=== PATIENT | male | born 1945 | race Caucasian/White ===

== ENCOUNTER 2018-11-14 11:52 | Emergency (ER) | payer MEDICARE ==
--- OUTSIDE RECORDS SUMMARY | 2018-11-14 12:02 | XMS REPORT | Continuity of Care Document ---
:1945 External Reference #:[id number] Author Name Arlette Vargas N.P. Address [address] [place] [id number] Care Team Providers Name Role Phone Arlette Vargas N.P. Care Team Information [employer] Unavailable Payers Date Identification Numbers Payment Provider Subscriber Policy Number: [id number] [facility] Medicare [employer] Number: [id number] [address] [address] PayID: [id number] [facility] [address] Expires: 2008 Policy Number: [id number] [facility] [address] [employer] Group Number: [id number] [address] [address] PayID: [id number] [place] [address] Problems Active Problems Provider Date Benign essential hypertension Onset: 09/30/2009 Pure hypercholesterolemia Onset: 09/30/2009 Chronic obstructive lung disease Arlette Vargas N.Eric Onset: 02/01/2015 Family History Date Family Member(s) Observation Comments Father due to Old Age () Mother due to Cancer, Skin () First Brother due to Diabetes () Second Brother Good Health Social History Type Date Description Comments Sex Unknown Marital Status Lives With Spouse Occupation [employer] Tobacco Use Start: Unknown Current Cigarette Smoker 1 1/2 Packs Daily ETOH Use Consumes 2 six packs of beer per day Tobacco Use Start: Unknown Patient is a current smoker, smokes every day Smoking Status Reviewed: 07/19/18 Patient is a current smoker, smokes every day Allergies, Adverse Reactions, Alerts Description No Known Drug Allergies Medications Active Medications SIG Qnty Indications Ordering Provider Date Aspirin 1 po qd Arlette Vargas, 04/19/[address] N.PMerle Losartan Take One Tablet 90tabs Arlette Vargas, 01/18/2018 Potassium/Hydrochloro By Mouth Every N.P. thiazide Day 100-12.5mg Tablets Meloxicam Take One Tablet 90tabs Sam [facility], 10/19/2017 15mg Tablets By Mouth Every N.P. Day Spiriva Respimat inhale two puffs 12gm [facility], 04/20/2017 by mouth every N.P. 2.5mcg/Act Aerosol day Simvastatin Take One Tablet 90tabs Sam, [facility], 04/30/2014 20mg By Mouth Every N.P. Tablets Day History Medications Valsartan-Hydrochlorothiazide Take One Tablet 90tabs Sam, 04/20/2017 - 160-12.5mg Tablets By Mouth Every [facility], 01/18/2018 Day N.P. Valsartan/Hydrochlorothiazide take one tablet 90tabs Sam, 01/18/2017 - 160-12.5 Tablets by mouth every [facility], 04/20/2017 day N.P. Tramadol HCL 1 by mouth 30tabs [facility], 01/30/2016 - 50mg Tablets every 8h as [facility], 05/04/2016 needed pain N.P. Spiriva Handihaler inhale the 30caps [facility], 02/01/2015 - 18mcg Capsules contents of one [facility]04/20/2017 capsule via N.P. handihaler by mouth every day Diovan HCT take one tablet 90bs Sam, 05/18/2014 - 160-12.5mg Tablets by mouth every [facility], 01/18/2017 day N.P. Losartan 1 by mouth 90bs [facility], 04/30/2014 - Potassium/Hydrochlorothiazide every day [facility], 05/18/2014 50-12.5mg Tablets N.P. Losartan Potassium 1 by mouth 90tabs [facility], 11/01/2013 - 50mg Tablets every day [facility], 04/30/2014 N.P. Fluocinonide apply sparingly 60gm Sam, 04/27/2013 - 0.05% Cream to itchy rash [facility], 11/01/2014 three times a N.P. day Medrol Dosepak as directed 1PK [facility], 04/27/2013 - 4mg Tablets [facility], 07/31/2013 N.P. Zostavax 0.65ml sq .65ml [facility], 03/01/2013 - [id number]/0.65ML Solution Rec [facility], 04/27/2013 N.P. Crestor 10mg 1 by mouth 90tabs Sam, 10/14/2009 - Tablets every day [facility], 04/30/2014 N.P. Benicar 40mg 1 po qd 90tabs [facility], 10/14/2009 - Tablets [facility], 11/01/2013 N.P. Spiriva Handihaler 1 inhale qd 90caps [facility], 09/30/2009 - 18mcg Capsules [facility], 11/01/2014 N.P. Micardis 80mg 1 po qd 30tabs [facility], 11/08/2008 - Tablets [facility], 10/14/2009 N.P. Heather 5-40mg 1 po qd 30tabs [facility], 11/01/2007 - Tablets [facility], 10/14/2009 N.P. Zestoretic 1 PO qd 30tabs [facility], 10/03/2007 - 20-12.5 Tablets [facility], 10/03/2007 N.P. Zestril 40mg 1 po qd 30tabs [facility], 10/03/2007 - Tablets [facility], 11/01/2007 N.P. Zestoretic 1 po qd 30tabs [facility], 09/02/2007 - 20-12.5 Tablets [facility], 10/03/2007 N.P. Zestoretic 1 po qd 30tabs [facility], 08/19/2007 - 20-12.5 Tablets [facility], 09/02/2007 N.P. Immunizations CPT Code Status Date Vaccine Lot # [id number] Given 04/19/2018 Influenza Vac, Quadrivalent, Split, 0.5mL Dosage, [id number] Im Use 25567 Given 04/20/2017 Influenza Vac, Quadrivalent, Split, 0.5mL Dosage, [id number] Im Use 99196 Given 07/21/2016 Prevnar 13 Pneumococal Conjugate Vaccine [id number] 06003 Given 04/13/2016 Influenza Vaccine,Quadrivalent,SplitVirus,Pres Free, Intradermal 53324 Given 04/08/2015 Influenza Vac, Quadrivalent, Split, 0.5mL Dosage, [id number] Im Use 97059 Given 05/12/2013 Tdap (Boostrix)tetanus, diptheria toxoid & [id number] acellular pertussis 29927 Given 04/27/2013 Pneumococcal 23 Immunization Adult Or [id number] Immunosuppressed Patient Q2038 Given 03/01/2013 Fluzone Trivalent Immunization Q2038 Given 03/01/2013 Fluzone Trivalent Immunization [id number] 49842 Given 03/01/2013 Zoster (Zostavax) Q2038 Given 04/27/2011 Fluzone Trivalent Immunization [id number] 36558 Given 03/11/2010 Afluria Or Fluvirin Flu Vac Intramuscular [id number] 07092 Given 12/03/1999 Immunization Td 7 Yrs Or Older 31433 Refused 03/27/2018 Influenza Vac, Quadrivalent, Split, 0.5mL Dosage, Im Use Vital Signs Date Vital Result Comment 10/17/2018 8:58am Body Temperature 98.6 F Weight 167.38 lb Heart Rate 69 /min BP Systolic 142 mmHg BP Diastolic 80 mmHg Height 69 inches 5'9" O2 % BldC Oximetry 95 % BMI (Body Mass Index) 24.7 kg/m2 07/19/2018 9:04am Body Temperature 98.4 F Weight 169.00 lb Heart Rate 70 /min BP Systolic 160 mmHg Manual BP Diastolic 88 mmHg Manual Height 70 inches 5'10" BMI (Body Mass Index) 24.2 kg/m2 04/19/2018 8:58am Body Temperature 97.5 F Weight 165.00 lb Heart Rate 66 /min BP Systolic 138 mmHg BP Diastolic 76 mmHg O2 % BldC Oximetry 94 % 01/18/2018 8:51am Body Temperature 98.1 F Weight 163.00 lb Heart Rate 70 /min BP Systolic 140 mmHg BP Diastolic 80 mmHg O2 % BldC Oximetry 97 % 10/19/2017 8:54am Body Temperature 98.1 F Weight 165.00 lb Heart Rate 61 /min BP Systolic 139 mmHg BP Diastolic 82 mmHg O2 % BldC Oximetry 96 % 07/20/2017 8:25am Body Temperature 98.6 F Weight 166.00 lb Heart Rate 70 /min BP Systolic 136 mmHg BP Diastolic 70 mmHg Height 70 inches 5'10" O2 % BldC Oximetry 97 % BMI (Body Mass Index) 23.8 kg/m2 04/20/2017 8:12am Body Temperature 98.2 F Weight 170.25 lb Heart Rate 67 /min BP Systolic 132 mmHg BP Diastolic 82 mmHg O2 % BldC Oximetry 93 % 01/18/2017 8:03am Body Temperature 98.1 F Weight 164.38 lb Heart Rate 70 /min BP Systolic 153 mmHg BP Diastolic 81 mmHg O2 % BldC Oximetry 96 % 10/15/2016 8:00am Body Temperature 98.2 F Weight 177.12 lb Heart Rate 73 /min BP Systolic 174 mmHg BP Diastolic 93 mmHg O2 % BldC Oximetry 94 % 07/21/2016 8:07am Body Temperature 98.4 F Weight 177.38 lb Heart Rate 65 /min BP Systolic 166 mmHg BP Diastolic 82 mmHg Height 70 inches 5'10" O2 % BldC Oximetry 97 % BMI (Body Mass Index) 25.4 kg/m2 05/04/2016 8:09am Body Temperature 98.8 F Weight 176.38 lb Heart Rate 69 /min BP Systolic 180 mmHg BP Diastolic 94 mmHg O2 % BldC Oximetry 96 % 01/30/2016 8:26am Body Temperature 97.9 F Weight 175.12 lb Heart Rate 68 /min BP Systolic 153 mmHg BP Diastolic 83 mmHg O2 % BldC Oximetry 97 % 10/31/2015 8:26am Body Temperature 98.8 F Weight 183.00 lb Heart Rate 89 /min BP Systolic 170 mmHg BP Diastolic 86 mmHg O2 % BldC Oximetry 93 % 07/29/2015 8:27am Body Temperature 98.4 F Weight 183.19 lb Heart Rate 71 /min BP Systolic 152 mmHg BP Diastolic 79 mmHg O2 % BldC Oximetry 95 % 04/29/2015 8:22am Body Temperature 97.5 F Weight 179.12 lb Heart Rate 64 /min BP Systolic 155 mmHg BP Diastolic 80 mmHg O2 % BldC Oximetry 97 % 02/01/2015 8:16am Body Temperature 97.9 F Weight 177.12 lb Heart Rate 76 /min BP Systolic 159 mmHg BP Diastolic 86 mmHg O2 % BldC Oximetry 93 % O2 Saturation Level with Exercise 86 % 11/01/2014 7:56am Body Temperature 98.1 F Weight 180.00 lb Heart Rate 58 /min BP Systolic 162 mmHg BP Diastolic 75 mmHg O2 % BldC Oximetry 96 % 07/30/2014 8:08am Body Temperature 97.5 F Weight 183.00 lb Heart Rate 64 /min BP Systolic 160 mmHg BP Diastolic 73 mmHg O2 % BldC Oximetry 98 % 05/18/2014 9:25am Weight 177.50 lb Heart Rate 63 /min BP Systolic 176 mmHg BP Diastolic 83 mmHg O2 % BldC Oximetry 96 % 04/30/2014 8:22am Body Temperature 98.2 F Weight 179.12 lb Heart Rate 72 /min BP Systolic 159 mmHg BP Diastolic 95 mmHg O2 % BldC Oximetry 93 % 01/31/2014 8:14am Body Temperature 98.2 F Weight 180.12 lb Heart Rate 63 /min BP Systolic 159 mmHg BP Diastolic 74 mmHg O2 % BldC Oximetry 96 % 11/01/2013 8:18am Body Temperature 98.1 F Weight 188.25 lb Heart Rate 68 /min BP Systolic 150 mmHg BP Diastolic 90 mmHg O2 % BldC Oximetry 96 % 07/31/2013 8:22am Body Temperature 98.0 F Weight 188.00 lb Heart Rate 66 /min BP Systolic 142 mmHg BP Diastolic 80 mmHg O2 % BldC Oximetry 95 % 04/27/2013 8:13am Body Temperature 98.2 F Weight 181.50 lb Heart Rate 63 /min BP Systolic 142 mmHg BP Diastolic 90 mmHg O2 % BldC Oximetry 96 % 01/26/2013 8:30am Body Temperature 96.0 F Weight 176.00 lb Heart Rate 68 /min BP Systolic 142 mmHg BP Diastolic 80 mmHg O2 % BldC Oximetry 97 % 10/26/2012 8:08am Body Temperature 98.3 F Weight 182.38 lb Heart Rate 65 /min BP Systolic 150 mmHg BP Diastolic 82 mmHg O2 % BldC Oximetry 95 % 06/15/2012 9:17am Body Temperature 98.2 F Weight 180.12 lb Heart Rate 62 /min BP Systolic 128 mmHg BP Diastolic 80 mmHg O2 % BldC Oximetry 97 % 04/27/2011 10:53am Body Temperature 98.2 F Weight 162.00 lb Heart Rate 66 /min BP Systolic 145 mmHg BP Diastolic 85 mmHg O2 % BldC Oximetry 97 % 12/18/2010 8:34am Body Temperature 97.9 F Weight 161.00 lb Heart Rate 58 /min BP Systolic 120 mmHg BP Diastolic 60 mmHg Height 70 inches 5'10" O2 % BldC Oximetry 96 % BMI (Body Mass Index) 23.1 kg/m2 09/30/2010 9:08am Weight 172.00 lb Heart Rate 67 /min BP Systolic 130 mmHg BP Diastolic 80 mmHg O2 % BldC Oximetry 96 % 03/11/2010 10:14am Body Temperature 98.3 F Weight 170.00 lb Heart Rate 63 /min BP Systolic 110 mmHg BP Diastolic 80 mmHg O2 % BldC Oximetry 94 % 11/11/2009 9:40am Body Temperature 98.2 F Weight 181.00 lb Heart Rate 60 /min BP Systolic 142 mmHg BP Diastolic 80 mmHg Height 70 inches 5'10" O2 % BldC Oximetry 96 % BMI (Body Mass Index) 26.0 kg/m2 10/14/2009 9:46am Body Temperature 98.0 F Weight 179.00 lb Heart Rate 52 /min BP Systolic 140 mmHg BP Diastolic 90 mmHg Height 70 inches 5'10" O2 % BldC Oximetry 96 % BMI (Body Mass Index) 25.7 kg/m2 09/30/2009 9:57am Body Temperature 98.1 F Weight 179.00 lb Heart Rate 80 /min BP Systolic 142 mmHg BP Diastolic 78 mmHg 02/22/2009 9:47am Body Temperature 97.9 F Weight 184.00 lb Heart Rate 88 /min BP Systolic 144 mmHg BP Diastolic 90 mmHg 11/22/2008 9:43am Body Temperature 98.0 F Weight 189.00 lb Heart Rate 58 /min BP Systolic 128 mmHg BP Diastolic 78 mmHg Height 70 inches 5'10" O2 % BldC Oximetry 91 % BMI (Body Mass Index) 27.1 kg/m2 11/08/2008 9:35am Body Temperature 97.9 F Weight 193.00 lb Heart Rate 54 /min BP Systolic 160 mmHg BP Diastolic 90 mmHg 06/12/2008 2:34pm Body Temperature 98.4 F Weight 188.00 lb Heart Rate 61 /min BP Systolic 134 mmHg BP Diastolic 88 mmHg Height 70 inches 5'10" O2 % BldC Oximetry 96 % BMI (Body Mass Index) 27.0 kg/m2 02/16/2008 9:12am Body Temperature 98.0 F Weight 179.00 lb Heart Rate 58 /min BP Systolic 140 mmHg BP Diastolic 80 mmHg Height 70 inches 5'10" BMI (Body Mass Index) 25.7 kg/m2 11/15/2007 9:04am Body Temperature 98.1 F Weight 180.00 lb Heart Rate 64 /min BP Systolic 136 mmHg BP Diastolic 72 mmHg Height 70 inches 5'10" BMI (Body Mass Index) 25.8 kg/m2 11/01/2007 8:04am Body Temperature 98.5 F Weight 190.00 lb Heart Rate 68 /min BP Systolic 174 mmHg BP Diastolic 94 mmHg Height 70 inches 5'10" BMI (Body Mass Index) 27.3 kg/m2 10/03/2007 8:53am Body Temperature 98.1 F Weight 189.00 lb Heart Rate 72 /min BP Systolic 154 mmHg BP Diastolic 96 mmHg Height 70 inches 5'10" BMI (Body Mass Index) 27.1 kg/m2 09/02/2007 8:56am Weight 194.00 lb Heart Rate 68 /min BP Systolic 165 mmHg BP Diastolic 89 mmHg Height 70 inches 5'10" BMI (Body Mass Index) 27.8 kg/m2 08/19/2007 8:38am Body Temperature 98.2 F Weight 193.00 lb Heart Rate 62 /min BP Systolic 178 mmHg BP Diastolic 100 mmHg Height 70 inches 5'10" BMI (Body Mass Index) 27.7 kg/m2 Results Test Date Facility Test Result H/L Range Note Comprehensive Met Panel-[facility] 10/17/2018 [facility] Sodium 133 mmol/L Low 135 -146 1, 2 Potassium 4.8 mmol/L 3.5-5.2 Chloride# 95 mmol/L Low 97-110 3 Carbon Dioxide 31 mmol/L 24-34 Calcium 9.7 mg/dL 8.5-10.5 4 Glucose 99 mg/dL 70-105 BUN 9 mg/dL 6-26 Creatinine 0.6 mg/dL 0.5-1.4 Total Protein 6.1 g/dL 6.0-8.0 Albumin 4.2 g/dL 3.6-4.9 Globulin 1.9 g/dL Low 2.0-3.5 A/G Ratio 2.2 Ratio 1.0-2.2 Total Bilirubin 0.6 mg/dL 0.1-1.3 Alkaline Phosphatase 122 U/L 24-140 Alt 10 U/L 3-42 Ast 17 U/L 8-42 Anion Gap 7 mmol/L 5-15 5 Female Egfr 88 >60 6 Male Egfr 97 >60 7 Lipid 10/17/2018 [facility] Cholesterol 214 mg/dL High 50-199 Triglycerides 44 mg/dL 30-200 HDL 108 mg/dL High 29-71 8 Chol/ HDL Ratio 2.0 ratio Low 4.0-6.7 VLDL 9 mg/dL 2-29 LDL (Calc) 97 mg/dL 20-99 9 Laboratory test finding 04/19/2018 [facility] PSA 3.130 ng/mL 0.000-4.000 10 Comprehensive Met Panel-[facility] 04/19/2018 [facility] Sodium 133 mmol/L Low 135 -146 11 Potassium 4.4 mmol/L 3.5-5.2 Chloride# 94 mmol/L Low 97-110 12 Carbon Dioxide 31 mmol/L 24-34 Glucose 91 mg/dL 70-105 BUN 9 mg/dL 6-26 Creatinine 0.6 mg/dL 0.5-1.4 Calcium 9.7 mg/dL 8.5-10.2 Total Protein 6.0 g/dL 6.0-8.0 Albumin 4.2 g/dL 3.6-4.9 Globulin 1.8 g/dL Low 2.0-3.5 A/G Ratio 2.3 Ratio High 1.0-2.2 Total Bilirubin 0.7 mg/dL 0.1-1.3 Alkaline Phosphatase 122 U/L 24-140 Alt 9 U/L 3-42 Ast 15 U/L 8-42 Leila Egfr >60 >60 13 Non Leila Egfr >60 >60 14 Anion Gap 8 mmol/L 5-15 15 Comprehensive Met Panel-[facility] 10/19/2017 [facility] Sodium 133 mmol/L Low 135 -146 16, 17 Potassium 4.4 mmol/L 3.5-5.2 Chloride# 96 mmol/L Low 97-110 18 Carbon Dioxide 30 mmol/L 24-34 Glucose 95 mg/dL 70-105 BUN 6 mg/dL 6-26 Creatinine 0.6 mg/dL 0.5-1.4 Calcium 9.8 mg/dL 8.5-10.2 Total Protein 6.1 g/dL 6.0-8.0 Albumin 4.2 g/dL 3.6-4.9 Globulin 1.9 g/dL Low 2.0-3.5 A/G Ratio 2.2 Ratio 1.0-2.2 Total Bilirubin 0.6 mg/dL 0.1-1.3 Alkaline Phosphatase 113 U/L 24-140 Alt 8 U/L 3-42 Ast 14 U/L 8-42 Leila Egfr >60 >60 19 Non Leila Egfr >60 >60 20 Anion Gap 7 mmol/L 5-15 21 Lipid 10/19/2017 [facility] Cholesterol 215 mg/dL High 50-199 Triglycerides 58 mg/dL 30-200 HDL 101 mg/dL High 22 Chol/ HDL Ratio 2.1 ratio Low 4.0-6.7 VLDL 12 mg/dL 2-29 LDL (Calc) 103 mg/dL High 23 Comprehensive Met Panel[facility] 04/20/2017 [facility] Sodium 133 mmol/L Low 135 -146 24 Potassium 5.4 mmol/L High 3.5-5.2 Chloride# 94 mmol/L Low 97-110 25 Carbon Dioxide 30 mmol/L 24-34 Glucose 97 mg/dL 70-105 Creatinine 0.8 mg/dL 0.5-1.4 Calcium 9.8 mg/dL 8.5-10.2 Total Protein 6.6 g/dL 6.0-8.0 Albumin 4.3 g/dL 3.6-4.9 Globulin 2.3 g/dL 2.0-3.5 A/G Ratio 1.9 Ratio 1.0-2.2 Total Bilirubin 0.5 mg/dL 0.1-1.3 Alkaline Phosphatase 120 U/L 24-140 Alt 9 U/L 3-42 Ast 17 U/L 8-42 Leila Egfr >60 >60 26 Non Leila Egfr >60 >60 27 Anion Gap 9 mmol/L 7-16 28 BUN 9 mg/dL 6-26 Lipid 04/20/2017 [facility] Cholesterol 245 mg/dL High 50-199 Triglycerides 68 mg/dL 30-200 HDL 95 mg/dL High 29 Chol/ HDL Ratio 2.6 ratio Low 4.0-6.7 VLDL 14 mg/dL 2-29 LDL (Calc) 136 mg/dL High 30 Laboratory test finding 01/18/2017 [facility] PSA 2.620 ng/mL 0.000-4.000 31, 32 Comprehensive Met 01/18/2017 [facility] Sodium 134 mmol/L Low 135-146 33 Panel-[facility] Potassium 4.9 mmol/L 3.5-5.2 Chloride# 94 Electrolytes <SEE NOTE> mmol/L Low 97-110 34 Carbon Dioxide 28 mmol/L 24-34 Glucose 89 mg/dL 70-105 BUN 7 mg/dL 6-26 Creatinine 0.7 mg/dL 0.5-1.4 Calcium 9.7 mg/dL 8.5-10.2 Total Protein 6.5 g/dL 6.0-8.0 Albumin 4.2 g/dL 3.6-4.9 Globulin 2.3 g/dL 2.0-3.5 A/G Ratio 1.8 Ratio 1.0-2.2 Total Bilirubin 0.6 mg/dL 0.1-1.3 Alkaline Phosphatase 108 U/L 24-140 Alt 9 U/L 3-42 Ast 18 U/L 8-42 Leila Egfr >60 >60 35 Non Leila Egfr >60 >60 36 Anion Gap 12 mmol/L 7-16 37 Lipid 01/18/2017 [facility] Cholesterol 218 mg/dL High 50-199 Triglycerides 63 mg/dL 30-200 HDL 100 mg/dL High 29 38 Chol/ HDL Ratio 2.2 ratio Low 4.0-6.7 VLDL 13 mg/dL 2-29 LDL (Calc) 105 mg/dL High 20-99 39 Lipid 07/21/2016 [facility] Cholesterol 202 mg/dL High 50-199 40 Triglycerides 57 mg/dL 30-200 HDL 96 mg/dL High 41 Chol/ HDL Ratio 2.1 ratio Low 4.0-6.7 VLDL 11 mg/dL 2-29 LDL (Calc) 95 mg/dL 20-99 42 Comprehensive Metabolic (CMP) 07/21/2016 [facility] Sodium 133 mmol/L Low 134-142 Potassium 5.3 No visible h <SEE NOTE> mmol/L High 3.5-5.2 43 Chloride 97 mmol/L 97-109 Carbon Dioxide 30 mmol/L 24-34 Glucose 102 mg/dL 70-105 BUN 8 mg/dL 6-26 Creatinine 0.7 mg/dL 0.5-1.4 Calcium 9.8 mg/dL 8.5-10.2 Total Protein 6.5 g/dL 6.0-8.0 Albumin 4.2 g/dL 3.6-4.9 Globulin 2.3 g/dL 2.0-3.5 A/G Ratio 1.8 Ratio 1.0-2.2 Total Bilirubin 0.6 mg/dL 0.1-1.3 Alkaline Phosphatase 119 U/L 24-140 Alt 11 U/L 3-42 Ast 19 U/L 8-42 Anion Gap 11 mmol/L 6-14 Leila Egfr >60 >60 44 Non Leila Egfr >60 >60 45 Lipid 01/30/2016 [facility] Cholesterol 204 mg/dL High 50-199 46 Triglycerides 54 mg/dL 30-200 HDL 97 mg/dL High 29-71 47 Chol/ HDL Ratio 2.1 ratio Low 4.0-6.7 VLDL 11 mg/dL 2-29 LDL (Calc) 96 mg/dL 20-99 48 Comprehensive Metabolic (CMP) 01/30/2016 [facility] Sodium 132 mmol/L Low 134-142 Potassium 5.2 mmol/L 3.5-5.2 Chloride 92 mmol/L Low 97-109 Carbon Dioxide 32 mmol/L 24-34 Glucose 93 mg/dL 70-105 BUN 5 mg/dL Low 6-26 Creatinine 0.7 mg/dL 0.5-1.4 Calcium 10.0 mg/dL 8.5-10.2 Total Protein 6.6 g/dL 6.0-8.0 Albumin 4.2 g/dL 3.6-4.9 Globulin 2.4 g/dL 2.0-3.5 A/G Ratio 1.8 Ratio 1.0-2.2 Total Bilirubin 0.6 mg/dL 0.1-1.3 Alkaline Phosphatase 100 U/L 24-140 Alt 8 U/L 3-42 Ast 15 U/L 8-42 Anion Gap 13 mmol/L 6-14 Leila Egfr >60 >60 49 Non Leila Egfr >60 >60 50 Laboratory test 10/31/2015 [facility] PSA 2.260 ng/mL 0.000-4.000 51, 52 finding Comprehensive 10/31/2015 [facility] Sodium 133 Consistent w Low 134-142 53 Metabolic (CMP) <SEE NOTE> mmol/L Potassium 5.3 Specimen Sli <SEE NOTE> mmol/L High 3.5-5.2 54 Chloride 99 mmol/L 97-109 Carbon Dioxide 27 mmol/L 24-34 Glucose 85 mg/dL 70-105 BUN 7 mg/dL 6-26 Creatinine 0.7 mg/dL 0.5-1.4 Calcium 9.6 mg/dL 8.5-10.2 Total Protein 6.6 g/dL 6.0-8.0 Albumin 4.2 g/dL 3.6-4.9 Globulin 2.4 g/dL 2.0-3.5 A/G Ratio 1.8 Ratio 1.0-2.2 Total Bilirubin 0.5 mg/dL 0.1-1.3 Alkaline Phosphatase 110 U/L 24-140 Alt 12 U/L 3-42 Ast 19 U/L 8-42 Anion Gap 12 mmol/L 6-14 Leila Egfr >60 >60 55 Non Leila Egfr >60 >60 56 Lipid 10/31/2015 [facility] Cholesterol 214 mg/dL High 50-199 Triglycerides 89 mg/dL 30-200 HDL 86 mg/dL High 57 Chol/ HDL Ratio 2.5 ratio Low 4.0-6.7 VLDL 18 mg/dL 2-29 LDL (Calc) 110 mg/dL High 2099 58 Comprehensive 04/29/2015 [facility] Sodium 133 Consistent w Low 134-142 59 , 60 Metabolic (CMP) <SEE NOTE> mmol/L Potassium 4.7 mmol/L 3.5-5.2 Chloride 99 mmol/L 97-109 Carbon Dioxide 29 mmol/L 24-34 Glucose 92 mg/dL 70-105 BUN 7 mg/dL 11-30 Creatinine 0.7 mg/dL 0.5-1.4 Calcium 9.4 mg/dL 8.5-10.2 Total Protein 6.3 g/dL 6.0-8.0 Albumin 4.1 g/dL 3.6-4.9 Globulin 2.2 g/dL 2.0-3.5 A/G Ratio 1.9 Ratio 1.0-2.2 Total Bilirubin 0.6 mg/dL 0.1-1.3 Alkaline Phosphatase 104 U/L 24-140 Alt 9 U/L 3-42 Ast 15 U/L 8-42 Anion Gap 10 mmol/L - Leila Egfr >60 >60 61 Non Leila Egfr >60 >60 62 Lipid 04/29/2015 [facility] Cholesterol 206 mg/dL High 50-199 Triglycerides 62 mg/dL 30-200 HDL 92 mg/dL High 63 Chol/ HDL Ratio 2.2 ratio Low 4.0-6.7 VLDL 12 mg/dL 2-29 LDL (Calc) 102 mg/dL High 64 Comprehensive Metabolic (CMP) 02/01/2015 [facility] Sodium 133 mmol/L Low 134-142 65 Potassium 4.7 mmol/L 3.5-5.2 Chloride 94 Electrolytes <SEE NOTE> mmol/L Low 97-109 66 Carbon Dioxide 32 mmol/L 24-34 Glucose 89 mg/dL 70-105 BUN 5 mg/dL Low 6-26 Creatinine 0.6 mg/dL 0.5-1.4 Calcium 9.6 mg/dL 8.5-10.2 Total Protein 6.6 g/dL 6.0-8.0 Albumin 4.3 g/dL 3.6-4.9 Globulin 2.3 g/dL 2.0-3.5 A/G Ratio 1.9 Ratio 1.0-2.2 Total Bilirubin 0.6 mg/dL 0.1-1.3 Alkaline Phosphatase 104 U/L 24-140 Alt 10 U/L 3-42 Ast 17 U/L 8-42 Anion Gap 12 mmol/L 6-14 Leila Egfr >60 >60 67 Non Leila Egfr >60 >60 68 Lipid 02/01/2015 [facility] Cholesterol 217 mg/dL High 50-199 Triglycerides 61 mg/dL 30-200 HDL 101 mg/dL High 29-71 69 Chol/ HDL Ratio 2.1 ratio Low 4.0-6.7 VLDL 12 mg/dL 2-29 LDL (Calc) 104 mg/dL High 20-99 70 CBC With Auto Diff 02/01/2015 [facility] WBC 6.6 K/uL 4.1-11.0 RBC 4.74 M/uL 4.60-6.10 Hemoglobin 16.3 gm/dL 13.5-18.0 Hematocrit 47.0 % 41.0-53.0 MCV 99.2 fL High 80.0-97.0 MCH 34.4 pg High 27.0-32.0 MCHC 34.7 g/dL 32.0-36.0 RDW 13.2 % 11.5-14.5 PLT Count 321 K/ul 140-400 Neutrophil 72.4 % 35.0-75.0 Lymphocyte 12.6 % Low 16.0-52.0 Monocyte 11.0 % High 2.0-10.0 Eosinophil 2.8 % 0.0-5.0 Basophil 1.2 % 0.0-4.0 Abs Neutrophils 4.8 K/uL 2.1-8.0 Abs Lymphocytes 0.8 K/uL 0.8-5.5 Abmon 0.7 K/uL 0.1-1.0 Abs Eosinophils 0.2 K/uL 0.0-0.5 Abs Basophils 0.1 K/uL 0.0-0.3 Lipid 11/01/2014 [facility] Cholesterol 204 mg/dL High 50-199 71 Triglycerides 58 mg/dL 30-200 HDL 109 mg/dL High 72 Chol/ HDL Ratio 1.9 ratio Low 4.0-6.7 VLDL 12 mg/dL 2-29 LDL (Calc) 83 mg/dL 20-99 73 Comprehensive Metabolic 11/01/2014 [facility] Sodium 131 Electrolytes <SEE Low 134-142 74 (CMP) NOTE> mmol/L Potassium 5.1 mmol/L 3.5-5.2 Chloride 94 mmol/L Low 97-109 Carbon Dioxide 29 mmol/L 24-34 Glucose 91 mg/dL 70-105 BUN 6 mg/dL 6-26 Creatinine 0.7 mg/dL 0.5-1.4 Calcium 9.6 mg/dL 8.5-10.2 Total Protein 6.7 g/dL 6.0-8.0 Albumin 4.4 g/dL 3.6-4.9 Globulin 2.3 g/dL 2.0-3.5 A/G Ratio 1.9 Ratio 1.0-2.2 Total Bilirubin 0.6 mg/dL 0.1-1.3 Alkaline Phosphatase 119 U/L 24-140 Alt 13 U/L 3-42 Ast 25 U/L 8-42 Anion Gap 13 mmol/L 6-14 Leila Egfr >60 >60 75 Non Leila Egfr >60 >60 76 Laboratory test 11/01/2014 [facility] PSA 1.910 ng/mL 0.000-4.000 77 finding Lipid 07/30/2014 [facility] Cholesterol 213 mg/dL High 50-199 Triglycerides 61 mg/dL 30-200 HDL 95 mg/dL High 78 Chol/ HDL Ratio 2.2 ratio Low 4.0-6.7 VLDL 12 mg/dL 2-29 LDL (Calc) 106 mg/dL High 20-99 79 Comprehensive Metabolic (CMP) 07/30/2014 [facility] Sodium 137 mmol/L 134- 142 Potassium 5.8 No visible h <SEE NOTE> mmol/L High 3.5-5.2 80 Chloride 98 mmol/L 97-109 Carbon Dioxide 32 mmol/L 24-34 Glucose 96 mg/dL 70-105 BUN 8 mg/dL 6-26 Creatinine 0.7 mg/dL 0.5-1.4 Calcium 9.8 mg/dL 8.5-10.2 Total Protein 6.4 g/dL 6.0-8.0 Albumin 4.2 g/dL 3.6-4.9 Globulin 2.2 g/dL 2.0-3.5 A/G Ratio 1.9 Ratio 1.0-2.2 Total Bilirubin 0.6 mg/dL 0.1-1.3 Alkaline Phosphatase 106 U/L 24-140 Alt 10 U/L 3-42 Ast 18 U/L 8-42 Anion Gap 13 mmol/L 6-14 Leila Egfr >60 >60 81 Non Leila Egfr >60 >60 82 Comprehensive Metabolic (CMP) 04/30/2014 [facility] Sodium 137 mmol/L 134- 142 83 Potassium 5.1 mmol/L 3.5-5.2 Chloride 101 mmol/L 97-109 Carbon Dioxide 26 mmol/L 24-34 Glucose 101 mg/dL 70-105 BUN 5 mg/dL Low 6-26 Creatinine 0.7 mg/dL 0.5-1.4 Calcium 9.8 mg/dL 8.5-10.2 Total Protein 6.6 g/dL 6.0-8.0 Albumin 4.2 g/dL 3.6-4.9 Globulin 2.4 g/dL 2.0-3.5 A/G Ratio 1.8 Ratio 1.0-2.2 Total Bilirubin 0.5 mg/dL 0.1-1.3 Alkaline Phosphatase 139 U/L 24-140 Alt 15 U/L 3-42 Ast 24 U/L 8-42 Anion Gap 15 mmol/L High 6-14 Leila Egfr >60 >60 84 Non Leila Egfr >60 >60 85 Lipid 04/30/2014 [facility] Cholesterol 181 mg/dL 50-199 Triglycerides 76 mg/dL 30-200 HDL 92 mg/dL High 29-71 86 Chol/ HDL Ratio 2.0 ratio Low 4.0-6.7 VLDL 15 mg/dL 2-29 LDL (Calc) 74 mg/dL 20-99 87 Comprehensive Metabolic 01/31/2014 [facility] Sodium 133 Results veri Low 134-142 88 (CMP) <SEE NOTE> mmol/L Potassium 5.1 mmol/L 3.5-5.2 Chloride 97 mmol/L 97-109 Carbon Dioxide 28 mmol/L 24-34 Glucose 86 mg/dL 70-105 BUN 7 mg/dL 6-26 Creatinine 0.6 mg/dL 0.5-1.4 Calcium 10.0 mg/dL 8.5-10.2 Total Protein 6.6 g/dL 6.0-8.0 Albumin 4.3 g/dL 3.6-4.9 Globulin 2.3 g/dL 2.0-3.5 A/G Ratio 1.9 Ratio 1.0-2.2 Total Bilirubin 0.9 mg/dL 0.1-1.3 Alkaline Phosphatase 124 U/L 24-140 Alt 12 U/L 3-42 Ast 20 U/L 8-42 Anion Gap 13 mmol/L 6-14 Leila Egfr >60 >60 89 Non Leila Egfr >60 >60 90 Lipid 01/31/2014 [facility] Cholesterol 195 mg/dL 50-199 Triglycerides 63 mg/dL 30-200 HDL 91 mg/dL High 29-71 91 Chol/ HDL Ratio 2.1 ratio Low 4.0-6.7 VLDL 13 mg/dL 2-29 LDL (Calc) 91 mg/dL 20-99 92 Lipid 11/01/2013 [facility] Cholesterol 222 mg/dL High 50-199 Triglycerides 85 mg/dL 30-200 HDL 92 mg/dL High 29-71 93 Chol/ HDL Ratio 2.4 ratio Low 4.0-6.7 VLDL 17 mg/dL 2-29 LDL (Calc) 113 mg/dL High 20-99 94 Laboratory test finding 11/01/2013 [facility] PSA 1.82 ng/mL 0.00-4.00 95 Comprehensive Metabolic (CMP) 11/01/2013 [facility] Sodium 137 mmol/L 134- 142 Potassium 5.3 No visible h <SEE NOTE> mmol/L High 3.5-5.2 96 Chloride 102 mmol/L 97-109 Carbon Dioxide 29 mmol/L 24-34 Glucose 92 mg/dL 70-105 BUN 6 mg/dL 6-26 Creatinine 0.7 mg/dL 0.5-1.4 Calcium 10.0 mg/dL 8.5-10.2 Total Protein 6.8 g/dL 6.0-8.0 Albumin 4.5 g/dL 3.6-4.9 Globulin 2.3 g/dL 2.0-3.5 A/G Ratio 2.0 Ratio 1.0-2.2 Total Bilirubin 0.6 mg/dL 0.1-1.3 Alkaline Phosphatase 111 U/L 24-140 Alt 13 U/L 3-42 Ast 26 U/L 8-42 Anion Gap 11 mmol/L 6- Leila Egfr >60 >60 97 Non Leila Egfr >60 >60 98 Lipid 04/27/2013 [facility] Cholesterol 179 mg/dL 50-199 99 Triglycerides 66 mg/dL 30-200 HDL 77 mg/dL High - 100 Chol/ HDL Ratio 2.3 ratio Low 4.0-6.7 VLDL 13 mg/dL 2-29 LDL (Calc) 89 mg/dL 20- 101 Comprehensive Metabolic (CMP) 04/27/2013 [facility] Sodium 137 mmol/L 134- 142 Potassium 4.8 mmol/L 3.5-5.2 Chloride 103 mmol/L 97-109 Carbon Dioxide 29 mmol/L 24-34 Glucose 94 mg/dL 70-105 BUN 8 mg/dL 6- Creatinine 0.7 mg/dL 0.5-1.4 Calcium 9.3 mg/dL 8.5-10.2 Total Protein 6.3 g/dL 6.0-8.0 Albumin 4.3 g/dL 3.6-4.9 Globulin 2.0 g/dL 2.0-3.5 A/G Ratio 2.2 Ratio 1.0-2.2 Total Bilirubin 0.5 mg/dL 0.1-1.3 Alkaline Phosphatase 132 U/L 24-140 Alt 11 U/L 3-42 Ast 20 U/L 8-42 Anion Gap 10 mmol/L - Leila Egfr >60 >60 102 Non Leila Egfr >60 >60 103 Laboratory test finding 10/26/2012 [facility] PSA 1.97 ng/mL 0.00-4.00 104 Lipid Treatment 10/26/2012 [facility] Cholesterol 189 mg/dL 50-199 Triglycerides 99 mg/dL 30-200 HDL 90 mg/dL High 105 Chol/ HDL Ratio 2.1 ratio Low 4.0-6.7 VLDL 20 mg/dL 2-29 LDL (Calc) 79 mg/dL 20-99 106 Alt 11 U/L 3-42 Ast 18 U/L 8-42 Lipid 06/15/2012 [facility] Cholesterol 192 mg/dL 50-199 Triglycerides 59 mg/dL 30-200 HDL 86 mg/dL High 29 107 Chol/ HDL Ratio 2.2 ratio Low 4.0-6.7 VLDL 12 mg/dL 2-29 LDL (Calc) 94 mg/dL 20-129 108 Non HDL Cholesterol 106 mg/dL 20-129 109 Comprehensive Metabolic ([facility]) 06/15/2012 [facility] Sodium 139 mmol/L 134- 142 Potassium 5.1 mmol/L 3.5-5.2 Chloride 100 mmol/L 97-109 Carbon Dioxide 31 mmol/L 24-34 Glucose 94 mg/dL 70-105 BUN 9 mg/dL 6-26 Creatinine 0.6 mg/dL 0.5-1.4 Calcium 9.5 mg/dL 8.5-10.2 Total Protein 6.6 g/dL 6.0-8.0 Albumin 4.1 g/dL 3.6-4.9 Globulin 2.5 g/dL 2.0-3.5 A/G Ratio 1.6 Ratio 1.0-2.2 Total Bilirubin 0.6 mg/dL 0.1-1.3 Alkaline Phosphatase 134 U/L 24-140 Alt 11 U/L 3-42 Ast 17 U/L 8-42 Anion Gap 13 mmol/L 6-14 Leila Egfr >60 >60 110 Non Leila Egfr >60 >60 111 Comprehensive Metabolic ([facility]) 04/27/2011 [facility] Sodium 138 mmol/L 135- 144 112 Potassium 5.0 mmol/L 3.6-5.2 Chloride 98 mmol/L 97-110 Carbon Dioxide 32 mmol/L 23-32 Glucose 99 mg/dL 70-105 BUN 4 mg/dL Low 6-22 Creatinine 0.7 mg/dL 0.5-1.3 Calcium 9.5 mg/dL 8.6-10.2 BUN/CR 6 ratio Low 12-20 Total Protein 6.6 g/dL 5.8-7.8 Albumin 4.1 g/dL 3.5-4.8 Globulin 2.5 g/dL 2.0-3.5 A/G Ratio 1.6 Ratio 1.0-2.2 Total Bilirubin 0.9 mg/dL 0.3-1.2 Alkaline Phosphatase 107 U/L 24-140 Alt 17 U/L 5-45 Ast 27 U/L 12-40 Anion Gap 13 mmol/L 8-16 Non Leila Egfr >60 >60 113 Leila Egfr >60 >60 114 Lipid 04/27/2011 [facility] Cholesterol 212 mg/dL High 50-199 Triglycerides 75 mg/dL 10-150 HDL 105 mg/dL High 29-71 115 Chol/ HDL Ratio 2.0 ratio Low 4.0-6.7 VLDL 15 mg/dL 2-29 LDL (Calc) 92 mg/dL 20-129 116 Laboratory test 04/27/2011 [facility] PSA 1.60 ng/mL 0.00-4.00 117 finding Lipid Treatment 04/27/2011 [facility] Rejected Test Cancelled Reason CBC With Auto Diff 12/18/2010 [facility] WBC 6.4 K/uL 4.1-11.0 118 RBC 4.84 M/uL 4.60-6.10 Hemoglobin 16.5 gm/dL 13.5-18.0 Hematocrit 48.1 % 41.0-53.0 MCV 99.5 fL High 80.0-97.0 MCH 34.1 pg High 27.0-32.0 MCHC 34.2 g/dL 32.0-36.0 RDW 13.8 % 11.5-14.5 PLT Count 288 K/ul 140-400 Neutrophil 70.7 % 35.0-75.0 Lymphocyte 16.5 % 16.0-52.0 Monocyte 10.2 % High 2.0-10.0 Eosinophil 2.4 % 0.0-5.0 Basophil 0.2 % 0.0-4.0 Abs Neutrophils 4.5 K/uL 2.1-8.0 Abs Lymphocytes 1.1 K/uL 0.8-5.5 Abs Monocytes 0.7 K/uL 0.1-1.0 Abs Eosinophils 0.2 K/uL 0.0-0.5 Abs Basophils 0.0 K/uL 0.0-0.3 Lipid Treatment 12/18/2010 [facility] Cholesterol 193 mg/dL 50-199 Triglycerides 64 mg/dL 10-150 HDL 90 mg/dL High 119 Chol/ HDL Ratio 2.1 ratio Low 4.0-6.7 VLDL 13 mg/dL 2-29 LDL (Calc) 90 mg/dL 20-129 120 Alt 16 U/L 5-45 Ast 25 U/L 12-40 Lipid Treatment 09/30/2010 [facility] Cholesterol 195 mg/dL 50-199 121 Triglycerides 90 mg/dL 10-150 HDL 95 mg/dL High 71 122 Chol/ HDL Ratio 2.1 ratio Low 4.0-6.7 VLDL 18 mg/dL 2-29 LDL (Calc) 82 mg/dL 20-129 123 Alt 18 U/L 5-45 Ast 24 U/L 12-40 Basic (BMP) 09/30/2010 [facility] Sodium 141 mmol/L 135-144 Potassium 5.7 No visible h <SEE NOTE> mmol/L High 3.6-5.2 124 Chloride 103 mmol/L 97-110 Carbon Dioxide 32 mmol/L 23-32 Glucose 93 mg/dL 70-105 BUN 4 mg/dL Low 6-22 Creatinine 0.8 mg/dL 0.5-1.3 Calcium 10.1 mg/dL 8.6-10.2 Anion Gap 12 mmol/L 8-16 BUN/CR 5 ratio Low 12-20 Non Leila Egfr >60 >60 125 Leila Egfr >60 >60 126 CBC With Auto Diff 09/30/2010 [facility] WBC 6.4 K/uL 4.1-11.0 RBC 4.73 M/uL 4.60-6.10 Hemoglobin 16.1 gm/dL 13.5-18.0 Hematocrit 46.6 % 41.0-53.0 MCV 98.6 fL High 80.0-97.0 MCH 34.1 pg High 27.0-32.0 MCHC 34.6 g/dL 32.0-36.0 RDW 13.8 % 11.5-14.5 PLT Count 280 K/ul 140-400 Neutrophil 68.2 % 35.0-75.0 Lymphocyte 18.7 % 16.0-52.0 Monocyte 10.7 % High 2.0-10.0 Eosinophil 1.8 % 0.0-5.0 Basophil 0.6 % 0.0-4.0 Abs Neutrophils 4.3 K/uL 2.1-8.0 Abs Lymphocytes 1.2 K/uL 0.8-5.5 Abs Monocytes 0.7 K/uL 0.1-1.0 Abs Eosinophils 0.1 K/uL 0.0-0.5 Abs Basophils 0.0 K/uL 0.0-0.3 Lipid TX Panel 03/11/2010 [facility] (Do not Use) Ast 27 U/L 12-40 127 [facility] [place] [address] [phone] Alt 20 U/L 5-45 Cholesterol 219 mg/dL High 50-199 Triglycerides 79 mg/dL 10-150 HDL 102 mg/dL High 29-71 128 LDL (Calc) 101 mg/dL 20-129 129 Chol/HDL Ratio 2.2 Ratio Low 4.0-6.7 130 VLDL 16 mg/dL 2- Laboratory test 03/11/2010 [facility] (Do not Use) PSA 1.57 ng/ml 0.00- 4.00 131 finding [facility] [place], [place] [id number] [phone] Lipid TX Panel 11/11/2009 [facility] (Do not Use) Ast 32 U/L 12-40 [place] [address] [phone] Alt 22 U/L 5-45 Cholesterol 202 mg/dL High 50-199 Triglycerides 55 mg/dL 10-150 HDL 101 mg/dL High 29-71 132 LDL (Calc) 90 mg/dL 20-129 133 Chol/HDL Ratio 2.0 Ratio Low 4.0-6.7 134 VLDL 11 mg/dL 2 Laboratory test 11/11/2009 [facility] (Do not Use) Vitamin D, 25 31 ng/mL 31-100 finding [facility] [place] [address] [phone] Lipid Panel 09/30/2009 [facility] (Do not Use) Cholesterol 247 mg/dL High 50-199 135 [place] [address] [phone] Triglycerides 90 mg/dL 10-150 HDL 89 mg/dL High 29-71 136 Chol/HDL Ratio 2.8 Ratio Low 4.0-6.7 137 VLDL 18 mg/dL 2- LDL (Calc) 140 mg/dL High 20-129 138 CMP 09/30/2009 [facility] (Do not Use) Sodium 138 mmol/L 135-144 [place] [address] [phone] Potassium 4.7 mmol/L 3.6-5.2 139 Chloride 104 mmol/L 97-110 Carbon Dioxide 26 mmol/L 23-32 Glucose 81 mg/dL 70-105 BUN 5 mg/dL Low 6-22 Creatinine 0.8 mg/dL 0.5-1.3 BUN/CR 6 Ratio Calcium 9.7 mg/dL 8.6-10.2 Total Protein 6.5 g/dL 5.8-7.8 Albumin 3.7 g/dL 3.5-4.8 Globulin 2.8 g/dL 2.0-3.5 A/G Ratio 1.3 Ratio 1.0-2.2 Total Bilirubin 0.7 mg/dL 0.3-1.2 Alkaline Phosphatase 106 U/L 24-140 Alt 20 U/L 5-45 Ast 36 U/L 12-40 Anion Gap 13 mmol/L 8-16 GFR Calculation > 60 mL/min 60-175 140 GFR For > 60 mL/min 60-175 141 CBC With Auto Diff 09/30/2009 [facility] (Do not Use) WBC 5.0 K/ul 4.0- 10.9 [facility] [place] [address] [phone] RBC 4.81 M/ul 4.70-6.10 Hemoglobin 16.5 GM/dl 13.5-18.0 Hematocrit 48.2 % 42.0-52.0 MCV 100.2 FL High 80.0-97.0 MCH 34.3 pg High 27.0-31.0 MCHC 34.2 g/dL 32.0-36.0 RDW 13.3 % 11.5-14.5 Platelet Count 285 K/ul 140-440 Neutrophils 62.8 % 50-70 Lymphocytes 22.6 % 20-44 Monocytes 10.4 % High 2-9 Eosinophil 3.5 % 0-4 Basophil 0.7 % 0-2 Absolute Neutrophils 3.1 K/ul 2.05-7.63 Absolute Lymphocytes 1.1 K/ul 0.8-4.8 Absolute Monocytes 0.5 K/ul 0.1-1.0 Absolute Eosinophils 0.2 K/ul 0.1-0.5 Absolute Basophils 0.0 K/ul 0.0-0.3 Hematology Comment (Comm2) N/A Laboratory test 09/30/2009 [facility] (Do not Use) Vitamin D, 25 19 ng/mL Low 31-100 finding [facility] [address] [phone] Xray 02/22/2009 [facility] Chest, 2 <pending> [phone] Views Lipid TX Panel 02/22/2009 [facility] (Do not Use) Ast 36 U/L 12-40 142 [facility] [place] [address] [phone] Alt 18 U/L 5-45 Cholesterol 233 mg/dL High 50-199 Triglycerides 97 mg/dL 10-150 HDL 92 mg/dL High - 143 LDL (Calc) 122 mg/dL 20-129 144 Chol/HDL Ratio 2.5 Ratio Low 4.0-6.7 145 VLDL 19 mg/dL 2 Laboratory test 02/22/2009 [facility] (Do not Use) PSA 1.35 ng/ml 0.00- 4.00 146 finding [facility] [place] [address] [phone] Lipid TX Panel 11/08/2008 [facility] (Do not Use) Ast 27 U/L 12-40 147 [facility] [place] [address] [phone] Alt 17 U/L 4-45 Cholesterol 242 mg/dL High 50-199 148 Triglycerides 101 mg/dL 10-150 HDL 81 mg/dL High - 149 LDL (Calc) 141 mg/dL High 20-129 150 Chol/HDL Ratio 3.0 Ratio Low 4.0-6.7 151 VLDL 20 mg/dL Laboratory test 02/16/2008 [facility] (Do not Use) PSA 1.56 ng/ml 0.00- 4.00 152, 153 finding [facility] [place] [address] [phone] Lipid TX Panel 02/16/2008 [facility] (Do not Use) Ast 22 U/L 12-40 [facility] [place] [address] [phone] Alt 16 U/L 4-45 Cholesterol 217 mg/dL High 50-199 Triglycerides 107 mg/dL 10-150 HDL 70 mg/dL 154 LDL (Calc) 126 mg/dL 20-129 155 Chol/HDL Ratio 3.1 Ratio 156 VLDL 21 mg/dL Lipid TX Panel 09/02/2007 [facility] (Do not Use) Ast 24 U/L 12-40 [facility] [place] [address] [phone] Alt 19 U/L 4-45 Cholesterol 253 mg/dL High 50-199 Triglycerides 127 mg/dL 10-150 HDL 75 mg/dL High -71 LDL (Calc) 153 mg/dL High 20-129 Chol/HDL Ratio 3.4 Ratio VLDL 25 mg/dL CBC With Auto Diff 09/02/2007 [facility] (Do not Use) WBC 7.8 K/ul 4.0- 10.9 [facility] [place], [place] [id number] [phone] RBC 5.05 M/ul 4.70-6.10 Hemoglobin 16.5 GM/dl 13.5-18.0 Hematocrit 48.3 % 42.0-52.0 MCV 95.5 FL 80.0-97.0 MCH 32.7 pg High 27.0-31.0 MCHC 34.3 g/dL 32.0-36.0 RDW 11.9 % 11.5-14.5 Platelet Count 292 K/ul 140-440 Neutrophils 71.3 % High 50-70 Lymphocytes 14.8 % Low 20-44 Monocytes 6.6 % 2-9 Eosinophil 4.4 % High 0-4 Basophil 2.9 % High 0-2 Absolute Neutrophils 5.6 K/ul 2.05-7.63 Absolute Lymphocytes 1.2 K/ul 0.8-4.8 Absolute Monocytes 0.5 K/ul 0.1-1.0 Absolute Eosinophils 0.3 K/ul 0.1-0.5 Absolute Basophils 0.2 K/ul 0.1-0.3 1 This sample is drawn by:CEDRIC/VICKIE 2 Updated reference range on new analyzer 3 Updated reference range on new analyzer 4 Updated reference range 10-05-2018 5 Updated Reference Range 6 Concerning GFR Guidelines for Americans: Normal function or mild renal disease, if clinically at risk: >/=60 mL/min Moderately decreased: 30-59 Severely decreased: 15-29 Renal failure: <15 There is reduced accuracy above 60ml/min/1.73 m squared, but the numeric value may be clinically useful in the near 60 range 7 Concerning GFR Guidelines: Normal function or mild renal disease, if clinically at risk: >/=60 mL/min Moderately decreased: 30-59 Severely decreased: 15-29 Renal failure: <15 There is reduced accuracy above 60ml/min/1.73 m squared, but the numeric value may be clinically useful in the near 60 range Glomerular Filtration Rate (GFR) is estimated based on the CKD-EPI equation, which assumes a steady state for creatinine as recommended by the National Kidney Disease Education Program in conjunction with the National Institutes of Health and the National Kidney Foundation. Clinical conditions in which it may be necessary to measure GFR by using clearance methods include extremes of age and body size, severe malnutrition or obesity, diseases of skeletal muscle, paraplegia or quadriplegia, vegetarian diet, rapidly changing kidney function, and calculation of the dose of potentially toxic drugs that are excreted by the kidneys. 8 Per NCEP ATP III Guidelines: Results lower than 40 mg/dL are suggestive of increased risk for coronary artery disease. Results > or=to 60 mg/dL are considered a negative risk factor. 9 Per NCEP ATP III Guidelines: Normal Population <130 Patients with medical conditions: CHD/DM Optimal: <100 Borderline high: 130-159 High: 160-189 Very high: >189 10 Beginning 08/02/06 PSA values assayed at [facility] uses chemiluminescence methodology manufactured by [employer] for use on the DXI analyzer. Values obtained with different assay methods or kits can not be used interchangeably. Serum PSA measurement is not an absolute test for malignancy. The PSA value should be used in conjunction with information available from clinical evaluation and other diagnostic procedures. 11 Updated reference range on new analyzer 12 Updated reference range on new analyzer 13 Concerning GFR Guidelines for Americans: Normal function or mild renal disease, if clinically at risk: >/=60 mL/min Moderately decreased: 30-59 Severely decreased: 15-29 Renal failure: <15 14 Concerning GFR Guidelines: Normal function or mild renal disease, if clinically at risk: >/=60 mL/min Moderately decreased: 30-59 Severely decreased: 15-29 Renal failure: <15 Glomerular Filtration Rate (GFR) is estimated based on the MDRD equation, which assumes a steady state for creatinine as recommended by the National Kidney Disease Education Program in conjunction with the National Institutes of Health and the National Kidney Foundation. Clinical conditions in which it may be necessary to measure GFR by using clearance methods include extremes of age and body size, severe malnutrition or obesity, diseases of skeletal muscle, paraplegia or quadriplegia, vegetarian diet, rapidly changing kidney function, and calculation of the dose of potentially toxic drugs that are excreted by the kidneys. 15 Updated Reference Range 16 This sample is drawn by:MIRNA 17 Updated reference range on new analyzer 18 Updated reference range on new analyzer 19 Concerning GFR Guidelines for Americans: Normal function or mild renal disease, if clinically at risk: >/=60 mL/min Moderately decreased: 30-59 Severely decreased: 15-29 Renal failure: <15 20 Concerning GFR Guidelines: Normal function or mild renal disease, if clinically at risk: >/=60 mL/min Moderately decreased: 30-59 Severely decreased: 15-29 Renal failure: <15 Glomerular Filtration Rate (GFR) is estimated based on the MDRD equation, which assumes a steady state for creatinine as recommended by the National Kidney Disease Education Program in conjunction with the National Institutes of Health and the National Kidney Foundation. Clinical conditions in which it may be necessary to measure GFR by using clearance methods include extremes of age and body size, severe malnutrition or obesity, diseases of skeletal muscle, paraplegia or quadriplegia, vegetarian diet, rapidly changing kidney function, and calculation of the dose of potentially toxic drugs that are excreted by the kidneys. 21 Updated Reference Range 22 Per NCEP ATP III Guidelines: Results lower than 40 mg/dL are suggestive of increased risk for coronary artery disease. Results > or=to 60 mg/dL are considered a negative risk factor. 23 Per NCEP ATP III Guidelines: Normal Population <130 Patients with medical conditions: CHD/DM Optimal: <100 Borderline high: 130-159 High: 160-189 Very high: >189 24 Updated reference range on new analyzer 25 Updated reference range on new analyzer 26 Concerning GFR Guidelines for Americans: Normal function or mild renal disease, if clinically at risk: >/=60 mL/min Moderately decreased: 30-59 Severely decreased: 15-29 Renal failure: <15 27 Concerning GFR Guidelines: Normal function or mild renal disease, if clinically at risk: >/=60 mL/min Moderately decreased: 30-59 Severely decreased: 15-29 Renal failure: <15 Glomerular Filtration Rate (GFR) is estimated based on the MDRD equation, which assumes a steady state for creatinine as recommended by the National Kidney Disease Education Program in conjunction with the National Institutes of Health and the National Kidney Foundation. Clinical conditions in which it may be necessary to measure GFR by using clearance methods include extremes of age and body size, severe malnutrition or obesity, diseases of skeletal muscle, paraplegia or quadriplegia, vegetarian diet, rapidly changing kidney function, and calculation of the dose of potentially toxic drugs that are excreted by the kidneys. 28 Updated reference range on new analyzer 29 Per NCEP ATP III Guidelines: Results lower than 40 mg/dL are suggestive of increased risk for coronary artery disease. Results > or=to 60 mg/dL are considered a negative risk factor. 30 Per NCEP ATP III Guidelines: Normal Population <130 Patients with medical conditions: CHD/DM Optimal: <100 Borderline high: 130-159 High: 160-189 Very high: >189 31 This sample is drawn by:CEDRIC/SOULEYMANE 32 Beginning 08/02/06 PSA values assayed at [facility] [employer] uses chemiluminescence methodology manufactured by [employer] for use on the DXI analyzer. Values obtained with different assay methods or kits can not be used interchangeably. Serum PSA measurement is not an absolute test for malignancy. The PSA value should be used in conjunction with information available from clinical evaluation and other diagnostic procedures. 33 Updated reference range on new analyzer 34 94 Electrolytes confirmed by repeat. Updated reference range on new analyzer 35 Concerning GFR Guidelines for Americans: Normal function or mild renal disease, if clinically at risk: >/=60 mL/min Moderately decreased: 30-59 Severely decreased: 15-29 Renal failure: <15 36 Concerning GFR Guidelines: Normal function or mild renal disease, if clinically at risk: >/=60 mL/min Moderately decreased: 30-59 Severely decreased: 15-29 Renal failure: <15 Glomerular Filtration Rate (GFR) is estimated based on the MDRD equation, which assumes a steady state for creatinine as recommended by the National Kidney Disease Education Program in conjunction with the National Institutes of Health and the National Kidney Foundation. Clinical conditions in which it may be necessary to measure GFR by using clearance methods include extremes of age and body size, severe malnutrition or obesity, diseases of skeletal muscle, paraplegia or quadriplegia, vegetarian diet, rapidly changing kidney function, and calculation of the dose of potentially toxic drugs that are excreted by the kidneys. 37 Updated reference range on new analyzer 38 Per NCEP ATP III Guidelines: Results lower than 40 mg/dL are suggestive of increased risk for coronary artery disease. Results > or=to 60 mg/dL are considered a negative risk factor. 39 Per NCEP ATP III Guidelines: Normal Population <130 Patients with medical conditions: CHD/DM Optimal: <100 Borderline high: 130-159 High: 160-189 Very high: >189 40 This sample is drawn by:RENY/DOUGLAS 41 Per NCEP ATP III Guidelines: Results lower than 40 mg/dL are suggestive of increased risk for coronary artery disease. Results > or=to 60 mg/dL are considered a negative risk factor. 42 Per NCEP ATP III Guidelines: Normal Population <130 Patients with medical conditions: CHD/DM Optimal: <100 Borderline high: 130-159 High: 160-189 Very high: >189 43 5.3 No visible hemolysis. 44 Concerning GFR Guidelines for Americans: Normal function or mild renal disease, if clinically at risk: >/=60 mL/min Moderately decreased: 30-59 Severely decreased: 15-29 Renal failure: <15 45 Concerning GFR Guidelines: Normal function or mild renal disease, if clinically at risk: >/=60 mL/min Moderately decreased: 30-59 Severely decreased: 15-29 Renal failure: <15 Glomerular Filtration Rate (GFR) is estimated based on the MDRD equation, which assumes a steady state for creatinine as recommended by the National Kidney Disease Education Program in conjunction with the National Institutes of Health and the National Kidney Foundation. Clinical conditions in which it may be necessary to measure GFR by using clearance methods include extremes of age and body size, severe malnutrition or obesity, diseases of skeletal muscle, paraplegia or quadriplegia, vegetarian diet, rapidly changing kidney function, and calculation of the dose of potentially toxic drugs that are excreted by the kidneys. 46 This sample is drawn by:CEDRIC/MARGY 47 Per NCEP ATP III Guidelines: Results lower than 40 mg/dL are suggestive of increased risk for coronary artery disease. Results > or=to 60 mg/dL are considered a negative risk factor. 48 Per NCEP ATP III Guidelines: Normal Population <130 Patients with medical conditions: CHD/DM Optimal: <100 Borderline high: 130-159 High: 160-189 Very high: >189 49 Concerning GFR Guidelines for Americans: Normal function or mild renal disease, if clinically at risk: >/=60 mL/min Moderately decreased: 30-59 Severely decreased: 15-29 Renal failure: <15 50 Concerning GFR Guidelines: Normal function or mild renal disease, if clinically at risk: >/=60 mL/min Moderately decreased: 30-59 Severely decreased: 15-29 Renal failure: <15 Glomerular Filtration Rate (GFR) is estimated based on the MDRD equation, which assumes a steady state for creatinine as recommended by the National Kidney Disease Education Program in conjunction with the National Institutes of Health and the National Kidney Foundation. Clinical conditions in which it may be necessary to measure GFR by using clearance methods include extremes of age and body size, severe malnutrition or obesity, diseases of skeletal muscle, paraplegia or quadriplegia, vegetarian diet, rapidly changing kidney function, and calculation of the dose of potentially toxic drugs that are excreted by the kidneys. 51 This sample is drawn by:DOUG/MILAD 52 Beginning 08/02/06 PSA values assayed at [facility] laboratories uses chemiluminescence methodology manufactured by [employer] for use on the DXI analyzer. Values obtained with different assay methods or kits can not be used interchangeably. Serum PSA measurement is not an absolute test for malignancy. The PSA value should be used in conjunction with information available from clinical evaluation and other diagnostic procedures. 53 133 Consistent with previous result(s). 54 5.3 Specimen Slightly Hemolyzed 55 Concerning GFR Guidelines for Americans: Normal function or mild renal disease, if clinically at risk: >/=60 mL/min Moderately decreased: 30-59 Severely decreased: 15-29 Renal failure: <15 56 Concerning GFR Guidelines: Normal function or mild renal disease, if clinically at risk: >/=60 mL/min Moderately decreased: 30-59 Severely decreased: 15-29 Renal failure: <15 Glomerular Filtration Rate (GFR) is estimated based on the MDRD equation, which assumes a steady state for creatinine as recommended by the National Kidney Disease Education Program in conjunction with the National Institutes of Health and the National Kidney Foundation. Clinical conditions in which it may be necessary to measure GFR by using clearance methods include extremes of age and body size, severe malnutrition or obesity, diseases of skeletal muscle, paraplegia or quadriplegia, vegetarian diet, rapidly changing kidney function, and calculation of the dose of potentially toxic drugs that are excreted by the kidneys. 57 Per NCEP ATP III Guidelines: Results lower than 40 mg/dL are suggestive of increased risk for coronary artery disease. Results > or=to 60 mg/dL are considered a negative risk factor. 58 Per NCEP ATP III Guidelines: Normal Population <130 Patients with medical conditions: CHD/DM Optimal: <100 Borderline high: 130-159 High: 160-189 Very high: >189 59 This sample is drawn by:RENY/DOUGLAS 60 133 Consistent with previous result(s). 61 Concerning GFR Guidelines for Americans: Normal function or mild renal disease, if clinically at risk: >/=60 mL/min Moderately decreased: 30-59 Severely decreased: 15-29 Renal failure: <15 62 Concerning GFR Guidelines: Normal function or mild renal disease, if clinically at risk: >/=60 mL/min Moderately decreased: 30-59 Severely decreased: 15-29 Renal failure: <15 Glomerular Filtration Rate (GFR) is estimated based on the MDRD equation, which assumes a steady state for creatinine as recommended by the National Kidney Disease Education Program in conjunction with the National Institutes of Health and the National Kidney Foundation. Clinical conditions in which it may be necessary to measure GFR by using clearance methods include extremes of age and body size, severe malnutrition or obesity, diseases of skeletal muscle, paraplegia or quadriplegia, vegetarian diet, rapidly changing kidney function, and calculation of the dose of potentially toxic drugs that are excreted by the kidneys. 63 Per NCEP ATP III Guidelines: Results lower than 40 mg/dL are suggestive of increased risk for coronary artery disease. Results > or=to 60 mg/dL are considered a negative risk factor. 64 Per NCEP ATP III Guidelines: Normal Population <130 Patients with medical conditions: CHD/DM Optimal: <100 Borderline high: 130-159 High: 160-189 Very high: >189 65 This sample is drawn by:CEDRIC/MARGY 66 94 Electrolytes confirmed by repeat. 67 Concerning GFR Guidelines for Americans: Normal function or mild renal disease, if clinically at risk: >/=60 mL/min Moderately decreased: 30-59 Severely decreased: 15-29 Renal failure: <15 68 Concerning GFR Guidelines: Normal function or mild renal disease, if clinically at risk: >/=60 mL/min Moderately decreased: 30-59 Severely decreased: 15-29 Renal failure: <15 Glomerular Filtration Rate (GFR) is estimated based on the MDRD equation, which assumes a steady state for creatinine as recommended by the National Kidney Disease Education Program in conjunction with the National Institutes of Health and the National Kidney Foundation. Clinical conditions in which it may be necessary to measure GFR by using clearance methods include extremes of age and body size, severe malnutrition or obesity, diseases of skeletal muscle, paraplegia or quadriplegia, vegetarian diet, rapidly changing kidney function, and calculation of the dose of potentially toxic drugs that are excreted by the kidneys. 69 Per NCEP ATP III Guidelines: Results lower than 40 mg/dL are suggestive of increased risk for coronary artery disease. Results > or=to 60 mg/dL are considered a negative risk factor. 70 Per NCEP ATP III Guidelines: Normal Population <130 Patients with medical conditions: CHD/DM Optimal: <100 Borderline high: 130-159 High: 160-189 Very high: >189 71 This sample is drawn by:RENY/DOUGLAS 72 Per NCEP ATP III Guidelines: Results lower than 40 mg/dL are suggestive of increased risk for coronary artery disease. Results > or=to 60 mg/dL are considered a negative risk factor. 73 Per NCEP ATP III Guidelines: Normal Population <130 Patients with medical conditions: CHD/DM Optimal: <100 Borderline high: 130-159 High: 160-189 Very high: >189 74 131 Electrolytes confirmed by repeat. 75 Concerning GFR Guidelines for Americans: Normal function or mild renal disease, if clinically at risk: >/=60 mL/min Moderately decreased: 30-59 Severely decreased: 15-29 Renal failure: <15 76 Concerning GFR Guidelines: Normal function or mild renal disease, if clinically at risk: >/=60 mL/min Moderately decreased: 30-59 Severely decreased: 15-29 Renal failure: <15 Glomerular Filtration Rate (GFR) is estimated based on the MDRD equation, which assumes a steady state for creatinine as recommended by the National Kidney Disease Education Program in conjunction with the National Institutes of Health and the National Kidney Foundation. Clinical conditions in which it may be necessary to measure GFR by using clearance methods include extremes of age and body size, severe malnutrition or obesity, diseases of skeletal muscle, paraplegia or quadriplegia, vegetarian diet, rapidly changing kidney function, and calculation of the dose of potentially toxic drugs that are excreted by the kidneys. 77 Beginning 08/02/06 PSA values assayed at [facility] uses an EIA methodology manufactured by [employer] for use on the DXI analyzer. Values obtained with different assay methods or kits can not be used interchangeably. Serum PSA measurement is not an absolute test for malignancy. The PSA value should be used in conjunction with information available from clinical evaluation and other diagnostic procedures. 78 Per NCEP ATP III Guidelines: Results lower than 40 mg/dL are suggestive of increased risk for coronary artery disease. Results > or=to 60 mg/dL are considered a negative risk factor. 79 Per NCEP ATP III Guidelines: Normal Population <130 Patients with medical conditions: CHD/DM Optimal: <100 Borderline high: 130-159 High: 160-189 Very high: >189 80 5.8 No visible hemolysis. 81 Concerning GFR Guidelines for Americans: Normal function or mild renal disease, if clinically at risk: >/=60 mL/min Moderately decreased: 30-59 Severely decreased: 15-29 Renal failure: <15 82 Concerning GFR Guidelines: Normal function or mild renal disease, if clinically at risk: >/=60 mL/min Moderately decreased: 30-59 Severely decreased: 15-29 Renal failure: <15 Glomerular Filtration Rate (GFR) is estimated based on the MDRD equation, which assumes a steady state for creatinine as recommended by the National Kidney Disease Education Program in conjunction with the National Institutes of Health and the National Kidney Foundation. Clinical conditions in which it may be necessary to measure GFR by using clearance methods include extremes of age and body size, severe malnutrition or obesity, diseases of skeletal muscle, paraplegia or quadriplegia, vegetarian diet, rapidly changing kidney function, and calculation of the dose of potentially toxic drugs that are excreted by the kidneys. 83 This sample is drawn by:LS/ART PROFESSOR [employer] This sample is drawn by:LS /ART PROFESSOR [employer] 84 Concerning GFR Guidelines for Americans: Normal function or mild renal disease, if clinically at risk: >/=60 mL/min Moderately decreased: 30-59 Severely decreased: 15-29 Renal failure: <15 85 Concerning GFR Guidelines: Normal function or mild renal disease, if clinically at risk: >/=60 mL/min Moderately decreased: 30-59 Severely decreased: 15-29 Renal failure: <15 Glomerular Filtration Rate (GFR) is estimated based on the MDRD equation, which assumes a steady state for creatinine as recommended by the National Kidney Disease Education Program in conjunction with the National Institutes of Health and the National Kidney Foundation. Clinical conditions in which it may be necessary to measure GFR by using clearance methods include extremes of age and body size, severe malnutrition or obesity, diseases of skeletal muscle, paraplegia or quadriplegia, vegetarian diet, rapidly changing kidney function, and calculation of the dose of potentially toxic drugs that are excreted by the kidneys. 86 Per NCEP ATP III Guidelines: Results lower than 40 mg/dL are suggestive of increased risk for coronary artery disease. Results > or=to 60 mg/dL are considered a negative risk factor. 87 Per NCEP ATP III Guidelines: Normal Population <130 Patients with medical conditions: CHD/DM Optimal: <100 Borderline high: 130-159 High: 160-189 Very high: >189 88 133 Results verified by repeat analysis 89 Concerning GFR Guidelines for Americans: Normal function or mild renal disease, if clinically at risk: >/=60 mL/min Moderately decreased: 30-59 Severely decreased: 15-29 Renal failure: <15 90 Concerning GFR Guidelines: Normal function or mild renal disease, if clinically at risk: >/=60 mL/min Moderately decreased: 30-59 Severely decreased: 15-29 Renal failure: <15 Glomerular Filtration Rate (GFR) is estimated based on the MDRD equation, which assumes a steady state for creatinine as recommended by the National Kidney Disease Education Program in conjunction with the National Institutes of Health and the National Kidney Foundation. Clinical conditions in which it may be necessary to measure GFR by using clearance methods include extremes of age and body size, severe malnutrition or obesity, diseases of skeletal muscle, paraplegia or quadriplegia, vegetarian diet, rapidly changing kidney function, and calculation of the dose of potentially toxic drugs that are excreted by the kidneys. 91 Per NCEP ATP III Guidelines: Results lower than 40 mg/dL are suggestive of increased risk for coronary artery disease. Results > or=to 60 mg/dL are considered a negative risk factor. 92 Per NCEP ATP III Guidelines: Normal Population <130 Patients with medical conditions: CHD/DM Optimal: <100 Borderline high: 130-159 High: 160-189 Very high: >189 93 Per NCEP ATP III Guidelines: Results lower than 40 mg/dL are suggestive of increased risk for coronary artery disease. Results > or=to 60 mg/dL are considered a negative risk factor. 94 Per NCEP ATP III Guidelines: Normal Population <130 Patients with medical conditions: CHD/DM Optimal: <100 Borderline high: 130-159 High: 160-189 Very high: >189 95 Beginning 08/02/06 PSA values assayed at [facility] uses an EIA methodology manufactured by [employer] for use on the DXI analyzer. Values obtained with different assay methods or kits can not be used interchangeably. Serum PSA measurement is not an absolute test for malignancy. The PSA value should be used in conjunction with information available from clinical evaluation and other diagnostic procedures. 96 5.3 No visible hemolysis. No pour-off tube avail. 97 Concerning GFR Guidelines for Americans: Normal function or mild renal disease, if clinically at risk: >/=60 mL/min Moderately decreased: 30-59 Severely decreased: 15-29 Renal failure: <15 98 Concerning GFR Guidelines: Normal function or mild renal disease, if clinically at risk: >/=60 mL/min Moderately decreased: 30-59 Severely decreased: 15-29 Renal failure: <15 Glomerular Filtration Rate (GFR) is estimated based on the MDRD equation, which assumes a steady state for creatinine as recommended by the National Kidney Disease Education Program in conjunction with the National Institutes of Health and the National Kidney Foundation. Clinical conditions in which it may be necessary to measure GFR by using clearance methods include extremes of age and body size, severe malnutrition or obesity, diseases of skeletal muscle, paraplegia or quadriplegia, vegetarian diet, rapidly changing kidney function, and calculation of the dose of potentially toxic drugs that are excreted by the kidneys. 99 This sample is drawn by:RENY/DOUGLAS 100 Per NCEP ATP III Guidelines: Results lower than 40 mg/dL are suggestive of increased risk for coronary artery disease. Results > or=to 60 mg/dL are considered a negative risk factor. 101 Per NCEP ATP III Guidelines: Normal Population <130 Patients with medical conditions: CHD/DM Optimal: <100 Borderline high: 130-159 High: 160-189 Very high: >189 102 Concerning GFR Guidelines for Americans: Normal function or mild renal disease, if clinically at risk: >/=60 mL/min Moderately decreased: 30-59 Severely decreased: 15-29 Renal failure: <15 103 Concerning GFR Guidelines: Normal function or mild renal disease, if clinically at risk: >/=60 mL/min Moderately decreased: 30-59 Severely decreased: 15-29 Renal failure: <15 Glomerular Filtration Rate (GFR) is estimated based on the MDRD equation, which assumes a steady state for creatinine as recommended by the National Kidney Disease Education Program in conjunction with the National Institutes of Health and the National Kidney Foundation. Clinical conditions in which it may be necessary to measure GFR by using clearance methods include extremes of age and body size, severe malnutrition or obesity, diseases of skeletal muscle, paraplegia or quadriplegia, vegetarian diet, rapidly changing kidney function, and calculation of the dose of potentially toxic drugs that are excreted by the kidneys. 104 Beginning 08/02/06 PSA values assayed at [facility] uses an EIA methodology manufactured by [employer] for use on the DXI analyzer. Values obtained with different assay methods or kits can not be used interchangeably. Serum PSA measurement is not an absolute test for malignancy. The PSA value should be used in conjunction with information available from clinical evaluation and other diagnostic procedures. 105 Per NCEP ATP III Guidelines: Results lower than 40 mg/dL are suggestive of increased risk for coronary artery disease. Results > or=to 60 mg/dL are considered a negative risk factor. 106 Per NCEP ATP III Guidelines: Optimal: <100 Near optimal: 100-129 Borderline high: 130-159 High: 160-189 Very high: >189 107 Per NCEP ATP III Guidelines: Results lower than 40 mg/dL are suggestive of increased risk for coronary artery disease. Results > or=to 60 mg/dL are considered a negative risk factor. 108 Per NCEP ATP III Guidelines: Optimal: <100 Near optimal: 100-129 Borderline high: 130-159 High: 160-189 Very high: >189 109 Desirable: <130 Borderline High: 130-159 High: 160-189 Very high: 190 or greater 110 Concerning GFR Guidelines for Americans: Normal function or mild renal disease, if clinically at risk: >/=60 mL/min Moderately decreased: 30-59 Severely decreased: 15-29 Renal failure: <15 111 Concerning GFR Guidelines: Normal function or mild renal disease, if clinically at risk: >/=60 mL/min Moderately decreased: 30-59 Severely decreased: 15-29 Renal failure: <15 Glomerular Filtration Rate (GFR) is estimated based on the MDRD equation, which assumes a steady state for creatinine as recommended by the National Kidney Disease Education Program in conjunction with the National Institutes of Health and the National Kidney Foundation. Clinical conditions in which it may be necessary to measure GFR by using clearance methods include extremes of age and body size, severe malnutrition or obesity, diseases of skeletal muscle, paraplegia or quadriplegia, vegetarian diet, rapidly changing kidney function, and calculation of the dose of potentially toxic drugs that are excreted by the kidneys. 112 This sample is drawn by:KD/BELLY DUMP DRIVER 113 Concerning GFR Guidelines: Normal function or mild renal disease, if clinically at risk: >/=60 mL/min Moderately decreased: 30-59 Severely decreased: 15-29 Renal failure: <15 Glomerular Filtration Rate (GFR) is estimated based on the MDRD equation, which assumes a steady state for creatinine as recommended by the National Kidney Disease Education Program in conjunction with the National Institutes of Health and the National Kidney Foundation. Clinical conditions in which it may be necessary to measure GFR by using clearance methods include extremes of age and body size, severe malnutrition or obesity, diseases of skeletal muscle, paraplegia or quadriplegia, vegetarian diet, rapidly changing kidney function, and calculation of the dose of potentially toxic drugs that are excreted by the kidneys. 114 Concerning GFR Guidelines for Americans: Normal function or mild renal disease, if clinically at risk: >/=60 mL/min Moderately decreased: 30-59 Severely decreased: 15-29 Renal failure: <15 115 Per NCEP ATP III Guidelines: Results lower than 40 mg/dL are suggestive of increased risk for coronary artery disease. Results > or=to 60 mg/dL are considered a negative risk factor. 116 Per NCEP ATP III Guidelines: Optimal: <100 Near optimal: 100-129 Borderline high: 130-159 High: 160-189 Very high: >189 117 Beginning 08/02/06 PSA values assayed at [facility] [employer] uses an EIA methodology manufactured by [employer] for use on the DXI analyzer. Values obtained with different assay methods or kits can not be used interchangeably. Serum PSA measurement is not an absolute test for malignancy. The PSA value should be used in conjunction with information available from clinical evaluation and other diagnostic procedures. 118 This sample is drawn by:MJ 119 Per NCEP ATP III Guidelines: Results lower than 40 mg/dL are suggestive of increased risk for coronary artery disease. Results > or=to 60 mg/dL are considered a negative risk factor. 120 Per NCEP ATP III Guidelines: Optimal: <100 Near optimal: 100-129 Borderline high: 130-159 High: 160-189 Very high: >189 121 SAMPLE TAKEN BY LS/ART PROFESSOR 122 Per NCEP ATP III Guidelines: Results lower than 40 mg/dL are suggestive of increased risk for coronary artery disease. Results > or=to 60 mg/dL are considered a negative risk factor. 123 Per NCEP ATP III Guidelines: Optimal: <100 Near optimal: 100-129 Borderline high: 130-159 High: 160-189 Very high: >189 124 5.7 No visible hemolysis. 125 Concerning GFR Guidelines: Normal function or mild renal disease, if clinically at risk: >/=60 mL/min Moderately decreased: 30-59 Severely decreased: 15-29 Renal failure: <15 Glomerular Filtration Rate (GFR) is estimated based on the MDRD equation, which assumes a steady state for creatinine as recommended by the National Kidney Disease Education Program in conjunction with the National Institutes of Health and the National Kidney Foundation. Clinical conditions in which it may be necessary to measure GFR by using clearance methods include extremes of age and body size, severe malnutrition or obesity, diseases of skeletal muscle, paraplegia or quadriplegia, vegetarian diet, rapidly changing kidney function, and calculation of the dose of potentially toxic drugs that are excreted by the kidneys. 126 Concerning GFR Guidelines for Americans: Normal function or mild renal disease, if clinically at risk: >/=60 mL/min Moderately decreased: 30-59 Severely decreased: 15-29 Renal failure: <15 127 FASTING 12 HOUR This sample is drawn by:DOUGLAS CARLOS 128 PER NCEP ATP III GUIDELINES: RESULTS LOWER THAN 40 MG/DL ARE SUGGESTIVE OF INCREASED RISK FOR CORONARY ARTERY DISEASE. RESULTS > OR=TO 60 MG/DL ARE CONSIDERED A NEGATIVE RISK FACTOR. 129 PER NCEP ATP III GUIDELINES: OPTIMAL: <100 NEAR OPTIMAL: 100 - 129 BORDERLINE HIGH: 130 - 159 HIGH: 160 - 189 VERY HIGH: >189 130 INTERPRETATION OF CHOL-HDL RATIO CHD RISK FEMALE MALE VERY HIGH >8.3 >14.3 HIGH 5.6 - 8.3 6.7 - 14.3 AVERAGE 3.7 - 5.6 4.0 - 6.7 BELOW AVERAGE 2.5 - 3.7 2.7 - 4.0 PROTECTED <2.5 <2.7 131 BEGINNING 08/02/06, PSA VALUES ASSAYED AT [facility] USES AN EIA METHODOLOGY MANUFACTURED BY [employer] FOR USE ON THE DXI ANALYZER. VALUES OBTAINED WITH DIFFERENT ASSAY METHODS OR KITS CAN NOT BE USED INTERCHANGEABLY. SERUM PSA MEASUREMENT IS NOT AN ABSOLUTE TEST FOR MALIGNANCY, THE PSA VALUE SHOULD BE USED IN CONJUNCTION WITH INFORMATION AVAILABLE FROM CLINICAL EVALUATION AND OTHER DIAGNOSTIC PROCEDURES. 132 PER NCEP ATP III GUIDELINES: RESULTS LOWER THAN 40 MG/DL ARE SUGGESTIVE OF INCREASED RISK FOR CORONARY ARTERY DISEASE. RESULTS > OR=TO 60 MG/DL ARE CONSIDERED A NEGATIVE RISK FACTOR. 133 PER NCEP ATP III GUIDELINES: OPTIMAL: <100 NEAR OPTIMAL: 100 - 129 BORDERLINE HIGH: 130 - 159 HIGH: 160 - 189 VERY HIGH: >189 134 INTERPRETATION OF CHOL-HDL RATIO CHD RISK FEMALE MALE VERY HIGH >8.3 >14.3 HIGH 5.6 - 8.3 6.7 - 14.3 AVERAGE 3.7 - 5.6 4.0 - 6.7 BELOW AVERAGE 2.5 - 3.7 2.7 - 4.0 PROTECTED <2.5 <2.7 135 LAB DRAW [place] 136 PER NCEP ATP III GUIDELINES: RESULTS LOWER THAN 40 MG/DL ARE SUGGESTIVE OF INCREASED RISK FOR CORONARY ARTERY DISEASE. RESULTS > OR=TO 60 MG/DL ARE CONSIDERED A NEGATIVE RISK FACTOR. 137 INTERPRETATION OF CHOL-HDL RATIO CHD RISK FEMALE MALE VERY HIGH >8.3 >14.3 HIGH 5.6 - 8.3 6.7 - 14.3 AVERAGE 3.7 - 5.6 4.0 - 6.7 BELOW AVERAGE 2.5 - 3.7 2.7 - 4.0 PROTECTED <2.5 <2.7 138 PER NCEP ATP III GUIDELINES: OPTIMAL: <100 NEAR OPTIMAL: 100 - 129 BORDERLINE HIGH: 130 - 159 HIGH: 160 - 189 VERY HIGH: >189 139 SPECIMEN SLIGHTLY HEMOLYZED 140 Concerning GFR GUIDELINES: Normal Function or Mild Renal Disease, if clinically at risk: >/=60mL/min Moderately decreased: 30-59 Severely decreased: 15-29 Renal Failure: <15 Glomerular Filtration Rate (GFR) is estimated based on the MDRD equation, which assumes a steady state for creatinine as recommended by the National Kidney Disease Education Program in conjunction with the National Institutes of Health and the National Kidney Foundation. Clinical conditions in which it may be necessary to measure GFR by using clearance methods include extremes of age and body size, severe malnutrition or obesity, diseases of skeletal muscle, paraplegia or quadriplegia, vegetarian diet, rapidly changing kidney function, and calculation of the dose of potentially toxic drugs that are excreted by the kidneys. 141 Concerning GFR GUIDELINES: Normal Function or Mild Renal Disease, if clinically at risk: >/=60mL/min Moderately decreased: 30-59 Severely decreased: 15-29 Renal Failure: <15 142 LAB DRAW [facility] 143 PER NCEP ATP III GUIDELINES: RESULTS LOWER THAN 40 MG/DL ARE SUGGESTIVE OF INCREASED RISK FOR CORONARY ARTERY DISEASE. RESULTS > OR=TO 60 MG/DL ARE CONSIDERED A NEGATIVE RISK FACTOR. 144 PER NCEP ATP III GUIDELINES: OPTIMAL: <100 NEAR OPTIMAL: 100 - 129 BORDERLINE HIGH: 130 - 159 HIGH: 160 - 189 VERY HIGH: >189 145 INTERPRETATION OF CHOL-HDL RATIO CHD RISK FEMALE MALE VERY HIGH >8.3 >14.3 HIGH 5.6 - 8.3 6.7 - 14.3 AVERAGE 3.7 - 5.6 4.0 - 6.7 BELOW AVERAGE 2.5 - 3.7 2.7 - 4.0 PROTECTED <2.5 <2.7 146 BEGINNING 08/02/06, PSA VALUES ASSAYED AT [facility] USES AN EIA METHODOLOGY MANUFACTURED BY [employer] FOR USE ON THE DXI ANALYZER. VALUES OBTAINED WITH DIFFERENT ASSAY METHODS OR KITS CAN NOT BE USED INTERCHANGEABLY. SERUM PSA MEASUREMENT IS NOT AN ABSOLUTE TEST FOR MALIGNANCY, THE PSA VALUE SHOULD BE USED IN CONJUNCTION WITH INFORMATION AVAILABLE FROM CLINICAL EVALUATION AND OTHER DIAGNOSTIC PROCEDURES. 147 FASTING This sample is drawn by:DOUGLAS CARLOS 148 SPECIMEN SLIGHTLY HEMOLYZED 149 PER NCEP ATP III GUIDELINES: RESULTS LOWER THAN 40 MG/DL ARE SUGGESTIVE OF INCREASED RISK FOR CORONARY ARTERY DISEASE. RESULTS > OR=TO 60 MG/DL ARE CONSIDERED A NEGATIVE RISK FACTOR. 150 PER NCEP ATP III GUIDELINES: OPTIMAL: <100 NEAR OPTIMAL: 100 - 129 BORDERLINE HIGH: 130 - 159 HIGH: 160 - 189 VERY HIGH: >189 151 INTERPRETATION OF CHOL-HDL RATIO CHD RISK FEMALE MALE VERY HIGH >8.3 >14.3 HIGH 5.6 - 8.3 6.7 - 14.3 AVERAGE 3.7 - 5.6 4.0 - 6.7 BELOW AVERAGE 2.5 - 3.7 2.7 - 4.0 PROTECTED <2.5 <2.7 152 This sample is drawn by: SHELTON 153 BEGINNING 08/02/06, PSA VALUES ASSAYED AT [facility] [place] [facility] [employer] USES AN EIA METHODOLOGY MANUFACTURED BY [employer] J[employer]O FOR USE ON THE DXI ANALYZER. VALUES OBTAINED WITH DIFFERENT ASSAY METHODS OR KITS CAN NOT BE USED INTERCHANGEABLY. SERUM PSA MEASUREMENT IS NOT AN ABSOLUTE TEST FOR MALIGNANCY, THE PSA VALUE SHOULD BE USED IN CONJUNCTION WITH INFORMATION AVAILABLE FROM CLINICAL EVALUATION AND OTHER DIAGNOSTIC PROCEDURES. 154 PER NCEP ATP III GUIDELINES: RESULTS LOWER THAN 40 MG/DL ARE SUGGESTIVE OF INCREASED RISK FOR CORONARY ARTERY DISEASE. RESULTS > OR=TO 60 MG/DL ARE CONSIDERED A NEGATIVE RISK FACTOR. 155 PER NCEP ATP III GUIDELINES: OPTIMAL <100 NEAR OPTIMAL 100 - 129 BORDERLINE HIGH 130 - 159 HIGH 160 - 189 VERY HIGH >189 156 INTERPRETATION OF CHOL-HDL RATIO CHD RISK FEMALE MALE VERY HIGH >8.3 >14.3 HIGH 5.6 - 8.3 6.7 - 14.3 AVERAGE 3.7 - 5.6 4.0 - 6.7 BELOW AVERAGE 2.5 - 3.7 2.7 - 4.0 PROTECTED <2.5 <2.7 Procedures Date Code Description Status 04/19/2018 22879 Admin Of Inj (Therapeutic Phrophylactic Or Diagnostic Completed Subq Inj 07/29/2015 13473 Measure Blood Oxygen Level Single Determination Completed 04/08/2015 [address] Admin Of Inj (Therapeutic Phrophylactic Or Diagnostic Completed Subq Inj 07/19/2014 50648444 Colonoscopy Completed 01/31/2014 04372 Measure Blood Oxygen Level Single Determination Completed 11/01/2013 84419 Measure Blood Oxygen Level Single Determination Completed 10/26/2012 14253 Measure Blood Oxygen Level Single Determination Completed 12/18/2010 24525 Measure Blood Oxygen Level Single Determination Completed 09/30/2010 67415 Measure Blood Oxygen Level Single Determination Completed 03/11/2010 44693 Measure Blood Oxygen Level Single Determination Completed 10/14/2009 14816 Measure Blood Oxygen Level Single Determination Completed 02/22/2009 80414 X-Ray Chest Two Views Frontal & Lateral Completed 11/22/2008 65439 Measure Blood Oxygen Level Single Determination Completed 06/12/2008 25017 Spirometry /PFT W/O Bronchodialator Completed 06/12/2008 16580 Electrocardiogram Complete Completed 03/02/2000 77925 Electrocardiogram Complete Completed Encounters Type Date Location Provider Dx Diagnosis Office Visit 10/17/2018 Arlette Kent, E78.2 Mixed hyperlipidemia 9:00a N.P. I10 Essential (primary) hypertension J44.9 Chronic obstructive pulmonary disease, unspecified Z00.00 Encntr for general adult medical exam w/o abnormal findings Office Visit 07/19/2018 9:00a Arlette Kent, Z00.00 Encntr for general N.P. adult medical exam w/o abnormal findings J44.9 Chronic obstructive pulmonary disease, unspecified I10 Essential (primary) hypertension E78.2 Mixed hyperlipidemia M25.559 Pain in unspecified hip Z13.31 Encounter for screening for depression Office Visit 04/19/2018 9:00a Arlette Kent, I10 Essential ( primary) N.P. hypertension E78.2 Mixed hyperlipidemia J44.9 Chronic obstructive pulmonary disease, unspecified Z23 Encounter for immunization Z12.5 Encounter for screening for malignant neoplasm of prostate Office Visit 01/18/2018 9:00a Arlette Kent E78.2 Mixed hyperlipidemia N.P. I10 Essential (primary) hypertension M19.91 Primary osteoarthritis, unspecified site Z12.5 Encounter for screening for malignant neoplasm of prostate Office Visit 10/19/2017 9:00a Arlette Kent, Z00.00 Encntr for general N.P. adult medical exam w/o abnormal findings J44.9 Chronic obstructive pulmonary disease, unspecified M19.91 Primary osteoarthritis, unspecified site I10 Essential (primary) hypertension E78.2 Mixed hyperlipidemia F17.210 Nicotine dependence, cigarettes, uncomplicated Office Visit 07/20/2017 8:30a Arlette Kent, Z00.00 Encntr for general N.P. adult medical exam w/o abnormal findings I10 Essential (primary) hypertension E78.2 Mixed hyperlipidemia Z72.0 Tobacco use J44.9 Chronic obstructive pulmonary disease, unspecified Office Visit 04/20/2017 8:00a Arlette Kent I10 Essential ( primary) N.P. hypertension E78.2 Mixed hyperlipidemia Z23 Encounter for immunization Office Visit 01/18/2017 8:00a Arlette Kent E78.2 Mixed hyperlipidemia N.P. I10 Essential (primary) hypertension J44.9 Chronic obstructive pulmonary disease, unspecified Z12.5 Encounter for screening for malignant neoplasm of prostate Office Visit 10/15/2016 7:45a Arlette Kent E78.2 Mixed hyperlipidemia N.P. I10 Essential (primary) hypertension J44.9 Chronic obstructive pulmonary disease, unspecified Z00.8 Encounter for other general examination Office Visit 07/21/2016 8:00a Arlette Kent E78.2 Mixed hyperlipidemia N.P. I10 Essential (primary) hypertension J44.9 Chronic obstructive pulmonary disease, unspecified Z23 Encounter for immunization Office Visit 05/04/2016 8:00a Arlette Kent E78.2 Mixed hyperlipidemia N.P. I10 Essential (primary) hypertension M25.50 Pain in unspecified joint Office Visit 01/30/2016 8:30a Arlette Kent E78.2 Mixed hyperlipidemia N.P. I10 Essential (primary) hypertension M25.50 Pain in unspecified joint Office Visit 07/29/2015 8:30a Arlette Kent J44.9 Chronic obstructive N.P. pulmonary disease, unspecified E78.2 Mixed hyperlipidemia I10 Essential (primary) hypertension Office Visit 04/29/2015 8:30a Arlette Kent, I10 Essential ( primary) N.P. hypertension E78.2 Mixed hyperlipidemia Office Visit 02/01/2015 8:15a Arlette Kent, 401.1 Hypertension Benign N.P. 272.2 Hyperlipidemia Mixed 780.79 Malaise And Fatigue Other Office Visit 11/01/2014 8:00a Arlette Kent, 401.1 Hypertension Benign N.P. 272.2 Hyperlipidemia Mixed V76.44 Screening For Malig Rex Prostate Office Visit 07/30/2014 8:15a Arlette Kent, 401.1 Hypertension Benign N.P. 272.2 Hyperlipidemia Mixed 496 COPD Airway Obstruction Chronic Not Class Elsewhere Office Visit 05/18/2014 9:15a Arlette Kent, 401.1 Hypertension Benign N.P. Office Visit 04/30/2014 8:15a Arlette Kent, 272.2 Hyperlipidemia Mixed N.P. 401.1 Hypertension Benign Office Visit 01/31/2014 8:15a Arlette Kent, 272.2 Hyperlipidemia Mixed N.P. 401.1 Hypertension Benign 496 COPD Airway Obstruction Chronic Not Class Elsewhere Office Visit 11/01/2013 8:15a Arlette Kent, 401.1 Hypertension Benign N.P. 272.2 Hyperlipidemia Mixed 496 COPD Airway Obstruction Chronic Not Class Elsewhere V76.44 Screening For Malig Rex Prostate Office Visit 07/31/2013 8:15a Arlette Kent, 272.2 Hyperlipidemia Mixed N.P. 401.1 Hypertension Benign Office Visit 04/27/2013 8:15a Arlette Kent, 272.2 Hyperlipidemia Mixed N.P. 401.1 Hypertension Benign V04.81 Need For Prophylactic Vaccination & Inoculation/Influenza V03.82 Streptococcus Pneumoniae Vaccination Spec Other Office Visit 01/26/2013 8:30a Arlette Kent, 272.2 Hyperlipidemia Mixed N.P. 401.1 Hypertension Benign 305.1 Tobacco Use Disorder 496 COPD Airway Obstruction Chronic Not Class Elsewhere Office Visit 10/26/2012 8:15a Arlette Kent, 272.2 Hyperlipidemia Mixed N.P. 401.1 Hypertension Benign 305.1 Tobacco Use Disorder 496 COPD Airway Obstruction Chronic Not Class Elsewhere V76.44 Screening For Malig Rex Prostate Office Visit 06/15/2012 9:15a Arlette Kent, 401.1 Hypertension Benign N.P. 272.2 Hyperlipidemia Mixed 305.1 Tobacco Use Disorder 272.0 Hypercholesterolemia Pure 496 COPD Airway Obstruction Chronic Not Class Elsewhere Office Visit 04/27/2011 10:30a Arlette Kent, 401.1 Hypertension Benign N.P. 272.0 Hypercholesterolemia Pure 272.2 Hyperlipidemia Mixed V76.44 Screening For Malig Rex Prostate V04.81 Need For Prophylactic Vaccination & Inoculation/Influenza Office Visit 12/18/2010 8:30a Arlette Kent, 401.1 Hypertension Benign N.P. 272.2 Hyperlipidemia Mixed 455.8 Hemorrhoids Unspec W/ Other Complications V70.0 Exam (Adult) General Medical Routine AT [facility] Care [facility] 238.2 Neoplasm Uncertain Skin Determined By Pathology 496 COPD Airway Obstruction Chronic Not Class Elsewhere Office Visit 09/30/2010 9:00a Arlette Kent, 780.79 Malaise And N.P. Fatigue Other 401.1 Hypertension Benign 272.2 Hyperlipidemia Mixed 496 COPD Airway Obstruction Chronic Not Class Elsewhere 455.8 Hemorrhoids Unspec W/ Other Complications Office Visit 03/11/2010 10:00a Arlette Kent, 401.1 Hypertension Benign N.P. 272.2 Hyperlipidemia Mixed 496 COPD Airway Obstruction Chronic Not Class Elsewhere V04.81 Need For Prophylactic Vaccination & Inoculation/Influenza V76.44 Screening For Malig Rex Prostate Office Visit 11/11/2009 9:45a Arlette Kent, 401.1 Hypertension Benign N.P. 272.2 Hyperlipidemia Mixed 496 COPD Airway Obstruction Chronic Not Class Elsewhere 268.9 Vitamin D Deficiency Unspec Office Visit 10/14/2009 9:45a Arlette Kent, 401.1 Hypertension Benign N.P. 272.2 Hyperlipidemia Mixed 496 COPD Airway Obstruction Chronic Not Class Elsewhere Office Visit 09/30/2009 10:00a Arlette Kent, 401.1 Hypertension Benign N.P. 272.2 Hyperlipidemia Mixed 305.1 Tobacco Use Disorder 496 COPD Airway Obstruction Chronic Not Class Elsewhere 268.9 Vitamin D Deficiency Unspec Office Visit 02/22/2009 9:30a Arlette Kent, 401.1 Hypertension Benign N.P. 272.2 Hyperlipidemia Mixed 305.1 Tobacco Use Disorder V76.44 Screening For Malig Rex Prostate 496 COPD Airway Obstruction Chronic Not Class Elsewhere V58.61 Anticoagulants Fpc (Current) Use Encounter Office Visit 11/22/2008 9:30a Arlette Kent 401.1 Hypertension Benign N.P. 496 COPD Airway Obstruction Chronic Not Class Elsewhere Office Visit 11/08/2008 9:30a Arlette Kent, 272.2 Hyperlipidemia Mixed N.P. 401.1 Hypertension Benign Office Visit 02/16/2008 9:00a Arlette Kent, 272.2 Hyperlipidemia Mixed N.P. 305.1 Tobacco Use Disorder 401.1 Hypertension Benign V76.44 Screening For Malig Rex Prostate Office Visit 11/15/2007 9:15a Arlette Kent, 272.2 Hyperlipidemia Mixed N.P. 401.1 Hypertension Benign 305.1 Tobacco Use Disorder Office Visit 11/01/2007 8:00a Arlette Kent, 401.1 Hypertension Benign N.P. 272.0 Hypercholesterolemia Pure Office Visit 10/03/2007 9:00a Arlette Kent, 305.1 Tobacco Use N.P. Disorder 401.1 Hypertension Benign 272.0 Hypercholesterolemia Pure Office Visit 09/02/2007 9:00a Arlette Kent, 401.1 Hypertension Benign N.P. Office Visit 08/19/2007 8:30a Arlette Kent, 305.1 Tobacco Use Disorder N.P. 401.1 Hypertension Benign 496 COPD Airway Obstruction Chronic Not Class Elsewhere 305.00 Alcohol Abuse Unspec Plan of Treatment Future Appointment(s):01/17/2019 9:00 am - Arlette Vargas N.P. at [id number] - Arlette Vargas N.PMerleE78.2 Mixed hyperlipidemiaComments:importance of low chol/fat diet discussedwritten pt ed given concerning sources of chol and diet [id number] Essential (primary) hypertensionComments: stable with current meds. Cont same pt inst to monitor B/P at home/work 2-3 times per week and report abngoal: <140/90J44.9 Chronic obstructive pulmonary disease, unspecifiedComments:stable with spiriva qd, cont Spiriva and report worsening SOB counseled to stop [id number] Encntr for general adult medical exam w/ o abnormal findingsComments:health promotion discussed at length including exercise,proper nutrition, sleep hygiene, adequate fluid intake, stress relief, safety and routine health sceening including skin, testicular/breast, and routine office PE's.
--- NOTE | 2018-11-14 12:13 | UC ---
Back Pain HPI - HPI Summary HPI Summary: 73 yo male presents accompanied by his daughter with complaints of lower back pain. Pt tells me that he woke up yesterday morning with pain across his lower back without injury. Pain persisted all day yesterday. In the middle of the night last night he woke up and had to urinate - he got out of bed and his back pain caused him to fall and land on the ground next to the bed. No LOC and says he did not hit his head or injure himself. He was unable to get to his feet and called his daughter who came over and picked him up. Since that time pt has needed the assistance of another person for ambulation as well as a cane. He took ibuprofen for his discomfort with no relief. He denies fever, recent illness, SOB, chest pain, abdominal pain, n/v, dysuria, numbness, tingling, radiation of pain, or loss of bowel/bladder control. - History of Current Complaint Chief Complaint: UCLowerExtremity Stated Complaint: LOWER BACK PAIN Time Seen by Provider: 11/14/18 12:12 Hx Obtained From: Patient, Family/Talent Acquisition Partner Onset/Duration: Sudden Onset Timing: Constant Severity Initially: Moderate Severity Currently: Severe Pain Intensity: 7 Pain Scale Used: 0-10 Numeric - Allergies/Home Medications Allergies/Adverse Reactions: Allergies Allergy/AdvReac Type Severity Reaction Status Date / Time No Known Allergies Allergy Verified 11/14/18 12:09 Home Medications: Home Medications Losartan/Hydrochlorothiazide [Losartan Potassium/Hydroc 100-12.5 mg] 1 tab PO DAILY 11/14/18 [History Confirmed 11/14/18] Meloxicam [Qmiiz Odt] 15 mg PO DAILY 11/14/18 [History Confirmed 11/14/18] Simvastatin TAB(NF) [Zocor(NF)] 20 mg PO DAILY 11/14/18 [History Confirmed 11/14] Tiotropium CAP.INH* [Spiriva CAP.INH*] 1 cap.inh INH DAILY 11/14/18 [History Confirmed 11/14/18] PMH/Surg Hx/FS Hx/Imm Hx Endocrine History: Dyslipidemia Cardiovascular History: Hypertension Respiratory History: COPD - Surgical History Surgical History: None - Family History Known Family History: Positive: Unknown - Social History Occupation: Retired Lives: With Family Alcohol Use: Daily Alcohol Amount: 5-6+ beers per day Substance Use Type: None Smoking Status (MU): Heavy Every Day Tobacco Smoker Type: Cigarettes Amount Used/How Often: 20 cig per day Review of Systems All Other Systems Reviewed And Are Negative: Yes Constitutional: Positive: Negative Skin: Positive: Negative Respiratory: Positive: Negative Cardiovascular: Positive: Negative Gastrointestinal: Positive: Negative Genitourinary: Positive: Negative Motor: Positive: Negative Neurovascular: Positive: Negative Musculoskeletal: Positive: Other: - Low back pain Neurological: Positive: Negative Psychological: Positive: Negative Physical Exam - Summary Physical Exam Summary: GENERAL: NAD. No pain distress. Smells of urine. SKIN: No rashes, sores, or open wounds. No head, abdomen, or flank ecchymosis. HEENT: Head: AT/NC Eyes: PERRLA. EOM intact. NECK: Supple. Nontender. No lymphadenopathy. FROM without pain CHEST: CTAB. No r/r/w. No accessory muscle use. Breathing comfortably and in no distress. CV: Irregular. Without m/r/g. Pulses intact. Brisk cap refill. No carotid bruit. No abdominal bruit or pulsating mass. ABDOMEN: Soft. NTTP. No distention or guarding. No CVA tenderness. Bowel sounds present MSK: Mild TTP about low back and lumbar spine. Seated in wheelchair and unable to ambulate without assistance. SLR positive b/l. Equal strength b/l LEs. NEURO: Alert. Sensations intact B/L LEs L3-S1. Reflexes intact PSYCH: Age appropriate behavior. Triage Information Reviewed: Yes Vital Signs: Initial Vital Signs Temp 98.8 F 11/14/18 12:02 Pulse 75 11/14/18 12:02 Resp 16 11/14/18 12:02 BP 00/00 11/14/18 12:02 Pulse Ox 96 11/14/18 12:02 Vital Signs Reviewed: Yes Back Pain Course/Dx - Course Course Of Treatment: EKbpm NSR with APC. Anterior infarct old. Minimal BRITTANY leads I, aVL, V5, V6. Read by Dr. Jacobo. Given his abnormal EKG, inability to ambulate, and atraumatic low back pain - I recommended pt be transferred to [facility] [place] more appropriate work up and eval. Pt declined and is requesting an XR. I discussed with him the risks including permanent loss of function, worsening condition, and . He continued to decline. Daughter present for this conversation. XR:IMPRESSION: 1. OSTEOPENIA. 2. DEGENERATIVE DISC DISEASE AND OSTEOARTHRITIS. 3. CHRONIC APPEARING COMPRESSION DEFORMITY OF L1 WITHOUT OSSEOUS RETROPULSION. 4. ATHEROSCLEROSIS. UA: 1+ bili, trace ketone, trace blood, 2+ protein. Discussed results with pt and family. Pt smells of urine and his undergarments were noted to have urine stains. He states he is not incontinent of urine, but the urine smell and stains support likely urinary incontinence. Again discussed that his inability to ambulate after atraumatic low back pain is concerning and recommended a further evaluation in the ED for this and his abnormal EKG. He continued to decline and is asking for pain medication. I believe the patient is clinically sober, free from distracting injury, appears to have insight and reasoning and, in my judgment, has capacity to make decisions. I have explained that I am concerned this may represent cauda equina syndrome and have explained my concerns and they have verbalized understanding. I have discussed the need to get a CT/MRI to obtain more information about the cause of the pain. I have told the patient if they do not seek eval/treatment in the ED their condition could get much worse, could become critically ill and suffer disability and possibly . He continued to decline ER eval and wishes to be discharged. Will rx for lidocaine patch for his back pain and encouraged him to f/u with his PCP tomorrow. Strongly encouraged to go to the ER if symptoms worsen or if he develops new symptoms. He and family voiced understanding. Pt left AMA. - Differential Dx/Diagnosis Provider Diagnosis: Low back pain, Unable to ambulate Discharge - Sign-Out/Discharge Documenting (check all that apply): Patient Departure All imaging exams completed and their final reports reviewed: Yes - Discharge Plan Condition: Stable Disposition: AGAINST MEDICAL ADVICE Prescriptions: Lidocaine PATCH 5%* [Lidoderm 5% Patch*] 1 patch TRANSDERM DAILY PRN #10 patch PRN Reason: Pain Referrals: Arlette Vargas LAYOUT MECHANIC [Primary Care Provider] - As Soon As Possible Additional Instructions: I recommended that you go to the ER for further evaluation of your lower back pain and trouble walking and your abnormal EKG, but you have declined. As discussed, it appears to be arthritis in your back that is causing your symptoms - but I cannot appropriately evaluate your discomfort in the Urgent Care for more emergent conditions. Please be aware that your symptoms could significantly worsen including leg numbness, loss of bowel/bladder control, increased pain, falls, or permanent loss of ability. Your EKG is also abnormal and I cannot appropriately evaluate an underlying heart condition in the Urgent Care that could result in permanent loss of ability, heart failure, cardiac abnormalities, and/or . If your symptoms worsen - please call 911 or go to the ER. Otherwise, please follow up with your primary doctor tomorrow. - Billing Disposition and Condition Condition: STABLE Disposition: Against Medical Advice
[2018-11-14 12:39] VITALS: BP 104/56
== END 2018-11-14 14:07 | disposition left against medical advice (07) ==
LOC: UCEAST 11:52
DX: M54.5 Low back pain (principal); R26.89 Other abnormalities of gait and mobility; E78.5 Hyperlipidemia, unspecified; I10 Essential (primary) hypertension; J44.9 Chronic obstructive pulmonary disease, unspecified
CPT/HCPCS: 72110; 81003; 93005; 99212; G0463

== ENCOUNTER 2018-11-15 07:45 | Inpatient (IN) | payer MEDICARE ==
[2018-11-15] MEDS ORDERED: cefTRIAXone(*) 1 GM in NS 0.9% 50 ML* 50 ML IVPB ONE (08:01)
[2018-11-15] MEDS: NS 0.9% 1000 ML** 1,000 ML IV.FLUID IV ONE ×3 (08:24→13:18)
[2018-11-15] MEDS ORDERED: Acetaminophen TAB* 325 MG PO ONE (08:27)
--- NOTE | 2018-11-15 08:27 | ED ---
Sepsis HPI - HPI Summary HPI Summary: Patient is a 73yo M who presents with 2 days worsening back pain, weakness, urinary retention and falls. Per family at bedside, they state he typically walks with a cane, but for the past 2 days has been a 2 assist. Patient appears confused. Drinks 6-12 beers per night. Heavy everyday unfiltered smoker x 55 years +. Patient endorsing back pain, denies any subjective fevers. Unable to obtain a full hx d/t somewhat confused/obtunded. Family at bedside giving hx. - History of Current Complaint Chief Complaint: EDWeakness Time Seen by Provider: 11/15/18 07:52 Stated Complaint: WEAKNESS PER EMS Hx Obtained From: Patient, Family/Software Business Analyst Onset/Duration: Started Days Ago Timing: Constant Onset Severity: Moderate Current Severity: Moderate Pain Intensity: 4 Pain Scale Used: 0-10 Numeric Aggravating Symptom(s): Unknown Alleviating Factor(s): Unknown Associated Signs & Symptoms: Negative - Risk Factor(s) Pseudomonas Risk Factors: Negative Serious Bacterial Infection Risk Factors: Negative - Allergy/Home Medications Allergies/Adverse Reactions: Allergies Allergy/AdvReac Type Severity Reaction Status Date / Time No Known Allergies Allergy Verified 11/14/18 12:09 PMH/Surg Hx/FS Hx/Imm Hx Previously Healthy: Yes Endocrine/Hematology History: Denies: Hx Diabetes, Hx Thyroid Disease Cardiovascular History: Reports: Hx Hypertension Respiratory History: Reports: Hx Chronic Obstructive Pulmonary Disease (COPD) Denies: Hx Asthma GI History: Denies: Hx Ulcer - Immunization History Hx Pertussis Vaccination: No Immunizations Up to Date: No Infectious Disease History: No Infectious Disease History: Denies: Hx Hepatitis, Hx Human Immunodeficiency Virus (HIV), Traveled Outside the [place] in Last 30 Days - Family History Known Family History: Positive: Unknown - Social History Occupation: Unemployed Lives: With Family Alcohol Use: Daily Alcohol Amount: 5-6+ beers per day Hx Substance Use: No Substance Use Type: Reports: None Smoking Status (MU): Heavy Every Day Tobacco Smoker Type: Cigarettes Amount Used/How Often: 20 cig per day Review of Systems Positive: Fatigue. Negative: Fever, Chills, Skin Diaphoresis Positive: Dental Pain. Negative: Sore Throat, Ear Ache, Nasal Discharge Negative: Palpitations, Chest Pain Negative: Shortness Of Breath, Cough Negative: Abdominal Pain, Vomiting, Diarrhea, Nausea Positive: see HPI Positive: Arthralgia - low back pain Skin: Negative Neurological: Other - unable to assess parethesia d/t patient confusion Positive: Weakness. Negative: Paresthesia, Numbness All Other Systems Reviewed And Are Negative: Yes Physical Exam Triage Information Reviewed: Yes Vital Signs On Initial Exam: Initial Vitals Temp Pulse Resp BP Pulse Ox 102.8 F 126 24 151/91 90 11/15/18 07:47 11/15/18 07:47 11/15/18 07:47 11/15/18 07:47 11/15/18 07:47 Completion Of Physical Exam Limited Due To: Altered Mental Status - some confusion Skin: Positive: Warm, Skin Color Reflects Adequate Perfusion Head/Face: Positive: Normal Head/Face Inspection Eyes: Positive: Normal, EOMI Neck: Positive: No Lymphadenopathy Respiratory/Lung Sounds: Positive: Clear to Auscultation, Breath Sounds Present Cardiovascular: Positive: IRR. Negative: Leg Edema Left, Leg Edema Right Musculoskeletal: Positive: Pain @ - low back pain Neurological: Positive: Speech Normal Psychiatric: Positive: Affect/Mood Appropriate AVPU Assessment: Alert Diagnostics - Vital Signs Vital Signs Temp Pulse Resp BP Pulse Ox 11/15/18 07:47 102.8 F 126 24 151/91 90 - Laboratory Result Diagrams: 11/15/18 08:10 11/15/18 08:10 Lab Statement: Any lab studies that have been ordered have been reviewed, and results considered in the medical decision making process. Course/Dx - Course Course Of Treatment: Patient arrives by EMS and is evaluated for 2 days worsening weakness (more specific to bilateral leg weakness), incontinence and inability to fully empty bladder. Hx includes heavy smoker (unfiltered) and drinker (6 pack per night) with no known malignant hx. Hx of osteoporosis and bilateral low back and hip pain at baseline. States 2 days ago developed weakness. Typically uses a cane to ambulate, however has required a 2 assist since Wednesday (2 days ago) and has not been able to make it to the restroom. Plain radiographs obtained yesterday showed osteoarthritis with no retropulsion. UA obtained yesterday which showed no evidence of UTI. Denies hx of incontinence, UTIs, nephrolithiasis or pyelonephritis. Denies subjective fevers, sweats or chills. Last BM 1 week ago and normal. Typically has BM every day to every other day. Denies CP or SOB. On arrival to the ED, VS show temp of 102.8, respirations 24 and tachy at 126. Septic workup initiated with fluids and rocephin. Tylenol 650mg given. Physical exam: Patient non-diaphoretic. Mottled erythematous bilateral feet, erythematous area without warmth to the medial upper thighs. EOMI/ERIKA. No scleral icterus or icteric skin. Lungs CTA, irregular rate and rhythm with rate between 103- 140. Atrial fib. No abdominal tenderness throughout, bowel sounds present. Weakness to the bilateral upper and lower extremities. Positive straight leg raise to R leg. Negative straight leg raise to the L leg. Reflexes intact throughout. Patient unsure if decreased sensation to the medial upper thighs. Unable to assess gait. Patient in stretcher and unable to ambulate. Patient appears confused and is unable to report if there is decreased sensation to the saddle region. Vanco ordered to cover possible epidural abscess. Good rectal tone. However, concern for cauda equina vs ESCC vs epidural abscess d/t new and recent acute onset weakness and inability to ambulate, pain to the lower back, inability to fully report sensation and saddle sensory loss, and asymmetric weakness (R leg worse than L), retention of 250ccs on bladder scan and patient states inability to urinate. MRI obtained which shows no evidence of epidural abscess or cauda equina. No evidence of ESCC. Machuca catheter placed easily no obstruction. Discussed with Dr. Hernandez who agrees to admit. Admitted to [facility] [place] for further workup of sepsis/low back pain/ inability to ambulate/hyponatremia. Critical Care time 30min. PCP is Pinky Vargas. - Differential Dx/Clinical Impression Differential Diagnosis/HQI/PQRI: Hypoglycemia, Hyperthermia, Hypothermia, Hypoxia, Sepsis, Other - epidural abscess, ESCC, cauda equina, UTI, pyelonephritis, sepsis, hyponatremia Provider Diagnosis: Hyponatremia, Sepsis - Provider Notifications Discussed Care Of Patient With: Kay Hernandez Instructed by Provider To: Admit As Inpatient - Critical Care Time Critical Care Time: 30-74 min Discharge - Sign-Out/Discharge Documenting (check all that apply): Patient Departure Patient Received Moderate/Deep Sedation with Procedure: No - Discharge Plan Condition: Fair Disposition: ADMITTED TO [facility] Referrals: [place], LEATHER STAKER [Primary Care Provider] - - Billing Disposition and Condition Condition: FAIR Disposition: Admitted to [facility]
[2018-11-15 08:31] LABS: ABS Lymphocytes 0.2 10^3/ul (1.0-4.8); ABS Monocytes 0.4 10^3/ul (0-0.8); ABS Neutrophils 7.6 10^3/ul (1.5-7.7); Eosinophil % 0.1 %; Hematocrit 42 % (42-52); Hemoglobin 14.6 g/dL (14.0-18.0); Lymphocyte % 1.8 %; Mean Corpuscular HGB Conc 35 g/dL (31-36); Mean Corpuscular Hemoglobin 33 pg (27-31); Mean Corpuscular Volume 93 fL (80-94); Mean Platelet Volume 7.7 fL (7.4-10.4); Platelet Count 150 10^3/uL (150-450); Red Blood Count 4.49 10^6 /uL (4.18-5.48); Red Cell Distribution Width 13 % (10-15); White Blood Count 8.3 10^3/uL (3.5-10.8)
[2018-11-15 08:40] LABS: INR 0.99 (0.82-1.09)
[2018-11-15 08:47] LABS: ALT 39 U/L (7-52); AST 104 U/L (13-39); Albumin 3.7 g/dL (3.2-5.2); Albumin/Globulin Ratio 1.4 (1-3); Alkaline Phosphatase 94 U/L (34-104); Anion Gap 10 mmol/L (2-11); BUN/Creatinine Ratio 23.4 (8-20); Blood Urea Nitrogen 18 mg/dL (6-24); C Reactive Protein 218.42 mg/L (<8.01); CO2 Carbon Dioxide 28 mmol/L (22-32); Calcium 8.7 mg/dL (8.6-10.3); Chloride 83 mmol/L (101-111); EGFR African American 119.2 (>60); EGFR Non-African American 98.5 (>60); Globulin 2.6 g/dL (2-4); Glucose 140 mg/dL (70-100); Magnesium 1.9 mg/dL (1.9-2.7); Potassium 3.4 mmol/L (3.5-5.0); Sodium 121 mmol/L (135-145); Total Protein 6.3 g/dL (6.4-8.9)
[2018-11-15 09:01] LABS: TSH (Thyroid Stimulating Horm) 0.69 mcIU/mL (0.34-5.60)
[2018-11-15 09:45] LABS: Urine Appearance Cloudy; Urine Bacteria Absent (Absent); Urine Bilirubin Negative (Negative); Urine Blood 2+ (Negative); Urine Color Yellow; Urine Glucose Negative (Negative); Urine Ketones 1+ (Negative); Urine Nitrite Negative (Negative); Urine Protein 2+(100 mg/dL) (Negative); Urine Red Blood Cell 2+(6-10/hpf) (Absent); Urine Specific Gravity 1.019 (1.010-1.030); Urine Urobilinogen Negative (Negative); Urine White Blood Cell Trace(0-5/hpf) (Absent)
[2018-11-15] MEDS ORDERED: Vancomycin(*) 1,500 MG in NS 0.9% 250 ML* 250 ML IVPB ONE (11:18)
[2018-11-15] MEDS ORDERED: Gadoteridol* (CONTRAST) 279.3 MG/ML 10 ML IV ONE (11:24)
[2018-11-15] MEDS ORDERED: NS 0.9% 250 ML* 250 ML ONE (12:03)
[2018-11-15 13:00] LABS: Troponin I 0.32 ng/mL (<0.04)
[2018-11-15] MEDS ORDERED: ED Piperacillin/Tazobac 3.375 3.375 GM/100 ML PREMIX.SET IVPB ONE (13:27)
[2018-11-15] MEDS ORDERED: Aspirin TAB* 325 MG PO ONE (13:29)
[2018-11-15] MEDS ORDERED: ZOSYN 3.375 GM x ONE DOSE over 30 miuntes IVPB ×2 (14:00)
[2018-11-15 14:02] LABS: Uric Acid 3.1 mg/dL (4.4-7.6)
[2018-11-15] MEDS ORDERED: NS 0.9% 1000 ML** 1,000 ML IV SCH (15:00)
[2018-11-15] MEDS: Enoxaparin(*) 40 MG/0.4 ML SYR SUBCUT SCH (15:12)
[2018-11-15] MEDS: Lidocaine PATCH 5%* 1 PATCH TRANSDERM PRN (15:18)
--- NOTE | 2018-11-15 15:53 | HP ---
CC: Arlette Vargas NP * ADMISSION HISTORY AND PHYSICAL: DATE OF ADMISSION: 11/15/18 PRIMARY PROVIDER: Arlette Vargas NP, Doug. MY ATTENDING FOR THIS ADMISSION: Dr. Kay Hernandez.* (DICTATED BY GISSEL FLORES NP) CHIEF COMPLAINT: Generalized weakness, inability to ambulate, and profound fatigue. HISTORY OF PRESENT ILLNESS: Mr. Collins is a 73-year-old male patient who was in his usual state of health up until Wednesday morning whose reports that the patient had been getting some progressive weakness since Wednesday. The patient does have a reported history of osteoarthritis and lower back pain at baseline and he had been attributing his weakness and inability to ambulate to his chronic low back pain. However, the patient's does report that she had found him on the floor 2 times and she was unable to get him up off of the floor. The patient's daughter, whose name is Eladia Woods, came to help get the patient off the floor and back into the bed. At that point, she and her mom brought the patient to urgent care for evaluation. At urgent care, apparently, it was recommended that the patient come to the emergency department for further evaluation. The patient's is unsure for the reason why. She said that she was told that he did have some "changes on his EKG." However, the patient declined to come to the emergency room at that time. The patient did return back home with his and his daughter. However, per the daughter's report, the patient continued to have weakness to the point where he could not ambulate at all. At that time, the and daughter called emergency services and the patient was brought to the emergency department for evaluation. In the ED, the patient was noted to have profound weakness, also noted to have a fever of 104, some urinary retention and appeared to be confused. His course in the emergency department also involved having MRI of the lumbar spine as there was some question of whether the patient had cauda equina syndrome because of his difficulties with urination and inability to ambulate with high fever. He was also noted to have an elevated CRP and was also meeting sepsis criteria. For these reasons, we were asked to evaluate the patient for admission. Upon my evaluation of the patient, he does appear to be persistently lethargic and confused. Most of the history that is obtained is from the and daughter who are at the bedside. At this time, the patient is meeting severe sepsis criteria and will be admitted to the ICU. It was also noted that the patient had an elevated lactic acid, elevated troponin, severe hyponatremia, and what appears to be a new-onset atrial fibrillation and hypertension. Again, all of these findings are consistent with the patient requiring ICU admission. PAST MEDICAL HISTORY: Significant only for hypertension, hyperlipidemia, degenerative spinal disk disease, and COPD. MEDICATIONS: At home, include: 1. Spiriva 1 cap inhaled daily. 2. Simvastatin 20 mg p.o. daily. 3. Meloxicam 15 mg p.o. daily. 4. Losartan/hydrochlorothiazide 100 mg/12.5 mg 1 tab p.o. daily. 5. Lidocaine patch 5% 1 patch transderm to the lower lumbar daily. ALLERGIES: No known drug allergies. FAMILY HISTORY: He has a mother who of melanoma. SOCIAL HISTORY: The patient is an active everyday smoker of 1 to 2 packs per day for 60 years. He smokes unfiltered cigarettes. He does drink alcohol every day, per his a minimum of a 6-pack of beer every evening. Denies any illicit drug use. He does live at home with his . REVIEW OF SYSTEMS: Unable to obtain secondary to the patient's lethargic condition. PHYSICAL EXAMINATION GENERAL: The patient is difficult to arouse, but does open eyes to voice and tactile stimulation. VITAL SIGNS: Blood pressure 93/53, heart rate 70, respiratory rate 22, O2 saturation 97% on room air, temperature now of 98.4; down from 104.2. HEENT: The patient is atraumatic, normocephalic. PERRLA. Nonicteric sclerae. Oral mucosa is dry. Tongue is midline. NECK: Supple. Nontender. No JVD noted. No carotid bruit auscultated. LUNGS: Coarse respirations bilaterally with some scattered rhonchi. No wheezing noted. CARDIOVASCULAR: Rate and rhythm are irregular. S1 and S2 present. No murmurs , gallops, or rubs noted. ABDOMEN: Soft, nontender, and nondistended. Positive bowel sounds in all 4 quadrants. : There is a Machuca catheter inserted draining clear yellow urine. MUSCULOSKELETAL: There is no clubbing and no cyanosis. He does have some bilateral erythema of the toes and what appears to be scabbing-like appearance to the left great toe and delayed cap refill bilaterally. He also has a thready pedal pulse bilaterally. Radial pulses are stronger and palpable. He did have some mottling to the lower extremities at admission, which is improved since fluid administration. Does appear to have sensation intact and motor. NEUROLOGIC: Lethargic at baseline. DIAGNOSTIC STUDIES/LABORATORY DATA: WBCs 8.3, RBCs 4.49, hemoglobin 14.6, hematocrit 42, MCV 93, MCH 33, MCHC 35, RDW 13, platelets 150. Sodium 121, potassium 3.4, chloride 83, CO2 of 28, anion gap 10, BUN 18, creatinine 0.77, GFR 98.5, glucose 140, lactic acid 2.2; now on repeat is 0.7, uric acid is pending, calcium 8.7, magnesium 1.9. Total bilirubin 0.90, AST 104, ALT 39, alk phos 94. Troponin is 0.10 and 0.32. CRP is 218.42. Total protein 6.3, albumin 3.7, globulin 2.6. Albumin to globulin ratio 1.4. TSH is 0.69. Urinalysis shows yellow cloudy urine, pH is 6.0, specific gravity of 1.019, 2+ protein, ketones 1+, 2+ blood. Negative for nitrites, bilirubin. Urobilinogen is negative. Leukocyte esterase is negative. Wbc's are trace, rbc's are 2+, urine bacteria absent, urine glucose is negative. INR is 0.99. ABG is currently pending. Chest x-ray: Chest x-ray does not show any acute consolidation. Lung swann show no pleural fluid, pneumonia, or pneumothorax. Heart is normal in size and contour. Lumbar spine MRI shows degenerative disk disease and osteoarthritis with severe narrowing of the central canal at L2-L3 with [id number] narrowing at L3- L4 and L4-L5, moderate narrowing at L5-S1, and mild narrowing at L1-L2. There is multilevel neural foraminal narrowing described as above in the body of the report. ASSESSMENT: Mr. Collins is a 73-year-old male patient with a 3-day reported history of progressive weakness and inability to ambulate, now presenting to the emergency department meeting sepsis criteria of unclear source. PLAN: The patient will be admitted to ICU. DIAGNOSES: 1. Septic shock: The patient is meeting sepsis with temperature of 104, transient atrial fibrillation/flutter, hypotension, and altered mental status. Source at this point is likely urine. However, we will do CAT scan of chest, abdomen, and pelvis and identify if his kidneys are also involved. At this point, his chest does not appear to have consolidation on chest x-ray, but hopefully his CAT scan will reveal also if there is any gastrointestinal source or any other findings. His spine has been ruled out for any epidural abscess and we will continue to monitor any new findings closely. He has received fluid resuscitation. His lactic acid is now normalized. He has received ceftriaxone and also vancomycin. He will be covered with the Zosyn as well. At this point, if his blood pressure does not respond, we will consider adding Levophed for blood pressure support. 2. Urinary tract infection: At this point, his urine is quite malodorous. We will follow urine cultures. He has been given ceftriaxone, which will be continued until cultures are available. 3. Transient atrial fibrillation and flutter, paroxysmal: I have reached out to Dr. Mcintosh for consultation. His atrial fibrillation is likely being mediated by his high fever and sepsis. His is not reporting any previous history of atrial fibrillation in the past. His EKGs will be repeated if there are any further changes in rhythm and we will also order an echocardiogram and assess for any left ventricular dysfunction and any valvular disorders. 4. Elevated troponin: At this point, the patient is meeting [id number] myocardial infarction criteria. He has been given 325 mg of aspirin. We will follow the next troponin and look to cardiology for any additional recommendations. Again, this may not represent an ischemic event and may be demand ischemia in the presence of severe sepsis; however, with the patient's comorbid conditions and risk factors, this is still something that should be explored and again, we look to cardiology for any additional recommendations. 5. Gait dysfunction and inability to ambulate: The patient's MRI was negative for any epidural abscess or cord compression; however, he does have severe degenerative spinal disease. Given his profound weakness, this could be exacerbating his chronic condition. We will still put in for PT and OT evaluations when the patient is no longer critical. If he does have persistent weakness or any bowel or bladder dysfunction, we will consider neurosurgery consultation. 6. Hyponatremia: The patient does appear to be hypovolemic, hyponatremic. He has been given fluid administration. We will continue to monitor his electrolytes on a daily basis. 7. For DVT prophylaxis: The patient has been placed on Lovenox subcutaneously. 8. Diet: He will have heart-healthy diet as tolerated. 9. Ambulation status: Bedrest. 10. Disposition: The patient has been admitted to ICU. TIME SPENT: Critical care time of 75 minutes, interviewing the patient, his family, evaluating the chart; labs; and diagnostics. The rest of the patient's course will be determined by further diagnostics, laboratories, and any other input from other providers as warranted during this admission. This plan of care has been discussed with Dr. Kay Hernandez, my attending on this case. GISSEL FLORES, VICKIE [id number]/CPS #: [id number]
[2018-11-15] MEDS ORDERED: LORazepam TAB(*) 1 MG ONE (16:24)
[2018-11-15] MEDS ORDERED: Acetaminophen TAB* 325 MG ONE (16:24)
[2018-11-15] MEDS: Albuterol/Ipratropium NEB.SOL* Albuterol 2.5 MG/Ipratropium 0.5 MG 3 ML INH SCH ×3 (16:25→23:11)
[2018-11-15] MEDS: LORazepam TAB(*) 1 MG PO SCH (16:26)
[2018-11-15] MEDS: Acetaminophen TAB* 325 MG PO PRN (16:26)
[2018-11-15 16:40] LABS: Troponin I 0.28 ng/mL (<0.04)
--- NOTE | 2018-11-15 17:20 | ECHO ---
*[facility]* [place] [address] Fax #: [phone] Transthoracic Echocardiogram Patient: Jay Collins Height: 70 in / 177.8 E cm : 1945 Weight: 169.6 lb / Study Date: 11/15/2018 77.1 kg Age: 73 BP: 99 / 69 Gender: M BMI/BSA: 24.4 kg/m^2 / HR: 85 bpm 1.95 m^2 *See Supervisor: * Maritza Gaviria [facility] RN *Referring Physician: * Kaylan Duque *Reading Physician: * Lobo Mcintosh MD Indications: Bacteremia. History: Chronic obstructive pulmonary disease. Risk factors: Current tobacco use. Hypertension. ETOH use. Conclusions Summary: 1. Left ventricle: The cavity size is normal. Wall thickness is mildly increased. Systolic function is at the lower limits of normal. The estimated ejection fraction is 50-55%. There are no regional wall motion abnormalities. 2. Left atrium: The atrium is normal in size. 3. Mitral valve: There is mild regurgitation. 4. Aortic valve: There is no evidence of stenosis. There is no significant regurgitation. 5. Tricuspid valve: There is mild regurgitation. 6. Pericardium, extracardiac: There is no pericardial effusion. 7. Pulmonary arteries: Systolic pressure can not be accurately estimated. Study data: Transthoracic echocardiogram. Procedure: Transthoracic echocardiography was performed. The study was technically limited due to COPD and Smoking history. Complete 2D, spectral Doppler, and color flow Doppler. Patient status: Inpatient. Patient room number: ICU 3. Rhythm: Sinus with frequent PAC's Findings Left ventricle: The cavity size is normal. Wall thickness is mildly increased. Systolic function is at the lower limits of normal. The estimated ejection fraction is 50-55%. There are no regional wall motion abnormalities. There is no consistent Doppler evidence of clinically significant diastolic dysfunction. Right ventricle: The cavity size is normal. Systolic function is low normal. Left atrium: The atrium is normal in size. Right atrium: The atrium is normal in size. Mitral valve: The annulus is mildly calcified. The leaflets are mildly thickened. There is no evidence of stenosis. There is mild regurgitation. Aortic valve: The leaflets are mildly thickened. There is no evidence of stenosis. There is no significant regurgitation. Tricuspid valve: The valve is structurally normal. There is no evidence of stenosis. There is mild regurgitation. Pulmonic valve: Not well visualized. There is no evidence of stenosis. There is trace regurgitation. Aorta: Aortic root: The aortic root is not dilated. Ascending aorta: The ascending aorta is not visualized. Aortic arch: The aortic arch is not dilated. Pericardium: There is no pericardial effusion. Pulmonary arteries: Not well visualized. Systolic pressure can not be accurately estimated. Systemic veins: Inferior vena cava: The vessel is normal in size. The respirophasic diameter changes are blunted (< 50%). Measurements Left ventricle Value Ref Right atrium Value Ref DANYEL, LAX (L) 3.8 cm 4.2 - 5.8 SI dim, ES 4.8 cm 3.4 - 5.3 ESD, LAX 3.2 cm 2.5 - 4.0 ML dim, ES, A4C 4.3 cm 2.6 - 4.4 FS, LAX (L) 15 % 25 - 43 SI dim, ES, A4C 4.8 cm 3.4 - 5.3 PW, ED, LAX (H) 1.1 cm 0.6 - 1.0 Estimated RAP 8 mm Hg --------- FS (L) 21 % 25 - 43 Mid-wall FS 9 % Aortic valve Value Ref PW, ED 1.0 cm 0.6 - 1.0 Peak v, S 1.4 m/sec --------- PW/ID, ED 0.24 VTI, S 24.9 cm --------- E', lat [place], TDI 12.5 cm/sec >=10.0 Mean grad, S 5.0 mm Hg ---- ----- E/e', lat [place], 9 Peak grad, S 8.0 mm Hg ------- -- TDI LVOT/AV, VTI ratio 0.85 --------- E', med [place], TDI 7.1 cm/sec >=7.0 E/e', med [place], 16 Mitral valve Value Ref TDI Peak E 1.15 m/sec --------- E', avg, TDI 9.8 cm/sec Decel time 182 ms ------- -- E/e', avg, TDI 12 <=14 Peak grad, D 5.3 mm Hg ---- ----- Peak E/A ratio 1 --------- LVOT Value Ref Peak michael, S 1.1 m/sec Pulmonic valve Value Ref VTI, S 21.2 cm Peak v, S 0.7 m/sec --------- Mean grad, S 3 mm Hg Peak grad, S 2.0 mm Hg --------- Ventricular septum Value Ref Aortic root Value Ref IVS, ED (H) 1.1 cm 0.6 - 1.0 Root diam 2.9 cm <4.1 Right ventricle Value Ref Aortic arch Value Ref DANYEL minor ax, A4C 3.5 cm 1.9 - 3.5 Arch diam 2.2 cm --------- mid Inferior vena cava Value Ref Left atrium Value Ref Diam 1.9 cm --------- AP dim, ES 3.10 cm 3.00 - 4.00 ML dim, A4C 4.0 cm SI dim, A4C 4.8 cm Vol/bsa, ES, 1-p 21 ml/m^2 12 - 37 A4C Vol/bsa, ES, A/L 25 ml/m^2 16 - 34 Legend: (L) and (H) ronaldo values outside specified reference range. Prepared and electronically signed by Lobo Mcintosh MD 11/15/2018 17:19
[2018-11-15] MEDS ORDERED: Zosyn per Pharmacy* NOTE FOLLOW UP SCH (18:00)
[2018-11-15] MEDS ORDERED: Vancomycin per Pharmacy* NOTE FOLLOW UP SCH (18:00)
[2018-11-15] MEDS: ZOSYN 3.375 GM Q8H per EXTENDED INFUSION IVPB SCH ×2 (18:25)
--- NOTE | 2018-11-15 20:36 | CONS ---
CC: Arlette Vargas NP in [place]; Dr. Hernandez * CARDIOLOGY CONSULTATION: DATE OF CONSULT: 11/15/18 INDICATION FOR CONSULTATION: Sepsis, abnormal troponin. HISTORY OF PRESENT ILLNESS: The patient is a 73-year-old gentleman with a history of COPD, but does not seek regular medical care, who has been having increasing weakness over the last few days. The patient was ambulating and had chronic back pain and was found on the floor. He did not have a syncopal episode. He was unable to get up from the floor by himself. His called his daughter to come to the house and help get him out of bed. They decided to take him to [facility] for evaluation and then he was brought to the emergency room because of his abnormal EKG. In general, the patient is very lethargic. I was unable to wake the patient during the interview. I was able to interview his and daughter. They denied any recent episodes of angina. They denied any recent increase in shortness of breath. They denied any palpitations. No lightheadedness, dizziness, or syncope. PAST MEDICAL HISTORY: Significant for hypertension, hyperlipidemia, and degenerative spinal disk disease. OUTPATIENT MEDICATIONS: 1. Spiriva inhaler. 2. Simvastatin 20 mg a day. 3. Meloxicam 15 mg a day. 4. Losartan/hydrochlorothiazide 100/12.5 mg a day. 5. Lidocaine patch. ALLERGIES: No known drug allergies. FAMILY HISTORY: Mother of melanoma. SOCIAL HISTORY: He was an active smoker for 60 years. He smoked unfiltered cigarettes. He consumes alcohol daily up to 6 drinks a day. He lives with his . REVIEW OF SYSTEMS: Could not be obtained as the patient was lethargic. PHYSICAL EXAM: Height is 5 feet 10 inches, weight is 171 pounds. Temperature 101.8, heart rate is 83 and irregular, blood pressure 138/83, respiratory rate is 30, oxygen saturation 95% on 2 L. Sclerae anicteric. Oropharynx could not assessed as the patient was unable to open his mouth. Carotids are 2+ without bruits. JVD is normal. Thyroid is normal. Cardiac Exam: S1, S2, without any murmurs, rubs, or gallops. His rhythm is irregular. PMI is normal. Lungs are clear anteriorly. The patient was unable to sit up to auscultate posteriorly. Abdomen is soft, nontender, nondistended with normoactive bowel sounds. Extremities show 1+ edema. He has 2+ pulses throughout. Again, the patient is lethargic. Unable to follow all commands. DIAGNOSTIC STUDIES/LAB DATA: CBC within normal limits. Chemistries: Sodium 121, potassium 3.4, BUN and creatinine are normal. Initial troponin level 0.1, second troponin 0.32, third troponin 0.28. AST is slightly elevated at 104, TSH is 0.69. Chest x-ray is unremarkable. His echocardiogram shows low normal LV systolic function, ejection fraction of 50%, no significant valvular abnormalities, unable to estimate PA systolic pressures. EKG shows wandering atrial pacer, no clear evidence of atrial fibrillation. IMPRESSION: This is a 73-year-old gentleman with a history of hypertension, long history of smoking and alcohol intake, who is admitted to the hospital with increased lethargy. There is some concern about sepsis and the patient has been admitted to the intensive care unit. The patient has a minimally elevated troponin level. His echocardiogram shows no focal wall motion abnormalities and no significant valvular abnormalities. At this point, I think the patient's major issue is his infection and sepsis. I do not think the patient is having an acute myocardial infarction. I think his elevated troponin levels were due to increased demand. At this point, I think it is reasonable to start an aspirin a day. Other medications will be per hospitalists. At some point, the patient would benefit from a stress test either at the end of this hospitalization or as an outpatient evaluation. I would be glad to see the patient as an outpatient. Case discussed with Kaylan Duque NP. [id number]/[facility] #: [id number] ANGEL
[2018-11-15] MEDS ORDERED: Lidocaine Patch REMOVE* 1 NOTE MISC PATCH OFF PRN (21:00)
[2018-11-16] MEDS ORDERED: Vancomycin(*) 1,000 MG in NS 0.9% 250 ML* 250 ML IVPB SCH ×2
[2018-11-16] MEDS: NS 0.9% 1000 ML** 1,000 ML IV SCH ×2 (00:25→20:15)
[2018-11-16] MEDS: ZOSYN 3.375 GM Q8H per EXTENDED INFUSION IVPB SCH ×2 (02:01)
[2018-11-16] MEDS: Albuterol/Ipratropium NEB.SOL* Albuterol 2.5 MG/Ipratropium 0.5 MG 3 ML INH SCH ×2 (03:17→07:29)
[2018-11-16] MEDS: Acetaminophen TAB* 325 MG PO PRN ×4 (03:45→23:53)
[2018-11-16 05:22] LABS: Hematocrit 37 % (42-52); Hemoglobin 12.9 g/dL (14.0-18.0); Mean Corpuscular HGB Conc 35 g/dL (31-36); Mean Corpuscular Hemoglobin 32 pg (27-31); Mean Corpuscular Volume 94 fL (80-94); Mean Platelet Volume 8.7 fL (7.4-10.4); Platelet Count 129 10^3/uL (150-450); Red Blood Count 3.98 10^6 /uL (4.18-5.48); Red Cell Distribution Width 13 % (10-15); White Blood Count 7.8 10^3/uL (3.5-10.8)
[2018-11-16 05:41] LABS: ALT 31 U/L (7-52); Albumin 2.7 g/dL (3.2-5.2); Albumin/Globulin Ratio 1.3 (1-3); Alkaline Phosphatase 65 U/L (34-104); BUN/Creatinine Ratio 28.3 (8-20); Blood Urea Nitrogen 15 mg/dL (6-24); CO2 Carbon Dioxide 24 mmol/L (22-32); Calcium 7.2 mg/dL (8.6-10.3); Chloride 95 mmol/L (101-111); EGFR African American 183.4 (>60); EGFR Non-African American 151.6 (>60); Globulin 2.1 g/dL (2-4); Glucose 104 mg/dL (70-100); Sodium 126 mmol/L (135-145); Total Protein 4.8 g/dL (6.4-8.9)
[2018-11-16 05:42] LABS: Anion Gap 7 mmol/L (2-11)
[2018-11-16 05:44] LABS: ABS Lymphocytes 0.1 10^3/ul (1.0-4.8); ABS Monocytes 0.7 10^3/ul (0-0.8); ABS Neutrophils 6.9 10^3/ul (1.5-7.7); Eosinophil % 0.1 %; Lymphocyte % 1.7 %
[2018-11-16 06:21] LABS: Potassium Redraw 3.2 mmol/L (3.5-5.0)
[2018-11-16] MEDS: Tiotropium CAP.INH* CAP.INH/18 MCG (USE ORDER SET !) INH SCH (07:29)
[2018-11-16] MEDS ORDERED: Albuterol/Ipratropium NEB.SOL* Albuterol 2.5 MG/Ipratropium 0.5 MG 3 ML INH PRN (07:48)
[2018-11-16] MEDS ORDERED: Spiriva Inhaler DEVICE* 1 EACH DEVICE INH ONE (09:00)
[2018-11-16] MEDS ORDERED: Potassium Chloride* LIQUID 20 MEQ/15 ML UDC PO ONE (09:48)
[2018-11-16] MEDS: ceFAZolin 2 GM PREMIX in ORs 2 GM/50 ML BAG IVPB SCH ×2 (10:09→18:02)
[2018-11-16] MEDS: Thiamine TAB* 100 MG TAB PO SCH (10:10)
[2018-11-16] MEDS: Folic Acid TAB* 1 MG PO SCH (10:10)
[2018-11-16] MEDS: Aspirin EC TAB* 81 MG TAB.EC PO SCH (10:10)
[2018-11-16] MEDS: Atorvastatin* 10 MG TAB PO SCH (10:10)
[2018-11-16] MEDS: Multivitamins/Minerals TAB PO SCH (10:10)
--- NOTE | 2018-11-16 10:39 | PN ---
Subjective Date of Service: 11/16/18 Interval History: Pt is lethargic , but conversational. 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 C/o back pain, but cannot specify which part. Unable to tell me how long he had a"sore left great toe", said : " for a while" Objective Active Medications: Acetaminophen (Tylenol Tab*) 650 mg PO Q4H PRN PRN Reason: PAIN Last Admin: 11/16/18 03:45 Dose: 650 mg Albuterol/Ipratropium (Duoneb (Albuterol 2.5 Mg/Ipratropium 0.5 Mg)) 1 neb INH RT.[id number] AWAKE PRN PRN Reason: SOB/WHEEZING Aspirin (Aspirin Ec Tab*) 81 mg PO DAILY [facility] Last Admin: 11/16/18 10:10 Dose: 81 mg Atorvastatin Calcium (Lipitor*) 10 mg PO DAILY [facility] Last Admin: 11/16/18 10:10 Dose: 10 mg Enoxaparin Sodium (Lovenox(*)) 40 mg SUBCUT Q24H [facility] Last Admin: 11/15/18 15:12 Dose: 40 mg Folic Acid (Folvite Tab*) 1 mg PO DAILY [facility] Last Admin: 11/16/18 10:10 Dose: 1 mg Sodium Chloride (Ns 0.9% 1000 Ml) 1,000 mls @ 75 mls/hr IV PER RATE [facility] Last Admin: 11/16/18 00:25 Dose: 75 mls/hr Cefazolin Sodium/Dextrose (Kefzol 2 Gm Premix In Ors(*)) 2 gm in 50 mls @ 100 mls/hr IVPB Q8H [facility] Last Admin: 11/16/18 10:09 Dose: 100 mls/hr Lidocaine (Lidoderm 5% Patch*) 1 patch TRANSDERM DAILY PRN PRN Reason: PAIN Last Admin: 11/15/18 15:18 Dose: 1 patch Lorazepam (Ativan Tab(*)) 0 - 6 mg PO .PER [facility] PROTOCOL [facility]; Protocol Last Admin: 11/15/18 16:26 Dose: 4 mg Multivitamins/Minerals (Theragran/Minerals Tab*) 1 tab PO DAILY [facility] Last Admin: 11/16/18 10:10 Dose: 1 tab Pharmacy Profile Note (Lidocaine Patch Remove*) 1 note PATCH OFF BEDTIME PRN PRN Reason: IF PATCH APPLIED TODAY Thiamine HCl (Vitamin B-1 Tab*) 100 mg PO DAILY [facility] Last Admin: 11/16/18 10:10 Dose: 100 mg Tiotropium [place] (Spiriva Cap.Inh*) 1 cap INH DAILY [facility] Last Admin: 11/16/18 07:29 Dose: 1 cap Vital Signs - 8 hr 11/16/18 11/16/18 11/16/18 02:45 02:53 03:00 Temperature 100.4 F 100.8 F 100.9 F Pulse Rate 73 81 80 Respiratory 30 30 28 Rate Blood Pressure 148/79 131/78 (mmHg) O2 Sat by Pulse 97 97 96 Oximetry 11/16/18 11/16/18 11/16/18 03:15 03:17 03:19 Temperature 100.9 F Pulse Rate 84 82 Respiratory 32 20 Rate Blood Pressure (mmHg) O2 Sat by Pulse 96 97 Oximetry 11/16/18 11/16/18 11/16/18 03:30 03:45 03:52 Temperature Pulse Rate 84 92 Respiratory 32 34 26 Rate Blood Pressure (mmHg) O2 Sat by Pulse 98 98 Oximetry 11/16/18 11/16/18 11/16/18 04:00 04:01 04:15 Temperature 100.9 F 100.9 F 101.1 F Pulse Rate 85 Respiratory 32 34 32 Rate Blood Pressure (mmHg) O2 Sat by Pulse 99 Oximetry 11/16/18 11/16/18 11/16/18 04:30 04:32 04:45 Temperature 101.1 F 101.1 F 101.1 F Pulse Rate 73 83 77 Respiratory 27 29 27 Rate Blood Pressure 121/53 (mmHg) O2 Sat by Pulse 96 94 94 Oximetry 11/16/18 11/16/18 11/16/18 04:56 05:00 05:06 Temperature 100.8 F 100.8 F Pulse Rate 68 72 Respiratory 27 26 26 Rate Blood Pressure 98/52 (mmHg) O2 Sat by Pulse 94 95 Oximetry 11/16/18 11/16/18 11/16/18 05:15 05:30 05:45 Temperature 100.6 F 100.2 F 100.2 F Pulse Rate 72 72 68 Respiratory 24 25 24 Rate Blood Pressure (mmHg) O2 Sat by Pulse 94 96 98 Oximetry 11/16/18 11/16/18 11/16/18 05:55 06:00 06:15 Temperature 100.0 F 99.9 F Pulse Rate 77 70 Respiratory 28 24 24 Rate Blood Pressure 112/59 (mmHg) O2 Sat by Pulse 97 97 Oximetry 11/16/18 11/16/18 11/16/18 06:30 07:00 07:32 Temperature 99.7 F 99.5 F Pulse Rate 69 69 80 Respiratory 25 27 24 Rate Blood Pressure 99/55 (mmHg) O2 Sat by Pulse 97 97 100 Oximetry 11/16/18 11/16/18 11/16/18 08:00 09:00 10:01 Temperature 99.5 F 99.3 F 99.5 F Pulse Rate 69 70 70 Respiratory 30 23 30 Rate Blood Pressure 102/64 98/61 (mmHg) O2 Sat by Pulse 99 98 98 Oximetry 11/16/18 10:03 Temperature 99.3 F Pulse Rate 72 Respiratory 27 Rate Blood Pressure 97/66 (mmHg) O2 Sat by Pulse 98 Oximetry Oxygen Devices in Use Now: Nasal Cannula Appearance: 73 yo M in NAD, aAOx3, lethargic Eyes: No Scleral Icterus, PERRLA Ears/Nose/Mouth/Throat: NL Teeth, Lips, Gums, Mucous Membranes Moist Neck: NL Appearance and Movements; NL JVP, Trachea Midline Respiratory: Symmetrical Chest Expansion and Respiratory Effort, Clear to Auscultation Cardiovascular: NL Sounds; No Murmurs; No JVD, RRR Abdominal: NL Sounds; No Tenderness; No Distention, No Hepatosplenomegaly Lymphatic: No Cervical Adenopathy Extremities: - - trace R ankle edema. Left foot colder than right with a samll eschar covered ulcer on dorsal aspect of left 1st toe. r foot with scant erythema-? cellultitis? Neurological: Alert and Oriented x 3, - - b/L LE's weakness, unable to raise r leg off bed 3+/5, left leg at 4+/5 Result Diagrams: 11/16/18 05:10 11/16/18 06:00 Microbiology and Other Data: Microbiology 11/15/18 08:15 Aerobic Blood Culture - Preliminary Blood Venous Staphylococcus Aureus Anaerobic Blood Culture - Preliminary Staphylococcus Aureus Blood MRSA/MSSA (PCR) - Final Mrsa Negative S.aureus Positive 11/15/18 08:15 Aerobic Blood Culture - Preliminary Blood Venous Staphylococcus Aureus Anaerobic Blood Culture - Preliminary Staphylococcus Aureus Blood MRSA/MSSA (PCR) - Final Mrsa Negative S.aureus Positive 11/15/18 08:42 Urine Culture - Final Urine No Growth (<1,000 CFU/mL) 11/15/18 14:27 Nasal Screen MRSA (PCR) - Final Nasal Mrsa Not Detected Assess/Plan/Problems-Billing Assessment: 73 yo M with h/o COPD(not on 02, current smoker 1 ppd), HTN presents with fevers, b/l leg weakness, U retention - Patient Problems (1) Severe sepsis Comment: blood cx posttive for Staph, MRSA neg. Appreciate ID consult will need SALENA tomorrow cont broad spectrum antibiotics till ID modifies (2) Lower extremity weakness Comment: b/l, R>L with MRI showing severe spinal stenosis at L2-L3 level D/w DR. Griffiths will get MRI of T spine to r/o epidural abscess. Neurosurgery will see pt (3) Urinary retention Comment: Acute, cont [place] Perninephric stranding noted on CT could be due to acute retention U. Cx no growth (4) Elevated troponin Comment: Likley due to demand ischemia appreciate DR. Mcintosh's consult Echo shows EF 55%, no sig valvular abn (5) Hyponatremia Comment: due to dehydration and HCTZ use improving with IVF (6) Lethargy Comment: due to toxic encephalopathy in pt with speticemia-improving slowly Pt is alert and oriented, still appears lethargic (7) DVT prophylaxis Comment: lovenox (8) PAD (peripheral artery disease) Comment: poor pedal pulses on L-will get MAYUR's Status and Disposition: inpatient
[2018-11-16] MEDS ORDERED: Gadoteridol* (CONTRAST) 279.3 MG/ML 10 ML IV ONE (11:29)
--- NOTE | 2018-11-16 11:40 | CONSULT ---
Consult Consult: Neurosurgery Consult Date of Admission: 11/15/18 Date of Consult: 11/16/18 Reason for Consult: Lumbar stenosis, lower extremity weakness Referring Provider: Dr. Hernandez PCP: Arlette Vargas NP HPI: This is a 73 year old male who presented to [facility] ED with fatigue, lower extremity weakness, difficulty ambulating and back pain for the past 2-3 days. He reports 40 or more year history of chronic back pain which recently worsened on Wednesday. Back pain is primarily located across the low back, "just above the waist line." He reports poor balance and minimal ambulation over the past 15 years which he states is due to hip and knee pain with walking and arthritis. He denies pain, numbness and tingling in the bilateral lower extremities. Since Wednesday he has been unable to ambulate without assistance and fell when trying to get up out of bed Wednesday night. He states that he slept on the floor Wednesday into Wednesday. Back pain is worse with movement in bed and with lower extremity movements. He has been taking ibuprofen and applying aspercreme for the back pain at home. He denies headache, dizziness, lightheadedness, seizure, changes in speech, difficulty swallowing, blurred vision, chest pain, palpitations, difficulty breathing, shortness or breath, nausea, vomiting, recent illness, recent weight gain or weight loss, poor appetite, abdominal pain, blood in stool or urine. He reports constipation for which he typically self medicates with a soap suds enema. He is admitted to [facility] ICU for sepsis evaluation and treatment. Past Medical History: 1. Hypertension 2. Hyperlipidemia 3. COPD 4. Lumbar DDD Past Surgical History: 1. Tonsillectomy age 7 2. [place] tooth extractions Home Medications: 1. Lidocaine PATCH 5%* [Lidoderm 5% Patch*] 1 patch TRANSDERM DAILY PRN #10 patch 11/14/18 [Rx Confirmed 11/15/18] 2. Losartan/Hydrochlorothiazide [Losartan Potassium/Hydroc 100-12.5 mg] 1 tab PO DAILY 11/14/18 [History Confirmed 11/15/18] 3. Meloxicam [Qmiiz Odt] 15 mg PO DAILY 11/14/18 [History Confirmed 11/15/18] 4. Simvastatin TAB(NF) [Zocor(NF)] 20 mg PO DAILY 11/14/18 [History Confirmed ] 5. 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 He smokes approximately 20 cigarettes daily. He drinks 5-6 beers daily. ROS: Full ROS obtained. Reports constipation and all other pertinent findings stated in HPI. Physical Exam: Vital Signs: Temp Pulse Resp BP Pulse Ox 99.7 F 72 35 126/74 98 11/16/18 10:53 11/16/18 10:03 11/16/18 11:00 11/16/18 10:53 11/16/18 10:03 General: Alert, recumbent in bed. NAD HEENT: Head is normocephalic and atraumatic. PERRL, EOMI. Sclerae anicteric. Moist mucus membranes. Gross hearing intact. Glasses in place. Neck: Supple, symmetric. Nontender to palpation of cspine and paraspinal muscles CV: Radial pulses 2+ and equal, pedal pulses difficult to palpate. Lungs: Breathing is nonlabored. Abdomen: The abdomen is rounded, nontender, nondistended. Neuro: Speech is clear. Answers questions appropriately. Oriented to person, place, date and situation. CN II-XII intact. Sensation intact throughout. Patellar reflex 2+ bilaterally. Biceps absent. Strength: Right upper extremity 5 /5; Left upper extremity abduction 1/5, adduction 5/5, biceps and triceps 5/5; Lower extremities 4/5 bilaterally. Hoffmans positive bilaterally. No pronator drift. Coordination finger to nose intact. Extremities: Right knee slightly erythematous, swollen and warm compared to left. Right toes erythematous, left great toe erythematous with healing wound present. Nontender bilaterally. Imagin. MRI lumbar spine with and without contrast on 11/15/18 shows multilevel degenerative disc disease and severe stenosis L2-3, L3-4, L4-5, chronic compression fracture of L1. No epidural fluid collection or abscess. 2. MRI thoracic spine with and without contrast on 11/16/18 shows degenerative disc disease, no epidural collection. Assessment and Plan: This is a 73 year old male admitted to [facility] ICU for treatment and evaluation of sepsis, back pain and generalized weakness. MRI lumbar and thoracic spine show degenerative changes without acute findings, epidural fluid collection or abscess. There is no indication for urgent surgical intervention. This was discussed with the patient, his and . They understand that he can follow up in office once he is well for further evaluation and treatment of the degenerative spine conditions. This case was discussed and imaging reviewed with Dr. Griffiths.
--- NOTE | 2018-11-16 13:13 | CONS ---
CONSULTATION REPORT: DATE OF CONSULT: 11/16/18 REQUESTING PHYSICIAN: Dr. Hernandez. CONSULTING SERVICE: Infectious Disease. REASON FOR CONSULTATION: Staphylococcal bacteremia. IMPRESSION: 1. Staphylococcal bacteremia, 4 of 4 bottles Methicillin-sensitive Staphylococcus aureus. He had the sudden onset of low back pain over the weekend and some right leg weakness, and inability how to know how much of this weakness is new from either the patient or his family's recollection. He does have disk herniation on his lumbar spine MRI with severe narrowing of the central canal L2-L3, L3-L4, L4- L5, L5-S1. This study was done with gadolinium. There is no evidence of an epidural abscess or osteodiskitis. He has elevated troponins, so he could also have an infectious endocarditis as the source of this infection. A CT of chest, abdomen, and pelvis did not reveal source. He does not have prosthetic material present or any joints bothering him. 2. Decreased dorsalis pedis pulses bilaterally with probable peripheral arterial disease. The toes on the left are dusky. He could have some degree of ischemia which if present could be due to embolization. RECOMMENDATIONS: Stop vancomycin and Zosyn. I will order Ancef 2 g IV every 8 hours. He is going to have an MRI of his thoracic spine and be seen by Neurosurgery. Tomorrow, he should have a transesophageal echocardiogram. He is going to have an ankle-brachial index and he may need more vascular evaluation. 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 He has fallen a couple of times at home. He has had the onset of severe low back pain starting this weekend and been less mobile since then. They do note that he has had trouble using his right leg for months they think. He does not usually seek medical care, but did go to [facility] on 11/14/18, where he had a spine x-ray for the pain that showed osteopenia, degenerative disk disease, compression deformity of L1, atherosclerosis. He had worsening of his pain and was falling more so. His daughter called the ambulance yesterday. When he got here, his white count was 8000, CRP was 220. Urinalysis showed ketones and blood, no white cells. He was started on broad-spectrum antibiotics. His blood cultures are now growing Staph aureus in 4 of 4 bottles. Urine culture is negative. He had a CT chest, abdomen, and pelvis that showed some stranding on both kidneys, some bilateral pleural effusions, no other acute changes. MRI of the lumbar spine was as described above. He had a transthoracic echocardiogram yesterday that showed ejection fraction of 50% to 55% without wall motion abnormalities, mild mitral regurgitation, mild tricuspid regurgitation. He had a fever overnight to 39 degrees. He is hungry this morning which is new for him. His troponin on admission 0.1 and was up to 0.3 yesterday at noon, and down to 0.2 in the afternoon. He denies any chest pain now. PAST MEDICAL HISTORY: 1. Hypertension. 2. Hyperlipidemia. 3. COPD. MEDICATIONS: 1. Tylenol. 2. Albuterol inhaler. 3. Aspirin. 4. Lipitor. 5. Enoxaparin. 6. Lidocaine patch. 7. Zosyn 3.375 gm every 8 hours. 8. Vancomycin. 9. Thiamine. 10. Spiriva. ALLERGIES: No known drug allergies. FAMILY HISTORY: Mother from melanoma. SOCIAL HISTORY: He lives in [place] with his . 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 He smokes a pack or two a day. He drinks alcohol everyday. REVIEW OF SYSTEMS: All negative except as noted above to 12-point review. PHYSICAL EXAM: Vital Signs: Temperature is 37.4, heart rate 70, respiratory rate 25, blood pressure 97/66, oxygen saturation 98% on 2 L by nasal cannula. In general, he is not in distress, not diaphoretic. Neurologic: He is awake, answers questions appropriately. He is oriented x3. Strength is 5/5 in the biceps, triceps, wrist flexors, extensors bilaterally. 5/5 in the left quad, tibialis anterior and gastrocnemius. 4/5 in the right quad, tibialis anterior, and gastrocnemius. There is no lower extremity clonus on either side. Sensation is decreased to light touch in both feet. HEENT: There is no conjunctival hemorrhage. Oropharynx without lesions. Neck: Supple without mass. Heart: Regular rate and rhythm without murmurs, rubs, or gallops. Lungs : Clear to auscultation bilaterally. Abdomen: Soft, nontender, nondistended. Bowel sounds present. Skin: There is no rash or splinter hemorrhage. Musculoskeletal: There is lumbar spine tenderness to palpation. There is no paraspinal tenderness. There is no lower extremity edema. There is no joint synovitis. Toes on his right feet are erythematous, on the left are dusky and cool. DIAGNOSTIC STUDIES/LAB DATA: Creatinine 0.5. White blood cell count 7.8, hemoglobin 12.9, platelets 129. ALT 31. Please see impressions and recommendations outlined above, which I have discussed with Dr. Hernandez. Thank you for asking me to see Mr. Collins in consultation. [id number]/[facility] #: [id number] [facility]ITAL[facility]
[2018-11-16] MEDS: Morphine INJ* 2 MG/ML 1 ML SYRINGE (TWO MG - NEW SYRINGE VERSION) IV PRN (14:12)
[2018-11-16] MEDS: Enoxaparin(*) 40 MG/0.4 ML SYR SUBCUT SCH (14:12)
[2018-11-16] MEDS: Lidocaine PATCH 5%* 1 PATCH TRANSDERM PRN (16:41)
[2018-11-16] MEDS: Ibuprofen TAB* 600 MG PO PRN (20:56)
[2018-11-16] MEDS: Melatonin 3 MG TAB PO PRN (22:59)
[2018-11-17] MEDS: ceFAZolin 2 GM PREMIX in ORs 2 GM/50 ML BAG IVPB SCH ×2 (02:45→10:46)
[2018-11-17] MEDS: Ibuprofen TAB* 600 MG PO PRN (05:13)
[2018-11-17 06:05] LABS: ABS Lymphocytes 0.3 10^3/ul (1.0-4.8); ABS Monocytes 0.9 10^3/ul (0-0.8); ABS Neutrophils 6.5 10^3/ul (1.5-7.7); Eosinophil % 0.5 %; Hematocrit 39 % (42-52); Hemoglobin 13.7 g/dL (14.0-18.0); Lymphocyte % 3.8 %; Mean Corpuscular HGB Conc 35 g/dL (31-36); Mean Corpuscular Hemoglobin 33 pg (27-31); Mean Corpuscular Volume 94 fL (80-94); Mean Platelet Volume 8.6 fL (7.4-10.4); Platelet Count 142 10^3/uL (150-450); Red Cell Distribution Width 14 % (10-15); White Blood Count 7.8 10^3/uL (3.5-10.8)
[2018-11-17 06:21] LABS: Albumin 2.7 g/dL (3.2-5.2); Albumin/Globulin Ratio 1.2 (1-3); EGFR African American 196.1 (>60); EGFR Non-African American 162.1 (>60); Globulin 2.2 g/dL (2-4); Magnesium 2.1 mg/dL (1.9-2.7); Potassium 3.6 mmol/L (3.5-5.0); Total Bilirubin 0.4 mg/dL (0.2-1.0); Total Protein 4.9 g/dL (6.4-8.9)
[2018-11-17] MEDS: Tiotropium CAP.INH* CAP.INH/18 MCG (USE ORDER SET !) INH SCH (07:35)
[2018-11-17] MEDS ORDERED: Midazolam* 1 MG/ML 5 ML VIAL (5 MG) ONE (07:55)
[2018-11-17] MEDS ORDERED: fentaNYL* 50 MCG/ML 2 ML VIAL (100 MCG VIAL) ONE (07:55)
[2018-11-17] MEDS ORDERED: Flumazenil* 0.1 MG/ML 5 ML MDV ONE (07:55)
[2018-11-17] MEDS ORDERED: Naloxone* 0.4 MG/ML 1 ML VIAL ONE (07:55)
[2018-11-17] MEDS ORDERED: Lidocaine 2% VISCOUS* 15 ML UDC ONE (07:56)
[2018-11-17] MEDS: Lidocaine PATCH 5%* 1 PATCH TRANSDERM PRN (09:00)
--- NOTE | 2018-11-17 09:54 | PN ---
Progress Note - Progress Note Date of Service: 11/17/18 SOAP: Subjective: cc:fever HPI: 73 year old man with MSSA bacteremia; R>L leg weakness, fever overnight; hungry, going to have SALENA this morning. Ongoing back pain. No rash or diarrhea. Objective: Vital Signs Temp 36.1 C 11/17/18 09:54 Pulse 74 11/17/18 09:54 Resp 21 11/17/18 09:54 BP 138/73 11/17/18 09:54 Pulse Ox 93 11/17/18 09:54 Intake & Output 11/16/18 11/17/18 11/17/18 18:59 06:59 18:59 Intake Total 1243 1938 50 Output Total 460 940 375 Balance 783 998 -325 Weight 177 lb 0.499 oz Intake: IV Fluids 473 1151 50 NS (0.9%) 473 1151 IVPB 112 NS (0.9%) 112 Oral 770 675 0 Output: [place] 460 940 375 Gen:awake, no distress HEENT: no thrush Heart:RRR overnight Lungs:CTA BL Abd:+BS NTND soft Skin: no rash MSK: Right foot warm, left foot slightly cool Laboratory Results - last 24 hr 11/17/18 11/17/18 05:25 05:25 WBC 7.8 RBC 4.20 Hgb 13.7 L Hct 39 L MCV 94 MCH 33 H MCHC 35 RDW 14 Plt Count 142 L MPV 8.6 Neut % (Auto) 83.4 Lymph % (Auto) 3.8 Wetzel % (Auto) 12.0 Eos % (Auto) 0.5 Baso % (Auto) 0.3 Absolute Neuts (auto) 6.5 Absolute Lymphs (auto) 0.3 L Absolute Monos (auto) 0.9 H Absolute Eos (auto) 0.0 Absolute Basos (auto) 0.0 Absolute Nucleated RBC 0.0 Nucleated RBC % 0.0 Sodium 127 L Potassium 3.6 Chloride 97 L Carbon Dioxide 25 Anion Gap 5 BUN 16 Creatinine 0.50 L Est GFR ( Amer) 196.1 Est GFR (Non-Af Amer) 162.1 BUN/Creatinine Ratio 32.0 H Glucose 112 H Calcium 8.0 L Magnesium 2.1 Total Bilirubin 0.40 AST 39 ALT 25 Alkaline Phosphatase 69 Total Protein 4.9 L Albumin 2.7 L Globulin 2.2 Albumin/Globulin Ratio 1.2 Microbiology 11/15/18 08:15 Blood Venous Aerobic Blood Culture - Final Staphylococcus Aureus 11/15/18 08:15 Blood Venous Anaerobic Blood Culture - Final Staphylococcus Aureus 11/15/18 08:15 Blood Venous Blood MRSA/MSSA (PCR) - Final Mrsa Negative S.aureus Positive 11/15/18 08:15 Blood Venous Aerobic Blood Culture - Final Staphylococcus Aureus 11/15/18 08:15 Blood Venous Anaerobic Blood Culture - Final Staphylococcus Aureus 11/15/18 08:15 Blood Venous Blood MRSA/MSSA (PCR) - Final Mrsa Negative S.aureus Positive 11/15/18 08:42 Urine Urine Culture - Final No Growth (<1,000 CFU/mL) Assessment: 1. MSSA bacteremia; MRI T/L spine no BONNIE or osteodiskitis 2. Elevated troponin ?emboli 3. PAD Plan: 1. Continue ancef 2 gm IV Q8hrs, recheck BC, SALENA this morning. 2. Duration of therapy pending results and his course here 3. vascular evaluation once stable
[2018-11-17] MEDS: NS 0.9% 1000 ML** 1,000 ML IV SCH ×2 (10:46→16:17)
[2018-11-17] MEDS ORDERED: Vancomycin Trough Check NOTE FOLLOW UP ONE (11:30)
--- NOTE | 2018-11-17 11:56 | PN ---
Subjective Date of Service: 11/17/18 Interval History: Patient is somnolent post SALENA. He had some low back pain earlier this AM, pain 5/10. Denies chest pain, cough, abdominal pain. Wants to eat, wants rangel removed. Family History: Unchanged from Admission Social History: Unchanged from Admission Past Medical History: Unchanged from Admission Objective Active Medications: Acetaminophen (Tylenol Tab*) 650 mg PO Q4H PRN PRN Reason: PAIN Last Admin: 11/16/18 23:53 Dose: 650 mg Albuterol/Ipratropium (Duoneb (Albuterol 2.5 Mg/Ipratropium 0.5 Mg)) 1 neb INH RT.[id number] AWAKE PRN PRN Reason: SOB/WHEEZING Aspirin (Aspirin Ec Tab*) 81 mg PO DAILY [facility] Last Admin: 11/16/18 10:10 Dose: 81 mg Atorvastatin Calcium (Lipitor*) 10 mg PO DAILY [facility] Last Admin: 11/16/18 10:10 Dose: 10 mg Enoxaparin Sodium (Lovenox(*)) 40 mg SUBCUT Q24H [facility] Last Admin: 11/16/18 14:12 Dose: 40 mg Folic Acid (Folvite Tab*) 1 mg PO DAILY [facility] Last Admin: 11/16/18 10:10 Dose: 1 mg Sodium Chloride (Ns 0.9% 1000 Ml) 1,000 mls @ 75 mls/hr IV PER RATE [facility] Last Admin: 11/17/18 10:46 Dose: 75 mls/hr Cefazolin Sodium/Dextrose (Kefzol 2 Gm Premix In Ors(*)) 2 gm in 50 mls @ 100 mls/hr IVPB Q8H [facility] Stop: 11/17/18 17:59 Last Admin: 11/17/18 10:46 Dose: 100 mls/hr Cefazolin Sodium 2 gm/ Sodium (Chloride) 100 mls @ 200 mls/hr IVPB Q8H [facility] Potassium Chloride (Potassium Chloride 10 Meq/50 Ml Ivpremix*) 10 meq in 50 mls @ 50 mls/hr IV Q2H [facility] Stop: 11/17/18 13:59 Ibuprofen (Motrin Tab*) 600 mg PO Q8H PRN PRN Reason: PAIN Last Admin: 11/17/18 05:13 Dose: 600 mg Lidocaine (Lidoderm 5% Patch*) 1 patch TRANSDERM DAILY PRN PRN Reason: PAIN Last Admin: 11/16/18 16:41 Dose: 1 patch Lorazepam (Ativan Tab(*)) 0 - 6 mg PO .PER [facility] PROTOCOL [facility]; Protocol Last Admin: 11/15/18 16:26 Dose: 4 mg Melatonin (Melatonin) 3 mg PO BEDTIME PRN PRN Reason: SLEEP Last Admin: 11/16/18 22:59 Dose: 3 mg Morphine Sulfate (Morphine Inj (Syringe))*) 2 mg IV Q4H PRN PRN Reason: PAIN Last Admin: 11/16/18 14:12 Dose: 2 mg Multivitamins/Minerals (Theragran/Minerals Tab*) 1 tab PO DAILY [facility] Last Admin: 11/16/18 10:10 Dose: 1 tab Pharmacy Profile Note (Lidocaine Patch Remove*) 1 note PATCH OFF BEDTIME PRN PRN Reason: IF PATCH APPLIED TODAY Last Admin: 11/16/18 22:00 Dose: 1 note Thiamine HCl (Vitamin B-1 Tab*) 100 mg PO DAILY [facility] Last Admin: 11/16/18 10:10 Dose: 100 mg Tiotropium [place] (Spiriva Cap.Inh*) 1 cap INH DAILY [facility] Last Admin: 11/17/18 07:35 Dose: 1 cap Vital Signs - 8 hr 11/17/18 11/17/18 11/17/18 03:53 04:00 04:01 Temperature 36.1 C 36.1 C Pulse Rate 66 89 Respiratory 22 23 25 Rate Blood Pressure 126/70 (mmHg) O2 Sat by Pulse 97 94 Oximetry 11/17/18 11/17/18 11/17/18 05:00 05:01 05:54 Temperature 36.1 C 36.1 C Pulse Rate 67 Respiratory 24 26 24 Rate Blood Pressure 133/68 (mmHg) O2 Sat by Pulse 97 Oximetry 11/17/18 11/17/18 11/17/18 05:55 06:00 06:42 Temperature 36.1 C Pulse Rate 70 Respiratory 24 21 19 Rate Blood Pressure 139/74 (mmHg) O2 Sat by Pulse 97 Oximetry 11/17/18 11/17/18 11/17/18 07:00 07:01 08:00 Temperature 36.0 C 36.0 C 35.9 C Pulse Rate 71 71 69 Respiratory 23 21 20 Rate Blood Pressure 143/76 (mmHg) O2 Sat by Pulse 96 97 93 Oximetry 11/17/18 11/17/18 11/17/18 08:01 09:00 09:06 Temperature 35.9 C 36.0 C 36.0 C Pulse Rate 67 67 71 Respiratory 20 23 21 Rate Blood Pressure 150/79 140/79 138/71 (mmHg) O2 Sat by Pulse 92 94 92 Oximetry 11/17/18 11/17/18 11/17/18 09:12 09:15 09:20 Temperature 36.0 C 36.0 C 36.0 C Pulse Rate 68 74 93 Respiratory Rate Blood Pressure 146/80 154/78 132/86 (mmHg) O2 Sat by Pulse 95 94 97 Oximetry 11/17/18 11/17/18 11/17/18 09:24 09:28 09:30 Temperature 36.1 C 36.1 C 36.1 C Pulse Rate 83 79 69 Respiratory Rate Blood Pressure 120/106 127/85 122/58 (mmHg) O2 Sat by Pulse 95 96 95 Oximetry 11/17/18 11/17/18 11/17/18 09:33 09:36 09:38 Temperature 36.1 C 36.1 C 36.1 C Pulse Rate 83 77 81 Respiratory Rate Blood Pressure 113/48 115/62 117/57 (mmHg) O2 Sat by Pulse 94 93 95 Oximetry 11/17/18 11/17/18 11/17/18 09:40 09:44 09:46 Temperature 36.1 C 36.1 C 36.1 C Pulse Rate 75 81 77 Respiratory Rate Blood Pressure 125/71 139/58 133/66 (mmHg) O2 Sat by Pulse 97 95 95 Oximetry 11/17/18 11/17/18 11/17/18 09:54 10:00 10:01 Temperature 36.1 C 36.0 C 36.0 C Pulse Rate 74 77 77 Respiratory 21 24 24 Rate Blood Pressure 138/73 118/68 (mmHg) O2 Sat by Pulse 93 97 90 Oximetry 11/17/18 11/17/18 11/17/18 10:15 10:31 11:00 Temperature 36.0 C 36.0 C 36.0 C Pulse Rate 70 75 75 Respiratory 23 20 24 Rate Blood Pressure 143/64 127/113 (mmHg) O2 Sat by Pulse 95 97 97 Oximetry 11/17/18 11:02 Temperature 36.0 C Pulse Rate 71 Respiratory 23 Rate Blood Pressure 136/80 (mmHg) O2 Sat by Pulse 97 Oximetry Oxygen Devices in Use Now: None Appearance: somnolent, but arousable Neck: Trachea Midline Respiratory: Clear to Auscultation, Clear to Percussion Cardiovascular: NL Sounds; No Murmurs; No JVD, RRR Abdominal: NL Sounds; No Tenderness; No Distention, No Hepatosplenomegaly Lymphatic: No Cervical Adenopathy Lines/Tubes/Other Access: Clean, Dry and Intact Peripheral IV Nutrition: Taking PO's Result Diagrams: 11/17/18 05:25 11/17/18 05:25 Microbiology and Other Data: Microbiology 11/15/18 14:27 Nasal Nasal Screen MRSA (PCR) - Final Mrsa Not Detected 11/15/18 08:42 Urine Urine Culture - Final No Growth (<1,000 CFU/mL) 11/15/18 08:15 Blood Venous Aerobic Blood Culture - Final 11/15/18 08:15 Blood Venous Blood MRSA/MSSA (PCR) - Final Staphylococcus Aureus Staphylococcus Aureus Mrsa Negative S.aureus Positive 11/15/18 08:15 Blood Venous Aerobic Blood Culture - Final 11/15/18 08:15 Blood Venous Blood MRSA/MSSA (PCR) - Final Staphylococcus Aureus Staphylococcus Aureus Mrsa Negative S.aureus Positive EKG Data: Echo SALENA pending Assess/Plan/Problems-Billing Assessment: 73 yo M with h/o COPD(not on 02, current smoker 1 ppd), HTN presents with MSSA bacteremia, b/l leg weakness, unclear source - Patient Problems (1) MSSA bacteremia Current Visit: Yes Status: Acute Priority: High Code(s): R78.81 - BACTEREMIA SNOMED Code(s): 864948942 Comment: -Source is unclear, differential includes endocarditis, osteomyelitis -Appreciate ID consult, will continue cefazolin -Awaiting echocardiogram results -MRI thoracic and lumbar spine reviewed, no paraspinal abscess or osteo- diskitis (2) Elevated troponin Current Visit: Yes Status: Acute Priority: Medium Code(s): R74.8 - ABNORMAL LEVELS OF OTHER SERUM ENZYMES SNOMED Code(s): 631318716 Comment: -Likely due to demand ischemia -trending down now -Echo shows EF 55%, no sig valvular abn (3) Hypokalemia Current Visit: Yes Status: Acute Priority: Medium Code(s): E87.6 - HYPOKALEMIA SNOMED Code(s): 98260182 Comment: -Repleted IV, and will recheck in AM -treatment should reduce risk of arrhythmia (4) DVT prophylaxis Current Visit: Yes Status: Acute Priority: Low Code(s): Z29.9 - ENCOUNTER FOR PROPHYLACTIC MEASURES, UNSPECIFIED SNOMED Code(s): 919604888 Comment: lovenox Status and Disposition: inpatient
[2018-11-17] MEDS: KCL 10 MEQ/50 ML IVPREMIX* 10 MEQ/50 ML BAG IV SCH ×2 (12:08→13:34)
--- NOTE | 2018-11-17 12:08 | TEE ---
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 History: Chronic obstructive pulmonary disease. ETOH use. Risk factors: Current tobacco use. Hypertension. Dyslipidemia. Conclusions Summary: 1. Left ventricle: The cavity size is normal. Systolic function is normal. The estimated ejection fraction is 55-60%. 2. Normal cardiac chamber sizes. 3. Mitral valve: There is mild regurgitation. 4. Tricuspid valve: There is mild regurgitation. 5. Aortic root: The aortic root is mildly dilated, measuring 4.0 cm at the Sinuses of Valsalva. 6. No intra-cardiac vegetation noted. 7. Since the prior transthoracic echocardiogram completed 11/15/18, there appears to be little change. Study data: Diagnostic Transesophageal Echocardiogram Consent: The risks and benefits of the procedure, including alternatives were discussed with the patient and/or their health care veterans service representative and written informed consent was obtained. Procedure: Initial setup: The patient was brought to the laboratory in the fasting state.Intravenous access was obtained. Surface ECG leads, heart rate, heart rhythm, blood pressure measurements, pulse oximetric signals, and mainstream end-tidal CO2 tracings were monitored throughout the procedure. Sedation. Moderate sedation was administered by nursing staff. History and physical as well as labs were reviewed. An oral bite block was inserted for protection of oral dentition. The patient was placed in the left lateral decubitus position. Topical anesthesia was obtained using viscous lidocaine. A transesophageal probe was inserted by the attending orthotic/prosthetic clinician. without difficultyTransesophageal echocardiography was performed, image quality was good, and all standard views were attempted within the limitations of patient tolerance and safety. Multiple 2D, color flow Doppler and spectral Doppler images were obtained. The transesophageal probe was removed. A bubble study was performed. Image 42. Sinus rhythm with PACs. Patient status: Inpatient. Patient room number: ICU 3. Study completion: The patient tolerated the procedure well. There were no complications. Administered medications: Midazolam 3 mg IV. Fentanyl 25 mcg IV. Findings Left ventricle: The cavity size is normal. Systolic function is normal. The estimated ejection fraction is 55-60%. Right ventricle: The cavity size is normal. Systolic function is normal. Left atrium: The atrium is normal in size. There is no evidence of a thrombus in the atrial cavity or appendage. Right atrium: The atrium is normal in size. Atrial septum: No defect or patent foramen ovale is identified. The bubble study is negative. Image 42. Mitral valve: The leaflets are mildly thickened. There is no evidence of a vegetation. There is mild regurgitation. Aortic valve: The valve is trileaflet. The leaflets are mildly thickened. There is no evidence of a vegetation. There is no evidence of stenosis. There is trace regurgitation. Tricuspid valve: The valve is structurally normal. There is no evidence of a vegetation. There is mild regurgitation. Pulmonic valve: The valve is structurally normal. There is no evidence of a vegetation. There is no regurgitation. Aorta: Aortic root: The aortic root is mildly dilated, measuring 4.0 cm at the Sinuses of Valsalva. Ascending aorta: The ascending aorta is not dilated. Pulmonary arteries: Not well visualized. Systemic veins: Inferior vena cava: The vessel is normal in size. Superior vena cava: The vessel is appears normal. Pulmonary veins: The pulmonary veins appear normal. Measurements Aortic root Value 11/15/2018 Ref Root diam 4.0 cm 2.9 <4.1 Ascending aorta Value 11/15/2018 Ref AAo AP diam, S 2.9 cm ---- Legend: (L) and (H) ronaldo values outside specified reference range. Prepared and electronically signed by Albin Shaffer MD 11/17/2018 12:07
[2018-11-17] MEDS: Atorvastatin* 10 MG TAB PO SCH (12:29)
[2018-11-17] MEDS: Aspirin EC TAB* 81 MG TAB.EC PO SCH (12:29)
[2018-11-17] MEDS: Folic Acid TAB* 1 MG PO SCH (12:30)
[2018-11-17] MEDS: Acetaminophen TAB* 325 MG PO PRN (12:30)
[2018-11-17] MEDS: Multivitamins/Minerals TAB PO SCH (12:30)
[2018-11-17] MEDS: Thiamine TAB* 100 MG TAB PO SCH (12:31)
[2018-11-17] MEDS: Morphine INJ* 2 MG/ML 1 ML SYRINGE (TWO MG - NEW SYRINGE VERSION) IV PRN ×2 (12:34→22:01)
[2018-11-17] MEDS: Enoxaparin(*) 40 MG/0.4 ML SYR SUBCUT SCH (13:35)
[2018-11-17] MEDS ORDERED: Bisacodyl SUPP* 10 MG SUPP PR ONE (16:22)
[2018-11-17] MEDS: NS 0.9% 100 ML* 100 ML with ceFAZolin VIAL(*) 2 GM IVPB SCH ×2 (18:04)
--- NOTE | 2018-11-17 18:38 | PN ---
Progress Note - Progress Note Date of Service: 11/17/18 Note: Patient moved to floor from ICU. There is concern re LT arm weakness, bilateral leg weakness. Patient alert, talking, states LT arm may have been weak for 2 weeks. He is poor historian. Neurosurgery evaluated re leg weakness, patient had thoracic and lumbar MRI, no spinal abscess, no critical stenosis seen. Vitals 11/17/18 17:38 Temperature 36.5 C Pulse Rate 83 Respiratory 24 Rate Blood Pressure 182/85 (mmHg) O2 Sat by Pulse 94 Oximetry Patient slumped to RT LT shoulder FROM, proximal weakness 3/5 bilateral hand lead sprinkler 4+/5 LE proximally 3+/5 and symmetric distal LE 5/5 strength A/P: Proximal leg weakness and LUE weakness proximally Differential includes stroke, polymyalgia, rhabdomyolysis from statins Will check CPK, ESR, and head CT tonight. BP elevated, restarting home losartan.
[2018-11-17] MEDS: Losartan TAB* 25 MG PO SCH (22:01)
[2018-11-17] MEDS: Melatonin 3 MG TAB PO PRN (22:01)
[2018-11-17] MEDS: Docusate CAP* 100 MG PO SCH (22:01)
[2018-11-18] MEDS ORDERED: ceFAZolin VIAL(*) 2 GM in NS 0.9% 100 ML* 100 ML IVPB SCH (02:25)
[2018-11-18] MEDS: ceFAZolin VIAL(*) 2 GM in NS 0.9% 100 ML* 100 ML IVPB SCH ×3 (02:32→18:56)
[2018-11-18] MEDS: NS 0.9% 100 ML* 100 ML with ceFAZolin VIAL(*) 2 GM IVPB SCH ×2 (03:01)
[2018-11-18] MEDS: Tiotropium CAP.INH* CAP.INH/18 MCG (USE ORDER SET !) INH SCH (07:23)
[2018-11-18 07:35] LABS: Hematocrit 36 % (42-52); Hemoglobin 12.7 g/dL (14.0-18.0); Mean Corpuscular HGB Conc 35 g/dL (31-36); Mean Corpuscular Hemoglobin 32 pg (27-31); Mean Corpuscular Volume 93 fL (80-94); Mean Platelet Volume 8.3 fL (7.4-10.4); Platelet Count 175 10^3/uL (150-450); Red Blood Count 3.93 10^6 /uL (4.18-5.48); Red Cell Distribution Width 14 % (10-15); White Blood Count 8.5 10^3/uL (3.5-10.8)
[2018-11-18 07:37] LABS: ABS Lymphocytes 0.4 10^3/ul (1.0-4.8); Eosinophil % 0.2 %; Lymphocyte % 5.1 %
[2018-11-18 07:54] LABS: BUN/Creatinine Ratio 23.8 (8-20); Calcium 7.9 mg/dL (8.6-10.3); EGFR African American 239.9 (>60); EGFR Non-African American 198.2 (>60); Magnesium 1.9 mg/dL (1.9-2.7); Potassium 3.6 mmol/L (3.5-5.0)
[2018-11-18] MEDS: Losartan TAB* 25 MG PO SCH (08:27)
[2018-11-18] MEDS: Folic Acid TAB* 1 MG PO SCH (08:27)
[2018-11-18] MEDS: Aspirin EC TAB* 81 MG TAB.EC PO SCH (08:28)
[2018-11-18] MEDS: LORazepam TAB(*) 1 MG PO SCH ×3 (08:28→16:35)
[2018-11-18] MEDS: Atorvastatin* 10 MG TAB PO SCH (08:28)
[2018-11-18] MEDS: Docusate CAP* 100 MG PO SCH ×2 (08:28→22:20)
[2018-11-18] MEDS: Thiamine TAB* 100 MG TAB PO SCH (08:28)
[2018-11-18] MEDS: Multivitamins/Minerals TAB PO SCH (08:28)
[2018-11-18] MEDS ORDERED: Magnesium Sulfate 1 GM IV* 1 GM/100 ML BAG IV ONE (12:00)
[2018-11-18] MEDS: NS 0.9% 1000 ML** 1,000 ML IV SCH (13:00)
[2018-11-18] MEDS: Enoxaparin(*) 40 MG/0.4 ML SYR SUBCUT SCH (13:23)
--- NOTE | 2018-11-18 15:00 | PN ---
Progress Note - Progress Note Date of Service: 11/18/18 SOAP: Subjective: cc:fever HPI: 73 year old man with MSSA bacteremia; concern for left arm weakness overnight. He says his arm is fine. No neck pain, back pain about the same. No rash or diarrhea. No joint pain. Objective: Vital Signs Temp 36.9 C 11/18/18 12:21 Pulse 85 11/18/18 12:21 Resp 20 11/18/18 13:09 BP 143/76 11/18/18 12:21 Pulse Ox 96 11/18/18 12:21 Intake & Output 11/17/18 11/18/18 11/18/18 18:59 06:59 18:59 Intake Total 1507 2771 780 Output Total 759 200 0 Balance 748 2571 780 Intake: IV Fluids 585 771 ABX - CEFAZOLIN 205 NS (0.9%) 535 566 IVPB 232 100 ABX - CEFAZOLIN 109 100 Potassium Chloride 123 Oral 690 1900 780 Output: Urine 200 0 [place] 759 Other: Estimated Void Medium # Bowel Movements 1 2 Estimated Stool Amount Large # Voids 2 4 Gen:awake, no distress HEENT: no thrush Heart:RRR overnight Lungs:CTA BL Abd:+BS NTND soft Skin: no rash MSK: bilateral feet warm, no joint effusion, logroll negative, no knee or ankle effusions; C spine non tender, normal ROM Laboratory Results - last 24 hr 11/17/18 11/17/18 11/18/18 05:25 20:31 07:11 WBC 8.5 RBC 3.93 L Hgb 12.7 L Hct 36 L MCV 93 MCH 32 H MCHC 35 RDW 14 Plt Count 175 MPV 8.3 Neut % (Auto) 82.1 Lymph % (Auto) 5.1 Cavalier % (Auto) 12.1 Eos % (Auto) 0.2 Baso % (Auto) 0.5 Absolute Neuts (auto) 7.0 Absolute Lymphs (auto) 0.4 L Absolute Monos (auto) 1.0 H Absolute Eos (auto) 0.0 Absolute Basos (auto) 0.0 Absolute Nucleated RBC 0.0 Nucleated RBC % 0.0 ESR 44 H Sodium 127 L Potassium 3.6 Chloride 97 L Carbon Dioxide 25 Anion Gap 5 BUN 16 Creatinine 0.50 L Est GFR ( Amer) 196.1 Est GFR (Non-Af Amer) 162.1 BUN/Creatinine Ratio 32.0 H Glucose 112 H Calcium 8.0 L Magnesium 2.1 Total Bilirubin 0.40 AST 39 ALT 25 Alkaline Phosphatase 69 Total Creatine Kinase 325 H Total Protein 4.9 L Albumin 2.7 L Globulin 2.2 Albumin/Globulin Ratio 1.2 11/18/18 07:11 WBC RBC Hgb Hct MCV MCH MCHC RDW Plt Count MPV Neut % (Auto) Lymph % (Auto) Cavalier % (Auto) Eos % (Auto) Baso % (Auto) Absolute Neuts (auto) Absolute Lymphs (auto) Absolute Monos (auto) Absolute Eos (auto) Absolute Basos (auto) Absolute Nucleated RBC Nucleated RBC % ESR Sodium 127 L Potassium 3.6 Chloride 95 L Carbon Dioxide 29 Anion Gap 3 BUN 10 Creatinine 0.42 L Est GFR ( Amer) 239.9 Est GFR (Non-Af Amer) 198.2 BUN/Creatinine Ratio 23.8 H Glucose 127 H Calcium 7.9 L Magnesium 1.9 Total Bilirubin AST ALT Alkaline Phosphatase Total Creatine Kinase Total Protein Albumin Globulin Albumin/Globulin Ratio Assessment: 1. MSSA bacteremia; MRI T/L spine no BONNIE or osteodiskitis, no endocarditis 2. Elevated troponin ?emboli 3. PAD Plan: 1. Continue ancef 2 gm IV Q8hrs, recheck BC pending, will follow joints for evolving infection 2. MRI C spine Discussed with Dr Rice
--- NOTE | 2018-11-18 16:26 | PN ---
Subjective Interval History: Perturbed and would prefer to leave the hospital in relatively short order. Rec for trudy lift by PT had weakness in arm overnight, CT H negative Afebrile overnight, TMax 99.5 this afternoon Repeat BCx drawn today. States has some chronic chest pain and shortness of breath but hard to get details, he is more concerned about his lower back pain. Not interested in lunch scoring on WAM. Family History: Unchanged from Admission Social History: Unchanged from Admission Past Medical History: Unchanged from Admission Objective Active Medications: Acetaminophen (Tylenol Tab*) 650 mg PO Q4H PRN PRN Reason: PAIN Last Admin: 11/17/18 12:30 Dose: 650 mg Albuterol/Ipratropium (Duoneb (Albuterol 2.5 Mg/Ipratropium 0.5 Mg)) 1 neb INH RT.[id number] AWAKE PRN PRN Reason: SOB/WHEEZING Aspirin (Aspirin Ec Tab*) 81 mg PO DAILY [facility] Last Admin: 11/18/18 08:28 Dose: 81 mg Atorvastatin Calcium (Lipitor*) 10 mg PO DAILY [facility] Last Admin: 11/18/18 08:28 Dose: 10 mg Docusate Sodium (Colace Cap*) 100 mg PO BID [facility] Last Admin: 11/18/18 08:28 Dose: 100 mg Enoxaparin Sodium (Lovenox(*)) 40 mg SUBCUT Q24H [facility] Last Admin: 11/18/18 13:23 Dose: 40 mg Folic Acid (Folvite Tab*) 1 mg PO DAILY [facility] Last Admin: 11/18/18 08:27 Dose: 1 mg Sodium Chloride (Ns 0.9% 1000 Ml) 1,000 mls @ 75 mls/hr IV PER RATE [facility] Last Admin: 11/18/18 13:00 Dose: 75 mls/hr Cefazolin Sodium 2 gm/ Sodium (Chloride) 100 mls @ 200 mls/hr IVPB 0200,1000, 1800 [facility] Last Admin: 11/18/18 11:01 Dose: 200 mls/hr Ibuprofen (Motrin Tab*) 600 mg PO Q8H PRN PRN Reason: PAIN Last Admin: 11/17/18 05:13 Dose: 600 mg Lidocaine (Lidoderm 5% Patch*) 1 patch TRANSDERM DAILY PRN PRN Reason: PAIN Last Admin: 11/17/18 09:00 Dose: 1 patch Lorazepam (Ativan Tab(*)) 0 - 6 mg PO .PER [facility] PROTOCOL [facility]; Protocol Last Admin: 11/18/18 13:09 Dose: 2 mg Losartan Potassium (Cozaar Tab*) 50 mg PO DAILY [facility] Last Admin: 11/18/18 08:27 Dose: 50 mg Melatonin (Melatonin) 3 mg PO BEDTIME PRN PRN Reason: SLEEP Last Admin: 11/17/18 22:01 Dose: 3 mg Morphine Sulfate (Morphine Inj (Syringe))*) 2 mg IV Q4H PRN PRN Reason: PAIN Last Admin: 11/17/18 22:01 Dose: 2 mg Multivitamins/Minerals (Theragran/Minerals Tab*) 1 tab PO DAILY [facility] Last Admin: 11/18/18 08:28 Dose: 1 tab Pharmacy Profile Note (Lidocaine Patch Remove*) 1 note PATCH OFF BEDTIME PRN PRN Reason: IF PATCH APPLIED TODAY Last Admin: 11/16/18 22:00 Dose: 1 note Thiamine HCl (Vitamin B-1 Tab*) 100 mg PO DAILY [facility] Last Admin: 11/18/18 08:28 Dose: 100 mg Tiotropium [place] (Spiriva Cap.Inh*) 1 cap INH DAILY [facility] Last Admin: 11/18/18 07:23 Dose: 1 cap Vital Signs - 8 hr 11/18/18 11/18/18 11/18/18 08:28 10:01 11:04 Temperature 98.4 F Pulse Rate 88 Respiratory 20 24 18 Rate Blood Pressure 152/67 (mmHg) O2 Sat by Pulse 95 Oximetry 11/18/18 11/18/18 11/18/18 11:24 12:21 13:09 Temperature 98.6 F 98.5 F Pulse Rate 88 85 Respiratory 18 16 20 Rate Blood Pressure 129/96 143/76 (mmHg) O2 Sat by Pulse 98 96 Oximetry 11/18/18 15:48 Temperature 98.4 F Pulse Rate 90 Respiratory 24 Rate Blood Pressure 150/77 (mmHg) O2 Sat by Pulse 96 Oximetry Oxygen Devices in Use Now: None Appearance: NAD Ears/Nose/Mouth/Throat: NL Teeth, Lips, Gums Neck: NL Appearance and Movements; NL JVP Respiratory: Symmetrical Chest Expansion and Respiratory Effort, Clear to Auscultation, - - distant w/ slight exp wheeze, no rhonchi or rales. Cardiovascular: NL Sounds; No Murmurs; No JVD Abdominal: - - soft, nontender, slightly distended. Extremities: - - left foot warm, right foot cool, weak but dopplerable pulses b/ l. Neurological: - - Oriented to name, place, situation. dorsi/plantarflexion intact, sensation intact. GRAYSON Result Diagrams: 11/18/18 07:11 11/18/18 07:11 Additional Lab and Data: Laboratory Results - last 24 hr 11/17/18 11/17/18 11/18/18 05:25 20:31 07:11 WBC 8.5 RBC 3.93 L Hgb 12.7 L Hct 36 L MCV 93 MCH 32 H MCHC 35 RDW 14 Plt Count 175 MPV 8.3 Neut % (Auto) 82.1 Lymph % (Auto) 5.1 [place]on % (Auto) 12.1 Eos % (Auto) 0.2 Baso % (Auto) 0.5 Absolute Neuts (auto) 7.0 Absolute Lymphs (auto) 0.4 L Absolute Monos (auto) 1.0 H Absolute Eos (auto) 0.0 Absolute Basos (auto) 0.0 Absolute Nucleated RBC 0.0 Nucleated RBC % 0.0 ESR 44 H Sodium 127 L Potassium 3.6 Chloride 97 L Carbon Dioxide 25 Anion Gap 5 BUN 16 Creatinine 0.50 L Est GFR ( Amer) 196.1 Est GFR (Non-Af Amer) 162.1 BUN/Creatinine Ratio 32.0 H Glucose 112 H Calcium 8.0 L Magnesium 2.1 Total Bilirubin 0.40 AST 39 ALT 25 Alkaline Phosphatase 69 Total Creatine Kinase 325 H Total Protein 4.9 L Albumin 2.7 L Globulin 2.2 Albumin/Globulin Ratio 1.2 11/18/18 07:11 WBC RBC Hgb Hct MCV MCH MCHC RDW Plt Count MPV Neut % (Auto) Lymph % (Auto) Harmon % (Auto) Eos % (Auto) Baso % (Auto) Absolute Neuts (auto) Absolute Lymphs (auto) Absolute Monos (auto) Absolute Eos (auto) Absolute Basos (auto) Absolute Nucleated RBC Nucleated RBC % ESR Sodium 127 L Potassium 3.6 Chloride 95 L Carbon Dioxide 29 Anion Gap 3 BUN 10 Creatinine 0.42 L Est GFR ( Amer) 239.9 Est GFR (Non-Af Amer) 198.2 BUN/Creatinine Ratio 23.8 H Glucose 127 H Calcium 7.9 L Magnesium 1.9 Total Bilirubin AST ALT Alkaline Phosphatase Total Creatine Kinase Total Protein Albumin Globulin Albumin/Globulin Ratio Microbiology and Other Data: Microbiology Microbiology 11/15/18 08:15 Blood Venous Aerobic Blood Culture - Final Staphylococcus Aureus 11/15/18 08:15 Blood Venous Anaerobic Blood Culture - Final Staphylococcus Aureus 11/15/18 08:15 Blood Venous Blood MRSA/MSSA (PCR) - Final Mrsa Negative S.aureus Positive 11/15/18 08:15 Blood Venous Aerobic Blood Culture - Final Staphylococcus Aureus 11/15/18 08:15 Blood Venous Anaerobic Blood Culture - Final Staphylococcus Aureus 11/15/18 08:15 Blood Venous Blood MRSA/MSSA (PCR) - Final Mrsa Negative S.aureus Positive 11/15/18 08:42 Urine Urine Culture - Final No Growth (<1,000 CFU/mL) 11/15/18 14:27 Nasal Nasal Screen MRSA (PCR) - Final Mrsa Not Detected EKG Data: Echo SALENA pending Assess/Plan/Problems-Billing Assessment: 73 yo M with h/o COPD(not on 02, current smoker 1 ppd x 55 years), HTN presents with MSSA bacteremia, b/l leg weakness, LUE weakness, unclear source (s/p lumbar/thoracic MRI w/ contrast). - Patient Problems (1) MSSA bacteremia Current Visit: Yes Status: Acute Priority: High Code(s): R78.81 - BACTEREMIA SNOMED Code(s): 019191163 Comment: -Source is unclear, differential includes endocarditis, osteomyelitis, other intravascular. He has no hardware -Appreciate ID consult, will continue cefazolin. Will need at least a few weeks. -got another BCx this AM to see if clearing. -SALENA w/o vegetation. -MRI thoracic and lumbar spine reviewed, no paraspinal abscess or osteo-diskitis - getting cervical MRI (2) Left arm weakness Current Visit: Yes Status: Acute Code(s): R29.898 - OTH SYMPTOMS AND SIGNS INVOLVING THE MUSCULOSKELETAL SYSTEM SNOMED Code(s): 591003142 Comment: CTH no acute process will get MRI cervical spine w/wo (3) Elevated troponin Current Visit: Yes Status: Acute Priority: Medium Code(s): R74.8 - ABNORMAL LEVELS OF OTHER SERUM ENZYMES SNOMED Code(s): 726486121 Comment: -Likely due to demand ischemia -trending down now -Echo shows EF 55%, no sig valvular abn - continue aspirin, increase statin to 40mg. (4) Lower extremity weakness Current Visit: Yes Status: Acute Code(s): R29.898 - OTH SYMPTOMS AND SIGNS INVOLVING THE MUSCULOSKELETAL SYSTEM SNOMED Code(s): 094952124 Comment: b/l, R>L with MRI showing severe spinal stenosis at L2-L3 level. no disktitis. appreciate Neurosurgery recs. No current surgical indication per NS. s/p MRI of T spine to w/o epidural abscess. (5) PAD (peripheral artery disease) Current Visit: Yes Status: Acute Code(s): I73.9 - PERIPHERAL VASCULAR DISEASE, UNSPECIFIED SNOMED Code(s): 781346882 Comment: MAYUR's with borderline claudication level on right. consider angio with IR once infection is improved. (6) Smoker Current Visit: Yes Status: Acute Code(s): F17.200 - NICOTINE DEPENDENCE, UNSPECIFIED, UNCOMPLICATED SNOMED Code(s): 75706172 Comment: nicotine patch 55+ pack years (7) Alcohol abuse Current Visit: Yes Status: Acute Code(s): F10.10 - ALCOHOL ABUSE, UNCOMPLICATED SNOMED Code(s): 52269190 Comment: Continue WAM, thiamine, folice acid, MV daily 6+ beers at least. (8) Hypertension Current Visit: Yes Status: Acute Code(s): I10 - ESSENTIAL (PRIMARY) HYPERTENSION SNOMED Code(s): 45307235 Comment: continue home losartan increase back to home dose 100mg from 50mg. SBP 150s (9) HLD (hyperlipidemia) Current Visit: Yes Status: Acute Code(s): E78.5 - HYPERLIPIDEMIA, UNSPECIFIED SNOMED Code(s): 76366926 Comment: given trop elevation, PVD: will increase atorvastatin from 10mg to 40mg. home was simvastatin 20mg Status and Disposition: inpatient. Per PT needs trudy for transfer so will need placement
[2018-11-18] MEDS ORDERED: Gadoteridol* (CONTRAST) 279.3 MG/ML 10 ML IV ONE (16:34)
[2018-11-18] MEDS ORDERED: NS 0.9% 100 ML* 100 ML ONE (18:48)
[2018-11-18] MEDS: Atorvastatin* 40 MG TAB PO SCH (18:57)
[2018-11-19] MEDS: ceFAZolin VIAL(*) 2 GM in NS 0.9% 100 ML* 100 ML IVPB SCH ×3 (01:44→17:25)
[2018-11-19] MEDS: NS 0.9% 1000 ML** 1,000 ML IV SCH (05:58)
[2018-11-19] MEDS: Tiotropium CAP.INH* CAP.INH/18 MCG (USE ORDER SET !) INH SCH (07:52)
[2018-11-19] MEDS: Thiamine TAB* 100 MG TAB PO SCH (08:22)
[2018-11-19] MEDS: Losartan TAB* 25 MG PO SCH (08:22)
[2018-11-19] MEDS: Docusate CAP* 100 MG PO SCH ×2 (08:22→21:59)
[2018-11-19] MEDS: Folic Acid TAB* 1 MG PO SCH (08:22)
[2018-11-19] MEDS: Aspirin EC TAB* 81 MG TAB.EC PO SCH (08:22)
[2018-11-19] MEDS: Multivitamins/Minerals TAB PO SCH (08:22)
[2018-11-19 09:15] LABS: ABS Lymphocytes 0.5 10^3/ul (1.0-4.8); ABS Monocytes 1.1 10^3/ul (0-0.8); Eosinophil % 0.2 %; Hematocrit 36 % (42-52); Hemoglobin 12.4 g/dL (14.0-18.0); Lymphocyte % 5.6 %; Mean Corpuscular HGB Conc 35 g/dL (31-36); Mean Corpuscular Hemoglobin 32 pg (27-31); Mean Corpuscular Volume 93 fL (80-94); Mean Platelet Volume 7.7 fL (7.4-10.4); Platelet Count 283 10^3/uL (150-450); Red Blood Count 3.85 10^6 /uL (4.18-5.48); Red Cell Distribution Width 13 % (10-15); White Blood Count 8.6 10^3/uL (3.5-10.8)
[2018-11-19 09:27] LABS: BUN/Creatinine Ratio 21.7 (8-20); C Reactive Protein 186.62 mg/L (<8.01); Calcium 7.9 mg/dL (8.6-10.3); EGFR Non-African American 178.5 (>60); Potassium 3.8 mmol/L (3.5-5.0)
[2018-11-19] MEDS ORDERED: Furosemide TAB* 20 MG PO ONE (10:11)
--- NOTE | 2018-11-19 13:08 | PN ---
Subjective Date of Service: 11/19/18 Interval History: some respiratory distress overnight, CXR consistent with mild pulmonary edema. briefly on 4L. sleeping of room air currently after eating breakfast, easily awakens to voice. still complaint of lower back pain tmax 99.8 repeat Blood Culture 06/10 from yesterday now staph, non MRSA Family History: Unchanged from Admission Social History: Unchanged from Admission Past Medical History: Unchanged from Admission Objective Active Medications: Acetaminophen (Tylenol Tab*) 650 mg PO Q4H PRN PRN Reason: PAIN Last Admin: 11/17/18 12:30 Dose: 650 mg Albuterol/Ipratropium (Duoneb (Albuterol 2.5 Mg/Ipratropium 0.5 Mg)) 1 neb INH RT.[id number] AWAKE PRN PRN Reason: SOB/WHEEZING Last Admin: 11/18/18 21:04 Dose: 1 neb Aspirin (Aspirin Ec Tab*) 81 mg PO DAILY [facility] Last Admin: 11/19/18 08:22 Dose: 81 mg Atorvastatin Calcium (Lipitor*) 40 mg PO 1700 [facility] Last Admin: 11/18/18 18:57 Dose: 40 mg Docusate Sodium (Colace Cap*) 100 mg PO BID [facility] Last Admin: 11/19/18 08:22 Dose: 100 mg Enoxaparin Sodium (Lovenox(*)) 40 mg SUBCUT Q24H [facility] Last Admin: 11/18/18 13:23 Dose: 40 mg Folic Acid (Folvite Tab*) 1 mg PO DAILY [facility] Last Admin: 11/19/18 08:22 Dose: 1 mg Cefazolin Sodium 2 gm/ Sodium (Chloride) 100 mls @ 200 mls/hr IVPB 0200,1000, 1800 [facility] Last Admin: 11/19/18 09:48 Dose: 200 mls/hr Ibuprofen (Motrin Tab*) 600 mg PO Q8H PRN PRN Reason: PAIN Last Admin: 11/17/18 05:13 Dose: 600 mg Lidocaine (Lidoderm 5% Patch*) 1 patch TRANSDERM DAILY PRN PRN Reason: PAIN Last Admin: 11/17/18 09:00 Dose: 1 patch Lorazepam (Ativan Tab(*)) 0 - 6 mg PO .PER [facility] PROTOCOL [facility]; Protocol Last Admin: 11/18/18 16:35 Dose: 3 mg Losartan Potassium (Cozaar Tab*) 100 mg PO DAILY [facility] Last Admin: 11/19/18 08:22 Dose: 100 mg Melatonin (Melatonin) 3 mg PO BEDTIME PRN PRN Reason: SLEEP Last Admin: 11/17/18 22:01 Dose: 3 mg Morphine Sulfate (Morphine Inj (Syringe))*) 2 mg IV Q4H PRN PRN Reason: PAIN Last Admin: 11/17/18 22:01 Dose: 2 mg Multivitamins/Minerals (Theragran/Minerals Tab*) 1 tab PO DAILY [facility] Last Admin: 11/19/18 08:22 Dose: 1 tab Pharmacy Profile Note (Lidocaine Patch Remove*) 1 note PATCH OFF BEDTIME PRN PRN Reason: IF PATCH APPLIED TODAY Last Admin: 11/16/18 22:00 Dose: 1 note Thiamine HCl (Vitamin B-1 Tab*) 100 mg PO DAILY [facility] Last Admin: 11/19/18 08:22 Dose: 100 mg Tiotropium [place] (Spiriva Cap.Inh*) 1 cap INH DAILY [facility] Last Admin: 11/19/18 07:52 Dose: Not Given Vital Signs - 8 hr 11/19/18 11/19/18 11/19/18 06:00 08:09 09:07 Temperature 98.5 F 98.2 F Pulse Rate 83 70 Respiratory 28 24 18 Rate Blood Pressure 147/76 146/69 (mmHg) O2 Sat by Pulse 96 94 Oximetry 11/19/18 10:13 Temperature 98.4 F Pulse Rate 101 Respiratory 24 Rate Blood Pressure 141/68 (mmHg) O2 Sat by Pulse 93 Oximetry Oxygen Devices in Use Now: None Appearance: NAD, initially asleep. Chronically ill appearing. Ears/Nose/Mouth/Throat: NL Teeth, Lips, Gums Neck: NL Appearance and Movements; NL JVP Respiratory: - - anteriorly expiratory wheezing, Abdominal: NL Sounds; No Tenderness; No Distention Extremities: No Edema, - - right calf warmer than knee today, opposite on left. no swelling or tenderness Skin: No Rash or Ulcers Neurological: Alert and Oriented x 3, - - both left and right arms 4-/5 strength. hip flexion 3/5 Nutrition: Taking PO's Result Diagrams: 11/19/18 08:57 11/19/18 08:57 Additional Lab and Data: Laboratory Results - last 24 hr 11/19/18 11/19/18 11/19/18 08:57 08:57 08:57 WBC 8.6 RBC 3.85 L Hgb 12.4 L Hct 36 L MCV 93 MCH 32 H MCHC 35 RDW 13 Plt Count 283 MPV 7.7 Neut % (Auto) 80.7 Lymph % (Auto) 5.6 [place] % (Auto) 13.1 Eos % (Auto) 0.2 Baso % (Auto) 0.4 Absolute Neuts (auto) 7.0 Absolute Lymphs (auto) 0.5 L Absolute Monos (auto) 1.1 H Absolute Eos (auto) 0.0 Absolute Basos (auto) 0.0 Absolute Nucleated RBC 0.0 Nucleated RBC % 0.0 Sodium 128 L Potassium 3.8 Chloride 94 L Carbon Dioxide 29 Anion Gap 5 BUN 10 Creatinine 0.46 L Est GFR ( Amer) 216.0 Est GFR (Non-Af Amer) 178.5 BUN/Creatinine Ratio 21.7 H Glucose 103 H Calcium 7.9 L C-Reactive Protein 186.62 H B-Natriuretic Peptide 604 H Microbiology and Other Data: Microbiology 11/18/18 07:19 Blood Venous Aerobic Blood Culture - Preliminary 11/18/18 07:19 Blood Venous Anaerobic Blood Culture - Preliminary No Growth Day 1 11/18/18 07:19 Blood Venous Blood MRSA/MSSA (PCR) - Final Mrsa Negative S.aureus Positive 11/18/18 07:11 Blood Venous Aerobic Blood Culture - Preliminary No Growth Day 1 11/18/18 07:11 Blood Venous Anaerobic Blood Culture - Preliminary No Growth Day 1 11/15/18 08:15 Blood Venous Aerobic Blood Culture - Final Staphylococcus Aureus 11/15/18 08:15 Blood Venous Anaerobic Blood Culture - Final Staphylococcus Aureus 11/15/18 08:15 Blood Venous Blood MRSA/MSSA (PCR) - Final Mrsa Negative S.aureus Positive 11/15/18 08:15 Blood Venous Aerobic Blood Culture - Final Staphylococcus Aureus 11/15/18 08:15 Blood Venous Anaerobic Blood Culture - Final Staphylococcus Aureus 11/15/18 08:15 Blood Venous Blood MRSA/MSSA (PCR) - Final Mrsa Negative S.aureus Positive 11/15/18 08:42 Urine Urine Culture - Final No Growth (<1,000 CFU/mL) 11/15/18 14:27 Nasal Nasal Screen MRSA (PCR) - Final Mrsa Not Detected EKG Data: Echo SALENA pending Assess/Plan/Problems-Billing Assessment: 73 yo M with h/o COPD(not on 02, current smoker 1 ppd x 55 years), HTN presents with MSSA bacteremia, b/l leg weakness, LUE weakness, unclear source (s/p lumbar/thoracic MRI w/ contrast). - Patient Problems (1) MSSA bacteremia Current Visit: Yes Status: Acute Priority: High Code(s): R78.81 - BACTEREMIA SNOMED Code(s): 438629056 Comment: -Source is unclear, differential includes endocarditis, osteomyelitis, other intravascular. He has no hardware -Appreciate ID consult, will continue cefazolin. Will need at least a few weeks. -got another set of BCx this AM today as 11/18 Cx now positive 06/10 staph. -SALENA w/o vegetation. -MRI thoracic and lumbar spine reviewed, no paraspinal abscess or osteo-diskitis - getting cervical MRI - monitor for any septic joints (2) Left arm weakness Current Visit: Yes Status: Acute Code(s): R29.898 - OTH SYMPTOMS AND SIGNS INVOLVING THE MUSCULOSKELETAL SYSTEM SNOMED Code(s): 532609459 Comment: CTH no acute process will get MRI cervical spine w/wo (3) Elevated troponin Current Visit: Yes Status: Acute Priority: Medium Code(s): R74.8 - ABNORMAL LEVELS OF OTHER SERUM ENZYMES SNOMED Code(s): 252891602 Comment: -Likely due to demand ischemia -peaked 0.32 -Echo shows EF 55%, no sig valvular abn - continue aspirin, increase statin to 40mg. (4) Lower extremity weakness Current Visit: Yes Status: Acute Code(s): R29.898 - OTH SYMPTOMS AND SIGNS INVOLVING THE MUSCULOSKELETAL SYSTEM SNOMED Code(s): 267819080 Comment: b/l, R>L with MRI showing severe spinal stenosis at L2-L3 level. no disktitis. appreciate Neurosurgery recs. No current surgical indication per NS. s/p MRI of T spine to w/o epidural abscess. (5) PAD (peripheral artery disease) Current Visit: Yes Status: Acute Code(s): I73.9 - PERIPHERAL VASCULAR DISEASE, UNSPECIFIED SNOMED Code(s): 722376753 Comment: MAYUR's with borderline claudication level on right. consider angio with IR once infection is improved. (6) Smoker Current Visit: Yes Status: Acute Code(s): F17.200 - NICOTINE DEPENDENCE, UNSPECIFIED, UNCOMPLICATED SNOMED Code(s): 99335436 Comment: nicotine patch 55+ pack years (7) Alcohol abuse Current Visit: Yes Status: Acute Code(s): F10.10 - ALCOHOL ABUSE, UNCOMPLICATED SNOMED Code(s): 25327037 Comment: Continue WAM, thiamine, folice acid, MV daily 6+ beers at least. (8) Hypertension Current Visit: Yes Status: Acute Code(s): I10 - ESSENTIAL (PRIMARY) HYPERTENSION SNOMED Code(s): 26726942 Comment: continue home losartan 100mg SBP 120-150s (9) HLD (hyperlipidemia) Current Visit: Yes Status: Acute Code(s): E78.5 - HYPERLIPIDEMIA, UNSPECIFIED SNOMED Code(s): 83709119 Comment: given trop elevation, PVD: will increase atorvastatin from 10mg to 40mg. home was simvastatin 20mg (10) Volume overload Current Visit: Yes Status: Acute Code(s): E87.70 - FLUID OVERLOAD, UNSPECIFIED SNOMED Code(s): 43010484 Comment: mild pulm vasc congestion on CXR, BNP 600 stop IVF. lasix 20mg po daily started. Status and Disposition: inpatient. Per PT needs trudy for transfer so will need placement
[2018-11-19] MEDS: Enoxaparin(*) 40 MG/0.4 ML SYR SUBCUT SCH (14:15)
[2018-11-19] MEDS: Atorvastatin* 40 MG TAB PO SCH (15:26)
[2018-11-19] MEDS: Acetaminophen TAB* 325 MG PO PRN (17:23)
[2018-11-19] MEDS: Ibuprofen TAB* 600 MG PO PRN (17:23)
--- NOTE | 2018-11-19 21:27 | PN ---
Hospitalist Progress Note Date of Service: 11/19/18 Received call from nursing that patient is in ventricular bigeminy and trigeminy but is not symptomatic. No changes from previous baseline - EKG confirms. check electrolytes and replace mag/K+ if needed. Nursing to call if patient becomes symptomatic or has concern for deterioration.
[2018-11-19] MEDS: Tamsulosin CAP* 0.4 MG PO SCH (21:59)
[2018-11-19 23:01] LABS: Calcium 7.5 mg/dL (8.6-10.3); EGFR African American 196.1 (>60); EGFR Non-African American 162.1 (>60); Magnesium 1.9 mg/dL (1.9-2.7); Potassium 3.3 mmol/L (3.5-5.0)
[2018-11-20 00:40] LABS: Urine Appearance Clear; Urine Bilirubin Negative (Negative); Urine Blood Negative (Negative); Urine Color Yellow; Urine Glucose Negative (Negative); Urine Ketones Negative (Negative); Urine Nitrite Negative (Negative); Urine Protein Negative (Negative); Urine Specific Gravity 1.008 (1.010-1.030); Urine Urobilinogen Negative (Negative)
[2018-11-20] MEDS: ceFAZolin VIAL(*) 2 GM in NS 0.9% 100 ML* 100 ML IVPB SCH ×3 (02:06→17:56)
[2018-11-20] MEDS ORDERED: Potassium Chloride* LIQUID 20 MEQ/15 ML UDC PO ONE ×2 (07:30→12:00)
[2018-11-20] MEDS ORDERED: Magnesium Sulfate 1 GM IV* 1 GM/100 ML BAG IV ONE (07:30)
[2018-11-20] MEDS: Tiotropium CAP.INH* CAP.INH/18 MCG (USE ORDER SET !) INH SCH (07:44)
[2018-11-20] MEDS: Multivitamins/Minerals TAB PO SCH (10:08)
[2018-11-20] MEDS: Folic Acid TAB* 1 MG PO SCH (10:08)
[2018-11-20] MEDS: Aspirin EC TAB* 81 MG TAB.EC PO SCH (10:08)
[2018-11-20] MEDS: Thiamine TAB* 100 MG TAB PO SCH (10:08)
[2018-11-20] MEDS: Losartan TAB* 25 MG PO SCH (10:08)
[2018-11-20] MEDS: Docusate CAP* 100 MG PO SCH ×2 (10:08→21:23)
[2018-11-20] MEDS: Lidocaine PATCH 5%* 1 PATCH TRANSDERM PRN (10:18)
[2018-11-20] MEDS: Ibuprofen TAB* 600 MG PO PRN (10:18)
--- NOTE | 2018-11-20 11:34 | PN ---
Subjective Date of Service: 11/20/18 Interval History: Complaint of poor sleep. In trigeminy on tele/EKG last night. asymptomatic continue poor strength in left arm, pain in lower back. afebrile, no acute process. on room air denies knee pain almost got straight cath for urinary retention but was able to void 300 before put in. Family History: Unchanged from Admission Social History: Unchanged from Admission Past Medical History: Unchanged from Admission Objective Active Medications: Acetaminophen (Tylenol Tab*) 650 mg PO Q4H PRN PRN Reason: PAIN Last Admin: 11/19/18 17:23 Dose: 650 mg Albuterol/Ipratropium (Duoneb (Albuterol 2.5 Mg/Ipratropium 0.5 Mg)) 1 neb INH [id number] AWAKE PRN PRN Reason: SOB/WHEEZING Last Admin: 11/18/18 21:04 Dose: 1 neb Aspirin (Aspirin Ec Tab*) 81 mg PO DAILY [facility] Last Admin: 11/20/18 10:08 Dose: 81 mg Atorvastatin Calcium (Lipitor*) 40 mg PO 1700 [facility] Last Admin: 11/19/18 15:26 Dose: 40 mg Docusate Sodium (Colace Cap*) 100 mg PO BID [facility] Last Admin: 11/20/18 10:08 Dose: 100 mg Enoxaparin Sodium (Lovenox(*)) 40 mg SUBCUT Q24H [facility] Last Admin: 11/19/18 14:15 Dose: 40 mg Folic Acid (Folvite Tab*) 1 mg PO DAILY [facility] Last Admin: 11/20/18 10:08 Dose: 1 mg Cefazolin Sodium 2 gm/ Sodium (Chloride) 100 mls @ 200 mls/hr IVPB 0200,1000, 1800 [facility] Last Admin: 11/20/18 11:15 Dose: 200 mls/hr Ibuprofen (Motrin Tab*) 600 mg PO Q8H PRN PRN Reason: PAIN Last Admin: 11/20/18 10:18 Dose: 600 mg Lidocaine (Lidoderm 5% Patch*) 1 patch TRANSDERM DAILY PRN PRN Reason: PAIN Last Admin: 11/20/18 10:18 Dose: 1 patch Lorazepam (Ativan Tab(*)) 0 - 6 mg PO .PER [place] PROTOCOL [facility]; Protocol Last Admin: 11/18/18 16:35 Dose: 3 mg Losartan Potassium (Cozaar Tab*) 100 mg PO DAILY [facility] Last Admin: 11/20/18 10:08 Dose: 100 mg Melatonin (Melatonin) 3 mg PO BEDTIME PRN PRN Reason: SLEEP Last Admin: 11/17/18 22:01 Dose: 3 mg Morphine Sulfate (Morphine Inj (Syringe))*) 2 mg IV Q4H PRN PRN Reason: PAIN Last Admin: 11/17/18 22:01 Dose: 2 mg Multivitamins/Minerals (Theragran/Minerals Tab*) 1 tab PO DAILY [facility] Last Admin: 11/20/18 10:08 Dose: 1 tab Pharmacy Profile Note (Lidocaine Patch Remove*) 1 note PATCH OFF BEDTIME PRN PRN Reason: IF PATCH APPLIED TODAY Last Admin: 11/16/18 22:00 Dose: 1 note Polyethylene Glycol/Electrolytes (Miralax*) 17 gm PO DAILY [facility] Potassium Chloride (Potassium Chloride Liquid) 40 meq PO ONCE ONE Stop: 11/20/18 12:01 Senna (Senokot Tab*) 1 tab PO DAILY PRN PRN Reason: CONSTIPATION Tamsulosin HCl (Flomax Cap*) 0.4 mg PO DAILY@1999 [facility] Last Admin: 11/19/18 21:59 Dose: 0.4 mg Thiamine HCl (Vitamin B-1 Tab*) 100 mg PO DAILY [facility] Last Admin: 11/20/18 10:08 Dose: 100 mg Tiotropium [place] (Spiriva Cap.Inh*) 1 cap INH DAILY [facility] Last Admin: 11/20/18 07:44 Dose: Not Given Vital Signs - 8 hr 11/20/18 11/20/18 11/20/18 04:20 06:11 08:08 Temperature 97.4 F 97.4 F 97.9 F Pulse Rate 80 77 75 Respiratory 24 22 20 Rate Blood Pressure 160/88 160/98 173/81 (mmHg) O2 Sat by Pulse 96 95 96 Oximetry Oxygen Devices in Use Now: None Appearance: NAD but chronically ill appearing. slumping to right in bed Ears/Nose/Mouth/Throat: NL Teeth, Lips, Gums Neck: NL Appearance and Movements; NL JVP Respiratory: - - decreased at bases. exp wheez. no rhonchi. Cardiovascular: NL Sounds; No Murmurs; No JVD, RRR Abdominal: - - moderately distended. soft. 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 3-/5 b/l hip flexion, somewhat limited by pain. dorsi/plantar flexion intact b/l. sensation intact. CN intact. Nutrition: Taking PO's Result Diagrams: 11/19/18 08:57 11/19/18 22:34 Additional Lab and Data: Laboratory Results - last 24 hr 11/19/18 11/20/18 22:34 00:15 Sodium 127 L Potassium 3.3 L Chloride 91 L Carbon Dioxide 31 Anion Gap 5 BUN 13 Creatinine 0.50 L Est GFR ( Amer) 196.1 Est GFR (Non-Af Amer) 162.1 BUN/Creatinine Ratio 26.0 H Glucose 149 H Calcium 7.5 L Magnesium 1.9 Urine Color Yellow Urine Appearance Clear Urine pH 6.0 Ur Specific [place] 1.008 L Urine Protein Negative Urine Ketones Negative Urine Blood Negative Urine Nitrate Negative Urine Bilirubin Negative Urine Urobilinogen Negative Ur Leukocyte Esterase Negative Urine Glucose Negative Microbiology and Other Data: Microbiology 11/19/18 12:23 Blood Venous Blood Culture - Preliminary No Growth Day 1 11/19/18 11:47 Blood Venous Aerobic Blood Culture - Preliminary No Growth Day 1 11/19/18 11:47 Blood Venous Anaerobic Blood Culture - Preliminary No Growth Day 1 11/18/18 07:19 Blood Venous Aerobic Blood Culture - Preliminary Staphylococcus Aureus 11/18/18 07:19 Blood Venous Anaerobic Blood Culture - Preliminary No Growth Day 2 11/18/18 07:19 Blood Venous Blood MRSA/MSSA (PCR) - Final Mrsa Negative S.aureus Positive 11/18/18 07:11 Blood Venous Aerobic Blood Culture - Preliminary No Growth Day 2 11/18/18 07:11 Blood Venous Anaerobic Blood Culture - Preliminary No Growth Day 2 11/15/18 08:15 Blood Venous Aerobic Blood Culture - Final Staphylococcus Aureus 11/15/18 08:15 Blood Venous Anaerobic Blood Culture - Final Staphylococcus Aureus 11/15/18 08:15 Blood Venous Blood MRSA/MSSA (PCR) - Final Mrsa Negative S.aureus Positive 11/15/18 08:15 Blood Venous Aerobic Blood Culture - Final Staphylococcus Aureus 11/15/18 08:15 Blood Venous Anaerobic Blood Culture - Final Staphylococcus Aureus 11/15/18 08:15 Blood Venous Blood MRSA/MSSA (PCR) - Final Mrsa Negative S.aureus Positive 11/15/18 08:42 Urine Urine Culture - Final No Growth (<1,000 CFU/mL) 11/15/18 14:27 Nasal Nasal Screen MRSA (PCR) - Final Mrsa Not Detected EKG Data: Echo SALENA pending Assess/Plan/Problems-Billing Assessment: 73 yo M with h/o COPD(not on 02, current smoker 1 ppd x 55 years), HTN presents with MSSA bacteremia(persistent), b/l leg weakness, LUE weakness, unclear source (s/p lumbar/thoracic MRI w/ contrast). - Patient Problems (1) MSSA bacteremia Current Visit: Yes Status: Acute Priority: High Code(s): R78.81 - BACTEREMIA SNOMED Code(s): 620496158 Comment: -Source is unclear, differential includes endocarditis, osteomyelitis, other intravascular. He has no hardware -Appreciate ID consult, will continue cefazolin. Will need at least a few weeks. -11/18 Cx positive 06/10 staph. f/u 11/19 Cxs -SALENA w/o vegetation. -MRI thoracic and lumbar spine reviewed, no paraspinal abscess or osteo-diskitis - getting cervical MRI - monitor for any septic joints (2) Left arm weakness Current Visit: Yes Status: Acute Code(s): R29.898 - OTH SYMPTOMS AND SIGNS INVOLVING THE MUSCULOSKELETAL SYSTEM SNOMED Code(s): 411166394 Comment: CTH no acute process will get MRI cervical spine w/wo and MRI Brain at same time (3) Elevated troponin Current Visit: Yes Status: Acute Priority: Medium Code(s): R74.8 - ABNORMAL LEVELS OF OTHER SERUM ENZYMES SNOMED Code(s): 177087725 Comment: -Likely due to demand ischemia -peaked 0.32 -Echo shows EF 55%, no sig valvular abn - continue aspirin,continue statin 40mg. (4) Lower extremity weakness Current Visit: Yes Status: Acute Code(s): R29.898 - OTH SYMPTOMS AND SIGNS INVOLVING THE MUSCULOSKELETAL SYSTEM SNOMED Code(s): 358338904 Comment: b/l, R>L with MRI showing severe spinal stenosis at L2-L3 level. no disktitis. appreciate Neurosurgery recs. No current surgical indication per NS. s/p MRI of T spine to w/o epidural abscess. (5) PAD (peripheral artery disease) Current Visit: Yes Status: Acute Code(s): I73.9 - PERIPHERAL VASCULAR DISEASE, UNSPECIFIED SNOMED Code(s): 387680119 Comment: MAYUR's with borderline claudication level on right. consider angio with IR once infection is improved. (6) Smoker Current Visit: Yes Status: Acute Code(s): F17.200 - NICOTINE DEPENDENCE, UNSPECIFIED, UNCOMPLICATED SNOMED Code(s): 24869195 Comment: nicotine patch 55+ pack years add dulera continue spiriva and duoneb prns. (7) Alcohol abuse Current Visit: Yes Status: Acute Code(s): F10.10 - ALCOHOL ABUSE, UNCOMPLICATED SNOMED Code(s): 98814539 Comment: Continue WAM, thiamine, folice acid, MV daily 6+ beers at least. (8) Hypertension Current Visit: Yes Status: Acute Code(s): I10 - ESSENTIAL (PRIMARY) HYPERTENSION SNOMED Code(s): 88512857 Comment: continue home losartan 100mg SBP 120-150s (9) HLD (hyperlipidemia) Current Visit: Yes Status: Acute Code(s): E78.5 - HYPERLIPIDEMIA, UNSPECIFIED SNOMED Code(s): 97254998 Comment: given trop elevation, PVD: will increase atorvastatin from 10mg to 40mg. home was simvastatin 20mg (10) Volume overload Current Visit: Yes Status: Acute Code(s): E87.70 - FLUID OVERLOAD, UNSPECIFIED SNOMED Code(s): 43535666 Comment: mild pulm vasc congestion on CXR, BNP 600 increase lasix to 40mg po daily (got 20 mg po 11/19) consider US of abdomen to rule out ascites. Status and Disposition: inpatient. Per PT needs trudy for transfer so will need placement. 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
[2018-11-20] MEDS: Furosemide TAB* 40 MG PO SCH (12:48)
[2018-11-20] MEDS: Senna TAB PO PRN (12:48)
[2018-11-20] MEDS: Enoxaparin(*) 40 MG/0.4 ML SYR SUBCUT SCH (12:48)
[2018-11-20] MEDS: Polyethylene Glycol 3350* 17 GM PACKET PO SCH (12:50)
[2018-11-20] MEDS: Mometasone/Formoter 200/5 MDI INH SCH ×2 (13:42→19:42)
[2018-11-20] MEDS: Atorvastatin* 40 MG TAB PO SCH (17:56)
[2018-11-20] MEDS: Melatonin 3 MG TAB PO PRN (21:23)
[2018-11-20] MEDS: Tamsulosin CAP* 0.4 MG PO SCH (21:23)
[2018-11-21] MEDS: Ibuprofen TAB* 600 MG PO PRN (03:49)
[2018-11-21] MEDS: ceFAZolin VIAL(*) 2 GM in NS 0.9% 100 ML* 100 ML IVPB SCH ×3 (03:50→21:20)
[2018-11-21 05:45] LABS: ABS Eosinophils 0.1 10^3/ul (0-0.6); ABS Lymphocytes 0.4 10^3/ul (1.0-4.8); ABS Monocytes 1.1 10^3/ul (0-0.8); ABS Neutrophils 5.7 10^3/ul (1.5-7.7); Eosinophil % 0.9 %; Hematocrit 34 % (42-52); Hemoglobin 12.1 g/dL (14.0-18.0); Lymphocyte % 5.7 %; Mean Corpuscular HGB Conc 35 g/dL (31-36); Mean Corpuscular Hemoglobin 33 pg (27-31); Mean Corpuscular Volume 93 fL (80-94); Platelet Count 443 10^3/uL (150-450); Red Cell Distribution Width 13 % (10-15); White Blood Count 7.3 10^3/uL (3.5-10.8)
[2018-11-21 06:02] LABS: BUN/Creatinine Ratio 19.6 (8-20); Calcium 7.8 mg/dL (8.6-10.3); EGFR Non-African American 178.5 (>60); Magnesium 1.9 mg/dL (1.9-2.7); Potassium 3.8 mmol/L (3.5-5.0)
[2018-11-21] MEDS: Mometasone/Formoter 200/5 MDI INH SCH ×2 (08:13→21:07)
[2018-11-21] MEDS: Tiotropium CAP.INH* CAP.INH/18 MCG (USE ORDER SET !) INH SCH (08:13)
[2018-11-21] MEDS: Aspirin EC TAB* 81 MG TAB.EC PO SCH (09:06)
[2018-11-21] MEDS: Senna TAB PO PRN (09:06)
[2018-11-21] MEDS: Furosemide TAB* 40 MG PO SCH (09:06)
[2018-11-21] MEDS: Losartan TAB* 25 MG PO SCH (09:06)
[2018-11-21] MEDS: Folic Acid TAB* 1 MG PO SCH (09:06)
[2018-11-21] MEDS: Docusate CAP* 100 MG PO SCH ×2 (09:06→21:22)
[2018-11-21] MEDS: Polyethylene Glycol 3350* 17 GM PACKET PO SCH (09:07)
[2018-11-21] MEDS: Multivitamins/Minerals TAB PO SCH (09:07)
[2018-11-21] MEDS: Thiamine TAB* 100 MG TAB PO SCH (09:07)
[2018-11-21] MEDS: Lidocaine PATCH 5%* 1 PATCH TRANSDERM PRN (09:07)
[2018-11-21] MEDS: Enoxaparin(*) 40 MG/0.4 ML SYR SUBCUT SCH (13:07)
--- NOTE | 2018-11-21 16:35 | PN ---
Subjective Date of Service: 11/21/18 Interval History: no acute events overnight, afebrile complaint of continue weakness and lower back pain. Got up to chair with Jose but complaint of worse back pain so was returned to bed after not too long. MRIs still pending. bedside sonogram performed to rule out ascites as etiology of abdominal distention. Family History: Unchanged from Admission Social History: Unchanged from Admission Past Medical History: Unchanged from Admission Objective Active Medications: Acetaminophen (Tylenol Tab*) 650 mg PO Q4H PRN PRN Reason: PAIN Last Admin: 11/19/18 17:23 Dose: 650 mg Albuterol/Ipratropium (Duoneb (Albuterol 2.5 Mg/Ipratropium 0.5 Mg)) 1 neb INH [id number] AWAKE PRN PRN Reason: SOB/WHEEZING Last Admin: 11/18/18 21:04 Dose: 1 neb Aspirin (Aspirin Ec Tab*) 81 mg PO DAILY [facility] Last Admin: 11/21/18 09:06 Dose: 81 mg Atorvastatin Calcium (Lipitor*) 40 mg PO 1700 [facility] Last Admin: 11/20/18 17:56 Dose: 40 mg Docusate Sodium (Colace Cap*) 100 mg PO BID [facility] Last Admin: 11/21/18 09:06 Dose: 100 mg Enoxaparin Sodium (Lovenox(*)) 40 mg SUBCUT Q24H [facility] Last Admin: 11/21/18 13:07 Dose: 40 mg Folic Acid (Folvite Tab*) 1 mg PO DAILY [facility] Last Admin: 11/21/18 09:06 Dose: 1 mg Furosemide (Lasix Tab*) 40 mg PO DAILY [facility] Last Admin: 11/21/18 09:06 Dose: 40 mg Cefazolin Sodium 2 gm/ Sodium (Chloride) 100 mls @ 200 mls/hr IVPB 0200,1000, 1800 [facility] Last Admin: 11/21/18 13:07 Dose: 200 mls/hr Ibuprofen (Motrin Tab*) 600 mg PO Q8H PRN PRN Reason: PAIN Last Admin: 11/21/18 03:49 Dose: 600 mg Lidocaine (Lidoderm 5% Patch*) 1 patch TRANSDERM DAILY PRN PRN Reason: PAIN Last Admin: 11/21/18 09:07 Dose: 1 patch Losartan Potassium (Cozaar Tab*) 100 mg PO DAILY [facility] Last Admin: 11/21/18 09:06 Dose: 100 mg Melatonin (Melatonin) 3 mg PO BEDTIME PRN PRN Reason: SLEEP Last Admin: 11/20/18 21:23 Dose: 3 mg Mometasone Furoate/Formoterol Fumar (Dulera 200/5 Mdi*) 2 puff INH BID [facility] Last Admin: 11/21/18 08:13 Dose: 2 puff Morphine Sulfate (Morphine Inj (Syringe))*) 2 mg IV Q4H PRN PRN Reason: PAIN Last Admin: 11/17/18 22:01 Dose: 2 mg Multivitamins/Minerals (Theragran/Minerals Tab*) 1 tab PO DAILY [facility] Last Admin: 11/21/18 09:07 Dose: 1 tab Pharmacy Profile Note (Lidocaine Patch Remove*) 1 note PATCH OFF BEDTIME PRN PRN Reason: IF PATCH APPLIED TODAY Last Admin: 11/16/18 22:00 Dose: 1 note Polyethylene Glycol/Electrolytes (Miralax*) 17 gm PO DAILY [facility] Last Admin: 11/21/18 09:07 Dose: 17 gm Senna (Senokot Tab*) 1 tab PO DAILY PRN PRN Reason: CONSTIPATION Last Admin: 11/21/18 09:06 Dose: 1 tab Tamsulosin HCl (Flomax Cap*) 0.4 mg PO DAILY@1999 [facility] Last Admin: 11/20/18 21:23 Dose: 0.4 mg Thiamine HCl (Vitamin B-1 Tab*) 100 mg PO DAILY [facility] Last Admin: 11/21/18 09:07 Dose: 100 mg Tiotropium [place] (Spiriva Cap.Inh*) 1 cap INH DAILY [facility] Last Admin: 11/21/18 08:13 Dose: 1 cap Vital Signs - 8 hr 11/21/18 11:12 Temperature 98.0 F Pulse Rate 90 Respiratory 20 Rate Blood Pressure 128/67 (mmHg) O2 Sat by Pulse 93 Oximetry Oxygen Devices in Use Now: None Appearance: NAD but chronically ill appearing. Eyes: No Scleral Icterus Ears/Nose/Mouth/Throat: NL Teeth, Lips, Gums Neck: NL Appearance and Movements; NL JVP Respiratory: Symmetrical Chest Expansion and Respiratory Effort, Clear to Auscultation Cardiovascular: NL Sounds; No Murmurs; No JVD, RRR Abdominal: - - soft, distended, nontender. no rebound or guarding. Extremities: - - trace edema. dirt cleaned from bottom of left foot (right foot cleaned yesterday). pulses intact. Skin: No Rash or Ulcers Neurological: Alert and Oriented x 3, - - LUE 2+/5 in shoulder extension. No pain in PROM or palpations. b/l LE 2+/5 in hip flexion. intact dorsi/plantar flextion. CN intact. Nutrition: Taking PO's Result Diagrams: 11/21/18 05:38 11/21/18 05:38 Additional Lab and Data: Laboratory Results - last 24 hr 11/21/18 11/21/18 05:38 05:38 WBC 7.3 RBC 3.70 L Hgb 12.1 L Hct 34 L MCV 93 MCH 33 H MCHC 35 RDW 13 Plt Count 443 MPV 7.0 L Neut % (Auto) 78.1 Lymph % (Auto) 5.7 [place] % (Auto) 15.0 Eos % (Auto) 0.9 Baso % (Auto) 0.3 Absolute Neuts (auto) 5.7 Absolute Lymphs (auto) 0.4 L Absolute Monos (auto) 1.1 H Absolute Eos (auto) 0.1 Absolute Basos (auto) 0.0 Absolute Nucleated RBC 0.0 Nucleated RBC % 0.0 Sodium 127 L Potassium 3.8 Chloride 93 L Carbon Dioxide 30 Anion Gap 4 BUN 9 Creatinine 0.46 L Est GFR ( Amer) 216.0 Est GFR (Non-Af Amer) 178.5 BUN/Creatinine Ratio 19.6 Glucose 123 H Calcium 7.8 L Magnesium 1.9 Microbiology and Other Data: Microbiology 11/19/18 12:23 Blood Venous Blood Culture - Preliminary No Growth Day 2 11/19/18 11:47 Blood Venous Aerobic Blood Culture - Preliminary No Growth Day 2 11/19/18 11:47 Blood Venous Anaerobic Blood Culture - Preliminary No Growth Day 2 11/18/18 07:19 Blood Venous Aerobic Blood Culture - Final Staphylococcus Aureus 11/18/18 07:19 Blood Venous Anaerobic Blood Culture - Final Staphylococcus Aureus 11/18/18 07:19 Blood Venous Blood MRSA/MSSA (PCR) - Final Mrsa Negative S.aureus Positive 11/18/18 07:11 Blood Venous Aerobic Blood Culture - Preliminary No Growth Day 3 11/18/18 07:11 Blood Venous Anaerobic Blood Culture - Preliminary No Growth Day 3 11/15/18 08:15 Blood Venous Aerobic Blood Culture - Final Staphylococcus Aureus 11/15/18 08:15 Blood Venous Anaerobic Blood Culture - Final Staphylococcus Aureus 11/15/18 08:15 Blood Venous Blood MRSA/MSSA (PCR) - Final Mrsa Negative S.aureus Positive 11/15/18 08:15 Blood Venous Aerobic Blood Culture - Final Staphylococcus Aureus 11/15/18 08:15 Blood Venous Anaerobic Blood Culture - Final Staphylococcus Aureus 11/15/18 08:15 Blood Venous Blood MRSA/MSSA (PCR) - Final Mrsa Negative S.aureus Positive 11/15/18 08:42 Urine Urine Culture - Final No Growth (<1,000 CFU/mL) 11/15/18 14:27 Nasal Nasal Screen MRSA (PCR) - Final Mrsa Not Detected EKG Data: Echo SALENA pending Assess/Plan/Problems-Billing Assessment: 73 yo M with h/o COPD(not on 02, current smoker 1 ppd x 55 years), HTN presents with MSSA bacteremia(persistent), b/l leg weakness, LUE weakness, unclear source (s/p lumbar/thoracic MRI w/ contrast). awaiting cervical spine MRI/ Brain MRI - Patient Problems (1) MSSA bacteremia Current Visit: Yes Status: Acute Priority: High Code(s): R78.81 - BACTEREMIA SNOMED Code(s): 657826007 Comment: -Source is unclear, differential includes endocarditis, osteomyelitis, other intravascular. s/p CT chest abd pelvis. He has no hardware -Appreciate ID consult, will continue cefazolin. Will need at least a few weeks. -11/18 Cx positive 06/10 staph. f/u 11/19 Cx are negative x 2 days -SALENA w/o vegetation. -MRI thoracic and lumbar spine reviewed, no paraspinal abscess or osteo-diskitis - getting cervical MRI - monitor for any septic joints - none suspicous currently. (2) Left arm weakness Current Visit: Yes Status: Acute Code(s): R29.898 - OTH SYMPTOMS AND SIGNS INVOLVING THE MUSCULOSKELETAL SYSTEM SNOMED Code(s): 509238777 Comment: CTH no acute process will get MRI cervical spine w/wo and MRI Brain at same time (3) Elevated troponin Current Visit: Yes Status: Acute Priority: Medium Code(s): R74.8 - ABNORMAL LEVELS OF OTHER SERUM ENZYMES SNOMED Code(s): 062756128 Comment: -Likely due to demand ischemia -peaked 0.32 -Echo shows EF 55%, no sig valvular abn - continue aspirin,continue statin 40mg. (4) Lower extremity weakness Current Visit: Yes Status: Acute Code(s): R29.898 - OTH SYMPTOMS AND SIGNS INVOLVING THE MUSCULOSKELETAL SYSTEM SNOMED Code(s): 343814599 Comment: b/l, R>L with MRI showing severe spinal stenosis at L2-L3 level. no disktitis. appreciate Neurosurgery recs. No current surgical indication per NS. s/p MRI of T spine to w/o epidural abscess. (5) PAD (peripheral artery disease) Current Visit: Yes Status: Acute Code(s): I73.9 - PERIPHERAL VASCULAR DISEASE, UNSPECIFIED SNOMED Code(s): 588445620 Comment: MAYUR's with borderline claudication level on right. consider angio with IR once infection is improved. (6) Smoker Current Visit: Yes Status: Acute Code(s): F17.200 - NICOTINE DEPENDENCE, UNSPECIFIED, UNCOMPLICATED SNOMED Code(s): 39272678 Comment: nicotine patch 55+ pack years add dulera continue spiriva and duoneb prns. (7) Alcohol abuse Current Visit: Yes Status: Acute Code(s): F10.10 - ALCOHOL ABUSE, UNCOMPLICATED SNOMED Code(s): 17748787 Comment: Continue WAM, thiamine, folice acid, MV daily 6+ beers at least. (8) Hypertension Current Visit: Yes Status: Acute Code(s): I10 - ESSENTIAL (PRIMARY) HYPERTENSION SNOMED Code(s): 23585830 Comment: continue home losartan 100mg SBP 130-160s, add 5mg amolodipine tomorrow(holding home HCTZ given hyponatremia) (9) HLD (hyperlipidemia) Current Visit: Yes Status: Acute Code(s): E78.5 - HYPERLIPIDEMIA, UNSPECIFIED SNOMED Code(s): 23414011 Comment: given trop elevation, PVD: will increase atorvastatin from 10mg to 40mg. home was simvastatin 20mg (10) Volume overload Current Visit: Yes Status: Acute Code(s): E87.70 - FLUID OVERLOAD, UNSPECIFIED SNOMED Code(s): 15581048 Comment: mild pulm vasc congestion on CXR, BNP 600 Continue lasix 40mg po daily (got 20 mg po 11/19) bedside US of abdomen 11/21 did not demonstrate significant ascites. Status and Disposition: inpatient. Per PT needs jose for transfer so will need placement. Needs cervical MRI, brain MRI, shelter IV abx (ID on board), now that cultures are cleared will order PICC.
[2018-11-21] MEDS: Atorvastatin* 40 MG TAB PO SCH (18:23)
[2018-11-21] MEDS ORDERED: Gadoteridol* (CONTRAST) 279.3 MG/ML 10 ML IV ONE (20:15)
[2018-11-21] MEDS: Morphine INJ* 2 MG/ML 1 ML SYRINGE (TWO MG - NEW SYRINGE VERSION) IV PRN (21:17)
[2018-11-21] MEDS: Tamsulosin CAP* 0.4 MG PO SCH (21:22)
[2018-11-21] MEDS: Melatonin 3 MG TAB PO PRN (21:22)
[2018-11-22] MEDS: ceFAZolin VIAL(*) 2 GM in NS 0.9% 100 ML* 100 ML IVPB SCH ×3 (02:30→17:30)
[2018-11-22] MEDS: Morphine INJ* 2 MG/ML 1 ML SYRINGE (TWO MG - NEW SYRINGE VERSION) IV PRN ×3 (02:33→17:30)
[2018-11-22] MEDS: Tiotropium CAP.INH* CAP.INH/18 MCG (USE ORDER SET !) INH SCH (07:56)
[2018-11-22] MEDS: Mometasone/Formoter 200/5 MDI INH SCH ×2 (07:59→19:13)
[2018-11-22] MEDS: Furosemide TAB* 40 MG PO SCH (09:46)
[2018-11-22] MEDS: Polyethylene Glycol 3350* 17 GM PACKET PO SCH (09:46)
[2018-11-22] MEDS: Lidocaine PATCH 5%* 1 PATCH TRANSDERM PRN (09:47)
[2018-11-22] MEDS: Aspirin EC TAB* 81 MG TAB.EC PO SCH (09:47)
[2018-11-22] MEDS: Docusate CAP* 100 MG PO SCH ×2 (09:47→20:21)
[2018-11-22] MEDS: Multivitamins/Minerals TAB PO SCH (09:47)
[2018-11-22] MEDS: Thiamine TAB* 100 MG TAB PO SCH (09:47)
[2018-11-22] MEDS: Losartan TAB* 25 MG PO SCH (09:47)
[2018-11-22] MEDS: amLODIPine TAB* 5 MG PO SCH (09:47)
[2018-11-22] MEDS: Folic Acid TAB* 1 MG PO SCH (09:49)
--- NOTE | 2018-11-22 11:30 | PN ---
Progress Note - Progress Note Date of Service: 11/22/18 SOAP: Subjective: cc:fever HPI: 73 year old man with MSSA bacteremia; still has low back pain. No fever, rash, or diarrhea. No joint pain. Objective: Vital Signs Temp 36.7 C 11/22/18 03:04 Pulse 77 11/22/18 08:04 Resp 20 11/22/18 09:47 BP 148/89 11/22/18 03:04 Pulse Ox 93 11/22/18 08:04 Intake & Output 11/21/18 11/22/18 11/22/18 18:59 06:59 18:59 Intake Total 1630 269 0 Output Total 1800 1600 Balance -170 -1331 0 Intake: IV Fluids 110 48 ABX - CEFAZOLIN 110 NS (0.9%) 48 IVPB 221 ABX - CEFAZOLIN 221 Oral 1520 0 0 Output: [place] 1800 1600 Other: Estimated Void Large # Voids 4 Gen:awake, no distress HEENT: no thrush Heart:RRR overnight Lungs:CTA BL Abd:+BS NTND soft Skin: no rash MSK: no spine tenderness, no joint synovitis Microbiology 11/18/18 07:11 Aerobic Blood Culture - Preliminary Blood Venous No Growth Day 4 Anaerobic Blood Culture - Preliminary No Growth Day 4 11/19/18 12:23 Blood Culture - Preliminary Blood Venous No Growth Day 2 11/19/18 11:47 Aerobic Blood Culture - Preliminary Blood Venous No Growth Day 2 Anaerobic Blood Culture - Preliminary No Growth Day 2 11/18/18 07:19 Aerobic Blood Culture - Final Blood Venous Staphylococcus Aureus Anaerobic Blood Culture - Final Staphylococcus Aureus Blood MRSA/MSSA (PCR) - Final Mrsa Negative S.aureus Positive Assessment: 1. MSSA bacteremia; MRI C/T/L spine no BONNIE or osteodiskitis, no endocarditis, no prosthetic material, no synovitis 2. Elevated troponin, NSTEMI 3. PAD 4. arm weakness, cord compression on C spine MRI Plan: 1. Continue ancef 2 gm IV Q8hrs day 09/18 assuming no other focus of infection detected 2. neurosurgery evaluation Discussed with Dr Menchaca
[2018-11-22] MEDS: Bisacodyl SUPP* 10 MG SUPP PR PRN (12:15)
[2018-11-22] MEDS: Enoxaparin(*) 40 MG/0.4 ML SYR SUBCUT SCH (14:59)
[2018-11-22] MEDS: Atorvastatin* 40 MG TAB PO SCH (17:30)
[2018-11-22] MEDS ORDERED: Magnesium CITRATE* 300 ML BTL PO ONE (18:15)
--- NOTE | 2018-11-22 19:31 | PN ---
Subjective Date of Service: 11/22/18 Interval History: patient seen this afternoon, he continues to have pain in his back. Cervical spine MRI he does have significant DJD and central canal stenosis most severe at C4-C5. Case discussed with neurosurgery Dr. Shane. remains on [facility] day #4/. repeat BC has been clear for now. complaining of constipations Past Medical History: Unchanged from Admission Objective Active Medications: Acetaminophen (Tylenol Tab*) 650 mg PO Q4H PRN PRN Reason: PAIN Last Admin: 11/19/18 17:23 Dose: 650 mg Albuterol/Ipratropium (Duoneb (Albuterol 2.5 Mg/Ipratropium 0.5 Mg)) 1 neb INH [id number] AWAKE PRN PRN Reason: SOB/WHEEZING Last Admin: 11/18/18 21:04 Dose: 1 neb Amlodipine Besylate (Norvasc Tab*) 5 mg PO DAILY [facility] Last Admin: 11/22/18 09:47 Dose: 5 mg Aspirin (Aspirin Ec Tab*) 81 mg PO DAILY [facility] Last Admin: 11/22/18 09:47 Dose: 81 mg Atorvastatin Calcium (Lipitor*) 40 mg PO 1700 [facility] Last Admin: 11/22/18 17:30 Dose: 40 mg Bisacodyl (Dulcolax Supp*) 10 mg [place] DAILY PRN PRN Reason: CONSTIPATION Last Admin: 11/22/18 12:15 Dose: 10 mg Docusate Sodium (Colace Cap*) 100 mg PO BID [facility] Last Admin: 11/22/18 09:47 Dose: 100 mg Enoxaparin Sodium (Lovenox(*)) 40 mg SUBCUT Q24H [facility] Last Admin: 11/22/18 14:59 Dose: 40 mg Folic Acid (Folvite Tab*) 1 mg PO DAILY [facility] Last Admin: 11/22/18 09:49 Dose: 1 mg Furosemide (Lasix Tab*) 40 mg PO DAILY [facility] Last Admin: 11/22/18 09:46 Dose: 40 mg Cefazolin Sodium 2 gm/ Sodium (Chloride) 100 mls @ 200 mls/hr IVPB 0200,1000, 1800 [facility] Last Admin: 11/22/18 17:30 Dose: 200 mls/hr Ibuprofen (Motrin Tab*) 600 mg PO Q8H PRN PRN Reason: PAIN Last Admin: 11/21/18 03:49 Dose: 600 mg Lidocaine (Lidoderm 5% Patch*) 1 patch TRANSDERM DAILY PRN PRN Reason: PAIN Last Admin: 11/22/18 09:47 Dose: 1 patch Losartan Potassium (Cozaar Tab*) 100 mg PO DAILY [facility] Last Admin: 11/22/18 09:47 Dose: 100 mg Melatonin (Melatonin) 3 mg PO BEDTIME PRN PRN Reason: SLEEP Last Admin: 11/21/18 21:22 Dose: 3 mg Mometasone Furoate/Formoterol Fumar (Dulera 200/5 Mdi*) 2 puff INH BID [facility] Last Admin: 11/22/18 19:13 Dose: Not Given Morphine Sulfate (Morphine Inj (Syringe))*) 2 mg IV Q4H PRN PRN Reason: PAIN Last Admin: 11/22/18 17:30 Dose: 2 mg Multivitamins/Minerals (Theragran/Minerals Tab*) 1 tab PO DAILY [facility] Last Admin: 11/22/18 09:47 Dose: 1 tab Pharmacy Profile Note (Lidocaine Patch Remove*) 1 note PATCH OFF BEDTIME PRN PRN Reason: IF PATCH APPLIED TODAY Last Admin: 11/16/18 22:00 Dose: 1 note Polyethylene Glycol/Electrolytes (Miralax*) 17 gm PO DAILY [facility] Last Admin: 11/22/18 09:46 Dose: 17 gm Senna (Senokot Tab*) 1 tab PO DAILY PRN PRN Reason: CONSTIPATION Last Admin: 11/21/18 09:06 Dose: 1 tab Tamsulosin HCl (Flomax Cap*) 0.4 mg PO DAILY@1999 [facility] Last Admin: 11/21/18 21:22 Dose: 0.4 mg Thiamine HCl (Vitamin B-1 Tab*) 100 mg PO DAILY [facility] Last Admin: 11/22/18 09:47 Dose: 100 mg Tiotropium [place] (Spiriva Cap.Inh*) 1 cap INH DAILY [facility] Last Admin: 11/22/18 07:56 Dose: 1 cap Vital Signs - 8 hr 11/22/18 11/22/18 11/22/18 11:52 12:00 17:30 Temperature 98.3 F Pulse Rate 76 Respiratory 20 19 19 Rate Blood Pressure 152/68 (mmHg) O2 Sat by Pulse 91 Oximetry Oxygen Devices in Use Now: None Appearance: awake, no distress, laying on right side due to pain on the left Eyes: No Scleral Icterus, - - awake, Ears/Nose/Mouth/Throat: NL Teeth, Lips, Gums, Mucous Membranes Moist Neck: NL Appearance and Movements; NL JVP Respiratory: Symmetrical Chest Expansion and Respiratory Effort, Clear to Auscultation Cardiovascular: NL Sounds; No Murmurs; No JVD, No Edema Abdominal: NL Sounds; No Tenderness; No Distention Extremities: No Edema Skin: No Rash or Ulcers Neurological: Alert and Oriented x 3, - - left upper extremety weakness, 4/5. Result Diagrams: 11/21/18 05:38 11/21/18 05:38 Additional Lab and Data: Laboratory Results - last 24 hr 11/21/18 11/21/18 05:38 05:38 WBC 7.3 RBC 3.70 L Hgb 12.1 L Hct 34 L MCV 93 MCH 33 H MCHC 35 RDW 13 Plt Count 443 MPV 7.0 L Neut % (Auto) 78.1 Lymph % (Auto) 5.7 [place] % (Auto) 15.0 Eos % (Auto) 0.9 Baso % (Auto) 0.3 Absolute Neuts (auto) 5.7 Absolute Lymphs (auto) 0.4 L Absolute Monos (auto) 1.1 H Absolute Eos (auto) 0.1 Absolute Basos (auto) 0.0 Absolute Nucleated RBC 0.0 Nucleated RBC % 0.0 Sodium 127 L Potassium 3.8 Chloride 93 L Carbon Dioxide 30 Anion Gap 4 BUN 9 Creatinine 0.46 L Est GFR ( Amer) 216.0 Est GFR (Non-Af Amer) 178.5 BUN/Creatinine Ratio 19.6 Glucose 123 H Calcium 7.8 L Magnesium 1.9 Microbiology and Other Data: Microbiology 11/19/18 12:23 Blood Venous Blood Culture - Preliminary No Growth Day 2 11/19/18 11:47 Blood Venous Aerobic Blood Culture - Preliminary No Growth Day 2 11/19/18 11:47 Blood Venous Anaerobic Blood Culture - Preliminary No Growth Day 2 11/18/18 07:19 Blood Venous Aerobic Blood Culture - Final Staphylococcus Aureus 11/18/18 07:19 Blood Venous Anaerobic Blood Culture - Final Staphylococcus Aureus 11/18/18 07:19 Blood Venous Blood MRSA/MSSA (PCR) - Final Mrsa Negative S.aureus Positive 11/18/18 07:11 Blood Venous Aerobic Blood Culture - Preliminary No Growth Day 3 11/18/18 07:11 Blood Venous Anaerobic Blood Culture - Preliminary No Growth Day 3 11/15/18 08:15 Blood Venous Aerobic Blood Culture - Final Staphylococcus Aureus 11/15/18 08:15 Blood Venous Anaerobic Blood Culture - Final Staphylococcus Aureus 11/15/18 08:15 Blood Venous Blood MRSA/MSSA (PCR) - Final Mrsa Negative S.aureus Positive 11/15/18 08:15 Blood Venous Aerobic Blood Culture - Final Staphylococcus Aureus 11/15/18 08:15 Blood Venous Anaerobic Blood Culture - Final Staphylococcus Aureus 11/15/18 08:15 Blood Venous Blood MRSA/MSSA (PCR) - Final Mrsa Negative S.aureus Positive 11/15/18 08:42 Urine Urine Culture - Final No Growth (<1,000 CFU/mL) 11/15/18 14:27 Nasal Nasal Screen MRSA (PCR) - Final Mrsa Not Detected EKG Data: Echo SALENA pending Assess/Plan/Problems-Billing Assessment: 73 yo M with h/o COPD(not on 02, current smoker 1 ppd x 55 years), HTN presents with MSSA bacteremia(persistent), b/l leg weakness, LUE weakness, unclear infectious source (s/p lumbar/thoracic MRI w/ contrast). spine MRI/ Brain MRI severe central canal stenosis at C4-C5 - Patient Problems (1) MSSA bacteremia Current Visit: Yes Status: Acute Priority: High Code(s): R78.81 - BACTEREMIA SNOMED Code(s): 803474020 Comment: - Source is unclear - s/p CT chest abd pelvis. He has no hardware - Appreciate ID consult, will continue cefazolin day #09/18. - 11/18 Cx positive 06/10 staph. f/u 11/19 Cx are negative x 3 days - SALENA w/o vegetation. - MRI Cervica, thoracic and lumbar spine reviewed, no paraspinal abscess or osteo-diskitis - monitor for any septic joints - none suspicous currently. (2) Alcohol abuse Current Visit: Yes Status: Acute Code(s): F10.10 - ALCOHOL ABUSE, UNCOMPLICATED SNOMED Code(s): 82128642 Comment: - Not in witdrawal - Hx of 6 + beers (3) HLD (hyperlipidemia) Current Visit: Yes Status: Acute Code(s): E78.5 - HYPERLIPIDEMIA, UNSPECIFIED SNOMED Code(s): 46429847 Comment: - Given his PVD and elevated troponin, I agree with the increase atorvastatin from 10mg to 40mg. (home was simvastatin 20mg) (4) Hypertension Current Visit: Yes Status: Acute Code(s): I10 - ESSENTIAL (PRIMARY) HYPERTENSION SNOMED Code(s): 23648631 Comment: - continue home losartan 100mg and amlodipine 5 mg daily - BP slightly better, will continue to monitor and consider increasing amlodipine if needed - Will keep holding home HCTZ given hyponatremia (5) Hyponatremia Current Visit: Yes Status: Acute Code(s): E87.1 - HYPO-OSMOLALITY AND HYPONATREMIA SNOMED Code(s): 16545628 Comment: - due to history of alcohol, dehydration and HCTZ use - Will keep him off the HCTZ (6) Left arm weakness Current Visit: Yes Status: Acute Code(s): R29.898 - OTH SYMPTOMS AND SIGNS INVOLVING THE MUSCULOSKELETAL SYSTEM SNOMED Code(s): 715723309 Comment: - CT Head no acute process - MRI cervical spine w/wo shows C4-C5 spinal stenosis - MRI Brain shows no acute finding - I spoke to Neurosurgery and will reassess him. Will obtain cervical CT and cervical xray extension and flexion as recommended by neurosurgery (7) Lower extremity weakness Current Visit: Yes Status: Acute Code(s): R29.898 - OTH SYMPTOMS AND SIGNS INVOLVING THE MUSCULOSKELETAL SYSTEM SNOMED Code(s): 098678163 Comment: - b/l, R>L - MRI showing severe spinal stenosis at L2-L3 level. no disktitis. - Neurosurgery did not recommend surgical indication. - s/p MRI of T spine to w/o epidural abscess. - Continue PT and OT and will follow up reconsultation with Dr. Shane now that his cervical spine MRI shows severe spinal stenosis at C4-C5 (8) PAD (peripheral artery disease) Current Visit: Yes Status: Acute Code(s): I73.9 - PERIPHERAL VASCULAR DISEASE, UNSPECIFIED SNOMED Code(s): 880682020 Comment: - MAYUR's with borderline claudication level on right. consider angio with IR once infection is improved. (9) Smoker Current Visit: Yes Status: Acute Code(s): F17.200 - NICOTINE DEPENDENCE, UNSPECIFIED, UNCOMPLICATED SNOMED Code(s): 83560438 Comment: - nicotine patch due to 55+ pack years - Continue dulera, spiriva and duoneb prns. (10) Constipation Current Visit: Yes Status: Acute Code(s): K59.00 - CONSTIPATION, UNSPECIFIED SNOMED Code(s): 80291450 Comment: - persistent despite multiple laxative and stool softener - Will add mag citrate - If not better in am this could be neurogenic as well. Will reassess in am if he does need golytely (11) DVT prophylaxis Current Visit: Yes Status: Acute Priority: Low Code(s): Z29.9 - ENCOUNTER FOR PROPHYLACTIC MEASURES, UNSPECIFIED SNOMED Code(s): 275943045 Comment: lovenox Status and Disposition: inpatient. Per PT needs trudy for transfer so will need placement. Needs cervical MRI, brain MRI, mcc IV abx (ID on board), now that cultures are cleared will order PICC.
[2018-11-22] MEDS: Ibuprofen TAB* 600 MG PO PRN (20:21)
[2018-11-22] MEDS: Melatonin 3 MG TAB PO PRN (20:21)
[2018-11-22] MEDS: Tamsulosin CAP* 0.4 MG PO SCH (20:21)
[2018-11-23] MEDS: ceFAZolin VIAL(*) 2 GM in NS 0.9% 100 ML* 100 ML IVPB SCH ×3 (02:42→17:32)
--- NOTE | 2018-11-23 05:43 | PN ---
Progress Note - Progress Note Date of Service: 11/23/18 SOAP: Subjective: 73 y/o male with c/o chronic axial neck pain that radiates into shoulders, with right shoulder weakness. He reports having symptoms for several years and typically would improve, but have progressed of symptoms over the last 10 - 12 weeks. Also c/o of chronic lower back pain with increased right lower extremity pain aggravated with walking, standing and improved with rest. He admits to having balance disturbances and reports a recent episode of falling. Over the last 2 -3 years reports regularly using cane with ambulation. He denies bladder or bowel incontinence, loss of sensation in extremities, Patient denies headaches nausea or vomiting, recent visual changes. Also denies recent hand writing changes. He does admit to continued right shoulder weakness and decrease ROM with overhead movements. He has completed imaging that demonstrates significant stenosis of the cervical spine. Objective: General patient laying in bed elevated watching TV, NAD. Neuro GCS 15, A&O x3, CN II - XII grossly intact, EOM intact. Decreased right shoulder ROM with overhead movement. Hand researcher motor strength 5/5 bilaterally, bilateral Lucero's, Romberg test unreliable, patient unable to hold right arm 2/2 shoulder weakness. decreased right LE motor strength 2/2 pain with leg flexion and extension. Negative Babinski's, negative clonus. sensation intact throughout. Assessment: 73 y/o male with moderate to severe degenerative changes of the cervical spine, will possible need surgical intervention as an outpatient. Plan: 1) follow up CT of cervical spine 2) Discuss with Dr. Martines
[2018-11-23 06:11] LABS: ABS Eosinophils 0.1 10^3/ul (0-0.6); ABS Lymphocytes 0.6 10^3/ul (1.0-4.8); ABS Neutrophils 6.9 10^3/ul (1.5-7.7); Eosinophil % 0.7 %; Hematocrit 35 % (42-52); Hemoglobin 12.1 g/dL (14.0-18.0); Mean Corpuscular HGB Conc 35 g/dL (31-36); Mean Corpuscular Hemoglobin 32 pg (27-31); Mean Corpuscular Volume 93 fL (80-94); Mean Platelet Volume 6.6 fL (7.4-10.4); Platelet Count 582 10^3/uL (150-450); Red Blood Count 3.75 10^6 /uL (4.18-5.48); Red Cell Distribution Width 14 % (10-15); White Blood Count 8.6 10^3/uL (3.5-10.8)
[2018-11-23 06:33] LABS: BUN/Creatinine Ratio 23.9 (8-20); Calcium 8.4 mg/dL (8.6-10.3); EGFR Non-African American 178.5 (>60); Magnesium 2.1 mg/dL (1.9-2.7); Phosphorus 3.4 mg/dL (2.5-5.0); Potassium 4.3 mmol/L (3.5-5.0)
[2018-11-23] MEDS: Tiotropium CAP.INH* CAP.INH/18 MCG (USE ORDER SET !) INH SCH (08:18)
[2018-11-23] MEDS: Mometasone/Formoter 200/5 MDI INH SCH ×2 (08:19→20:58)
[2018-11-23] MEDS: Senna TAB PO PRN (08:42)
[2018-11-23] MEDS: Ibuprofen TAB* 600 MG PO PRN ×2 (08:43→20:04)
[2018-11-23] MEDS: Aspirin EC TAB* 81 MG TAB.EC PO SCH (08:43)
[2018-11-23] MEDS: Folic Acid TAB* 1 MG PO SCH (08:43)
[2018-11-23] MEDS: amLODIPine TAB* 5 MG PO SCH (08:43)
[2018-11-23] MEDS: Multivitamins/Minerals TAB PO SCH (08:43)
[2018-11-23] MEDS: Thiamine TAB* 100 MG TAB PO SCH (08:44)
[2018-11-23] MEDS: Furosemide TAB* 40 MG PO SCH (08:44)
[2018-11-23] MEDS: Docusate CAP* 100 MG PO SCH ×2 (08:44→20:07)
[2018-11-23] MEDS: Losartan TAB* 25 MG PO SCH (08:44)
[2018-11-23] MEDS: Polyethylene Glycol 3350* 17 GM PACKET PO SCH (08:45)
[2018-11-23] MEDS: Bisacodyl SUPP* 10 MG SUPP PR PRN (08:45)
[2018-11-23] MEDS: Enoxaparin(*) 40 MG/0.4 ML SYR SUBCUT SCH (14:15)
--- NOTE | 2018-11-23 15:33 | PN ---
Subjective Date of Service: 11/23/18 Interval History: awake, out of bed to chair. PT working with him. Still have significant weakness both arms and leg but worse on the left. He did have bowel movement yesterday. I discussed with Neurosurgery, he will need surgical decompression of his cervical stenosis but it needs to be done once his sepsis and bacteremia completely resolved, He remains on IV antibiotics. ID recommend Ancef IV awaiting bed offer that will accept cefazolin infusion. Past Medical History: Unchanged from Admission Objective Active Medications: Acetaminophen (Tylenol Tab*) 650 mg PO Q4H PRN PRN Reason: PAIN Last Admin: 11/19/18 17:23 Dose: 650 mg Albuterol/Ipratropium (Duoneb (Albuterol 2.5 Mg/Ipratropium 0.5 Mg)) 1 neb INH [id number] AWAKE PRN PRN Reason: SOB/WHEEZING Last Admin: 11/18/18 21:04 Dose: 1 neb Amlodipine Besylate (Norvasc Tab*) 5 mg PO DAILY [facility] Last Admin: 11/23/18 08:43 Dose: 5 mg Aspirin (Aspirin Ec Tab*) 81 mg PO DAILY [facility] Last Admin: 11/23/18 08:43 Dose: 81 mg Atorvastatin Calcium (Lipitor*) 40 mg PO 1700 [facility] Last Admin: 11/22/18 17:30 Dose: 40 mg Bisacodyl (Dulcolax Supp*) 10 mg [place] DAILY PRN PRN Reason: CONSTIPATION Last Admin: 11/23/18 08:45 Dose: 10 mg Docusate Sodium (Colace Cap*) 100 mg PO BID [facility] Last Admin: 11/23/18 08:44 Dose: 100 mg Enoxaparin Sodium (Lovenox(*)) 40 mg SUBCUT Q24H [facility] Last Admin: 11/23/18 14:15 Dose: 40 mg Folic Acid (Folvite Tab*) 1 mg PO DAILY [facility] Last Admin: 11/23/18 08:43 Dose: 1 mg Furosemide (Lasix Tab*) 40 mg PO DAILY [facility] Last Admin: 11/23/18 08:44 Dose: 40 mg Cefazolin Sodium 2 gm/ Sodium (Chloride) 100 mls @ 200 mls/hr IVPB 0200,1000, 1800 [facility] Last Admin: 11/23/18 08:45 Dose: 200 mls/hr Ibuprofen (Motrin Tab*) 600 mg PO Q8H PRN PRN Reason: PAIN Last Admin: 11/23/18 08:43 Dose: 600 mg Lidocaine (Lidoderm 5% Patch*) 1 patch TRANSDERM DAILY PRN PRN Reason: PAIN Last Admin: 11/22/18 09:47 Dose: 1 patch Losartan Potassium (Cozaar Tab*) 100 mg PO DAILY [facility] Last Admin: 11/23/18 08:44 Dose: 100 mg Melatonin (Melatonin) 3 mg PO BEDTIME PRN PRN Reason: SLEEP Last Admin: 11/22/18 20:21 Dose: 3 mg Mometasone Furoate/Formoterol Fumar (Dulera 200/5 Mdi*) 2 puff INH BID [facility] Last Admin: 11/23/18 08:19 Dose: 2 puff Multivitamins/Minerals (Theragran/Minerals Tab*) 1 tab PO DAILY [facility] Last Admin: 11/23/18 08:43 Dose: 1 tab Pharmacy Profile Note (Lidocaine Patch Remove*) 1 note PATCH OFF BEDTIME PRN PRN Reason: IF PATCH APPLIED TODAY Last Admin: 11/16/18 22:00 Dose: 1 note Polyethylene Glycol/Electrolytes (Miralax*) 17 gm PO DAILY [facility] Last Admin: 11/23/18 08:45 Dose: 17 gm Senna (Senokot Tab*) 1 tab PO DAILY PRN PRN Reason: CONSTIPATION Last Admin: 11/23/18 08:42 Dose: 1 tab Tamsulosin HCl (Flomax Cap*) 0.4 mg PO DAILY@2000 [facility] Last Admin: 11/22/18 20:21 Dose: 0.4 mg Thiamine HCl (Vitamin B-1 Tab*) 100 mg PO DAILY [facility] Last Admin: 11/23/18 08:44 Dose: 100 mg Tiotropium [place]elia (Spiriva Cap.Inh*) 1 cap INH DAILY [facility] Last Admin: 11/23/18 08:18 Dose: 1 cap Vital Signs - 8 hr 11/23/18 11/23/18 08:00 08:23 Pulse Rate 75 Respiratory 19 16 Rate O2 Sat by Pulse 93 Oximetry Oxygen Devices in Use Now: Nasal Cannula Appearance: awake, alert. no distress. Eyes: No Scleral Icterus, - - EOMI Ears/Nose/Mouth/Throat: NL Teeth, Lips, Gums, Mucous Membranes Moist Neck: NL Appearance and Movements; NL JVP Respiratory: Symmetrical Chest Expansion and Respiratory Effort, Clear to Auscultation Cardiovascular: NL Sounds; No Murmurs; No JVD, RRR, No Edema Abdominal: NL Sounds; No Tenderness; No Distention Extremities: - - LLE edema when compared to right Neurological: Alert and Oriented x 3, - - weakness upper and lower extremety left greater than right 3/5 Result Diagrams: 11/23/18 05:56 11/23/18 05:56 Additional Lab and Data: Laboratory Results - last 24 hr 11/21/18 11/21/18 05:38 05:38 WBC 7.3 RBC 3.70 L Hgb 12.1 L Hct 34 L MCV 93 MCH 33 H MCHC 35 RDW 13 Plt Count 443 MPV 7.0 L Neut % (Auto) 78.1 Lymph % (Auto) 5.7 [place] % (Auto) 15.0 Eos % (Auto) 0.9 Baso % (Auto) 0.3 Absolute Neuts (auto) 5.7 Absolute Lymphs (auto) 0.4 L Absolute Monos (auto) 1.1 H Absolute Eos (auto) 0.1 Absolute Basos (auto) 0.0 Absolute Nucleated RBC 0.0 Nucleated RBC % 0.0 Sodium 127 L Potassium 3.8 Chloride 93 L Carbon Dioxide 30 Anion Gap 4 BUN 9 Creatinine 0.46 L Est GFR ( Amer) 216.0 Est GFR (Non-Af Amer) 178.5 BUN/Creatinine Ratio 19.6 Glucose 123 H Calcium 7.8 L Magnesium 1.9 Microbiology and Other Data: Microbiology 11/19/18 12:23 Blood Venous Blood Culture - Preliminary No Growth Day 2 11/19/18 11:47 Blood Venous Aerobic Blood Culture - Preliminary No Growth Day 2 11/19/18 11:47 Blood Venous Anaerobic Blood Culture - Preliminary No Growth Day 2 11/18/18 07:19 Blood Venous Aerobic Blood Culture - Final Staphylococcus Aureus 11/18/18 07:19 Blood Venous Anaerobic Blood Culture - Final Staphylococcus Aureus 11/18/18 07:19 Blood Venous Blood MRSA/MSSA (PCR) - Final Mrsa Negative S.aureus Positive 11/18/18 07:11 Blood Venous Aerobic Blood Culture - Preliminary No Growth Day 3 11/18/18 07:11 Blood Venous Anaerobic Blood Culture - Preliminary No Growth Day 3 11/15/18 08:15 Blood Venous Aerobic Blood Culture - Final Staphylococcus Aureus 11/15/18 08:15 Blood Venous Anaerobic Blood Culture - Final Staphylococcus Aureus 11/15/18 08:15 Blood Venous Blood MRSA/MSSA (PCR) - Final Mrsa Negative S.aureus Positive 11/15/18 08:15 Blood Venous Aerobic Blood Culture - Final Staphylococcus Aureus 11/15/18 08:15 Blood Venous Anaerobic Blood Culture - Final Staphylococcus Aureus 11/15/18 08:15 Blood Venous Blood MRSA/MSSA (PCR) - Final Mrsa Negative S.aureus Positive 11/15/18 08:42 Urine Urine Culture - Final No Growth (<1,000 CFU/mL) 11/15/18 14:27 Nasal Nasal Screen MRSA (PCR) - Final Mrsa Not Detected EKG Data: Echo [place] pending Assess/Plan/Problems-Billing Assessment: 73 yo M with h/o COPD(not on 02, current smoker 1 ppd x 55 years), HTN presents with MSSA bacteremia(persistent), b/l leg weakness, LUE weakness, unclear infectious source (s/p lumbar/thoracic MRI w/ contrast). spine MRI/ Brain MRI severe central canal stenosis at C4-C5 - Patient Problems (1) MSSA bacteremia Current Visit: Yes Status: Acute Priority: High Code(s): R78.81 - BACTEREMIA SNOMED Code(s): 866937343 Comment: - Source is unclear - s/p CT chest abd pelvis. He has no hardware - Appreciate ID consult, will continue cefazolin day #5/14. - 6/14 Cx positive / staph. f/u 11/19 Cx are negative x 3 days - [place] w/o vegetation. - MRI Cervica, thoracic and lumbar spine reviewed, no paraspinal abscess or osteo-diskitis - monitor for any septic joints - none suspicous currently. (2) Alcohol abuse Current Visit: Yes Status: Acute Code(s): F10.10 - ALCOHOL ABUSE, UNCOMPLICATED SNOMED Code(s): 51594981 Comment: - Not in witdrawal - Hx of 6 + beers (3) HLD (hyperlipidemia) Current Visit: Yes Status: Acute Code(s): E78.5 - HYPERLIPIDEMIA, UNSPECIFIED SNOMED Code(s): 83480873 Comment: - Given his PVD and elevated troponin, I agree with the increase atorvastatin from 10mg to 40mg. (home was simvastatin 20mg) (4) Hypertension Current Visit: Yes Status: Acute Code(s): I10 - ESSENTIAL (PRIMARY) HYPERTENSION SNOMED Code(s): 53559321 Comment: - continue home losartan 100mg and amlodipine 5 mg daily - BP slightly better - Will keep holding home HCTZ given hyponatremia (5) Hyponatremia Current Visit: Yes Status: Acute Code(s): E87.1 - HYPO-OSMOLALITY AND HYPONATREMIA SNOMED Code(s): 03811177 Comment: - due to history of alcohol, dehydration and HCTZ use - Will keep him off the HCTZ (6) Left arm weakness Current Visit: Yes Status: Acute Code(s): R29.898 - OTH SYMPTOMS AND SIGNS INVOLVING THE MUSCULOSKELETAL SYSTEM SNOMED Code(s): 644329465 Comment: - CT Head no acute process - MRI cervical spine w/wo shows C4-C5 spinal stenosis - MRI Brain shows no acute finding - I spoke to Neurosurgery. cervical CT spinal and neural canal encroachement. Pt will need cervical decompression but it has to wait until his infections resolves. continue PT/OT will need rehab (7) Lower extremity weakness Current Visit: Yes Status: Acute Code(s): R29.898 - OTH SYMPTOMS AND SIGNS INVOLVING THE MUSCULOSKELETAL SYSTEM SNOMED Code(s): 321458358 Comment: - b/l, R>L - MRI showing severe spinal stenosis at L2-L3 level. no disktitis. - Neurosurgery did not recommend surgical indication. - s/p MRI of T spine to w/o epidural abscess. - Continue PT and OT and will follow up reconsultation with Dr. Shane now that his cervical spine MRI shows severe spinal stenosis at C4-C5 (8) PAD (peripheral artery disease) Current Visit: Yes Status: Acute Code(s): I73.9 - PERIPHERAL VASCULAR DISEASE, UNSPECIFIED SNOMED Code(s): 549917449 Comment: - MAYUR's with borderline claudication level on right. - Consider angio with IR once infection is improved. (9) Smoker Current Visit: Yes Status: Acute Code(s): F17.200 - NICOTINE DEPENDENCE, UNSPECIFIED, UNCOMPLICATED SNOMED Code(s): 57908541 Comment: - nicotine patch due to 55+ pack years - Continue dulera, spiriva and duoneb prns. (10) Constipation Current Visit: Yes Status: Acute Code(s): K59.00 - CONSTIPATION, UNSPECIFIED SNOMED Code(s): 30067028 Comment: - + BM 11/22/18 (11) DVT prophylaxis Current Visit: Yes Status: Acute Priority: Low Code(s): Z29.9 - ENCOUNTER FOR PROPHYLACTIC MEASURES, UNSPECIFIED SNOMED Code(s): 185005543 Comment: lovenox Status and Disposition: inpatient. Per PT needs trudy for transfer so will need placement. Needs cervical MRI, brain MRI, [facility] IV abx (ID on board), now that cultures are cleared will order PICC.
[2018-11-23] MEDS: Atorvastatin* 40 MG TAB PO SCH (17:32)
[2018-11-23] MEDS: Tamsulosin CAP* 0.4 MG PO SCH (20:05)
[2018-11-23] MEDS: Acetaminophen TAB* 325 MG PO PRN (22:36)
[2018-11-23] MEDS: Melatonin 3 MG TAB PO PRN (22:36)
[2018-11-24] MEDS: ceFAZolin VIAL(*) 2 GM in NS 0.9% 100 ML* 100 ML IVPB SCH ×3 (01:52→17:42)
[2018-11-24] MEDS: Acetaminophen TAB* 325 MG PO PRN ×2 (02:40→18:53)
[2018-11-24] MEDS: Ibuprofen TAB* 600 MG PO PRN (08:18)
[2018-11-24] MEDS: Folic Acid TAB* 1 MG PO SCH (08:19)
[2018-11-24] MEDS: Aspirin EC TAB* 81 MG TAB.EC PO SCH (08:19)
[2018-11-24] MEDS: Losartan TAB* 25 MG PO SCH (08:20)
[2018-11-24] MEDS: Furosemide TAB* 40 MG PO SCH (08:21)
[2018-11-24] MEDS: Thiamine TAB* 100 MG TAB PO SCH (08:21)
[2018-11-24] MEDS: Multivitamins/Minerals TAB PO SCH (08:21)
[2018-11-24] MEDS: amLODIPine TAB* 5 MG PO SCH (08:22)
[2018-11-24] MEDS: Docusate CAP* 100 MG PO SCH ×2 (08:23→19:30)
[2018-11-24] MEDS: Mometasone/Formoter 200/5 MDI INH SCH ×2 (08:23→20:04)
[2018-11-24] MEDS: Tiotropium CAP.INH* CAP.INH/18 MCG (USE ORDER SET !) INH SCH (08:23)
[2018-11-24] MEDS: Polyethylene Glycol 3350* 17 GM PACKET PO SCH (08:24)
--- NOTE | 2018-11-24 09:59 | PN ---
Progress Note - Progress Note Date of Service: 11/24/18 SOAP: Subjective: CC: Back pain HPI: Mr. Collins is a 73 yo male with PMH significant for HTN, HLD, and COPD who presented to the ED with complaints of low back pain and was found to have MSSA bacteremia. Denies fever, chills, shortness of breath, nausea, or vomiting. Reports that he was constipated from the pain medications and received a bunch of laxatives, he reports that the diarrhea is improving and is now having 1 stool daily. Continues to have weakness in his hands and legs, reports generalized weakness from not ambulating much for a week. He continues to have pain in his lower back. Objective: Vital Signs - 8 hr 11/24/18 11/24/18 03:20 07:48 Temperature 98.0 F 97.7 F Pulse Rate 64 65 Respiratory 20 20 Rate Blood Pressure 136/56 148/64 (mmHg) O2 Sat by Pulse 97 95 Oximetry Physical Exam: General: NAD, sitting up in a recliner chair Neurological: Alert and Oriented HEENT: Moist MM, no thrush Cardiovascular: Heart rate regular, no murmur Respiratory: Lung sounds clear bilateral Abdominal: Bowel sounds present; ABD soft, non tender and non distended Muskuloskeletal: Equal hand bath steward/stewardess bilateral Skin: No rash seen on the exposed skin Laboratory Last Values WBC 8.6 10^3/uL (3.5-10.8) 11/23/18 05:56 RBC 3.75 10^6 /uL (4.18-5.48) L 11/23/18 05:56 Hgb 12.1 g/dL (14.0-18.0) L 11/23/18 05:56 Hct 35 % (42-52) L 11/23/18 05:56 MCV 93 fL (80-94) 11/23/18 05:56 MCH 32 pg (27-31) H 11/23/18 05:56 MCHC 35 g/dL (31-36) 11/23/18 05:56 RDW 14 % (10-15) 11/23/18 05:56 Plt Count 582 10^3/uL (150-450) H D 11/23/18 05:56 MPV 6.6 fL (7.4-10.4) L 11/23/18 05:56 Neut % (Auto) 80.2 % 11/23/18 05:56 Lymph % (Auto) 7.0 % 11/23/18 05:56 [place] % (Auto) 11.6 % 11/23/18 05:56 Eos % (Auto) 0.7 % 11/23/18 05:56 Baso % (Auto) 0.5 % 11/23/18 05:56 Absolute Neuts (auto) 6.9 10^3/ul (1.5-7.7) 11/23/18 05:56 Absolute Lymphs (auto) 0.6 10^3/ul (1.0-4.8) L 11/23/18 05:56 Absolute Monos (auto) 1.0 10^3/ul (0-0.8) H 11/23/18 05:56 Absolute Eos (auto) 0.1 10^3/ul (0-0.6) 11/23/18 05:56 Absolute Basos (auto) 0.0 10^3/ul (0-0.2) 11/23/18 05:56 Absolute Nucleated RBC 0.0 10^3/ul 11/23/18 05:56 Nucleated RBC % 0.0 11/23/18 05:56 ESR 44 mm/Hr (0-19) H 11/17/18 20:31 INR (Anticoag Therapy) 0.99 (0.82-1.09) 11/15/18 08:10 Patient Temperature Not Reportable 11/15/18 18:20 ABG pH 7.39 (7.35-7.45) 11/15/18 18:20 ABG pH (Temp Correct) Not Reportable 11/15/18 18:20 ABG pCO2 45 mmHg (35-45) 11/15/18 18:20 ABG pCO2 (Temp Corrct Not Reportable 11/15/18 18:20 ABG pO2 121 mmHg (80-100) H 11/15/18 18:20 ABG pO2 (Temp Correct Not Reportable 11/15/18 18:20 ABG HCO3 26.2 mmol/L (19-31) 11/15/18 18:20 ABG O2 Saturation 99.0 % (94.0-98.0) H 11/15/18 18:20 ABG Base Excess 1.7 mmol/L (-2.0-2.0) 11/15/18 18:20 Respiration Rate Not Reportable 11/15/18 18:20 O2 Delivery Device nasal cannula 2lpm 11/15/18 18:20 Ventilator Type Not Reportable 11/15/18 18:20 Vent Mode Not Reportable 11/15/18 18:20 FiO2 Not Reportable 11/15/18 18:20 Inspiratory Time Not Reportable 11/15/18 18:20 PEEP Not Reportable 11/15/18 18:20 Pressure Support Not Reportable 11/15/18 18:20 Pressure Control Not Reportable 11/15/18 18:20 EPAP Not Reportable 11/15/18 18:20 IPAP Not Reportable 11/15/18 18:20 BiPAP Not Reportable 11/15/18 18:20 Sodium 130 mmol/L (135-145) L 11/23/18 05:56 Potassium 4.3 mmol/L (3.5-5.0) 11/23/18 05:56 Chloride 95 mmol/L (101-111) L 11/23/18 05:56 Carbon Dioxide 30 mmol/L (22-32) 11/23/18 05:56 Anion Gap 5 mmol/L (2-11) 11/23/18 05:56 BUN 11 mg/dL (6-24) 11/23/18 05:56 Creatinine 0.46 mg/dL (0.67-1.17) L 11/23/18 05:56 Est GFR ( Amer) 216.0 (>60) 11/23/18 05:56 Est GFR (Non-Af Amer) 178.5 (>60) 11/23/18 05:56 BUN/Creatinine Ratio 23.9 (8-20) H 11/23/18 05:56 Glucose 108 mg/dL (70-100) H 11/23/18 05:56 Lactic Acid 0.7 mmol/L (0.5-2.0) 11/15/18 12:30 Uric Acid 3.1 mg/dL (4.4-7.6) L 11/15/18 08:10 Calcium 8.4 mg/dL (8.6-10.3) L 11/23/18 05:56 Phosphorus 3.4 mg/dL (2.5-5.0) 11/23/18 05:56 Magnesium 2.1 mg/dL (1.9-2.7) 11/23/18 05:56 Total Bilirubin 0.40 mg/dL (0.2-1.0) 11/17/18 05:25 AST 39 U/L (13-39) 11/17/18 05:25 ALT 25 U/L (7-52) 11/17/18 05:25 Alkaline Phosphatase 69 U/L (34-104) 11/17/18 05:25 Total Creatine Kinase 325 U/L (10-223) H 11/17/18 05:25 Troponin I 0.28 ng/mL (<0.04) H* 11/15/18 16:05 C-Reactive Protein 186.62 mg/L (<8.01) H 11/19/18 08:57 B-Natriuretic Peptide 604 pg/mL (<=100) H 11/19/18 08:57 Total Protein 4.9 g/dL (6.4-8.9) L 11/17/18 05:25 Albumin 2.7 g/dL (3.2-5.2) L 11/17/18 05:25 Globulin 2.2 g/dL (2-4) 11/17/18 05:25 Albumin/Globulin Ratio 1.2 (1-3) 11/17/18 05:25 TSH 0.69 mcIU/mL (0.34-5.60) 11/15/18 08:10 Urine Color Yellow 11/20/18 00:15 Urine Appearance Clear 11/20/18 00:15 Urine pH 6.0 (5-9) 11/20/18 00:15 Ur Specific [place] 1.008 (1.010-1.030) L 11/20/18 00:15 Urine Protein Negative (Negative) 11/20/18 00:15 Urine Ketones Negative (Negative) 11/20/18 00:15 Urine Blood Negative (Negative) 11/20/18 00:15 Urine Nitrate Negative (Negative) 11/20/18 00:15 Urine Bilirubin Negative (Negative) 11/20/18 00:15 Urine Urobilinogen Negative (Negative) 11/20/18 00:15 Ur Leukocyte Esterase Negative (Negative) 11/20/18 00:15 Urine WBC (Auto) Trace(0-5/hpf) (Absent) 11/15/18 08:42 Urine RBC (Auto) 2+(6-10/hpf) (Absent) A 11/15/18 08:42 Urine Bacteria Absent (Absent) 11/15/18 08:42 Urine Glucose Negative (Negative) 11/20/18 00:15 Microbiology 11/19/18 12:23 Blood Culture - Preliminary Blood Venous No Growth Day 4 11/19/18 11:47 Aerobic Blood Culture - Preliminary Blood Venous No Growth Day 4 Anaerobic Blood Culture - Preliminary No Growth Day 4 11/18/18 07:11 Aerobic Blood Culture - Final Blood Venous No Growth Day 5 Anaerobic Blood Culture - Final No Growth Day 5 11/18/18 07:19 Aerobic Blood Culture - Final Blood Venous Staphylococcus Aureus Anaerobic Blood Culture - Final Staphylococcus Aureus Blood MRSA/MSSA (PCR) - Final Mrsa Negative S.aureus Positive 11/15/18 08:15 Aerobic Blood Culture - Final Blood Venous Staphylococcus Aureus Anaerobic Blood Culture - Final Staphylococcus Aureus Blood MRSA/MSSA (PCR) - Final Mrsa Negative S.aureus Positive 11/15/18 08:15 Aerobic Blood Culture - Final Blood Venous Staphylococcus Aureus Anaerobic Blood Culture - Final Staphylococcus Aureus Blood MRSA/MSSA (PCR) - Final Mrsa Negative S.aureus Positive 11/15/18 08:42 Urine Culture - Final Urine No Growth (<1,000 CFU/mL) 11/15/18 14:27 Nasal Screen MRSA (PCR) - Final Nasal Mrsa Not Detected Assessment: 1. MSSA bacteremia. MRI C/T/L spine no epidural abscess or osteodiskitis, no endocarditis, no prosthetic material, no synovitis. Afebrile, no leukocytosis, and CRP is trending down. 2. NSTEMI. 3. PAD 4. Arm weakness. Cord compression on C spine MRI. Plan for surgical intervention as an outpatient after treatment for bacteremia. Plan: Continue Ancef 2 gm IV every 8 hours, day 11/18. Will need weekly labs while on IV ABX: CBC, CMP and CRP. Followup with ID outpatient in 1 week after discharge.
[2018-11-24] MEDS: oxyCODONE TAB* 5 MG TAB PO PRN ×2 (14:32→21:36)
[2018-11-24] MEDS: Enoxaparin(*) 40 MG/0.4 ML SYR SUBCUT SCH (14:33)
[2018-11-24] MEDS: Atorvastatin* 40 MG TAB PO SCH (17:42)
--- NOTE | 2018-11-24 17:57 | PN ---
Subjective Date of Service: 11/24/18 Interval History: patient seen in chair, complaining of back pain. having supper self feeding. no events of fever. working with PT. Possible placement in am Past Medical History: Unchanged from Admission Objective Active Medications: Acetaminophen (Tylenol Tab*) 650 mg PO Q4H PRN PRN Reason: PAIN Last Admin: 11/24/18 02:40 Dose: 650 mg Albuterol/Ipratropium (Duoneb (Albuterol 2.5 Mg/Ipratropium 0.5 Mg)) 1 neb INH [id number] AWAKE PRN PRN Reason: SOB/WHEEZING Last Admin: 11/18/18 21:04 Dose: 1 neb Amlodipine Besylate (Norvasc Tab*) 5 mg PO DAILY [facility] Last Admin: 11/24/18 08:22 Dose: 5 mg Aspirin (Aspirin Ec Tab*) 81 mg PO DAILY [facility] Last Admin: 11/24/18 08:19 Dose: 81 mg Atorvastatin Calcium (Lipitor*) 40 mg PO 1700 [facility] Last Admin: 11/24/18 17:42 Dose: 40 mg Bisacodyl (Dulcolax Supp*) 10 mg DC DAILY PRN PRN Reason: CONSTIPATION Last Admin: 11/23/18 08:45 Dose: 10 mg Docusate Sodium (Colace Cap*) 100 mg PO BID [facility] Last Admin: 11/24/18 08:23 Dose: Not Given Enoxaparin Sodium (Lovenox(*)) 40 mg SUBCUT Q24H [facility] Last Admin: 11/24/18 14:33 Dose: 40 mg Folic Acid (Folvite Tab*) 1 mg PO DAILY [facility] Last Admin: 11/24/18 08:19 Dose: 1 mg Furosemide (Lasix Tab*) 40 mg PO DAILY [facility] Last Admin: 11/24/18 08:21 Dose: 40 mg Heparin Sodium (Porcine) (Heparin Flush Picc/Ml/Cvc(*)) 1 - 3 ml FLUSH 0600, 1800 [facility]; Protocol Cefazolin Sodium 2 gm/ Sodium (Chloride) 100 mls @ 200 mls/hr IVPB 0200,1000, 1800 [facility] Last Admin: 11/24/18 17:42 Dose: 200 mls/hr Ibuprofen (Motrin Tab*) 600 mg PO Q8H PRN PRN Reason: PAIN Last Admin: 11/24/18 08:18 Dose: 600 mg Lidocaine (Lidoderm 5% Patch*) 1 patch TRANSDERM DAILY PRN PRN Reason: PAIN Last Admin: 11/22/18 09:47 Dose: 1 patch Losartan Potassium (Cozaar Tab*) 100 mg PO DAILY [facility] Last Admin: 11/24/18 08:20 Dose: 100 mg Melatonin (Melatonin) 3 mg PO BEDTIME PRN PRN Reason: SLEEP Last Admin: 11/23/18 22:36 Dose: 3 mg Mometasone Furoate/Formoterol Fumar (Dulera 200/5 Mdi*) 2 puff INH BID [facility] Last Admin: 11/24/18 08:23 Dose: 2 puff Multivitamins/Minerals (Theragran/Minerals Tab*) 1 tab PO DAILY [facility] Last Admin: 11/24/18 08:21 Dose: 1 tab Oxycodone HCl (Roxycodone Tab*) 5 mg PO Q6H PRN PRN Reason: PAIN Last Admin: 11/24/18 14:32 Dose: 5 mg Pharmacy Profile Note (Lidocaine Patch Remove*) 1 note PATCH OFF BEDTIME PRN PRN Reason: IF PATCH APPLIED TODAY Last Admin: 11/16/18 22:00 Dose: 1 note Polyethylene Glycol/Electrolytes (Miralax*) 17 gm PO DAILY [facility] Last Admin: 11/24/18 08:24 Dose: Not Given Senna (Senokot Tab*) 1 tab PO DAILY PRN PRN Reason: CONSTIPATION Last Admin: 11/23/18 08:42 Dose: 1 tab Tamsulosin HCl (Flomax Cap*) 0.4 mg PO DAILY@1999 [facility] Last Admin: 11/23/18 20:05 Dose: 0.4 mg Thiamine HCl (Vitamin B-1 Tab*) 100 mg PO DAILY [facility] Last Admin: 11/24/18 08:21 Dose: 100 mg Tiotropium [place] (Spiriva Cap.Inh*) 1 cap INH DAILY [facility] Last Admin: 11/24/18 08:23 Dose: 1 cap Vital Signs - 8 hr 11/24/18 11/24/18 11/24/18 12:47 14:32 15:30 Temperature 98.4 F 98.2 F Pulse Rate 68 74 Respiratory 20 18 20 Rate Blood Pressure 145/68 147/69 (mmHg) O2 Sat by Pulse 95 94 Oximetry 11/24/18 17:46 Temperature Pulse Rate Respiratory 18 Rate Blood Pressure (mmHg) O2 Sat by Pulse Oximetry Oxygen Devices in Use Now: Nasal Cannula Appearance: awake, alert. no distress Eyes: No Scleral Icterus, - - EOMI Ears/Nose/Mouth/Throat: Clear Oropharnyx, Mucous Membranes Moist Neck: NL Appearance and Movements; NL JVP, Trachea Midline Respiratory: Symmetrical Chest Expansion and Respiratory Effort, Clear to Auscultation Cardiovascular: NL Sounds; No Murmurs; No JVD, No Edema Abdominal: NL Sounds; No Tenderness; No Distention Extremities: No Edema Skin: No Rash or Ulcers Neurological: Alert and Oriented x 3, - - left upper and left lower weakness Result Diagrams: 11/23/18 05:56 11/23/18 05:56 Additional Lab and Data: Laboratory Results - last 24 hr 11/21/18 11/21/18 05:38 05:38 WBC 7.3 RBC 3.70 L Hgb 12.1 L Hct 34 L MCV 93 MCH 33 H MCHC 35 RDW 13 Plt Count 443 MPV 7.0 L Neut % (Auto) 78.1 Lymph % (Auto) 5.7 [place] % (Auto) 15.0 Eos % (Auto) 0.9 Baso % (Auto) 0.3 Absolute Neuts (auto) 5.7 Absolute Lymphs (auto) 0.4 L Absolute Monos (auto) 1.1 H Absolute Eos (auto) 0.1 Absolute Basos (auto) 0.0 Absolute Nucleated RBC 0.0 Nucleated RBC % 0.0 Sodium 127 L Potassium 3.8 Chloride 93 L Carbon Dioxide 30 Anion Gap 4 BUN 9 Creatinine 0.46 L Est GFR ( Amer) 216.0 Est GFR (Non-Af Amer) 178.5 BUN/Creatinine Ratio 19.6 Glucose 123 H Calcium 7.8 L Magnesium 1.9 Microbiology and Other Data: Microbiology 11/19/18 12:23 Blood Venous Blood Culture - Preliminary No Growth Day 2 11/19/18 11:47 Blood Venous Aerobic Blood Culture - Preliminary No Growth Day 2 11/19/18 11:47 Blood Venous Anaerobic Blood Culture - Preliminary No Growth Day 2 11/18/18 07:19 Blood Venous Aerobic Blood Culture - Final Staphylococcus Aureus 11/18/18 07:19 Blood Venous Anaerobic Blood Culture - Final Staphylococcus Aureus 11/18/18 07:19 Blood Venous Blood MRSA/MSSA (PCR) - Final Mrsa Negative S.aureus Positive 11/18/18 07:11 Blood Venous Aerobic Blood Culture - Preliminary No Growth Day 3 11/18/18 07:11 Blood Venous Anaerobic Blood Culture - Preliminary No Growth Day 3 11/15/18 08:15 Blood Venous Aerobic Blood Culture - Final Staphylococcus Aureus 11/15/18 08:15 Blood Venous Anaerobic Blood Culture - Final Staphylococcus Aureus 11/15/18 08:15 Blood Venous Blood MRSA/MSSA (PCR) - Final Mrsa Negative S.aureus Positive 11/15/18 08:15 Blood Venous Aerobic Blood Culture - Final Staphylococcus Aureus 11/15/18 08:15 Blood Venous Anaerobic Blood Culture - Final Staphylococcus Aureus 11/15/18 08:15 Blood Venous Blood MRSA/MSSA (PCR) - Final Mrsa Negative S.aureus Positive 11/15/18 08:42 Urine Urine Culture - Final No Growth (<1,000 CFU/mL) 11/15/18 14:27 Nasal Nasal Screen MRSA (PCR) - Final Mrsa Not Detected EKG Data: Echo [place] pending Assess/Plan/Problems-Billing Assessment: 73 yo M with h/o COPD(not on 02, current smoker 1 ppd x 55 years), HTN presents with MSSA bacteremia(persistent), b/l leg weakness, LUE weakness, unclear infectious source (s/p lumbar/thoracic MRI w/ contrast). spine MRI/ Brain MRI severe central canal stenosis at C4-C5 - Patient Problems (1) MSSA bacteremia Current Visit: Yes Status: Acute Priority: High Code(s): R78.81 - BACTEREMIA SNOMED Code(s): 713288619 Comment: - Source is unclear - s/p CT chest abd pelvis. He has no hardware - Appreciate ID consult, will continue cefazolin day #11/18. - 11/18 Cx positive / staph. f/u 11/19 Cx are negative x 3 days - [place] w/o vegetation. - MRI Cervical, thoracic and lumbar spine reviewed, no paraspinal abscess or osteo-diskitis - monitor for any septic joints - none suspicous currently. - Possible discharge in am (2) Alcohol abuse Current Visit: Yes Status: Acute Code(s): F10.10 - ALCOHOL ABUSE, UNCOMPLICATED SNOMED Code(s): 44904354 Comment: - Not in witdrawal - Hx of 6 + beers (3) HLD (hyperlipidemia) Current Visit: Yes Status: Acute Code(s): E78.5 - HYPERLIPIDEMIA, UNSPECIFIED SNOMED Code(s): 62247965 Comment: - Given his PVD and elevated troponin, I agree with the increase atorvastatin from 10mg to 40mg. (home was simvastatin 20mg) (4) Hypertension Current Visit: Yes Status: Acute Code(s): I10 - ESSENTIAL (PRIMARY) HYPERTENSION SNOMED Code(s): 97558961 Comment: - continue home losartan 100mg and amlodipine 5 mg daily - BP slightly better - Will keep holding home HCTZ given hyponatremia (5) Hyponatremia Current Visit: Yes Status: Acute Code(s): E87.1 - HYPO-OSMOLALITY AND HYPONATREMIA SNOMED Code(s): 98666050 Comment: - due to history of alcohol, dehydration and HCTZ use - Will keep him off the HCTZ (6) Left arm weakness Current Visit: Yes Status: Acute Code(s): R29.898 - OTH SYMPTOMS AND SIGNS INVOLVING THE MUSCULOSKELETAL SYSTEM SNOMED Code(s): 274264994 Comment: - CT Head no acute process - MRI cervical spine w/wo shows C4-C5 spinal stenosis - MRI Brain shows no acute finding - I spoke to Neurosurgery. cervical CT spinal and neural canal encroachement. Pt will need cervical decompression but it has to wait until his infections resolves. continue PT/OT will need rehab - Will arrange to follow up with neurosurgery in 2-3 week after discharge with Dr Mondragon (7) Lower extremity weakness Current Visit: Yes Status: Acute Code(s): R29.898 - OTH SYMPTOMS AND SIGNS INVOLVING THE MUSCULOSKELETAL SYSTEM SNOMED Code(s): 847360969 Comment: - b/l, R>L - MRI showing severe spinal stenosis at L2-L3 level. no disktitis. - Neurosurgery did not recommend surgical indication. - s/p MRI of T spine to w/o epidural abscess. - Continue PT and OT - reconsultated with Dr. Shane now that his cervical spine MRI shows severe spinal stenosis at C4-C5, recommended surgery once his infection resolved (8) PAD (peripheral artery disease) Current Visit: Yes Status: Acute Code(s): I73.9 - PERIPHERAL VASCULAR DISEASE, UNSPECIFIED SNOMED Code(s): 909371123 Comment: - MAYUR's with borderline claudication level on right. - Consider angio with IR once infection is improved. (9) Smoker Current Visit: Yes Status: Acute Code(s): F17.200 - NICOTINE DEPENDENCE, UNSPECIFIED, UNCOMPLICATED SNOMED Code(s): 97716469 Comment: - nicotine patch due to 55+ pack years - Continue dulera, spiriva and duoneb prns. (10) Constipation Current Visit: Yes Status: Acute Code(s): K59.00 - CONSTIPATION, UNSPECIFIED SNOMED Code(s): 91866003 Comment: - + BM 11/22/18 (11) DVT prophylaxis Current Visit: Yes Status: Acute Priority: Low Code(s): Z29.9 - ENCOUNTER FOR PROPHYLACTIC MEASURES, UNSPECIFIED SNOMED Code(s): 292122108 Comment: lovenox Status and Disposition: inpatient. Per PT needs trudy for transfer so will need placement. Needs cervical MRI, brain MRI, chcf IV abx (ID on board), now that cultures are cleared will order PICC.
[2018-11-24] MEDS: Tamsulosin CAP* 0.4 MG PO SCH (18:53)
[2018-11-24] MEDS: Melatonin 3 MG TAB PO PRN (21:36)
--- NOTE | 2018-11-24 21:49 | PN ---
Progress Note - Progress Note Date of Service: 11/24/18 SOAP: Subjective: 73 y/o male with chronic axial neck pain that radiates to shoulders, with limited ROM of left shoulder. He has moderate to severe stenosis of the cervical spine. Currently being treated for bacteria infection with IV Cefazolin. There has been no changes with his pain and continues to struggle with overhead movements on with left UPE. Objective: Vital Signs - 12 hr Temp Pulse Resp BP Pulse Ox 11/24/18 21:36 18 11/24/18 20:10 99.7 F 85 18 134/62 93 11/24/18 20:05 91 16 91 11/24/18 19:50 18 11/24/18 17:46 18 11/24/18 15:30 98.2 F 74 20 147/69 94 11/24/18 14:32 18 11/24/18 12:47 98.4 F 68 20 145/68 95 General patient laying in bed elevated watching TV, NAD. Neuro GCS 15, A&O x3, CN II - XII grossly intact, EOM intact. Decreased right shoulder ROM with overhead movement. 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 decreased right LE motor strength 2/2 pain with leg flexion and extension. Negative Babinski's, negative clonus. sensation intact throughout. Assessment: 73 y/o male with severe cervical spinal stenosis, currently has active bacteria infection, will possible need surgical intervention. Plan: Continue Abx treatment as recommended by medicine. Follow up in neurosurgery clinic in 3 weeks will prepare for surgical intervention as an outpatient.
[2018-11-25] MEDS: Acetaminophen TAB* 325 MG PO PRN (01:24)
[2018-11-25] MEDS: ceFAZolin VIAL(*) 2 GM in NS 0.9% 100 ML* 100 ML IVPB SCH ×2 (01:24→09:44)
[2018-11-25] MEDS: oxyCODONE TAB* 5 MG TAB PO PRN ×2 (05:08→12:06)
[2018-11-25] MEDS: Tiotropium CAP.INH* CAP.INH/18 MCG (USE ORDER SET !) INH SCH (07:47)
[2018-11-25] MEDS: Mometasone/Formoter 200/5 MDI INH SCH (07:48)
[2018-11-25] MEDS: Losartan TAB* 25 MG PO SCH (09:44)
[2018-11-25] MEDS: amLODIPine TAB* 5 MG PO SCH (09:44)
[2018-11-25] MEDS: Multivitamins/Minerals TAB PO SCH (09:44)
[2018-11-25] MEDS: Aspirin EC TAB* 81 MG TAB.EC PO SCH (09:44)
[2018-11-25] MEDS: Folic Acid TAB* 1 MG PO SCH (09:44)
[2018-11-25] MEDS: Furosemide TAB* 40 MG PO SCH (09:45)
[2018-11-25] MEDS: Polyethylene Glycol 3350* 17 GM PACKET PO SCH (09:45)
[2018-11-25] MEDS: Thiamine TAB* 100 MG TAB PO SCH (09:45)
[2018-11-25] MEDS: Docusate CAP* 100 MG PO SCH (09:45)
--- NOTE | 2018-11-25 12:44 | DS ---
CC: Dr. Martines, Neurosurgery; Dr. Jai Goode, Infectious Disease; Arlette Vargas NP DISCHARGE/TRANSFER SUMMARY: DATE OF ADMISSION: 11/15/18 DATE OF DISCHARGE: 11/25/18 PRIMARY CARE PROVIDER: Arlette Vargas NP. FINAL DISCHARGE DIAGNOSES: 1. Methicillin-susceptible Staphylococcus aureus bacteremia, source unclear. 2. History of alcohol abuse. 3. Hyperlipidemia. 4. Hypertension. 5. Hyponatremia. 6. Left upper and left lower extremity weakness greater than right, related to cervical spine stenos is at C4-C5 most likely. 7. Peripheral arterial disease. HOSPITAL COURSE: The patient presented to [facility] on 11/15/18 for increased weakness a nd inability to ambulate and profound fatigue. He is a 73-year- old with significant history at the time of presentation of hypertension, hyperlipidemia, and COPD who was brought into the ER at the [facility] of his family, his and his daughter, for progressive weakness associated with low back pain and osteoarthritis, which was contributing to his generalized body ache and arthritis. The repo rted at the time of admission that she found him twice on the floor, required help and assistance to get him out of floor back to bed. He was reluctant to seek medical attention and finally, they convi nced him to go to the urgent care, and from there, he was referred to our emergency room. Even at at time, the patient was very resistant to be transferred to the emergency room. Finally, after he ag andrew and while he was in the emergency room, he had a temperature of 104 and profound urinary retenti on and he seemed to be confused. He was admitted for sepsis criteria associated with elevated lactic acid and hyponatremia. The patient was admitted to the ICU for septic shock, temperature 104, and t ransient atrial fibrillation and flutter, which resolved. He was covered empirically with broad spec trum antibiotic, which included vancomycin and Zosyn, and Dr. Mcintosh was consulted on admission due to his transient atrial fibrillation, which was deemed to be transiently mediated by his high fever and sepsis and he was placed on serial cardiac enzymes, echocardiogram, serial EKG and started with aspi rin. During the hospital course, his workup included blood culture of course and it did grow Staph a ureus, MRSA negative; hence, infectious disease was consulted and his antibiotic was adjusted to cefa zolin depending on the blood culture sensitivity and repeat blood cultures were recommended, when the y were obtained on 11/18/18, which was persistently positive and again on 11/19/18 and finally trende d negative x2 sets for 4 bottles and he has been afebrile since. During his workup in terms of lookin g up for his source of infection, MRI of his spine was included and most notable to mention at this t jose angel of dictation is cervical MRI, which revealed significant stenosis of his cervical spine at C4-C5. Neurosurgery was consulted, so evaluated the patient and recommended surgical decompression, but how ever, it has to be deferred until his septicemia and infection resolved. In that setting, the patien t then was put in for placement for IV antibiotic to be completed, a total course of 2 weeks from . His last blood culture which was negative and we got offer that the patient will be accepted at his [facility] for cefazolin q.8 hours as recommended by ID. The patient will be scheduled for tr arnaldo some time today. DISCHARGE ASSESSMENT AND PLAN: As outlined per his medical problems below. 1. Methicillin-susceptible Staphylococcus aureus bacteremia. The patient is to complete cefazolin 2 g IV q.8 hours. The last course is scheduled to be given on 12/03/18. His last blood cultures were negative on 11/19/18. His workup included transesophageal echocardiography, which was negative for vegetation. 2. MRIs of the cervical, thoracic and lumbar spine were negative for any paraspinal abscess or diski tis. 3. A CT of his chest, abdomen, and pelvis. No evidence of abscess collection, infection, or pneumon ia. 4. The patient is scheduled and should be followed with ID in 1 week from today and further guidance regarding clearance for surgical decompression of cervical spine. We will defer that to ID and neur osurgery on outpatient. 5. For his cervical spinal stenosis found on his MRI of the cervical spine, most severe at C4-C5, he was seen and evaluated by neurosurgery, Dr. Martines, who recommended surgical decompression, but only after his bacteremia has resolved. Appointment to follow with Dr. Martines in about 2 to 3 wee ks. 6. For his history of alcohol abuse, he did not go through any withdrawal; nonetheless, he was monit ored for withdrawal and he did not have any DTs or delirium. His sodium was slightly low, which reso lved with fluid resuscitation. 7. For his hyperlipidemia, given his peripheral vascular disease and his elevated troponin and trans ient atrial fibrillation on presentation, his atorvastatin was increased to 40 mg while he was in the hospital and I will defer that back to his PCP outpatient whether or not to continue it versus place him back on simvastatin 20. For now, I am resuming his home medication of simvastatin 20. 8. For his hypertension, blood pressure was maintained on losartan 100 and amlodipine 5 mg. His hyd rochlorothiazide was held due to his hyponatremia. 9. For his peripheral vascular disease, his MAYUR which was performed shows borderline and he does hav e some claudication, not sure if this is all from vascular versus spinal. This will need to be addre ssed on an elective basis after his infection and cervical decompression resolves. Therefore, with t he assessment and plan as outlined, the patient is deemed stable to be transferred to the facility to complete his IV antibiotic and physical therapy. DISCHARGE MEDICATIONS: As follows: 1. Simvastatin 20 mg daily. 2. Spiriva 1 puff daily. 3. Tylenol p.r.n. 4. DuoNeb p.r.n. 5. Amlodipine 5 daily. 6. Aspirin 81 daily. 7. Dulcolax suppository. 8. Cefazolin 2 g IV q.8 hours to be completed on 12/03/18. 9. Colace 100 b.i.d. 10. Lovenox 40 mg subcu daily for DVT prophylaxis until he is more ambulatory. 11. Folic acid 1 mg daily. 12. Lasix 40 mg daily. 13. Heparin flush for the PICC line. 14. Ibuprofen p.r.n. for 600 mg q.8 hours p.r.n. 15. Lidocaine patch. 16. Losartan 100 mg daily. 17. Melatonin 3 mg at bedtime. 18. Mometasone 2 puffs b.i.d. 19. Multivitamin daily. 20. Oxycodone 5 mg q.6 p.r.n. 21. MiraLAX 17 g daily. 22. Senna tab 1 tab daily. 23. Flomax 0.4 daily. 24. Thiamine 100 mg daily. INPATIENT DIAGNOSTIC STUDIES: DVT of the lower extremity bilaterally that was negative for DVT. CT of the cervical spine revealed diffuse degenerative joint disease with spinal canal and neural for aminal encroachment from C3-C4 down to C7-T1, most severe at C4- C5. MRI of the cervical spine confirms concurred with the spinal stenosis moderate-to- severe at C3-C4 an d C4-C5, then moderate at C5-C6 with evidence of cord compression at C4-C5. MRI of the brain, no evidence of acute infarct or hemorrhage. SALENA was negative for endocarditis or vegetation or intramural thrombi. Transthoracic echo, ejection fraction of 55% to 60%. No significant valvular disease. MRI of the thoracic spine did not show any bone marrow edema or evidence of epidural mass or abscess. MAYUR shows borderline value with his indices on the right at 0.85 at the posterior tibialis and 0.87 d orsalis pedis, which is worse than the left and the left measures 0.97 for both posterior tibialis an d dorsalis pedis, which places him in the borderline criteria for peripheral artery disease. CT chest, abdomen, and pelvis shows perinephric stranding bilaterally without appearance of hydroneph rosis or nephrolithiasis, small pleural effusion, tiny 0.7 cm nodule on the right upper lobe. Recomm end to follow up on an outpatient basis in 6 to 12 months for his pulmonary nodule. MRI of the lumbar spine, degenerative joint disease with severe narrowing of the central canal at L2- L3 with [id number] narrowing at L3-L4 and L4-L5. Continue followup with neurosurgery. X-ray of the left toe, degenerative changes/disease. DISCHARGE DISPOSITION: To longterm at [facility]. DISCHARGE CONDITION: Stable. [id number]/[facility] #: [id number]
[2018-11-25 14:20] VITALS: BP 141/74
[2018-11-25] MEDS: Enoxaparin(*) 40 MG/0.4 ML SYR SUBCUT SCH (15:02)
== END 2018-11-25 16:13 | DRG 871 ==
LOC: ED 07:45 → ICU 13:30 → MEDTELE 11-17 15:42
PROVIDERS: ADMIT Internal Medicine; ATTEND Internal Medicine
PROC: 0T9B70Z Drainage of Bladder with Drainage Device, Via Natural or Artificial Opening (ICD-10-PCS; 2018-11-15)
PROC: B24BZZ4 Ultrasonography of Heart with Aorta, Transesophageal (ICD-10-PCS; 2018-11-17)
PROC: 02HV33Z Insertion of Infusion Device into Superior Vena Cava, Percutaneous Approach (ICD-10-PCS; principal; 2018-11-24)
DX: A41.01 Sepsis due to Methicillin susceptible Staphylococcus aureus (principal); G92 Toxic encephalopathy; R65.21 Severe sepsis with septic shock; I21.4 Non-ST elevation (NSTEMI) myocardial infarction; I48.92 Unspecified atrial flutter; E87.1 Hypo-osmolality and hyponatremia; G95.20 Unspecified cord compression; M48.56XA Collapsed vertebra, not elsewhere classified, lumbar region, initial encounter for fracture; G89.29 Other chronic pain; M54.5 Low back pain; M19.90 Unspecified osteoarthritis, unspecified site; R33.9 Retention of urine, unspecified; I10 Essential (primary) hypertension; E78.5 Hyperlipidemia, unspecified; M51.36 Other intervertebral disc degeneration, lumbar region; J44.9 Chronic obstructive pulmonary disease, unspecified; F17.210 Nicotine dependence, cigarettes, uncomplicated; M48.061 Spinal stenosis, lumbar region without neurogenic claudication; M48.07 Spinal stenosis, lumbosacral region; I48.91 Unspecified atrial fibrillation; I48.0 Paroxysmal atrial fibrillation; M48.02 Spinal stenosis, cervical region; R53.1 Weakness; I73.9 Peripheral vascular disease, unspecified; M50.320 Other cervical disc degeneration, mid-cervical region, unspecified level; R74.8 Abnormal levels of other serum enzymes; E87.6 Hypokalemia; R07.9 Chest pain, unspecified; F10.10 Alcohol abuse, uncomplicated; E87.70 Fluid overload, unspecified; R00.8 Other abnormalities of heart beat; R14.0 Abdominal distension (gaseous); K59.00 Constipation, unspecified; R29.898 Other symptoms and signs involving the musculoskeletal system; Z80.8 Family history of malignant neoplasm of other organs or systems; Z79.82 Long term (current) use of aspirin
CPT/HCPCS: 36415; 36600; 70450; 70553; 71045; 71046; 71250; 72040; 72125; 72156; 72157; 72158; 74176; 76775; 80048; 80053; 81003; 81015; 82550; 82803; 83605; 83735; 83880; 84100; 84443; 84484; 84550; 85025; 85610; 85652; 86140; 87040; 87077; 87086; 87150; 87186; 87205; 87641; 93005; 93306; 93312; 93325; 93922; 93970; 94640; 99156; 99285; 99406; A9270-GY; A9579; G8978-GP-CL; G8979-GP-CI; G8979-GP-CJ; J0690; J0696; J1650; J2250; J2270; J2310; J2543; J3010; J3370; J3475; J3480

== ENCOUNTER 2019-03-14 11:00 | Inpatient (IN) | payer MEDICARE ==
[2019-03-20] MEDS ORDERED: Buffered Lidocaine 1% SYRIN* 1 ML/SYRINGE INTRADERM ONE (15:28)
--- OUTSIDE RECORDS SUMMARY | 2019-03-21 05:43 | XMS REPORT | Continuity of Care Document ---
:1945 External Reference #:[id number] Author Name Lobo Mcintosh M.D. (transmitted by agent of provider Tamy Drew) Address [address] [facility] [place] [address] Care Team Providers Name Role Phone Arlette Vargas NP - Family Care Team Information Drug Enforcement Agent [phone] Problems Description No Information Available Social History Type Date Description Comments Sex Unknown Tobacco Use Start: Unknown current cigarette smoker ETOH Use Consumes 1 six pack of beer per day Tobacco Use Start: Unknown Patient is a current smoker, smokes every day Recreational Drug Use Never Used Drugs Tobacco Use Start: Unknown Heavy tobacco smoker states about 20 (more than 10 cigs qd cigarettes/day) Smoking Status Reviewed: 03/01/19 Heavy tobacco smoker states about 20 (more than 10 cigs qd cigarettes/day) Exercise Type/Frequency Exercises rarely Allergies, Adverse Reactions, Alerts Description No Known Drug Allergies Medications Active Medications SIG Qnty Indications Ordering Provider Date MJ Collar at all times Vassilios 02/22/2019 MD Conrad Aleve 1 by mouth twice Unknown 220mg Capsules a day as needed Simvastatin 1 by mouth every Unknown 20mg Tablets day Spiriva Respimat 1 puff by mouth Unknown every day 1.25mcg/Act Aerosol Amlodipine Besylate 1 by mouth every Unknown 5mg day Tablets Flomax 1 by mouth every Unknown 0.4mg Capsules day Losartan 1 by mouth every Unknown Potassium/Hydrochlorot day hiazide 100-12.5mg Tablets History Medications Keflex take 1 tab by elías Millard, 12/21/2018 - 500mg mouth twice M.D. 01/23/2019 Capsules daily x 14 days Medications Administered in Office Medication SIG Qnty Indications Ordering Provider Date Inj, Regadenoson, 0.1 MG Lobo Mcintosh M.D. 02/24/2019 Injection Technetium TC 99M Tetrofosmin, Lobo Mcintosh M.D. 02/24/2019 Per Unit Dose Up To 40 Millicuries Injection Technetium TC 99M Tetrofosmin, Lobo Mcintosh M.D. 02/24/2019 Per Unit Dose Up To 40 Millicuries Injection Immunizations Description No Information Available Vital Signs Date Vital Result Comment 03/01/2019 1:16pm Height 71 inches 5'11" Weight 163.00 lb with shoes Heart Rate 77 /min BP Systolic Sitting 120 mmHg LA BP Diastolic Sitting 65 mmHg LA BP Systolic Standing 120 mmHg LA BP Diastolic Standing 69 mmHg LA BMI (Body Mass Index) 22.7 kg/m2 Ejection Fraction 50-55% Echo 11/15/18 02/22/2019 8:46am Height 71 inches 5'11" Weight 165.00 lb BP Systolic 120 mmHg BP Diastolic 80 mmHg Pain Level 2 BMI (Body Mass Index) 23.0 kg/m2 Results Description No Information Available Procedures Date Code Description Status 03/01/2019 21812 EKG Tracing & Interpretation Completed 11/19/2018 44089 EKG, Interpretation Only Completed 11/17/2018 26891 Moderate Sedation Services; Same Phys Intl 15 Mins; PT >= Completed 5 Years 11/17/2018 24374 Color Flow Doppler/Interp & Reprt Completed 11/17/2018 72792 Pulse Wave/Continuous-Interp.RPT Completed 11/17/2018 48326 Echocardiography, Transesophageal, Real Time W/Image 2D Completed W/W/O M-M 11/15/2018 85619 ECHO Transthorasic Realtime 2D W Doppler & Color Flow Hosp Completed Medical Devices Description No Information Available Encounters Type Date Location Provider Dx Diagnosis Office Visit 03/01/2019 [facility] Lobo Rey I10 Essential ( primary) 1:30p Of Ezequiel Mcintosh M.D. hypertension R74.8 Abnormal levels of other serum enzymes R94.31 Abnormal electrocardiogram [ECG] [EKG] Z01.810 Encounter for preprocedural cardiovascular examination Office Visit 01/27/2019 9:30a [facility] Jai Rey B95.61 Methicillin For Infectious Rere Millard suscep staph Diseases infct causing dis classd elswhr G95.20 Unspecified cord compression Office Visit 12/27/2018 9:50a [facility] Jai Rey B95.61 Methicillin For Infectious Rere Millard suscep staph Diseases infct causing dis classd elswhr Z79.2 intermediate frame tender (current) use of antibiotics G95.20 Unspecified cord compression Office Visit 12/05/2018 2:40p [facility] Jai Rey B95.61 Methicillin For Infectious Rere Millard suscep staph Diseases infct causing dis classd elswhr Z79.2 intermediate frame tender (current) use of antibiotics G95.20 Unspecified cord compression Office Visit 11/25/2018 10:02a [facility] R78.81 Bacteremia Assfran walsh M.D. Hospitalists I10 Essential (primary) hypertension I73.9 Peripheral vascular disease, unspecified E87.1 Hypo-osmolality and hyponatremia R29.898 Oth symptoms and signs involving the musculoskeletal system Office 11/24/2018 [facility] E87.1 Hypo-osmolality and Visit 10:01a fran Arboleda M.D. hyponatremia Hospitalists I73.9 Peripheral vascular disease, unspecified R29.898 Oth symptoms and signs involving the musculoskeletal system F10.10 Alcohol abuse, uncomplicated Office Visit 11/24/2018 8:54a [facility] Keyla Weiss R78.81 Bacteremia Infectious Sandoval, EXHIBITS CURATOR Diseases B95.61 Methicillin suscep staph infct causing dis classd elswhr R53.1 Weakness G95.20 Unspecified cord compression Office Visit 11/23/2018 10:01a [facility] R78.81 Bacteremia Assfran walsh M.D. Hospitalists E87.1 Hypo-osmolality and hyponatremia I73.9 Peripheral vascular disease, unspecified I10 Essential (primary) hypertension Office Visit 11/22/2018 1:02p [facility] Jai Rey R78.81 Bacteremia Infectious Claudia Millard M.D. B95.61 Methicillin suscep staph infct causing dis classd elswhr M54.5 Low back pain G95.20 Unspecified cord compression Office Visit 11/22/2018 10:01a [facility] Thony R78.81 Bacteremia Assjillian,fran Menchaca M.D. Hospitalists I73.9 Peripheral vascular disease, unspecified E87.1 Hypo-osmolality and hyponatremia R29.898 Oth symptoms and signs involving the musculoskeletal system Office Visit 11/21/2018 [facility] Gennaro Rice, R29.898 Oth symptoms and 10:00a fran Arboleda MD signs involving the Hospitalists musculoskeletal system I73.9 Peripheral vascular disease, unspecified E87.70 Fluid overload, unspecified Office Visit 11/20/2018 10:00a [facility] Gennaro Rice MD R78.81 Bacteremia Assoc, Hospitalists R74.8 Abnormal levels of other serum enzymes I73.9 Peripheral vascular disease, unspecified E87.70 Fluid overload, unspecified Office Visit 11/19/2018 10:00a [facility] Gennaro Rice MD R78.81 Bacteremia Assoc, Hospitalists R74.8 Abnormal levels of other serum enzymes I73.9 Peripheral vascular disease, unspecified E87.70 Fluid overload, unspecified Office Visit 11/18/2018 9:59a [facility] Gennaro Rice MD R78.81 Bacteremia Assjillian, Hospitalists I73.9 Peripheral vascular disease, unspecified I10 Essential (primary) hypertension Office Visit 11/18/2018 10:11a [facility] Rey R78.81 Bacteremia Infectious Diseases Rere Millard B95.61 Methicillin suscep staph infct causing dis classd elswhr M54.9 Dorsalgia, unspecified M62.81 Muscle weakness (generalized) Office Visit 11/17/2018 10:10a [facility] Rhiannon Rey R78.81 Bacteremia Infectious Diseases Rere Millard B95.61 Methicillin suscep staph infct causing dis classd elswhr M54.9 Dorsalgia, unspecified I73.9 Peripheral vascular disease, unspecified Office Visit 11/17/2018 9:59a [facility] Efrem Rey R78.81 Bacteremia Assoc,fran Franco M.D.,[facility] Hospitalists R74.8 Abnormal levels of other serum enzymes E87.6 Hypokalemia Office Visit 11/16/2018 [facility] Christelle Rowan, 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:06p [facility] PA-C disc degeneration, lumbar region M48.061 Spinal stenosis, lumbar region without neurogenic wayne S32.000A Wedge compression fracture of unsp lumbar vertebra, init M51.34 Other intervertebral disc degeneration, thoracic region Office Visit 11/16/2018 [facility] Jai Rey M51.26 Other 10:02a For Infectious Rere Millard intervertebral disc Diseases displacement, lumbar region M48.061 Spinal stenosis, lumbar region without neurogenic wayne R78.81 Bacteremia B95.61 Methicillin suscep staph infct causing dis classd elswhr R79.89 Other specified abnormal findings of blood chemistry R09.89 Oth symptoms and signs involving the circ and resp systems Office Visit 11/16/2018 9:59a [facility] Kay Hernandez R65.21 Severe sepsis Assoc,fran Jernigan with septic Hospitalists shock A41.01 Sepsis due to Methicillin susceptible Staphylococcus aureus I73.9 Peripheral vascular disease, unspecified R33.9 Retention of urine, unspecified Office Visit 11/16/2018 3:31p [facility] Qutaybeh S. R79.89 Other specified Rere Bender abnormal findings of blood chemistry A41.2 Sepsis due to unspecified staphylococcus Office Visit 11/15/2018 9:58a [facility] Kaylan R65.21 Severe sepsis Assoc,fran Duque, with septic Hospitalists EXHIBITS CURATOR shock N39.0 Urinary tract infection, site not specified I48.0 Paroxysmal atrial fibrillation R26.2 Difficulty in walking, not elsewhere classified Office Visit 11/15/2018 1:15p [facility] Lobo Rey R79.89 Other specified Of Ezequiel Mcintosh M.D. abnormal findings of blood chemistry R94.31 Abnormal electrocardiogram [ECG] [EKG] R53.83 Other fatigue R78.81 Bacteremia Assessments Date Code Description Provider 03/01/2019 I10 Essential (primary) hypertension Lobo Mcintosh M.D. 03/01/2019 R74.8 Abnormal levels of other serum Lobo Mcintosh M.D. enzymes 03/01/2019 R94.31 Electrocardiogram abnormal Lobo Mcintosh M.D. 03/01/2019 Z01.810 Preoperative cardiovascular Lobo Mcintosh M.D. examination 02/23/2019 M48.02 Spinal stenosis in cervical region Carlos Martines MD 02/23/2019 G95.9 Disease of spinal cord, unspecified Carlos Martines MD 02/23/2019 M47.12 Other spondylosis with myelopathy, Carlos Martines MD cervical region 02/23/2019 M41.9 Scoliosis, unspecified Carlos Martines MD 02/22/2019 M48.02 Spinal stenosis in cervical region Carlos Martines MD 02/22/2019 G95.9 Spinal stenosis of lumbar region Carlos Martines MD 02/22/2019 M47.12 Other spondylosis with myelopathy, Carlos Martines MD cervical region 02/22/2019 M41.9 Scoliosis, unspecified Carlos Martines MD 01/27/2019 B95.61 Methicillin susceptible Jai Millard M.D. Staphylococcus aureus infection as t 01/27/2019 G95.20 Unspecified cord compression Jai Millard M.D. 01/24/2019 M48.02 Spinal stenosis in cervical region LORENZO Yan 01/24/2019 G95.9 Spinal stenosis of lumbar region LORENZO Yan 12/27/2018 B95.61 Methicillin susceptible Jai Millard M.D. Staphylococcus aureus infection as t 12/27/2018 Z79.2 nursing home (current) use of Jai Millard M.D. antibiotics 12/27/2018 G95.20 Unspecified cord compression Jai Millard M.D. 12/05/2018 B95.61 Methicillin susceptible Jai Millard M.D. Staphylococcus aureus infection as t 12/05/2018 Z79.2 intermediate frame tender (current) use of Jai Millard M.D. antibiotics 12/05/2018 G95.20 Unspecified cord compression Jai Millard M.D. 11/25/2018 R78.81 Bacteremia Thony Menchaca M.D. 11/25/2018 I10 Essential (primary) hypertension Thony Menchaca M.D. 11/25/2018 I73.9 Peripheral vascular disease, Thony Menchaca M.D. unspecified 11/25/2018 E87.1 Hypo-osmolality and hyponatremia Thony Menchaca M.D. 11/25/2018 R29.898 Oth symptoms and signs involving the Thony Menchaca M.D. musculoskeletal system 11/24/2018 R78.81 Bacteremia Keyla Sandoval, EXHIBITS CURATOR 11/24/2018 E87.1 Hypo-osmolality and hyponatremia Thony Menchaca M.D. 11/24/2018 B95.61 Methicillin susceptible Keyla Sandoval, VICKIE Staphylococcus aureus infection as t 11/24/2018 I73.9 Peripheral vascular disease, Thony Menchaca M.D. unspecified 11/24/2018 R53.1 Weakness Keyla Sandoval, EXHIBITS CURATOR 11/24/2018 R29.898 Oth symptoms and signs involving the Thony Menchaca M.D. musculoskeletal system 11/24/2018 G95.20 Unspecified cord compression Keyla Sandoval, EXHIBITS CURATOR 11/24/2018 F10.10 Alcohol abuse, uncomplicated Thony Menchaca M.D. 11/23/2018 R78.81 Bacteremia Thony Menchaca M.D. 11/23/2018 E87.1 Hypo-osmolality and hyponatremia Thony Menchaca M.D. 11/23/2018 I73.9 Peripheral vascular disease, Thony Menchaca M.D. unspecified 11/23/2018 I10 Essential (primary) hypertension Thony Menchaca M.D. 11/22/2018 R78.81 Bacteremia Thony Menchaca M.D. 11/22/2018 I73.9 Peripheral vascular disease, Thony Menchaca M.D. unspecified 11/22/2018 R78.81 Bacteremia Jai Millard M.D. 11/22/2018 E87.1 Hypo-osmolality and hyponatremia Thony Menchaca M.D. 11/22/2018 R29.898 Oth symptoms and signs involving the Thony Menchaca M.D. musculoskeletal system 11/22/2018 B95.61 Methicillin suscep staph infct Jai Millard M.D. causing dis classd elsr 11/22/2018 M54.5 Low back pain Jai Millard M.D. 11/22/2018 G95.20 Unspecified cord compression Jai Millard M.D. 11/21/2018 R29.898 Oth symptoms and signs involving the Gennaro Rice MD musculoskeletal system 11/21/2018 I73.9 Peripheral vascular disease, Gennaro Rice MD unspecified 11/21/2018 E87.70 Fluid overload, unspecified Gennaro Rice MD 11/20/2018 R78.81 Bacteremia Gennaro Rice MD 11/20/2018 R74.8 Abnormal levels of other serum Gennaro Rice MD enzymes 11/20/2018 I73.9 Peripheral vascular disease, Gennaro Rice MD unspecified 11/20/2018 E87.70 Fluid overload, unspecified Gennaro Rice MD 11/19/2018 R94.31 Abnormal electrocardiogram [ECG] Albin Shaffer M.D., FACC, [EKG] [facility] 11/19/2018 R78.81 Bacteremia Gennaro Rice MD 11/19/2018 R74.8 Abnormal levels of other serum Gennaro Rice MD enzymes 11/19/2018 I73.9 Peripheral vascular disease, Gennaro Rice MD unspecified 11/19/2018 E87.70 Fluid overload, unspecified Gennaro Rice MD 11/18/2018 R78.81 Bacteremia Gennaro Rice MD 11/18/2018 R78.81 Bacteremia Jai Millard M.D. 11/18/2018 I73.9 Peripheral vascular disease, Gennaro Rice MD unspecified 11/18/2018 B95.61 Methicillin suscep staph infct Jai Millard M.D. causing dis classd elsr 11/18/2018 I10 Essential (primary) hypertension Gennaro Rice MD 11/18/2018 M54.9 Dorsalgia, unspecified Jai Millard M.D. 11/18/2018 M62.81 Muscle weakness (generalized) Jai Millard M.D. 11/17/2018 R78.81 Bacteremia Albin Aramis Shaffer M.D., [facility], [facility] 11/17/2018 R78.81 Bacteremia Efrem Franco M.D.,[facility] 11/17/2018 R78.81 Bacteremia Jai Millard M.D. 11/17/2018 R74.8 Abnormal levels of other serum Efrem Franco M.D.,[facility] enzymes 11/17/2018 B95.61 Methicillin suscep staph infct Jai Millard M.D. causing dis classd elswhr 11/17/2018 E87.6 Hypokalemia Efrem Franco M.D.,[facility] 11/17/2018 M54.9 Dorsalgia, unspecified Jai Millard M.D. 11/17/2018 I73.9 Peripheral vascular diseaseJai M.D. unspecified 11/16/2018 M51.36 Other intervertebral disc Christelle Rowan PA-C degeneration, lumbar region 11/16/2018 R65.21 Severe sepsis with septic shock Kay Hernandez M.D. 11/16/2018 M48.061 Spinal stenosis, lumbar region Christelle Rowan PA-C without neurogenic wayne 11/16/2018 M51.26 Other intervertebral disc Jai Millard M.D. displacement, lumbar region 11/16/2018 S32.000A Wedge compression fracture of unsp BENNY LalC lumbar vertebra, init 11/16/2018 A41.01 Sepsis due to Methicillin Kay Hernandez M.D. susceptible Staphylococcus aureus 11/16/2018 M51.34 Other intervertebral disc Christelle Rowan PA-C degeneration, thoracic region 11/16/2018 R79.89 Other specified abnormal findings of Mona Bender M.D. blood chemistry 11/16/2018 I73.9 Peripheral vascular disease, Kay Hernandez M.D. unspecified 11/16/2018 M48.061 Spinal stenosis, lumbar region Jai Millard M.D. without neurogenic wayne 11/16/2018 R33.9 Retention of urine, unspecified Kay Hernandez M.D. 11/16/2018 A41.2 Sepsis due to unspecified Mona Bender M.D. staphylococcus 11/16/2018 R78.81 Bacteremia Jai Millard M.D. 11/16/2018 B95.61 Methicillin suscep staph infct Jai Millard M.D. causing dis classd elswhr 11/16/2018 R79.89 Other specified abnormal findings of Jai Millard M.D. blood chemistry 11/16/2018 R09.89 Oth symptoms and signs involving the Jia Millard M.D. circ and resp systems 11/15/2018 R65.21 Severe sepsis with septic shock Kaylan Duque NP 11/15/2018 R79.89 Other specified abnormal findings of Lobo Mcintosh M.D. blood chemistry 11/15/2018 N39.0 Urinary tract infection, site not Kaylan Duque NP specified 11/15/2018 R94.31 Abnormal electrocardiogram [ECG] Lobo Mcintosh M.D. [EKG] 11/15/2018 I48.0 Paroxysmal atrial fibrillation Kaylan Duque NP 11/15/2018 R53.83 Other fatigue Lobo Mcintosh M.D. 11/15/2018 R26.2 Difficulty in walking, not elsewhere Kaylan Duque NP classified 11/15/2018 R78.81 Bacteremia Lobo Mcintosh M.D. Plan of Treatment Future Appointment(s):03/10/2019 10:30 am - Jai Millard M.D. at [facility]ious Zlxczlqa00/15/2019 7:30 am - Carlos Martines MD at [facility]03/01/2019 - Lobo Mcintosh M.D.I10 Essential ( primary) eutqpesetuqmA12.8 Abnormal levels of other serum jybtwpaW33.31 Electrocardiogram gzrfxpuzV21.810 Preoperative cardiovascular examinationRecommendations:Cardiac testing is all normal cardiac status stable for surgery Functional Status Description No Information Available Mental Status Description No Information Available Referrals Refer to Reason for Referral Status Appt Date Carlos Martines MD 73 year old recent Staph sepsis, found to Sent have C and L spine disc disease with compression, currently in SNF, seen by neurosurgery when at [address] [address] [phone]
--- OUTSIDE RECORDS SUMMARY | 2019-03-21 05:43 | XMS REPORT | Continuity of Care Document ---
:1945 External Reference #:[id number] Author Name Arlette Vargas N.P. 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 Problems Active Problems Provider Date Benign essential hypertension Onset: 09/30/2009 Pure hypercholesterolemia Onset: 09/30/2009 Chronic obstructive lung disease Arlette Vargas N.Eric Onset: 02/01/2015 Social History Type Date Description Comments Sex Unknown Tobacco Use Start: Unknown Current Cigarette Smoker 1 1/2 Packs Daily ETOH Use Currently consumes alcohol 2 a day since November 2018 Tobacco Use Start: Unknown Patient is a current smoker, smokes every day Smoking Status Reviewed: 07/19/18 Patient is a current smoker, smokes every day Allergies, Adverse Reactions, Alerts Description No Known Drug Allergies Medications Active Medications SIG Qnty Indications Ordering Provider Date Aspirin 1 po qd Arlette Vargas, 04/19/[address] Huber Losartan Take One Tablet 90tabs Arlette Vargas, 01/18/2018 Potassium/Hydrochloro By Mouth Every N.P. thiazide Day 100-12.5mg Tablets Meloxicam Take One Tablet 90tabs Arlette Vargas, 10/19/2017 15mg Tablets By Mouth Every N.P. Day Spiriva Respimat inhale two puffs 12gm Arlette Vargas, 04/20/2017 by mouth every N.P. 2.5mcg/Act Aerosol day Simvastatin Take One Tablet 90tabs Arlette Vargas, 04/30/2014 20mg By Mouth Every N.P. Tablets Day Amlodipine Besylate Take One Tablet 90tabs Arlette Vargas, 5mg By Mouth Every N.P. Tablets Day Tamsulosin HCL Take One Capsule 90caps Arlette Vargas, 0.4mg By Mouth Every N.P. Capsules Day Immunizations CPT Code Status Date Vaccine Lot # [id number] Given 04/19/2018 Influenza Vac, Quadrivalent, Split, 0.5mL Dosage, [id number] Im Use 96998 Given 04/20/2017 Influenza Vac, Quadrivalent, Split, 0.5mL Dosage, [id number] Im Use 70069 Given 07/21/2016 Prevnar 13 Pneumococal Conjugate Vaccine [id number] 91485 Given 04/13/2016 Influenza Vaccine,Quadrivalent,SplitVirus,Pres Free, Intradermal 11313 Given 04/08/2015 Influenza Vac, Quadrivalent, Split, 0.5mL Dosage, [id number] Im Use 37437 Given 05/12/2013 Tdap (Boostrix)tetanus, diptheria toxoid & [id number] acellular pertussis 71926 Given 04/27/2013 Pneumococcal 23 Immunization Adult Or [id number] Immunosuppressed Patient Q2038 Given 03/01/2013 Fluzone Trivalent Immunization Q2038 Given 03/01/2013 Fluzone Trivalent Immunization [id number] 87479 Given 03/01/2013 Zoster (Zostavax) Q2038 Given 04/27/2011 Fluzone Trivalent Immunization [id number] 56702 Given 03/11/2010 Afluria Or Fluvirin Flu Vac Intramuscular [id number] 08953 Given 12/03/1999 Immunization Td 7 Yrs Or Older [id number] Refused 03/27/2018 Influenza Vac, Quadrivalent, Split, 0.5mL Dosage, Im Use Vital Signs Date Vital Result Comment 03/08/2019 9:47am Body Temperature 99.1 F Weight 159.38 lb Heart Rate 86 /min BP Systolic 120 mmHg BP Diastolic 80 mmHg O2 % BldC Oximetry 94 % 01/26/2019 1:29pm Body Temperature 98.2 F Weight 161.50 lb Heart Rate 101 /min BP Systolic 118 mmHg BP Diastolic 60 mmHg O2 % BldC Oximetry 96 % Results Test Date Facility Test Result H/L Range Note Comprehensive Met Panel-[facility] 01/26/2019 [facility] Sodium 136 mmol/L 135- 146 1, 2 Potassium 4.3 mmol/L 3.5-5.2 Chloride# 95 mmol/L Low 97-110 3 Carbon Dioxide 31 mmol/L 24-34 Calcium 9.4 mg/dL 8.5-10.5 4 Glucose 101 mg/dL 70-105 BUN 17 mg/dL 6-26 Creatinine 0.8 mg/dL 0.5-1.4 Total Protein 6.0 g/dL 6.0-8.0 Albumin 3.8 g/dL 3.6-4.9 Globulin 2.2 g/dL 2.0-3.5 A/G Ratio 1.7 Ratio 1.0-2.2 Total Bilirubin 0.5 mg/dL 0.1-1.3 Alkaline Phosphatase 148 U/L High 24-140 Alt 8 U/L 3-42 Ast 14 U/L 8-42 Anion Gap 10 mmol/L 5-15 5 Female Egfr 76 >60 6 Male Egfr 89 >60 7 Comprehensive Met Panel-[facility] 10/17/2018 [facility] Sodium 133 mmol/L Low 135 -146 8, 9 Potassium 4.8 mmol/L 3.5-5.2 Chloride# 95 mmol/L Low 97-110 10 Carbon Dioxide 31 mmol/L 24-34 Calcium 9.7 mg/dL 8.5-10.5 11 Glucose 99 mg/dL 70-105 BUN 9 mg/dL 6-26 Creatinine 0.6 mg/dL 0.5-1.4 Total Protein 6.1 g/dL 6.0-8.0 Albumin 4.2 g/dL 3.6-4.9 Globulin 1.9 g/dL Low 2.0-3.5 A/G Ratio 2.2 Ratio 1.0-2.2 Total Bilirubin 0.6 mg/dL 0.1-1.3 Alkaline Phosphatase 122 U/L 24-140 Alt 10 U/L 3-42 Ast 17 U/L 8-42 Anion Gap 7 mmol/L 5-15 12 Female Egfr 88 >60 13 Male Egfr 97 >60 14 Lipid 10/17/2018 [facility] Cholesterol 214 mg/dL High 50-199 Triglycerides 44 mg/dL 30-200 HDL 108 mg/dL High 29-71 15 Chol/ HDL Ratio 2.0 ratio Low 4.0-6.7 VLDL 9 mg/dL 2-29 LDL (Calc) 97 mg/dL 20-99 16 1 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 2 Updated reference range on new analyzer 3 Updated reference range on new analyzer 4 Updated reference range 10-05-2018 5 Updated Reference Range 6 Concerning GFR Guidelines for Americans: Normal function or mild renal disease, if clinically at risk: >/= 60 mL/min Moderately decreased: 30-59 Severely decreased: 15-29 Renal failure: <15 There is reduced accuracy above 60ml/min/1.73 m squared, but the numeric value may be clinically useful in the near 60 range 7 Concerning GFR Guidelines: Normal function or mild renal disease, if clinically at risk: >/= 60 mL/min Moderately decreased: 30-59 Severely decreased: 15-29 [...] that are excreted by the kidneys. 8 This sample is drawn by:CEDRIC/VICKIE 9 Updated reference range on new analyzer 10 Updated reference range on new analyzer 11 Updated reference range 10-05-2018 12 Updated Reference Range 13 Concerning GFR Guidelines for Americans: Normal function or mild renal disease, if clinically at risk: >/= 60 mL/min Moderately decreased: 30-59 Severely decreased: 15-29 Renal failure: <15 There is reduced accuracy above 60ml/min/1.73 m squared, but the numeric value may be clinically useful in the near 60 range 14 Concerning GFR Guidelines: Normal function or mild renal disease, if clinically at risk: >/= 60 mL/min Moderately decreased: 30-59 Severely decreased: 15-29 [...] that are excreted by the kidneys. 15 Per NCEP ATP III Guidelines: Results lower than 40 mg/dL are suggestive of increased risk for coronary artery disease. Results > or = to 60 mg/dL are considered a negative risk factor. 16 Per NCEP ATP III Guidelines: Normal Population <130 Patients with medical conditions: CHD/DM Optimal: <100 Borderline high: 130-159 High: 160-189 Very high: >189 Procedures Date Code Description Status 07/19/2014 67730295 Colonoscopy Completed Medical Devices Description No Information Available Encounters Type Date Location Provider Dx Diagnosis Office Visit 01/26/2019 Arlette Kent, I10 Essential (primary) 1:30p N.P. hypertension J44.9 Chronic obstructive pulmonary disease, unspecified A41.01 Sepsis due to Methicillin susceptible Staphylococcus aureus Office Visit 10/17/2018 9:00a Arlette Kent, E78.2 Mixed hyperlipidemia N.P. I10 Essential (primary) hypertension J44.9 Chronic obstructive pulmonary disease, unspecified Z00.00 Encntr for general adult medical exam w/o abnormal findings Assessments Date Code Description Provider 03/08/2019 Z01.818 Encounter for other preprocedural Arlette Vargas, N.P. examination 01/26/2019 I10 Essential (primary) hypertension Arlette Vargas, N.P. 01/26/2019 J44.9 Chronic obstructive pulmonary disease, Arlette Vargas, N.P. unspecified 01/26/2019 A41.01 Sepsis due to Methicillin susceptible Arlette Vargas, N.P. Staphylococcus aureus 01/26/2019 I10 Essential (primary[facility] 10/17/2018 E78.2 Mixed hyperlipidemia Arlette Vargas, N.P. 10/17/2018 I10 Essential (primary) hypertension Arlette Vargas, N.P. 10/17/2018 J44.9 Chronic obstructive pulmonary disease, Arlette Vargas N.PMerle unspecified 10/17/2018 Z00.00 Encntr for general adult medical exam w/o Arlette Vargas N.P. abnormal findings 10/17/2018 E78.2 Mixed hyperlipidemia [facility] Plan of Treatment Future Appointment(s):04/27/2019 8:30 am - Arlette Vargas N.P. at [facility]4507/2018 - Arlette Vargas N.P.Z01.818 Encounter for other preprocedural examinationComments:patient is considered mild risk for surgery due to age, COPD and HTNhe has obtained cardiac clearance and is scheduled for clearance by infectious disease before surgery, as well as labs to [place] [facility] He has been medically optimized for c-spine surgery Functional Status Description No Information Available Mental Status Description No Information Available Referrals Refer to Reason for Referral Status Appt Date Lobo Mcintosh MD need cardiac follow-up after hosp stay Closed 03/01/[address] [place] [address] [phone]
--- OUTSIDE RECORDS SUMMARY | 2019-03-21 05:43 | XMS REPORT | Continuity of Care Document ---
:1945 External Reference #:[id number] Author Name Rayne Dempsey Care Team Providers Name Role Phone Arlette Vargas NP - Family Care Team Information Rod Buster Helper [phone] Problems Description No Information Available Social History Type Date Description Comments Sex Unknown ETOH Use Consumes 1 six pack of beer per day Tobacco Use Start: Unknown Patient is a current smoker, smokes every day Tobacco Use Start: Unknown Heavy tobacco smoker (more states about 20 cigs qd than 10 cigarettes/day) Smoking Status Reviewed: 01/27/19 Heavy tobacco smoker (more states about 20 cigs qd than 10 cigarettes/day) Allergies, Adverse Reactions, Alerts Description No Known Drug Allergies Medications Active Medications SIG Qnty Indications Ordering Provider Date Aleve 1 by mouth twice Unknown 220mg Capsules a day as needed Simvastatin 1 by mouth every Unknown 20mg Tablets day Spiriva Respimat 1 puff by mouth Unknown every day 1.25mcg/Act Aerosol Amlodipine Besylate 1 by mouth every Unknown 5mg day Tablets Lasix 1 by mouth once a Unknown 40mg Tablets day Losartan Potassium 1 by mouth every Unknown 100mg day Tablets Oxycodone HCL 1 tabs by mouth Unknown 5mg Tablets every 6 hours as needed Flomax 1 by mouth every Unknown 0.4mg Capsules day History Medications Keflex take 1 tab by elías Millard, 12/21/2018 - 500mg mouth twice M.D. 01/23/2019 Capsules daily x 14 days Immunizations Description No Information Available Vital Signs Date Vital Result Comment 01/27/2019 9:27am Height 71 inches 5'11" Weight 162.00 lb Heart Rate 70 /min BP Systolic Sitting 114 mmHg BP Diastolic Sitting 70 mmHg Respiratory Rate 14 /min Body Temperature 97.0 F BMI (Body Mass Index) 22.6 kg/m2 01/24/2019 9:15am Height 71 inches 5'11" Weight 163.00 lb BMI (Body Mass Index) 22.7 kg/m2 Results Description No Information Available Procedures Date Code Description Status 11/17/2018 69019 Moderate Sedation Services; Same Phys Intl 15 Mins; PT >= Completed 5 Years 11/17/2018 34179 Color Flow Doppler/Interp & Reprt Completed 11/17/2018 07163 Pulse Wave/Continuous-Interp.RPT Completed 11/17/2018 27232 Echocardiography, Transesophageal, Real Time W/Image 2D Completed W/W/O M-M 11/15/2018 36198 ECHO Transthorasic Realtime 2D W Doppler & Color Flow Hosp Completed Medical Devices Description No Information Available Encounters Type Date Location Provider Dx Diagnosis Office Visit 01/27/2019 [facility] Jai Rey B95.61 Methicillin suscep 9:30a Ramesh Millard M.D. 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 R78.81 Bacteremia Assoc,fran Menchaca M.D. Hospitalists I10 Essential (primary) hypertension I73.9 Peripheral vascular disease, unspecified E87.1 Hypo-osmolality and hyponatremia R29.898 Oth symptoms and signs involving the musculoskeletal system Office Visit 11/24/2018 8:54a [facility] Keyla Weiss R78.81 Bacteremia Infectious Sandoval, SUPERVISING PRODUCER Diseases B95.61 Methicillin suscep staph infct causing dis classd elswhr R53.1 Weakness G95.20 Unspecified cord compression Office 11/24/2018 [facility] E87.1 Hypo-osmolality and Visit 10:01a fran Arboleda M.D. hyponatremia Hospitalists I73.9 Peripheral vascular disease, unspecified R29.898 Oth symptoms and signs involving the musculoskeletal system F10.10 Alcohol abuse, uncomplicated [facility] fran Arboleda M.D. Hospitalists E87.1 Hypo-osmolality and hyponatremia I73.9 Peripheral vascular disease, unspecified I10 Essential (primary) hypertension Office Visit 11/22/2018 1:02p [facility] Rhiannon Rey R78.81 Bacteremia Infectious Diseases Rere Millard B95.61 Methicillin suscep staph infct causing dis classd elswhr M54.5 Low back pain G95.20 Unspecified cord compression Office Visit 11/22/2018 [facility] Bacte[facility] fran Arboleda M.D. Hospitalists I73.9 Peripheral vascular disease, unspecified E87.1 Hypo-osmolality and hyponatremia R29.898 Oth symptoms and signs involving the musculoskeletal system Office Visit 11/21/2018 [facility] Gennaro Rice, R29.898 Oth symptoms and 10:00a fran Arboleda MD signs involving the Hospitalists musculoskeletal system I73.9 Peripheral vascular disease, unspecified E87.70 Fluid overload, unspecified Office Visit 11/20/2018 10:00a [facility] Gennaro Rice MD R78.81 Bacteremia Assoc Hospitalists R74.8 Abnormal levels of other serum enzymes I73.9 Peripheral vascular disease, unspecified E87.70 Fluid overload, unspecified Office Visit 11/19/2018 10:00a [place] Ricki Rice MD R78.81 Bacteremia Assoc Hospitalists R74.8 Abnormal levels of other serum enzymes I73.9 Peripheral vascular disease, unspecified E87.70 Fluid overload, unspecified Office Visit 11/18/2018 10:11a [facility] Rhiannon Rey R78.81 Bacteremia Infectious Diseases Rere Millard B95.61 Methicillin suscep staph infct causing dis classd elswhr M54.9 Dorsalgia, unspecified M62.81 Muscle weakness (generalized) Office Visit 11/18/2018 9:59a [facility] Gennaro Rice MD R78.81 Bacteremia Assoc, Hospitalists I73.9 Peripheral vascular disease, unspecified I10 Essential (primary) hypertension Office Visit 11/17/2018 10:10a [facility] Jai Rey R78.81 Bacteremia Infectious Diseases Rere Millard B95.61 Methicillin suscep staph infct causing dis classd elswhr M54.9 Dorsalgia, unspecified I73.9 Peripheral vascular disease, unspecified Office Visit 11/17/2018 9:59a [facility] Efrem Rey R78.81 Bacteremia Assoc,fran Franco M.D.,[facility] Hospitalists R74.8 Abnormal levels of other serum enzymes E87.6 Hypokalemia Office Visit 11/16/2018 [facility] Jai Rey M51.26 Other 10:02a For Infectious Rere Millard intervertebral disc Diseases displacement, lumbar region M48.061 Spinal stenosis, lumbar region without neurogenic wayne R78.81 Bacteremia B95.61 Methicillin suscep staph infct causing dis classd elswhr R79.89 Other specified abnormal findings of blood chemistry R09.89 Oth symptoms and signs involving the circ and resp systems Office Visit 11/16/2018 Neurosurgery Christelle Rowan, 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:06p [facility] PA-C disc degeneration, lumbar region M48.061 Spinal stenosis, lumbar region without neurogenic wayne S32.000A Wedge compression fracture of unsp lumbar vertebra, init M51.34 Other intervertebral disc degeneration, thoracic region Office Visit 11/16/2018 9:59a [facility] Kay Hernandez, R65.21 Severe sepsis Assoc,fran Jernigan with septic Hospitalists shock A41.01 Sepsis due to Methicillin susceptible Staphylococcus aureus I73.9 Peripheral vascular disease, unspecified R33.9 Retention of urine, unspecified Office Visit 11/16/2018 3:31p [facility] Mona Tirado R79.89 Other specified Rere Bender abnormal findings of blood chemistry A41.2 Sepsis due to unspecified staphylococcus Office Visit 11/15/2018 9:58a [facility] R65.21 Severe sepsis Assoc,fran Duque, with septic Hospitalists [employer]PERVISING [employer]ODUCER shock N39.0 Urinary tract infection, site not specified I48.0 Paroxysmal atrial fibrillation R26.2 Difficulty in walking, not elsewhere classified Office Visit 11/15/2018 1:15p [facility] Lobo Rey R79.89 Other specified Of Ezequiel Mcintosh M.D. abnormal findings of blood chemistry R94.31 Abnormal electrocardiogram [ECG] [EKG] R53.83 Other fatigue R78.81 Bacteremia Assessments Date Code Description Provider 01/27/2019 B95.61 Methicillin susceptible Jai Millard M.D. Staphylococcus aureus infection as t 01/27/2019 G95.20 Unspecified cord compression Jai Millard M.D. 12/27/2018 B95.61 Methicillin susceptible Jai Millard M.D. Staphylococcus aureus infection as t 12/27/2018 Z79.2 [facility] (current) use of Jai Millard M.D. antibiotics 12/27/2018 G95.20 Unspecified cord compression Jai Millard M.D. 12/05/2018 B95.61 Methicillin susceptible Jai Millard M.D. Staphylococcus aureus infection as t 12/05/2018 Z79.2 [facility] (current) use of Jai Millard M.D. antibiotics [...] musculoskeletal system 11/24/2018 R78.81 Bacteremia Keyla Sandoval, VICKIE 11/24/2018 E87.1 Hypo-osmolality and hyponatremia Thony Menchaca M.D. 11/24/2018 B95.61 Methicillin susceptible Keyla Sandoval, VICKIE Staphylococcus aureus infection as t 11/24/2018 I73.9 Peripheral vascular disease, Thony Menchaca M.D. unspecified 11/24/2018 R53.1 Weakness Keyla Sandoval, VICKIE 11/24/2018 R29.898 Oth symptoms and signs involving the Thony Menchaca M.D. musculoskeletal system 11/24/2018 G95.20 Unspecified cord compression Keyla Sandoval, VCIKIE 11/24/2018 F10.10 Alcohol abuse, uncomplicated Thony Menchaca [...] Jai Millard M.D. causing dis classd elswhr 11/22/2018 M54.5 Low back pain Jai Millard [...] Fluid overload, unspecified Gennaro Rice MD 11/19/2018 R78.81 Bacteremia Gennaro Rice MD 11/19/2018 [...] Jai Millard M.D. causing dis classd elswhr 11/18/2018 I10 Essential (primary) hypertension Gennaro Rice MD 11/18/2018 M54.9 Dorsalgia, unspecified Jai Millard M.D. 11/18/2018 M62.81 Muscle weakness (generalized) Jai Millard M.D. 11/17/2018 R78.81 Bacteremia Albin Shaffer M.D., [facility] 11/17/2018 R78.81 Bacteremia Efrem Franco M.D.,FACP 11/17/2018 R78.81 Bacteremia Jai Millard M.D. 11/17/2018 R74.8 Abnormal levels of other serum Efrem Franco M.D.,FACP enzymes 11/17/2018 B95.61 Methicillin suscep staph infct Jai Millard M.D. causing dis classd elswhr 11/17/2018 E87.6 Hypokalemia Efrem Franco M.D.,FACP 11/17/2018 M54.9 Dorsalgia, unspecified Jai Millard M.D. 11/17/2018 I73.9 Peripheral vascular disease, Jai Millard M.D. unspecified 11/16/2018 M51.36 Other intervertebral disc BENNY LalC degeneration, lumbar region 11/16/2018 R65.21 Severe sepsis with septic shock aKy Hernandez M.D. 11/16/2018 M48.061 Spinal stenosis, lumbar region Christellenacho Rowan PA-C without neurogenic wayne 11/16/2018 M51.26 Other intervertebral disc Jai Millard M.D. displacement, lumbar region 11/16/2018 S32.000A Wedge compression fracture of unsp Christelle LORENZO Rowan-C lumbar vertebra, init 11/16/2018 A41.01 Sepsis due [...] Jai Millard M.D. blood chemistry 11/16/2018 R09.89 Ot symptoms and signs involving the Jai Millard M.D. circ and resp systems 11/15/2018 [...] Bacteremia Lobo Mcintosh M.D. Plan of Treatment No Information Available Functional Status Description No Information Available Mental Status Description No Information Available Referrals Refer to Reason for Referral Status Appt Date Carlos Martines MD 73 year old recent Staph sepsis, found to Sent have C and L spine disc disease with compression, currently in SNF, seen by neurosurgery when at [address] [address] [phone]
--- OUTSIDE RECORDS SUMMARY | 2019-03-21 05:43 | XMS REPORT | Continuity of Care Document ---
:1945 External Reference #:[id number] Author Name Rayne Dempsey Care Team Providers Name Role Phone Arlette Vargas NP - Family Care Team Information Land Surveying Manager [phone] Problems Description No Information Available Social History [...] Available Procedures Date Code Description Status 11/17/2018 41223 Moderate Sedation Services; Same Phys Intl 15 Mins; PT >= Completed 5 Years 11/17/2018 55820 Color Flow Doppler/Interp & Reprt Completed 11/17/2018 24684 Pulse Wave/Continuous-Interp.RPT Completed 11/17/2018 24415 Echocardiography, Transesophageal, Real Time W/Image 2D Completed W/W/O M-M 11/15/2018 43936 ECHO Transthorasic Realtime 2D W Doppler & Color Flow Hosp Completed Medical Devices Description No Information Available Encounters Type Date Location Provider Dx Diagnosis Office Visit 01/27/2019 [facility] Jai Rey B95.61 Methicillin suscep 9:30a Ramesh Millard M.D. 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 Hospitalists I10 Essential (primary) hypertension I73.9 Peripheral vascular disease, unspecified E87.1 Hypo-osmolality and hyponatremia R29.898 Oth symptoms and signs involving the musculoskeletal system Office Visit 11/24/2018 8:54a [facility] Keyla Weiss R78.81 Bacteremia Infectious Sandoval, JUNIOR GRAPHIC DESIGNER Diseases B95.61 Methicillin suscep staph infct causing dis classd elswhr R53.1 Weakness G95.20 Unspecified cord compression Office 11/24/2018 [facility] E87.1 Hypo-osmolality and Visit 10:01a fran Arboleda M.D. hyponatremia Hospitalists I73.9 Peripheral vascular disease, unspecified R29.898 Oth symptoms and signs involving the musculoskeletal system F10.10 Alcohol abuse, uncomplicated [facility] fran Arboleda M.D. Hospitalists E87.1 Hypo-osmolality and hyponatremia I73.9 Peripheral vascular disease, unspecified I10 Essential (primary) hypertension Office Visit 11/22/2018 1:02p [facility] Rhiannon Rey R78.81 Bacteremia Infectious Diseases Rere Millard B95.61 Methicillin suscep staph infct causing dis classd elswhr M54.5 Low back pain G95.20 Unspecified cord compression [facility] 11/22[facility]2018 [facility] fran Arboleda M.D. Hospitalists I73.9 Peripheral vascular disease, unspecified E87.1 Hypo-osmolality and hyponatremia R29.898 Oth symptoms and signs involving the musculoskeletal system Office Visit 11/21/2018 [facility] Gennaro Rice, R29.898 Oth symptoms and 10:00a fran Arboleda MD signs involving the Hospitalists musculoskeletal system I73.9 Peripheral vascular disease, unspecified E87.70 Fluid overload, unspecified Office Visit 11/20/2018 10:00a [facility] Gennaro Rice MD R78.81 Bacteremia Assoc Hospitalists R74.8 Abnormal levels of other serum enzymes I73.9 Peripheral vascular disease, unspecified E87.70 Fluid overload, unspecified Office Visit 11/19/2018 10:00a [facility] Ricki Rice MD R78.81 Bacteremia Assoc Hospitalists R74.8 Abnormal levels of other serum enzymes I73.9 Peripheral vascular disease, unspecified E87.70 Fluid overload, unspecified Office Visit 11/18/2018 10:11a [facility] Rihannon Rey R78.81 Bacteremia Infectious Diseases Rere Millard B95.61 Methicillin suscep staph infct causing dis classd elswhr M54.9 Dorsalgia, unspecified M62.81 Muscle weakness (generalized) Office Visit 11/18/2018 9:59a [facility] Gennaro Rice MD R78.81 Bacteremia Assoc, Hospitalists I73.9 Peripheral vascular disease, unspecified I10 Essential (primary) hypertension Office Visit 11/17/2018 10:10a [facility] Jai Rey R78.81 Bacteremia Infectious Diseases Rere Millard B95.61 Methicillin suscep staph infct causing dis classd elswhr M54.9 Dorsalgia, unspecified I73.9 Peripheral vascular disease, unspecified Office Visit 11/17/2018 9:59a [facility] Efrem Rey R78.81 Bacteremia Assoc,fran Franco M.D.,[facility] Hospitalists R74.8 Abnormal levels of other serum enzymes E87.6 Hypokalemia Office Visit 11/16/2018 [facility] aJi Rey M51.26 Other 10:02a For Infectious Rere [...] Rowan, 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:06p [facility] disc degeneration, lumbar region M48.061 Spinal stenosis, lumbar region without neurogenic wayne S32.000A Wedge compression fracture of unsp lumbar vertebra, init M51.34 Other intervertebral disc degeneration, thoracic region Office Visit 11/16/2018 9:59a [facility] Kay Hernandez, R65.21 Severe sepsis Assoc,fran Jernigan with septic Hospitalists shock A41.01 Sepsis due to Methicillin susceptible Staphylococcus aureus I73.9 Peripheral vascular disease, unspecified R33.9 Retention of urine, unspecified Office Visit 11/16/2018 3:31p [facility] Mona Tirado R79.89 Other specified Rere Bender abnormal findings of blood chemistry A41.2 Sepsis due to unspecified staphylococcus Office Visit 11/15/2018 9:58a [facility] R65.21 Severe sepsis Assoc,fran Duque, with septic Hospitalists JUNIOR GRAPHIC DESIGNER shock N39.0 Urinary tract infection, site not specified I48.0 Paroxysmal atrial fibrillation R26.2 Difficulty in walking, not elsewhere classified Office Visit 11/15/2018 1:15p [facility] Lobo Rey R79.89 Other specified Of [...] Staphylococcus aureus infection as t 12/27/2018 Z79.2 long-term (current) use of Jai Millard M.D. antibiotics 12/27/2018 G95.20 Unspecified cord compression Jai Millard M.D. 12/05/2018 B95.61 Methicillin susceptible Jai Millard M.D. Staphylococcus aureus infection as t 12/05/2018 Z79.2 long-term (current) use of Jai Millard M.D. antibiotics [...] 11/24/2018 G95.20 Unspecified cord compression Keyla Sandoval, VICKIE 11/24/2018 F10.10 Alcohol abuse, uncomplicated Thony Menchaca [...] M.D. 11/17/2018 R78.81 Bacteremia Albin Shaffer M.D., [facility] 11/17/2018 R78.81 Bacteremia Efrem Franco M.D.,FACP [...] in SNF, seen by neurosurgery when at [address] [address] [phone]
--- OUTSIDE RECORDS SUMMARY | 2019-03-21 05:43 | XMS REPORT | Continuity of Care Document ---
:1945 External Reference #:[id number] Author Name Rayne Dempsey Care Team Providers Name Role Phone Arlette Vargas NP - Family Care Team Information Shaper Hand [phone] Problems Description No Information Available Social History [...] Available Procedures Date Code Description Status 11/17/2018 72682 Moderate Sedation Services; Same Phys Intl 15 Mins; PT >= Completed 5 Years 11/17/2018 49729 Color Flow Doppler/Interp & Reprt Completed 11/17/2018 50195 Pulse Wave/Continuous-Interp.RPT Completed 11/17/2018 72057 Echocardiography, Transesophageal, Real Time W/Image 2D Completed W/W/O M-M 11/15/2018 27443 ECHO Transthorasic Realtime 2D W Doppler & Color Flow Hosp Completed Medical Devices Description No Information Available Encounters Type Date Location Provider Dx Diagnosis Office Visit 01/27/2019 [facility] Jai Rey B95.61 Methicillin suscep 9:30a Ramesh Millard M.D. 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 Hospitalists I10 Essential (primary) hypertension I73.9 Peripheral vascular disease, unspecified E87.1 Hypo-osmolality and hyponatremia R29.898 Oth symptoms and signs involving the musculoskeletal system Office Visit 11/24/2018 8:54a [facility] Keyla Weiss R78.81 Bacteremia Infectious Sandoval, PHONE OPERATOR Diseases B95.61 Methicillin suscep staph infct causing dis classd elswhr R53.1 Weakness G95.20 Unspecified cord compression Office 11/24/2018 [facility] E87.1 Hypo-osmolality and Visit 10:01a fran Arboleda M.D. hyponatremia Hospitalists I73.9 Peripheral vascular disease, unspecified R29.898 Oth symptoms and signs involving the musculoskeletal system F10.10 Alcohol abuse, uncomplicated [facility] fran Arboleda M.D. Hospitalists E87.1 Hypo-osmolality and hyponatremia I73.9 Peripheral vascular disease, unspecified I10 Essential (primary) hypertension Office Visit 11/22/2018 1:02p [facility] Rhiannon Rey R78.81 Bacteremia Infectious Diseases Rere Millard B95.61 Methicillin suscep staph infct causing dis classd elswhr M54.5 Low back pain G95.20 Unspecified cord compression Office Visit 11/22/2018 10[facility] Bacteremia fran Arboleda M.D. Hospitalists I73.9 Peripheral vascular disease, unspecified E87.1 Hypo-osmolality and hyponatremia R29.898 Oth symptoms and signs involving the musculoskeletal system Office Visit 11/21/2018 [facility] Gennaro Rice, R29.898 Oth symptoms and 10:00a fran Arboleda MD signs involving the Hospitalists musculoskeletal system I73.9 Peripheral vascular disease, unspecified E87.70 Fluid overload, unspecified Office Visit 11/20/2018 10:00a [facility] Gennaro Rice MD R78.81 Bacteremia Assoc Hospitalists R74.8 Abnormal levels of other serum enzymes I73.9 Peripheral vascular disease, unspecified E87.70 Fluid overload, unspecified Office Visit 11/19/2018 10:00a [place] Ricki Rice MD R78.81 Bacteremia Assoc Hospitalists R74.8 Abnormal levels of other serum enzymes I73.9 Peripheral vascular disease, unspecified E87.70 Fluid overload, unspecified Office Visit 11/18/2018 10:11a [facility] Rhiannon Rey R78.81 Bacteremia Infectious Diseases Rere Millard B95.61 Methicillin suscep staph infct causing dis classd elswhr M54.9 Dorsalgia, unspecified M62.81 Muscle weakness (generalized) Office Visit 11/18/2018 9:59a [facility] Gennaro Rice MD R78.81 Bacteremia Assoc, Hospitalists I73.9 Peripheral vascular disease, unspecified I10 Essential (primary) hypertension Office Visit 11/17/2018 10:10a [facility] Jai Rey R78.81 Bacteremia Infectious Diseases Rere Millard B95.61 Methicillin suscep staph infct causing dis classd elswhr M54.9 Dorsalgia, unspecified I73.9 Peripheral vascular disease, unspecified Office Visit 11/17/2018 9:59a [facility] Efrem Rey R78.81 Bacteremia Assoc,fran Franco M.D.,[facility] Hospitalists R74.8 Abnormal levels of other serum enzymes E87.6 Hypokalemia Office Visit 11/16/2018 [facility] Jai Rey M51.26 Other 10:02a For Infectious [...] Rowan, 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:06p Services [facility] PA-C disc degeneration, lumbar region M48.061 Spinal stenosis, lumbar region without neurogenic wayne S32.000A Wedge compression fracture of unsp lumbar vertebra, init M51.34 Other intervertebral disc degeneration, thoracic region Office Visit 11/16/2018 9:59a [facility] Kay Hernandez, R65.21 Severe sepsis Assoc,fran Jernigan with septic Hospitalists shock A41.01 Sepsis due to Methicillin susceptible Staphylococcus aureus I73.9 Peripheral vascular disease, unspecified R33.9 Retention of urine, unspecified Office Visit 11/16/2018 3:31p [facility] Mona Tirado R79.89 Other specified Rere Bender abnormal findings of blood chemistry A41.2 Sepsis due to unspecified staphylococcus Office Visit 11/15/2018 9:58a [facility] R65.21 Severe sepsis Assoc,fran Duque, with septic Hospitalists PHONE OPERATOR shock N39.0 Urinary tract infection, site not specified I48.0 Paroxysmal atrial fibrillation R26.2 Difficulty in walking, not elsewhere classified Office Visit 11/15/2018 1:15p [facility] Lobo Rey R79.89 Other specified Of [...] Staphylococcus aureus infection as t 12/27/2018 Z79.2 [facility] (current) use of Jai Millard M.D. antibiotics 12/27/2018 G95.20 Unspecified cord compression Jai Millard M.D. 12/05/2018 B95.61 Methicillin susceptible Jai Millard M.D. Staphylococcus aureus infection as t 12/05/2018 Z79.2 [facility] (current) use of Jai Millard M.D. antibiotics [...] M.D. 11/17/2018 R78.81 Bacteremia Albin Shaffer M.D., [facility] 11/17/2018 R78.81 Bacteremia Efrem Franco M.D.,FACP [...] in SNF, seen by neurosurgery when at [address] [address] [phone]
--- OUTSIDE RECORDS SUMMARY | 2019-03-21 05:43 | XMS REPORT | Continuity of Care Document ---
:1945 External Reference #:[id number] Author Name Carlos Martines MD (transmitted by agent of provider Nadine Haile ) Address [address] [place] [address] Care Team Providers Name Role Phone Arlette Vargas NP - Family Care Team Information Sociology Adjunct Instructor [phone] Problems Description No Information Available Social History Type Date Description Comments Sex Unknown ETOH Use Consumes 1 six pack of beer per day Tobacco Use Start: Unknown Patient is a current smoker, smokes every day Tobacco Use Start: Unknown Heavy tobacco smoker (more states about 20 cigs qd than 10 cigarettes/day) Smoking Status Reviewed: 02/22/19 Heavy tobacco smoker (more states about 20 cigs qd than 10 cigarettes/day) Allergies, Adverse Reactions, Alerts Description No Known Drug Allergies Medications Active Medications SIG Qnty Indications Ordering Provider Date MJ Collar at all times Carlos 02/22/2019 MD Conrad Aleve 1 by mouth [...] Available Vital Signs Date Vital Result Comment 02/22/2019 8:46am Height 71 inches 5'11" Weight 165.00 lb BP Systolic 120 mmHg BP Diastolic 80 mmHg Pain Level 2 BMI (Body Mass Index) 23.0 kg/m2 01/27/2019 9:27am Height 71 inches 5'11" Weight 162.00 lb Heart Rate 70 /min BP Systolic Sitting 114 mmHg BP Diastolic Sitting 70 mmHg Respiratory Rate 14 /min Body Temperature 97.0 F BMI (Body Mass Index) 22.6 kg/m2 Results Description No Information Available Procedures Date Code Description Status 11/19/2018 01270 EKG, Interpretation Only Completed 11/17/2018 47893 Moderate Sedation Services; Same Phys Intl 15 Mins; PT >= Completed 5 Years 11/17/2018 72936 Color Flow Doppler/Interp & Reprt Completed 11/17/2018 38223 Pulse Wave/Continuous-Interp.RPT Completed 11/17/2018 38604 Echocardiography, Transesophageal, Real Time W/Image 2D Completed W/W/O M-M 11/15/2018 80083 ECHO Transthorasic Realtime 2D W Doppler & Color Flow Hosp Completed Medical Devices Description No Information Available Encounters Type Date Location Provider Dx Diagnosis Office Visit 01/27/2019 [facility] Jai Rey B95.61 Methicillin suscep 9:30a Infectious Rere Millard staph infct causing Diseases dis classd elsr G95.20 Unspecified cord compression Office Visit 12/27/2018 9:50a [facility] [place] Jai Rey B95.61 Methicillin For Infectious Rere Millard suscep staph Diseases infct causing dis classd elswhr Z79.2 [facility] (current) use of antibiotics G95.20 Unspecified cord compression Office Visit 12/05/2018 2:40p 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 Hospitalists I10 Essential (primary) hypertension I73.9 Peripheral vascular disease, unspecified E87.1 Hypo-osmolality and hyponatremia R29.898 Oth symptoms and signs involving the musculoskeletal system Office Visit 11/24/2018 8:54a [facility] Keyla Weiss R78.81 Bacteremia Infectious Sandoval, SECURITY AGENT Diseases B95.61 Methicillin suscep staph infct causing dis classd elswhr R53.1 Weakness G95.20 Unspecified cord compression Office 11/24/2018 [facility] E87.1 Hypo-osmolality and Visit 10:01a fran Arboleda M.D. hyponatremia Hospitalists I73.9 Peripheral vascular disease, unspecified R29.898 Oth symptoms and signs involving the musculoskeletal system F10.10 Alcohol abuse, uncomplicated Office Visit 11/23/2018 10:01a [facility] R78.81 Bacteremia fran Arboleda M.D. Hospitalists E87.1 Hypo-osmolality and hyponatremia I73.9 Peripheral vascular disease, unspecified I10 Essential (primary) hypertension Office Visit 11/22/2018 1:02p [facility] Jai Rey R78.81 Bacteremia Infectious Diseases Rere Millard B95.61 Methicillin suscep staph infct causing dis classd elswhr M54.5 Low back pain G95.20 Unspecified cord compression Office Visit 11/22/2018 10:01a [facility] R78.81 Bacteremia fran Arboleda M.D. Hospitalists I73.9 Peripheral vascular disease, unspecified E87.1 Hypo-osmolality and hyponatremia R29.898 Oth symptoms and signs involving the musculoskeletal system Office Visit 11/21/2018 [facility] Gennaro Rice, R29.898 Oth symptoms and 10:00a fran Arboleda MD signs involving the Hospitalists musculoskeletal system I73.9 Peripheral vascular disease, unspecified E87.70 Fluid overload, unspecified Office Visit 11/20/2018 10:00a [facility] Gennaro Rice MD R78.81 Bacteremia fran Arboleda Hospitalists R74.8 Abnormal levels of other serum enzymes I73.9 Peripheral vascular disease, unspecified E87.70 Fluid overload, unspecified Office Visit 11/19/2018 10:00a [facility] Gennaro Rice MD R78.81 Bacteremia fran Arboleda Hospitalists R74.8 Abnormal levels of other serum enzymes I73.9 Peripheral vascular disease, unspecified E87.70 Fluid overload, unspecified Office Visit 11/18/2018 10:11a [facility] [place] Rhiannon Rey R78.81 Bacteremia Infectious Diseases Rere Millard B95.61 Methicillin suscep staph infct causing dis classd elswhr M54.9 Dorsalgia, unspecified M62.81 Muscle weakness (generalized) Office Visit 11/18/2018 9:59a [facility] Gennaro Rice MD R78.81 Bacteremia Assoc, Hospitalists I73.9 Peripheral vascular disease, unspecified I10 Essential (primary) hypertension Office Visit 11/17/2018 10:10a [facility] Jai Rey R78.81 Bacteremia Infectious Diseases Rere Millard B95.61 Methicillin suscep staph infct causing dis classd elswhr M54.9 Dorsalgia, unspecified I73.9 Peripheral vascular disease, unspecified Office Visit 11/17/2018 9:59a [facility] Efrem Rey R78.81 Bacteremia Assoc,fran Franco M.D.,[facility] Hospitalists R74.8 Abnormal levels of other serum enzymes E87.6 Hypokalemia Office Visit 11/16/2018 [facility] [place] Jai Rey M51.26 Other 10:02a For Infectious [...] Rowan, 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:06p [facility] PA-C disc degeneration, lumbar region M48.061 Spinal stenosis, lumbar region without neurogenic wayne S32.000A Wedge compression fracture of unsp lumbar vertebra, init M51.34 Other intervertebral disc degeneration, thoracic region Office Visit 11/16/2018 9:59a [facility] Kay Hernandez, R65.21 Severe sepsis Assoc,fran Jernigan with septic Hospitalists shock A41.01 Sepsis due to Methicillin susceptible Staphylococcus aureus I73.9 Peripheral vascular disease, unspecified R33.9 Retention of urine, unspecified Office Visit 11/16/2018 3:31p [facility] Mona Tirado R79.89 Other specified Rere Bender abnormal findings of blood chemistry A41.2 Sepsis due to unspecified staphylococcus Office Visit 11/15/2018 9:58a [facility] Kaylan R65.21 Severe sepsis Assoc,[facility], with septic Hospitalists SECURITY AGENT shock N39.0 Urinary tract infection, site not specified I48.0 Paroxysmal atrial fibrillation R26.2 Difficulty in walking, not elsewhere classified Office Visit 11/15/2018 1:15p [facility] Lobo Rey R79.89 Other specified Of Ezequiel Mcintosh M.D. 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 antibiotics [...] infection as t 11/24/2018 I73.9 Peripheral vascular diseaseThony M.D. unspecified 11/24/2018 R53.1 Weakness Keyla Sandoval, SECURITY AGENT 11/24/2018 R29.898 Oth symptoms and signs involving the Thony Menchaca M.D. musculoskeletal system 11/24/2018 G95.20 Unspecified cord compression Keyla Sandoval, SECURITY AGENT 11/24/2018 F10.10 Alcohol abuse, uncomplicated Thony Menchaca [...] R94.31 Abnormal electrocardiogram [ECG] Albin Shaffer M.D., [facility], [EKG] [facility] 11/19/2018 R78.81 Bacteremia Gennaro Rice MD 11/19/2018 [...] M.D. 11/17/2018 R78.81 Bacteremia Albin Shaffer M.D., [facility], [facility] 11/17/2018 R78.81 Bacteremia Efrem Franco M.D.,[facility] 11/17/2018 R78.81 Bacteremia Jai Millard M.D. 11/17/2018 R74.8 Abnormal levels of other serum Efrem Franco M.D.,[facility] enzymes 11/17/2018 B95.61 Methicillin suscep staph infct Jai Millard M.D. causing dis classd elsr 11/17/2018 E87.6 Hypokalemia Efrem Franco M.D.,[facility] 11/17/2018 M54.9 Dorsalgia, unspecified Jai Millard M.D. 11/17/2018 I73.9 Peripheral vascular disease, Jai Millard M.D. unspecified 11/16/2018 M51.36 Other intervertebral disc Christelle Anum PA-C degeneration, lumbar region 11/16/2018 R65.21 Severe sepsis with septic shock Kay Hernandez M.D. 11/16/2018 M48.061 Spinal stenosis, lumbar region ChristelleLORENZO Maddox-C without neurogenic wayne 11/16/2018 M51.26 Other intervertebral disc Jai Millard M.D. displacement, lumbar region 11/16/2018 S32.000A Wedge compression fracture of unsp Christelle Anum, PA-C lumbar vertebra, init 11/16/2018 A41.01 Sepsis due to Methicillin Kay Hernandez M.D. susceptible Staphylococcus aureus 11/16/2018 M51.34 Other intervertebral disc Christellenacho Rowan PA-C degeneration, thoracic region 11/16/2018 R79.89 Other specified abnormal findings of Jozef Potter.D. blood chemistry 11/16/2018 I73.9 Peripheral vascular disease, [...] R09.89 Oth symptoms and signs involving the Jai Millard [...] Lobo Mcintosh M.D. Plan of Treatment Future Appointment(s):02/24/2019 10:15 am - Lobo Mcintosh M.D. at [facility]03/01/2019 1:30 pm - Lobo Mcintosh M.D. 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
--- OUTSIDE RECORDS SUMMARY | 2019-03-21 05:43 | XMS REPORT | Continuity of Care Document ---
:1945 External Reference #:[id number] Author Name Jai Millard M.D. 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 [...] Available Procedures Date Code Description Status 11/17/2018 25200 Moderate Sedation Services; Same Phys Intl 15 Mins; PT >= Completed 5 Years 11/17/2018 42903 Color Flow Doppler/Interp & Reprt Completed 11/17/2018 76351 Pulse Wave/Continuous-Interp.RPT Completed 11/17/2018 59583 Echocardiography, Transesophageal, Real Time W/Image 2D Completed W/W/O M-M 11/15/2018 64904 ECHO Transthorasic Realtime 2D W Doppler & Color Flow Hosp Completed Medical Devices Description No Information Available Encounters Type Date Location Provider Dx Diagnosis Office Visit 12/27/2018 [facility] Jai Rey B95.61 Methicillin suscep 9:50a Ramesh Millard M.D. staph infct causing Diseases dis classd elswhr Z79.2 [facility] (current[facility] use of antibiotics G95.20 Unspecified cord compression Office Visit 12/05/2018 2:40p [facility] Jai Rey B95.61 Methicillin For Infectious Rere Millard suscep staph Diseases infct causing dis classd elswhr Z79.2 [facility] (current) use of antibiotics G95.20 Unspecified cord compression Office Visit 11/25/2018 10:02a [facility] R78.81 Bacteremia Assocfran M.D. Hospitalists I10 Essential (primary) hypertension I73.9 Peripheral vascular disease, unspecified E87.1 Hypo-osmolality and hyponatremia R29.898 Oth symptoms and signs involving the musculoskeletal system Office Visit 11/24/2018 8:54a [facility] Keyla Weiss R78.81 Bacteremia Infectious Sandoval, PLAYGROUND ATTENDANT Diseases B95.61 Methicillin suscep staph infct causing dis classd elswhr R53.1 Weakness G95.20 Unspecified cord compression Office 11/24/2018 [facility] E87.1 Hypo-osmolality and Visit 10:01a fran Arboleda M.D. hyponatremia Hospitalists I73.9 Peripheral vascular disease, unspecified R29.898 Oth symptoms and signs involving the musculoskeletal system F10.10 Alcohol abuse, uncomplicated [facility] fran Arboleda M.D. Hospitalists E87.1 Hypo-osmolality and hyponatremia I73.9 Peripheral vascular disease, unspecified I10 Essential (primary) hypertension Office Visit 11/22/2018 1:02p [facility] Rhiannon Rey R78.81 Bacteremia Infectious Diseases Rere Millard B95.61 Methicillin suscep staph infct causing dis classd elswhr M54.5 Low back pain G95.20 Unspecified cord compression Office Visit 11/22/2018 10[facility] R78.81 Bacteremia fran Arboleda M.D. Hospitalists I73.9 Peripheral vascular disease, unspecified E87.1 Hypo-osmolality and hyponatremia R29.898 Oth symptoms and signs involving the musculoskeletal system Office Visit 11/21/2018 [facility] Gennaro Rice, R29.898 Oth symptoms and 10:00a fran Arboleda MD signs involving the Hospitalists musculoskeletal system I73.9 Peripheral vascular disease, unspecified E87.70 Fluid overload, unspecified Office Visit 11/20/2018 10:00a [facility] Gennaro Rice MD R78.81 Bacteremia Assoc Hospitalists R74.8 Abnormal levels of other serum enzymes I73.9 Peripheral vascular disease, unspecified E87.70 Fluid overload, unspecified Office Visit 11/19/2018 10:00a [facility] Gennaro Rice MD R78.81 Bacteremia Assoc Hospitalists R74.8 Abnormal levels of other serum enzymes I73.9 Peripheral vascular disease, unspecified E87.70 Fluid overload, unspecified Office Visit 11/18/2018 10:11a [place] Mari Rey R78.81 Bacteremia Infectious Diseases Rere Millard B95.61 Methicillin suscep staph infct causing dis classd elswhr M54.9 Dorsalgia, unspecified M62.81 Muscle weakness (generalized) Office Visit 11/18/2018 9:59a [facility] Gennaro Rice MD R78.81 Bacteremia Assoc, Hospitalists I73.9 Peripheral vascular disease, unspecified I10 Essential (primary) hypertension Office Visit 11/17/2018 10:10a [facility] Jai Rye R78.81 Bacteremia Infectious Diseases Rere Millard B95.61 Methicillin suscep staph infct causing dis classd elswhr M54.9 Dorsalgia, unspecified I73.9 Peripheral vascular disease, unspecified Office Visit 11/17/2018 9:59a [facility] Efrem Rey R78.81 Bacteremia Assoc,fran Franco M.D.,[facility] Hospitalists R74.8 Abnormal levels of other serum enzymes E87.6 Hypokalemia Office Visit 11/16/2018 [facility] Jai Rey M51.26 Other 10:02a [...] Rowan, 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: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[facility] PA-C disc degeneration, lumbar region M48.061 Spinal stenosis, lumbar region without neurogenic wayne S32.000A Wedge compression fracture of unsp lumbar vertebra, init M51.34 Other intervertebral disc degeneration, thoracic region Office Visit 11/16/2018 9:59a [facility] Kay Hernandez, R65.21 Severe sepsis Assoc,fran Jernigan with septic Hospitalists shock A41.01 Sepsis due to Methicillin susceptible Staphylococcus aureus I73.9 Peripheral vascular disease, unspecified R33.9 Retention of urine, unspecified Office Visit 11/16/2018 3:31p [facility] Qutaradha S. R79.89 Other specified Rere Bender abnormal findings of blood chemistry A41.2 Sepsis due to unspecified staphylococcus Office Visit 11/15/2018 9:58a [facility] R65.21 Severe sepsis Assoc,pc [facility], with septic Hospitalists PLAYGROUND ATTENDANT shock N39.0 Urinary tract infection, site not specified I48.0 Paroxysmal atrial fibrillation R26.2 Difficulty in walking, not elsewhere classified Office Visit 11/15/2018 1:15p [facility] Lobo Rey R79.89 Other specified Of Ezequiel Mcintosh M.D. abnormal findings of blood chemistry R94.31 Abnormal electrocardiogram [ECG] [EKG] R53.83 Other fatigue R78.81 Bacteremia Assessments Date Code Description Provider 01/27/2019 B95.61 Methicillin susceptible Jai Millard M.D. Staphylococcus aureus infection as t 12/27/2018 B95.61 Methicillin susceptible Jai Millard M.D. Staphylococcus aureus infection as t 12/27/2018 Z79.2 [facility] (current) use of Jai Millard M.D. antibiotics 12/27/2018 G95.20 Unspecified cord compression Jai Millard M.D. 12/05/2018 B95.61 Methicillin susceptible Jai Millard M.D. Staphylococcus aureus infection as t 12/05/2018 Z79.2 penitentiary (current) use of Jai iMllard M.D. antibiotics 12/05/2018 G95.20 Unspecified cord compression Jai Millard M.D. 11/25/2018 R78.81 Bacteremia Thony Menchaca M.D. 11/25/2018 I10 Essential (primary) hypertension Thony Menchaca M.D. 11/25/2018 I73.9 Peripheral vascular disease, Thony Menchaca M.D. unspecified 11/25/2018 E87.1 Hypo-osmolality and hyponatremia Thony Menchaca M.D. 11/25/2018 R29.898 Oth symptoms and signs involving the Thony Menchaca M.D. musculoskeletal system 11/24/2018 R78.81 Bacteremia Keyla Sandoval, PLAYGROUND ATTENDANT 11/24/2018 E87.1 Hypo-osmolality and hyponatremia Thony Menchaca M.D. 11/24/2018 B95.61 Methicillin susceptible Keylawill Sandoval, VICKIE Staphylococcus aureus infection as t 11/24/2018 I73.9 Peripheral vascular disease, Thony Menchaca M.D. unspecified 11/24/2018 R53.1 Weakness Keylawill Sandoval, PLAYGROUND ATTENDANT 11/24/2018 R29.898 Oth symptoms and signs involving the Thony Menchaca M.D. musculoskeletal system 11/24/2018 G95.20 Unspecified cord compression Keyla Sandoval, VICKIE 11/24/2018 F10.10 Alcohol abuse, uncomplicated Thony Menchaca M.D. 11/23/2018 R78.81 Bacteremia Thony Menchaca M.D. 11/23/2018 E87.1 Hypo-osmolality and hyponatremia Thony Menchaca M.D. 11/23/2018 I73.9 Peripheral vascular diseaseThony M.D. unspecified 11/23/2018 I10 Essential (primary) hypertension [...] M.D. 11/17/2018 R78.81 Bacteremia Albin Shaffer M.D., [facility] 11/17/2018 R78.81 Bacteremia Efrem Franco M.D.,FACP [...] 11/16/2018 M48.061 Spinal stenosis, lumbar region Christellenacho KennyLORENZO perez-C without neurogenic wayne 11/16/2018 M51.26 Other intervertebral disc Jai Millard M.D. displacement, lumbar region 11/16/2018 S32.000A Wedge compression fracture of unsp Christelle Kennytz, PA-C lumbar vertebra, init 11/16/2018 A41.01 Sepsis due to Methicillin Kay Hernandez M.D. susceptible Staphylococcus aureus 11/16/2018 M51.34 Other intervertebral disc Christelle KennyLORENZO perez-C degeneration, thoracic region 11/16/2018 R79.89 Other specified abnormal findings of Mona Bender M.D. blood chemistry 11/16/2018 I73.9 Peripheral vascular disease, Kay Hernandez M.D. unspecified 11/16/2018 M48.061 Spinal stenosis, lumbar region Jai Millard M.D. without neurogenic wayne 11/16/2018 R33.9 Retention of urine, unspecelisa Hernandez M.D. 11/16/2018 A41.2 Sepsis due to [...] R65.21 Severe sepsis with septic shock Kaylan Alexander Doto, PLAYGROUND ATTENDANT 11/15/2018 R79.89 Other specified abnormal findings of [...] Lobo Mcintosh M.D. Plan of Treatment Future Appointment(s):02/03/2019 3:30 pm - LORENZO Yan at [facility] Functional Status Description No Information Available Mental Status Description No Information Available Referrals Refer to Reason for Referral Status Appt Date Carlos Martines MD 73 year old recent Staph sepsis, found to Sent have C and L spine disc disease with compression, currently in SNF, seen by neurosurgery when at [address] [address] [phone]
--- OUTSIDE RECORDS SUMMARY | 2019-03-21 05:43 | XMS REPORT | Continuity of Care Document ---
:1945 External Reference #:[id number] Author Name LORENZO Yan (transmitted by agent of provider Nadine Haile) Address [address] [place] [address] Care Team Providers Name Role Phone Arlette Vargas NP - Family Care Team Information Registry Rn [phone] Problems Description No Information Available Social History Type Date Description Comments Sex Unknown ETOH Use Consumes 1 six pack of beer per day Tobacco Use Start: Unknown Patient is a current smoker, smokes every day Tobacco Use Start: Unknown Heavy tobacco smoker (more states about 20 cigs qd than 10 cigarettes/day) Smoking Status Reviewed: 01/24/19 Heavy tobacco smoker (more states about 20 cigs qd than 10 cigarettes/day) Allergies, Adverse Reactions, Alerts Description No Known Drug Allergies Medications Active Medications SIG Qnty Indications Ordering Date Provider Aleve 1 by mouth twice a Unknown 220mg Capsules day as needed Tums 1 qd Unknown 500mg Chewtabs Simvastatin 1 by mouth every day Unknown 20mg Tablets Spiriva Respimat 1 puff by mouth every Unknown day 1.25mcg/Act Aerosol Tylenol 2 tablets every 4 Unknown 325mg hours as needed for Capsules pain Amlodipine Besylate 1 by mouth every day Unknown 5mg Tablets Aspirin 81 1 by mouth every day Unknown 81mg Tablets DR Bisacodyl insert 1 suppository Unknown 10mg rectally every 24 Suppository hours as needed for constipation, insert ideally after breakfast Colace 1 tab every 12 hours Unknown 100mg Capsules as needed for constipation Lovenox 1 injection Unknown 40mg/0.4ML subcutaneous every 24 Solution hours Lasix 1 by mouth once a day Unknown 40mg Tablets GNP Lidocaine Pain apply to skin daily. Unknown Relief 4% Patches Losartan Potassium 1 by mouth every day Unknown 100mg Tablets Oxycodone HCL 1 tabs by mouth every Unknown 5mg 6 hours as needed Tablets Flomax 1 by mouth every day Unknown 0.4mg Capsules History Medications Keflex take 1 tab by 28caps Jai Millard, 12/21/2018 - 500mg mouth twice M.D. 01/23/2019 Capsules daily x 14 days Immunizations Description No Information Available Vital Signs Date Vital Result Comment 01/24/2019 9:15am Height 71 inches 5'11" Weight 163.00 lb BMI (Body Mass Index) 22.7 kg/m2 12/27/2018 9:45am Height 71 inches 5'11" Weight 170.00 lb per pt Heart Rate 84 /min BP Systolic Sitting 130 mmHg BP Diastolic Sitting 70 mmHg Respiratory Rate 14 /min Body Temperature 97.9 F BMI (Body Mass Index) 23.7 kg/m2 Results Description No Information Available Procedures Date Code Description Status 11/17/2018 24188 Moderate Sedation Services; Same Phys Intl 15 Mins; PT >= Completed 5 Years 11/17/2018 58727 Color Flow Doppler/Interp & Reprt Completed 11/17/2018 07041 Pulse Wave/Continuous-Interp.RPT Completed 11/17/2018 86010 Echocardiography, Transesophageal, Real Time W/Image 2D Completed W/W/O M-M 11/15/2018 20661 ECHO Transthorasic Realtime 2D W Doppler & Color Flow Hosp Completed Medical Devices Description No Information Available Encounters Type Date Location Provider Dx Diagnosis Office Visit 12/27/2018 [facility] Jai Rey B95.61 Methicillin suscep 9:50a Infectious Rere Millard staph infct causing Diseases dis classd elshilarior Z79.2 intermediate (current) use of antibiotics G95.20 Unspecified cord compression Office Visit 12/05/2018 2:40p [facility] Jai Rey B95.61 Methicillin For Infectious Rere Millard suscep staph Diseases infct causing dis classd elshilarior Z79.2 intermediate (current) use of antibiotics G95.20 Unspecified cord compression Office Visit 11/25/2018 10:02a [facility] R78.81 Bacteremia Assfran walsh M.D. Hospitalists I10 Essential (primary) hypertension I73.9 Peripheral vascular disease, unspecified E87.1 Hypo-osmolality and hyponatremia R29.898 Oth symptoms and signs involving the musculoskeletal system Office [facility] R[facility].81 Bacteremia Infectious Sandoval, DIRECTOR OF DISTRICT OFFICE Diseases B95.61 Methicillin suscep staph infct causing dis classd elswhr R53.1 Weakness G95.20 Unspecified cord compression Office 11/24/2018 [facility] E87.1 Hypo-osmolality and Visit 10:01a fran Arboleda M.D. hyponatremia Hospitalists I73.9 Peripheral vascular disease, unspecified R29.898 Oth symptoms and signs involving the musculoskeletal system F10.10 Alcohol abuse, uncomplicated Office Visit 11/23/2018 10:01a [facility] R78.81 Bacteremia Assfran walsh M.D. Hospitalists E87.1 Hypo-osmolality and hyponatremia I73.9 Peripheral vascular disease, unspecified I10 Essential (primary) hypertension Office Visit 11/22/2018 1:02p [facility] Jai Rey R78.81 Bacteremia Infectious Diseases Rere Millard B95.61 Methicillin suscep staph infct causing dis classd elswhr M54.5 Low back pain G95.20 Unspecified cord compression Office Visit 11/22/2018 10:01a [facility] R78.81 Bacteremia fran Arboleda M.D. Hospitalists I73.9 Peripheral vascular disease, unspecified E87.1 Hypo-osmolality and hyponatremia R29.898 Oth symptoms and signs involving the musculoskeletal system Office Visit 11/21/2018 [facility] Gennaro Rice, R29.898 Oth symptoms and 10:00a fran Arboleda MD signs involving the Hospitalists musculoskeletal system I73.9 Peripheral vascular disease, unspecified E87.70 Fluid overload, unspecified Office Visit 11/20/2018 10:00a [facility] Gennaro Rice MD R78.81 Bacteremia Assoc, Hospitalists R74.8 Abnormal levels of other serum enzymes I73.9 Peripheral vascular disease, unspecified E87.70 Fluid overload, unspecified Office Visit 11/19/2018 10:00a [facility] Gennaro Rice MD R78.81 Bacteremia Assoc, Hospitalists R74.8 Abnormal levels of other serum enzymes I73.9 Peripheral vascular disease, unspecified E87.70 Fluid overload, unspecified Office Visit 11/18/2018 10:11a [facility] Rhiannon Rey R78.81 Bacteremia Infectious Diseases Rere Millard B95.61 Methicillin suscep staph infct causing dis classd elswhr M54.9 Dorsalgia, unspecified M62.81 Muscle weakness (generalized) Office Visit 11/18/2018 9:59a [facility] Gennaro Rice MD R78.81 Bacteremia Assoc, Hospitalists I73.9 Peripheral vascular disease, unspecified I10 Essential (primary) hypertension Office Visit 11/17/2018 10:10a [facility] Rhiannon Rey R78.81 Bacteremia Infectious Diseases Rere Millard B95.61 Methicillin suscep staph infct causing dis classd elswhr M54.9 Dorsalgia, unspecified I73.9 Peripheral vascular disease, unspecified Office Visit 11/17/2018 9:59a [facility] Efrem Rey R78.81 Bacteremia Assoc,fran Franco M.D.,FAC Hospitalists R74.8 Abnormal levels of other serum enzymes E87.6 Hypokalemia Office Visit 11/16/2018 [facility] Jai Rey M51.26 Other 10:02a For Infectious Rere Millard intervertebral disc Diseases displacement, lumbar region M48.061 Spinal stenosis, lumbar region without neurogenic wayne R78.81 Bacteremia B95.61 Methicillin suscep staph infct causing dis classd elswhr R79.89 Other specified abnormal findings of blood chemistry R09.89 Ot symptoms and signs involving the circ and resp systems Office Visit 11/16/2018 Neurosurgery Christelle Rowan, 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:06p [facility] PA-C disc degeneration, lumbar region M48.061 Spinal stenosis, lumbar region without neurogenic wayne S32.000A Wedge compression fracture of unsp lumbar vertebra, init M51.34 Other intervertebral disc degeneration, thoracic region Office Visit 11/16/2018 9:59a [facility] Kay Hernandez, R65.21 Severe sepsis Assocfran M.D. with septic Hospitalists shock A41.01 Sepsis due to Methicillin susceptible Staphylococcus aureus I73.9 Peripheral vascular disease, unspecified R33.9 Retention of urine, unspecified Office Visit 11/16/2018 3:31p [facility] Mona Tirado R79.89 Other specified Rere Bender abnormal findings of blood chemistry A41.2 Sepsis due to unspecified staphylococcus Office Visit 11/15/2018 9:58a [facility] Kaylan R65.21 Severe sepsis Assoc,fran Duque, with septic Hospitalists DIRECTOR OF DISTRICT OFFICE shock N39.0 Urinary tract infection, site not specified I48.0 Paroxysmal atrial fibrillation R26.2 Difficulty in walking, not elsewhere classified Office Visit 11/15/2018 1:15p [facility] Lobo Rey R79.89 Other specified Of Ezequiel Mcintosh M.D. abnormal findings of blood chemistry R94.31 Abnormal electrocardiogram [ECG] [EKG] R53.83 Other fatigue R78.81 Bacteremia Assessments Date Code Description Provider 12/27/2018 B95.61 Methicillin susceptible Jai Millard M.D. Staphylococcus aureus infection as t 12/27/2018 Z79.2 intermediate (current) use of Jai Millard M.D. antibiotics 12/27/2018 G95.20 Unspecified cord compression Jai Millard M.D. 12/05/2018 B95.61 Methicillin susceptible Jai Millard M.D. 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 antibiotics [...] musculoskeletal system 11/24/2018 R78.81 Bacteremia Keyla Sandoval, DIRECTOR OF DISTRICT OFFICE 11/24/2018 E87.1 Hypo-osmolality and hyponatremia Thony Menchaca M.D. 11/24/2018 B95.61 Methicillin susceptible Keyla Sandoval, VICKIE Staphylococcus aureus infection as t 11/24/2018 I73.9 Peripheral vascular disease, Thony Menchaca M.D. unspecified 11/24/2018 R53.1 Weakness Keyla Sandoval, DIRECTOR OF DISTRICT OFFICE 11/24/2018 R29.898 Oth symptoms and signs involving [...] enzymes 11/19/2018 I73.9 Peripheral vascular disease, Gennaro iRce MD unspecified 11/19/2018 E87.70 Fluid overload, unspecified [...] M.D. 11/17/2018 R78.81 Bacteremia Albin Shaffer M.D., [facility] 11/17/2018 R78.81 Bacteremia Efrem Franco M.D.,[facility] 11/17/2018 R78.81 Bacteremia Jai Millard M.D. 11/17/2018 R74.8 Abnormal levels of other serum Efrem Franco M.D.,[facility] enzymes 11/17/2018 B95.61 Methicillin suscep staph infct Jai Millard M.D. causing dis classd elswhr 11/17/2018 E87.6 Hypokalemia Efrem Franco M.D.,[facility] 11/17/2018 M54.9 Dorsalgia, unspecified Jai Millard M.D. 11/17/2018 I73.9 Peripheral vascular disease, Jai Millard M.D. unspecified 11/16/2018 M51.36 Other intervertebral disc Christelle Anum, PA-C degeneration, lumbar region 11/16/2018 R65.21 Severe sepsis with septic shock Kay Hernandez M.D. 11/16/2018 M48.061 Spinal stenosis, lumbar region Christelle Anum, PA-C without neurogenic wayne 11/16/2018 M51.26 Other intervertebral disc Jai Millard M.D. displacement, lumbar region 11/16/2018 S32.000A Wedge compression fracture of unsp Christelle Anum, PA-C lumbar vertebra, init 11/16/2018 A41.01 Sepsis due to Methicillin Kay Hernandez M.D. susceptible Staphylococcus aureus 11/16/2018 M51.34 Other intervertebral disc LORENZO Lal-C degeneration, thoracic region 11/16/2018 R79.89 Other specified [...] - LORENZO Yan at [facility]01/27/2019 9:30 am - Jai Millard M.D. at [facility] Functional Status Description No Information Available Mental Status Description No Information Available Referrals Refer to Reason for Referral Status Appt Date Carlos Martines MD 73 year old recent Staph sepsis, found to Sent have C and L spine disc disease with compression, currently in SNF, seen by neurosurgery when at [address] [address] [phone]
--- OUTSIDE RECORDS SUMMARY | 2019-03-21 05:43 | XMS REPORT | Continuity of Care Document ---
:1945 External Reference #:[id number] Author Name Arlette Vargas N.P. 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 thiazide day 100-12.5mg Tablets Meloxicam take one tablet 90tabs Arlette Vargas, 10/19/2017 15mg Tablets by mouth every N.P. day Spiriva Respimat inhale two puffs 12gm Arlette Vargas, 04/20/2017 by mouth every N.P. 2.5mcg/Act Aerosol day Simvastatin take one tablet 90tabs Arlette Vargas, 04/30/2014 20mg by mouth every N.P. Tablets day Amlodipine Besylate 1 by mouth every Unknown 5mg day Tablets Furosemide 1 by mouth every 30tabs Arlette Vargas, 40mg Tablets day N.P. Tamsulosin HCL 1 by mouth every 90caps SamCarlos whitearin, 0.4mg day N.P. Capsules Immunizations CPT Code Status Date Vaccine Lot # [id number] Given 04/19/2018 Influenza Vac, Quadrivalent, Split, 0.5mL Dosage, [id number] Im Use 40624 Given 04/20/2017 Influenza Vac, Quadrivalent, Split, 0.5mL Dosage, [id number] Im Use 99018 Given 07/21/2016 Prevnar 13 Pneumococal Conjugate Vaccine [id number] 68736 Given 04/13/2016 Influenza Vaccine,Quadrivalent,SplitVirus,Pres Free, Intradermal 99815 Given 04/08/2015 Influenza Vac, Quadrivalent, Split, 0.5mL Dosage, [id number] Im Use 80292 Given 05/12/2013 Tdap (Boostrix)tetanus, diptheria toxoid & [id number] acellular pertussis 99059 Given 04/27/2013 Pneumococcal 23 Immunization Adult Or [id number] Immunosuppressed Patient Q2038 Given 03/01/2013 Fluzone Trivalent Immunization Q2038 Given 03/01/2013 Fluzone Trivalent Immunization [id number] 35365 Given 03/01/2013 Zoster (Zostavax) Q2038 Given 04/27/2011 Fluzone Trivalent Immunization [id number] 31678 Given 03/11/2010 Afluria Or Fluvirin Flu Vac Intramuscular [id number] 36002 Given 12/03/1999 Immunization Td 7 Yrs Or Older 59078 Refused 03/27/2018 Influenza Vac, Quadrivalent, Split, 0.5mL Dosage, Im Use Vital Signs Date Vital Result Comment 01/26/2019 1:29pm Body Temperature 98.2 F Weight 161.50 lb Heart Rate 101 /min BP Systolic 118 mmHg BP Diastolic 60 mmHg O2 % BldC Oximetry 96 % 10/17/2018 8:58am Body Temperature 98.6 F Weight 167.38 lb Heart Rate 69 /min BP Systolic 142 mmHg BP Diastolic 80 mmHg Height 69 inches 5'9" O2 % BldC Oximetry 95 % BMI (Body Mass Index) 24.7 kg/m2 Results Test Date Facility Test Result [...] Male Egfr 89 >60 7 [facility] [place]17[place]2018 [facility] Sodium 133 mmol/L Low 135 [...] 20-99 16 1 This sample is drawn by:ss/cortney 2 Updated reference range on new analyzer [...] >189 Procedures Date Code Description Status 07/19/2014 59926881 Colonoscopy Completed Medical Devices Description No Information Available Encounters Type Date Location Provider Dx Diagnosis Office Visit 10/17/2018 Arlette Kent, E78.2 Mixed hyperlipidemia 9:00a N.P. I10 Essential (primary) hypertension J44.9 Chronic obstructive pulmonary disease, unspecified Z00.00 Encntr for general adult medical exam w/o abnormal findings Assessments Date Code Description Provider 01/26/2019 I10 Essential (primary) hypertension Arlette Vargas, N.P. 01/26/2019 J44.9 Chronic obstructive pulmonary disease, Arlette Vargas, N.P. unspecified 01/26/2019 A41.01 Sepsis due to Methicillin susceptible Arlette Vargas, N.P. Staphylococcus aureus 01/26/2019 I10 Ess[facility] (primary[facility] 10/17/2018 E78.2 Mixed hyperlipidemia Arlette Vargas, N.P. 10/17/2018 I10 Essential (primary) hypertension Arlette Vargas, N.P. 10/17/2018 J44.9 Chronic obstructive pulmonary disease, Arlette Vargas, N.P. unspecified 10/17/2018 Z00.00 Encntr for general adult medical exam w/o Arlette Vargas , N.P. abnormal findings 10/17/2018 E78.2 Mixed hyperlipidemia [facility] Plan of Treatment Future Appointment(s):04/27/2019 8:30 am - Arlette Vargas, NVenice at [id number] - Arlette Vargas, N.PMerleI10 Essential (primary) hypertensionComments:f/ u Dr. Mcintosh (saw patient in hospital for elevated troponin and suggested out patient stress test)HTN stable with current meds. Cont samept inst to monitor B /P at home/work 2-3 times per week and report abngoal: <140/90 5A' s for Cardiovascular Disease Counseling 1. ASSESS: Patient has I10 Essential ( primary) hypertension2. ADVISE: Discussed the importance of regular exercise, DASH diet, stress reduction, avoidance of NSAIDS and low cholesterol diet. Counseled on statin therapy. Encouraged aspirin use for the primary prevention of CVD as benefits outweigh the risks. Patient agrees to implement. 3. AGREE: Patient agrees to implement the modifications discussed today.4. ASSIST: Patient was offered nutritional therapy and provided information on the risks of cardiovascular disease.5. ARRANGE: We will follow-up at next visit to see how the patient has implemented the above changes. Time spent counseling the patient on CVD is 8 minutes 10 minutes 15 minutes CVD Screening Completed ( F6836)J44.9 Chronic obstructive pulmonary disease, unspecifiedComments:stable with spiriva qd, cont Spiriva and report worsening SOB counseled to stop simgehtH47.01 Sepsis due to Methicillin susceptible Staphylococcus aureusComments:stable, afebrile on exam todayhe will f/u Dr. Medina as plannedAllReferral:Lobo Mcintosh MD, Functional Status Description No Information Available Mental Status Description No Information Available Referrals Refer to Reason for Referral Status Appt Date Lobo Mcintosh MD need cardiac follow-up after hosp stay Created [address] [place] [address] [phone]
--- OUTSIDE RECORDS SUMMARY | 2019-03-21 05:43 | XMS REPORT | Continuity of Care Document ---
:1945 External Reference #:[id number] Author Name Rayne Dempsey Care Team Providers Name Role Phone Arlette Vargas NP - Family Care Team Information Cook Starch [phone] Problems Description No Information Available Social History [...] Available Procedures Date Code Description Status 11/17/2018 47817 Moderate Sedation Services; Same Phys Intl 15 Mins; PT >= Completed 5 Years 11/17/2018 21597 Color Flow Doppler/Interp & Reprt Completed 11/17/2018 14534 Pulse Wave/Continuous-Interp.RPT Completed 11/17/2018 49967 Echocardiography, Transesophageal, Real Time W/Image 2D Completed W/W/O M-M 11/15/2018 25903 ECHO Transthorasic Realtime 2D W Doppler & Color Flow Hosp Completed Medical Devices Description No Information Available Encounters Type Date Location Provider Dx Diagnosis Office Visit 01/27/2019 [facility] Jai Rey B95.61 Methicillin suscep 9:30a Ramesh Millard M.D. 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 Hospitalists I10 Essential (primary) hypertension I73.9 Peripheral vascular disease, unspecified E87.1 Hypo-osmolality and hyponatremia R29.898 Oth symptoms and signs involving the musculoskeletal system Office Visit 11/24/2018 8:54a [facility] Keyal Weiss R78.81 Bacteremia Infectious Sandoval, SENIOR OPERATIONS ANALYST Diseases B95.61 Methicillin suscep staph infct causing dis classd elswhr R53.1 Weakness G95.20 Unspecified cord compression Office 11/24/2018 [facility] E87.1 Hypo-osmolality and Visit 10:01a fran Arboleda M.D. hyponatremia Hospitalists I73.9 Peripheral vascular disease, unspecified R29.898 Oth symptoms and signs involving the musculoskeletal system F10.10 Alcohol abuse, uncomplicated [facility] fran Arboleda M.D. Hospitalists E87.1 Hypo-osmolality and hyponatremia I73.9 Peripheral vascular disease, unspecified I10 Essential (primary) hypertension Office Visit 11/22/2018 1:02p [facility] Rhiannon Rey R78.81 Bacteremia Infectious Diseases Rere Millard B95.61 Methicillin suscep staph infct causing dis classd elswhr M54.5 Low back pain G95.20 Unspecified cord compression Office [facility]/22[facility] fran Arboleda M.D. Hospitalists I73.9 Peripheral vascular disease, unspecified E87.1 Hypo-osmolality and hyponatremia R29.898 Oth symptoms and signs involving the musculoskeletal system Office Visit 11/21/2018 [facility] Gennaro Rice, R29.898 Oth symptoms and 10:00a fran Arboleda MD signs involving the Hospitalists musculoskeletal system I73.9 Peripheral vascular disease, unspecified E87.70 Fluid overload, unspecified Office Visit 11/20/2018 10:00a [facility] Gennaro Rice MD R78.81 Bacteremia Assoc Hospitalists R74.8 Abnormal levels of other serum enzymes I73.9 Peripheral vascular disease, unspecified E87.70 Fluid overload, unspecified Office Visit 11/19/2018 10:00a [place] Ricki Rice MD R78.81 Bacteremia Assoc Hospitalists R74.8 Abnormal levels of other serum enzymes I73.9 Peripheral vascular disease, unspecified E87.70 Fluid overload, unspecified Office Visit 11/18/2018 10:11a [facility] Rhiannon Rey R78.81 Bacteremia Infectious Diseases Rere Millard B95.61 Methicillin suscep staph infct causing dis classd elswhr M54.9 Dorsalgia, unspecified M62.81 Muscle weakness (generalized) Office Visit 11/18/2018 9:59a [facility] Gennaro Rice MD R78.81 Bacteremia Assoc, Hospitalists I73.9 Peripheral vascular disease, unspecified I10 Essential (primary) hypertension Office Visit 11/17/2018 10:10a [facility] For Jai Rey R78.81 Bacteremia Infectious Diseases Rere Millard B95.61 Methicillin suscep staph infct causing dis classd elswhr M54.9 Dorsalgia, unspecified I73.9 Peripheral vascular disease, unspecified Office Visit 11/17/2018 9:59a [facility] Efrem Rey R78.81 Bacteremia Assoc,fran Franco M.D.,[facility] Hospitalists R74.8 Abnormal levels of other serum enzymes E87.6 Hypokalemia Office Visit 11/16/2018 [facility] Jai Rey M51.26 Other 10:02a For [...] Rowan, 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:06p [facility]-C disc degeneration, lumbar region M48.061 Spinal stenosis, lumbar region without neurogenic wayne S32.000A Wedge compression fracture of unsp lumbar vertebra, init M51.34 Other intervertebral disc degeneration, thoracic region Office Visit 11/16/2018 9:59a [facility] Kay Hernandez, R65.21 Severe sepsis Assoc,fran Jernigan with septic Hospitalists shock A41.01 Sepsis due to Methicillin susceptible Staphylococcus aureus I73.9 Peripheral vascular disease, unspecified R33.9 Retention of urine, unspecified Office Visit 11/16/2018 3:31p [facility] Mona Tirado R79.89 Other specified Rere Bender abnormal findings of blood chemistry A41.2 Sepsis due to unspecified staphylococcus Office Visit 11/15/2018 9:58a [facility] R65.21 Severe sepsis Assoc,fran Duque, with septic Hospitalists SENIOR OPERATIONS ANALYST shock N39.0 Urinary tract infection, site not specified I48.0 Paroxysmal atrial fibrillation R26.2 Difficulty in walking, not elsewhere classified Office Visit 11/15/2018 1:15p [facility] Lobo Rey R79.89 Other specified Of [...] Staphylococcus aureus infection as t 12/27/2018 Z79.2 [facility] (current) use of Jai Millard M.D. antibiotics 12/27/2018 G95.20 Unspecified cord compression Jai Millard M.D. 12/05/2018 B95.61 Methicillin susceptible Jai Millard M.D. Staphylococcus aureus infection as t 12/05/2018 Z79.2 [facility] (current) use of Jai Millard M.D. antibiotics 12/05/2018 G95.20 Unspecified cord compression Jai Millard M.D. 11/25/2018 R78.81 Bacteremia Thony Menchaca M.D. 11/25/2018 I10 Essential (primary) hypertension Thony Menchaca M.D. 11/25/2018 I73.9 Peripheral vascular disease, Thony Menchaca M.D. unspecified 11/25/2018 E87.1 Hypo-osmolality and hyponatremia Tohny Menchaca M.D. 11/25/2018 R29.898 Oth symptoms and [...] 11/17/2018 R78.81 Bacteremia Albin Shaffer M.D., [facility] 11/17/2018 R78.81 Bacteremia Efrem Franco M.D.,FACP [...] SNF, seen by neurosurgery when at [address] [address] [phone]
[2019-03-21] MEDS ORDERED: Lactated Ringers 1000 ML Bag* 1,000 ML IV SCH ×2 (06:00→12:00)
[2019-03-21] MEDS ORDERED: Dexamethasone IV* 4 MG/ML 1 ML (4 MG) IV SLOW PU ONE (06:00)
[2019-03-21] MEDS ORDERED: Famotidine IV* 10 MG/ML 2 ML (20 mg) IV ONE (06:00)
[2019-03-21] MEDS ORDERED: Dexamethasone IV* 4 MG/ML 1 ML (4 MG) ONE ×2 (06:14→08:33)
[2019-03-21] MEDS ORDERED: Famotidine IV* 10 MG/ML 2 ML (20 mg) ONE (06:15)
[2019-03-21] MEDS ORDERED: ceFAZolin 2 GM PREMIX in ORs 2 GM/50 ML BAG ONE (06:15)
[2019-03-21] MEDS ORDERED: Bupivacaine 0.25% W/EPI* 10 ML SDV ONE (06:59)
[2019-03-21] MEDS ORDERED: Bacitracin INJECTION* 50,000 UNITS ONE ×2 (07:00→10:05)
[2019-03-21] MEDS ORDERED: fentaNYL* 50 MCG/ML 2 ML VIAL (100 MCG VIAL) ONE ×2 (07:08→11:08)
[2019-03-21] MEDS ORDERED: Midazolam* 1 MG/ML 2 ML VIAL (2 MG) ONE (07:09)
[2019-03-21] MEDS ORDERED: Remifentanil* 2 MG VIAL ONE (07:09)
[2019-03-21] MEDS ORDERED: Lidocaine 2% PF * 5 ML VIAL ONE (07:11)
[2019-03-21] MEDS ORDERED: Succinylcholine* 20 MG/ML 10 ML VIAL ONE (07:11)
[2019-03-21] MEDS ORDERED: Propofol* 10 MG/ML 20 ML BTL ONE (07:11)
[2019-03-21] MEDS ORDERED: Naloxone* 0.4 MG/ML 1 ML VIAL IV PRN (07:35)
[2019-03-21] MEDS ORDERED: oxyCODONE/Acetamin 5/325 MG* TAB PO PRN (07:35)
[2019-03-21] MEDS ORDERED: DiMENhydriNATE IV* 50 MG/ML VIAL IV PUSH PRN (07:35)
[2019-03-21] MEDS ORDERED: fentaNYL* 50 MCG/ML 2 ML VIAL (100 MCG VIAL) IV PRN (07:35)
[2019-03-21] MEDS ORDERED: HYDROcodone/ACETAMIN 5-325 MG* 1 TAB PO PRN (07:35)
[2019-03-21] MEDS ORDERED: Propofol* 500 MG/50 ML BTL ONE (07:46)
[2019-03-21] MEDS ORDERED: EPHEDrine (Pressors)* 50 MG/ML VIAL ONE (08:11)
[2019-03-21] MEDS ORDERED: Rocuronium* 10 MG/ML VIAL ONE (08:22)
[2019-03-21] MEDS ORDERED: Phenylephrine 10 MG/ML VIAL* 1 ML VIAL ONE (08:46)
[2019-03-21] MEDS ORDERED: Ondansetron INJ* 2 MG/ML VIAL ONE (10:42)
[2019-03-21] MEDS ORDERED: Glycopyrrolate IV* 0.2 MG/ML 1 ML VIAL ONE (10:49)
[2019-03-21] MEDS ORDERED: Neostigmine Methylsulfate* 3 MG/3 ML SYRINGE ONE (10:50)
[2019-03-21] MEDS ORDERED: Metoprolol Tartrate IV* 1 MG/ML 5 ML VIAL ONE (11:12)
[2019-03-21] MEDS ORDERED: Zolpidem TAB* 10 MG PO PRN (11:50)
[2019-03-21] MEDS ORDERED: Ondansetron INJ* 2 MG/ML VIAL IV PRN (11:50)
[2019-03-21] MEDS ORDERED: HYDROmorphone INJ* 0.5 MG/0.5 ML SYRINGE IV SLOW PU PRN (12:00)
[2019-03-21] MEDS ORDERED: Cyclobenzaprine TAB* 10 MG PO PRN (12:02)
--- NOTE | 2019-03-21 13:48 | OP ---
DATE OF OPERATION: 03/21/19 - ROOM #331 DATE OF : 41 SURGEON: Carlos Martines MD CHECKERING MACHINE OPERATOR: INDIO Briseno. The case was done with the assistance of surgical ACCOUNTING ADMINISTRATIVE ASSISTANT because of the complexity of the case. ANESTHESIA: General. PRE-OP DIAGNOSES: 1. Degenerative disk disease. 2. Cervical stenosis. 3. Cervical spondylotic myelopathy. POST-OP DIAGNOSES: 1. Degenerative disk disease. 2. Cervical stenosis. 3. Cervical spondylotic myelopathy. OPERATIVE PROCEDURE: The patient underwent posterior cervical decompression and fusion with C3 to C6 lateral mass screws and arthrodesis with locally harvested bone graft and DBX with intraoperative monitoring. ESTIMATED BLOOD LOSS: 40 cc. COMPLICATIONS: None. SUMMARY: The patient is a very pleasant 73-year-old gentleman, who was admitted to the hospital for sepsis. He was diagnosed with cervical spondylotic myelopathy and after his sepsis was treated, he was offered the option of surgical intervention. After explaining the expectations, limitations , and possible complications of the procedure to the patient and his family including his daughter and his with complications including, but not limited to bleeding, infection, risk of injury to adjacent structures, coma, paralysis, , need for additional procedures, anesthesia risks, stroke, blindness, cancer, instability, hardware failure, adjacent level disease, pseudoarthrosis, spinal fluid leak, postoperative hematoma, loss of bladder or bowel control, progressive spinal cord injury; the patient was agreeable to proceed with surgery and informed consent was obtained. The patient understood that operative plan may be modified according to intraoperative findings and conditions and that his condition may not improve and in fact may get worse after surgery. The patient understood that he may need to have additional procedures in the future. He also understood that the procedure may be aborted or done in more than 1 stages. The patient understood that he may require prolonged ICU stay, prolonged hospitalization, prolonged rehabilitation. The patient understood that numerous complications may ensue including deep venous thrombosis, pulmonary embolism, heart attack, and stroke. DESCRIPTION OF PROCEDURE: The patient was brought to the operating room and was placed under general anesthesia by the anesthesia team. He was carefully positioned prone on the Arnaud table and all bony prominences were meticulously padded. His skin was prepped and draped in the standard fashion and after appropriate surgical pause and patient identification, a midline incision over the spinous processes of C3 to C7 was marked on the skin. The skin was infiltrated with local anesthetic. A #10 surgical blade was used to incise the skin. The incision was carried down to the dorsal fascia with Bovie cautery. Self-retaining retractors were introduced into the field. The dorsal fascia was then divided in both sides of the midline with Bovie cautery and the paraspinal musculature was elevated with use of periosteal elevators and Bovie cautery in subperiosteal fashion. Self-retaining retractors were introduced further into the field and intraoperative fluoroscopic imaging confirmed appropriate surgical level. During exposure of the spinous process, lamina and facets with lateral mass for the C3 to C6, attention was brought to preserve the facets at C6-7. The left C2-3 facet was found to have significant hypertrophy with significant ankylosis and facet arthropathy as expected from the preoperative imaging. High-speed drill was used to perform the forestry pilot holes and after handheld drill and tap, 3.5 x 12 mm Medtronic Vertex screws were inserted in C3 to C6. Intraoperative fluoroscopic imaging confirmed excellent placement of all hardware. Two titanium rods were then measured and contoured in place and were connected to the 2 screw heads with screw head caps. The head caps were finally tightened with slight compression. High-speed drill was used to perform laminectomies between C3 to C6 with the superior part of C7 and then the inferior part of C2. Then, attention was brought to confirm excellent decompression of the spinal cord with use of #1 Kerrison. After meticulous hemostasis was achieved, after copious irrigation and meticulous inspection, the exposed bony surfaces and the facet joints were decorticated with high- speed drill. Locally harvested bone graft as well as DBX putty was used for graft material for the arthrodesis between the C3 and C6. Then, after copious irrigation, confirmation of meticulous hemostasis and meticulous inspection, the self-retaining retractors were removed and the wound was closed by layers over a Rosalio drain which was tunneled through a separate stab wound incision. 0 interrupted Vicryl sutures were used to approximate the dorsal fascia while the subcutaneous tissue was approximated with 2-0 interrupted Vicryl sutures. The skin incision was covered with Dermabond. At the end of the procedure, all counts were reported to be correct. The patient remained hemodynamically stable throughout the case. Intraoperative electrophysiological monitoring remained stable throughout the case. The case was done with the assistance of surgical ACCOUNTING ADMINISTRATIVE ASSISTANT because of the complexity of the case. [id number]/[facility] #: [id number] ANGEL
[2019-03-21] MEDS: HYDROcodone/ACETAMIN 5-325 MG* 1 TAB PO PRN ×2 (14:27→18:37)
[2019-03-21] MEDS ORDERED: traMADol TAB* 50 MG ONE (15:51)
[2019-03-21] MEDS ORDERED: Morphine TAB Extended Release (*) 30 MG TAB.ER ONE (15:52)
--- NOTE | 2019-03-21 19:46 | CONS ---
HOSPITAL MEDICINE CONSULTATION REPORT: DATE OF CONSULT: 03/21/19 PROVIDER: Tara Pace NP ATTENDING PHYSICIAN: Dr. Martines. CONSULTING PHYSICIAN: Dr. Mary Rondon (dictated by Tara Pace NP). REASON FOR CONSULT: Co-management of chronic medical conditions. HISTORY OF PRESENT ILLNESS: Mr. Collins is a 73-year-old male with a past medical history significant for spinal stenosis, hyperlipidemia, hypertension, COPD, recent history of MSSA sepsis in November of 2018, who presented to [facility] for an elective posterior cervical decompression and fusion from C3 to C6 with Dr. Martines. Please see dictated H and P from Dr. Martines for complete details. In brief, the patient had ongoing pain and failed conservative measures , therefore opted for an elective posterior cervical decompression with fusion C3 to C6 with Dr. Martines. In the immediate postoperative period, the patient has no complaints. He denies any fever, chills, unintended weight loss. Denies any chest pain or edema, cough, hemoptysis, shortness of breath. No nausea, vomiting, diarrhea, abdominal pain, hematuria, or dysuria. Denies any focal weakness or sensory loss, visual complaints, dysphagia, arthralgias, myalgias, rashes, lesions, open sores, psychosis or anxiety. Due to his chronic medical conditions of hypertension, COPD, and hyperlipidemia, Hospital Medicine was asked to see and evaluate for admission. PAST MEDICAL HISTORY: Significant for spinal stenosis; hyperlipidemia; hypertension; COPD; recent history of MSSA sepsis in November of 2018, completed 6- week course of IV antibiotics. PAST SURGICAL HISTORY: Tonsillectomy. HOME MEDICATIONS: Include: 1. Aspirin 81 mg p.o. daily. 2. Losartan/hydrochlorothiazide 100/12.5. 3. Meloxicam 15 mg. 4. Spiriva Respimat 2.5 mcg 2 puffs daily. 5. Simvastatin 20 mg p.o. daily. 6. Amlodipine 5 mg p.o. daily. 7. Tamsulosin 0.4 mg p.o. daily. ALLERGIES: No known drug allergies. FAMILY HISTORY: No reported history of coronary artery disease. Brother with diabetes. Mother from melanoma. SOCIAL HISTORY: The patient is . He lives with his . 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 He uses a walker when walking outside the house. He uses a cane inside the house. He is a full code. Surrogate decision maker in the event he is unable to make his own decisions is his daughter, Eladia, or , Laura. REVIEW OF SYSTEMS: A 14-point review of systems was completed. All pertinent positives are mentioned in the HPI. PHYSICAL EXAM: General: At this time, Mr. Collins is a 73-year-old male. He is alert and oriented, resting on the stretcher in PACU. He is in no acute distress. Vital Signs: Blood pressure 125/73, heart rate 91, respirations are 16, O2 saturation 97%, temperature was 97.7. HEENT: Head is atraumatic, normocephalic. Eyes: EOMs are intact. Sclerae anicteric and not pale. Oral mucosa appeared to be moist. Neck: He has an M J-collar intact. He does have LARA drain with small amount of bloody drainage. Lungs are clear to auscultation bilaterally. No wheezes, rales, or rhonchi. Cardiac: S1, S2. Regular rate and rhythm. No murmurs, rubs, or gallops. Abdomen is soft and nontender. Bowel sounds are present x4. Extremities: He is able to move all 4 extremities. There is no clubbing or cyanosis. Radial pulses are +2 bilaterally. Sensation is intact to all 4 extremities. Neurologic: He is awake, alert, oriented x3. Speech is clear. Thought process is intact. There are no gross focal deficits. Skin: He does have a dressing dry and intact to his posterior neck. DIAGNOSTIC STUDIES/LAB DATA: CBC from 03/14/19: WBCs are 4.8, RBCs 4.70, hemoglobin 13.5, hematocrit 40, platelet count is 290. INR was 0.97. Sodium 136, potassium 4.0, chloride 100, carbon dioxide was 28, anion gap was 8, BUN was 21, creatinine 0.75, glucose was 91. Urine was yellow, clear, pH was 6, specific gravity was 1.024, urine protein was negative, ketones were trace, urine blood was 1+, nitrites were negative, bilirubin and urobilinogen were all negative, leukocyte esterase was negative, urine wbc's were negative, rbc's were 3+, squamous epithelial cells were present, bacteria was absent, and glucose was negative. ASSESSMENT AND PLAN: Mr. Collins is a 73-year-old male who presented to [facility] for an elective posterior cervical decompression and fusion from C3 to C6 with Dr. Martines. Hospital Medicine was asked to consult due to his chronic medical conditions. Our recommendations are as follows: 1. Status post posterior cervical decompression with fusion C3 to C6. Management per Neurosurgery. PT/OT per Neurosurgery. Bowel regimen per Neurosurgery. Pain management per Neurosurgery. 2. Hypertension. I would hold losartan/ hydrochlorothiazide. He can continue his amlodipine with holding parameters for systolic blood pressure less than 110. 3. Chronic obstructive pulmonary disease. He should continue on Spiriva as previously prescribed. 4. FEN: He can have a regular diet. 5. Code status: He is a full code. 6. DVT prophylaxis: As per Neurosurgery. TIME SPENT: Time spent on this consultation was 60 minutes, greater than half that time was spent at the bedside reviewing events leading thus far to his hospitalization, performing physical exam, and reviewing my plan of care. I have discussed with my attending, Dr. Mary Rondon; she is in agreement with my plan. TARA PACE, VICKIE [id number]/[facility] #: [id number] ANGEL
[2019-03-21] MEDS: Docusate CAP* 100 MG PO SCH (21:00)
[2019-03-21] MEDS: Magnesium Hydroxide LIQ* 30 ML UDC PO PRN (21:00)
[2019-03-22] MEDS: HYDROcodone/ACETAMIN 5-325 MG* 1 TAB PO PRN ×4 (06:45→19:49)
[2019-03-22] MEDS ORDERED: Losartan TAB* 25 MG PO SCH (09:00)
[2019-03-22] MEDS: amLODIPine TAB* 5 MG PO SCH (09:16)
[2019-03-22] MEDS: Atorvastatin* 10 MG TAB PO SCH (09:16)
[2019-03-22] MEDS: Docusate CAP* 100 MG PO SCH ×2 (09:16→21:17)
[2019-03-22] MEDS: SPIRIVA Respimat* (tiotropium) 2.5 mcg/inh Inhaler INH SCH (09:41)
--- NOTE | 2019-03-22 10:58 | PN ---
Subjective Date of Service: 03/22/19 Interval History: patient reports mild soreness to his neck- controlled with pain medications, Denies upper extremity weakness or numbness. Denies chest pain or shortness of breath. Denies fever or chills. Denies abd pain n/v/d. Family History: Unchanged from Admission Social History: Unchanged from Admission Past Medical History: Unchanged from Admission Objective Active Medications: Acetaminophen (Tylenol Tab*) 650 mg PO Q4H PRN PRN Reason: MILD PAIN or TEMP > 100.4 Hydrocodone Bitart/Acetaminophen ([place] 5-325 Tab*) 1 tab PO Q4H PRN PRN Reason: moderate pain Last Admin: 03/21/19 18:37 Dose: 1 tab Hydrocodone Bitart/Acetaminophen ([place] 5-325 Tab*) 2 tab PO Q4H PRN PRN Reason: PAIN - SEVERE Last Admin: 03/22/19 06:45 Dose: 2 tab Amlodipine Besylate (Norvasc Tab*) 5 mg PO [facility] Last Admin: 03/22/19 09:16 Dose: 5 mg Atorvastatin Calcium (Lipitor*) 10 mg PO [facility] Last Admin: 03/22/19 09:16 Dose: 10 mg Cyclobenzaprine HCl (Flexeril Tab*) 10 mg PO TID PRN PRN Reason: SPASMS Last Admin: 03/21/19 21:00 Dose: 10 mg Docusate Sodium (Colace Cap*) 100 mg PO BID [facility] Last Admin: 03/22/19 09:16 Dose: 100 mg Hydromorphone HCl (Dilaudid Inj*) 0.5 mg IV SLOW PU Q4H PRN PRN Reason: PAIN - SEVERE Magnesium Hydroxide (Milk Of Magnesia Liq*) 30 ml PO DAILY PRN PRN Reason: CONSTIPATION Last Admin: 03/21/19 21:00 Dose: 30 ml Ondansetron HCl (Zofran Inj*) 4 mg IV Q6H PRN PRN Reason: NAUSEA/VOMITING Tiotropium [place] (Spiriva Respimat 2.5 Mcg) 2 puff INH [facility] Last Admin: 03/22/19 09:41 Dose: 2 puff Zolpidem Tartrate (Ambien Tab*) 10 mg PO BEDTIME PRN PRN Reason: INSOMNIA Vital Signs - 8 hr 03/22/19 03/22/1903/22/19 03:15 03:30 04:00 Temperature 98.4 F Pulse Rate 65 Respiratory 16 16 Rate Blood Pressure 130/65 (mmHg) O2 Sat by Pulse 99 97 Oximetry 03/22/19 03/22/19 03/22/19 06:45 07:25 08:00 Temperature 98 F Pulse Rate 70 Respiratory 16 17 17 Rate Blood Pressure 135/66 (mmHg) O2 Sat by Pulse 93 93 Oximetry 03/22/19 09:44 Temperature Pulse Rate Respiratory 20 Rate Blood Pressure (mmHg) O2 Sat by Pulse Oximetry Oxygen Devices in Use Now: None Appearance: appears comfortable resting in bed. No acute distress Eyes: No Scleral Icterus Ears/Nose/Mouth/Throat: Clear Oropharnyx, Mucous Membranes Moist Neck: NL Appearance and Movements; NL JVP, Trachea Midline, - - MJ collar in place, dressing intact to posterior neck Respiratory: Symmetrical Chest Expansion and Respiratory Effort, Clear to Auscultation Cardiovascular: NL Sounds; No Murmurs; No JVD, No Edema Abdominal: NL Sounds; No Tenderness; No Distention Extremities: No Edema, No Clubbing, Cyanosis Skin: No Rash or Ulcers Neurological: Alert and Oriented x 3 Nutrition: Taking PO's Result Diagrams: 03/23/19 00:47 03/23/19 00:47 Assess/Plan/Problems-Billing Assessment: Mr. Collins is a 73 y.o male with PMHx of spinal stenosis , COPD, HLD, HTN who had elective posterior cervical decompression with spinal fusion c3-6. - Patient Problems (1) S/P cervical spinal fusion Current Visit: Yes Status: Acute Code(s): Z98.1 - ARTHRODESIS STATUS SNOMED Code(s): 7888616288914 Comment: management per neurosurgery -PT/OT per neurosurgery - Pain management per neurosurgery (2) COPD (chronic obstructive pulmonary disease) Current Visit: Yes Status: Acute Code(s): J44.9 - CHRONIC OBSTRUCTIVE PULMONARY DISEASE, UNSPECIFIED SNOMED Code(s): 65411699 Comment: Continue Spiriva (3) Hypertension Current Visit: No Status: Acute Code(s): I10 - ESSENTIAL (PRIMARY) HYPERTENSION SNOMED Code(s): 87890119 Comment: - continue amlodipine 5 mg daily, hold losartan and hctz - will monitor blood pressure and resume home losartan as able (4) HLD (hyperlipidemia) Current Visit: No Status: Acute Code(s): E78.5 - HYPERLIPIDEMIA, UNSPECIFIED SNOMED Code(s): 74125122 Comment: -continue atrovastatin 10 mg (5) DVT prophylaxis Current Visit: No Status: Acute Priority: Low Code(s): Z29.9 - ENCOUNTER FOR PROPHYLACTIC MEASURES, UNSPECIFIED SNOMED Code(s): 079568110 Comment: SCd's (6) Full code status Current Visit: Yes Status: Acute Code(s): Z78.9 - OTHER SPECIFIED HEALTH STATUS SNOMED Code(s): 128179531
--- NOTE | 2019-03-22 20:27 | PN ---
Progress Note - Progress Note Date of Service: 03/22/19 SOAP: Subjective: [] Patient seen and examined earlier today. No events ON. Tolerated procedure well yesterday. On cervical collar. Ambulated this am. Voids. Tolerates po well. Pain well controlled Objective: []VSS, Afebrile Drain output noted. Drain was removed. Catheter appeared to be intact, No complications. Patient tolerated the procedure well. Wound s,c,d AAOx3, ERIKA, CN II-XII grossly intact Motor 5/5 all extremities, improved preop Lt shoulder abduction weakness Sensory grossly intact to light touch. 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 Appreciate Im care. Chastity Martines MD
[2019-03-22] MEDS: Magnesium Hydroxide LIQ* 30 ML UDC PO PRN (21:17)
[2019-03-22] MEDS ORDERED: hydrOXYzine HCL TAB* 25 MG PO ONE (22:09)
[2019-03-23 00:57] LABS: ABS Lymphocytes 0.7 10^3/ul (1.0-4.8); ABS Monocytes 0.8 10^3/ul (0-0.8); ABS Neutrophils 9.4 10^3/ul (1.5-7.7); Eosinophil % 0.1 %; Hematocrit 38 % (42-52); Hemoglobin 13.1 g/dL (14.0-18.0); Mean Corpuscular HGB Conc 34 g/dL (31-36); Mean Corpuscular Hemoglobin 29 pg (27-31); Mean Corpuscular Volume 84 fL (80-94); Platelet Count 291 10^3/uL (150-450); Red Blood Count 4.53 10^6 /uL (4.18-5.48); Red Cell Distribution Width 15 % (10-15); White Blood Count 10.9 10^3/uL (3.5-10.8)
[2019-03-23] MEDS ORDERED: Albuterol/Ipratropium NEB.SOL* Albuterol 2.5 MG/Ipratropium 0.5 MG 3 ML INH PRN (01:04)
[2019-03-23 01:15] LABS: Albumin 3.5 g/dL (3.2-5.2); Albumin/Globulin Ratio 1.5 (1-3); BUN/Creatinine Ratio 27.9 (8-20); Calcium 8.7 mg/dL (8.6-10.3); EGFR African American 137.6 (>60); EGFR Non-African American 113.7 (>60); Globulin 2.3 g/dL (2-4); Magnesium 1.9 mg/dL (1.9-2.7); Potassium 4.2 mmol/L (3.5-5.0); Total Bilirubin 0.5 mg/dL (0.2-1.0); Total Protein 5.8 g/dL (6.4-8.9); Troponin I 0.03 ng/mL (<0.04)
[2019-03-23 04:43] LABS: C Reactive Protein 101.78 mg/L (<8.01)
[2019-03-23 05:40] LABS: Urine Appearance Clear; Urine Bacteria Absent (Absent); Urine Bilirubin Negative (Negative); Urine Blood 3+ (Negative); Urine Color Yellow; Urine Glucose Negative (Negative); Urine Ketones Negative (Negative); Urine Nitrite Negative (Negative); Urine Protein Negative (Negative); Urine Red Blood Cell 3+(>10/hpf) (Absent); Urine Specific Gravity 1.028 (1.010-1.030); Urine Urobilinogen Negative (Negative); Urine White Blood Cell Trace(0-5/hpf) (Absent)
[2019-03-23] MEDS ORDERED: NS 0.9% 500 ML* 500 ML IV ONE (05:53)
[2019-03-23] MEDS ORDERED: diPHENhydraMINE IV* 50 MG/ML 1 ml VIAL (BENADRYL) IM ONE (05:56)
[2019-03-23] MEDS ORDERED: Ranitidine IV (NF) 50 MG in NS 0.9% 50 ML* 50 ML IVPB SCH (06:00)
[2019-03-23] MEDS ORDERED: diPHENhydraMINE IV* 50 MG/ML 1 ml VIAL (BENADRYL) ONE (06:05)
[2019-03-23] MEDS ORDERED: methylPREDNISolone SOD 40 MG* 1 ML VIAL ONE (06:05)
[2019-03-23] MEDS: methylPREDNISolone SOD 40 MG* 1 ML VIAL IV SCH ×2 (06:12→17:52)
[2019-03-23] MEDS ORDERED: diPHENhydraMINE IV* 50 MG/ML 1 ml VIAL (BENADRYL) SLOW PUSH ONE (06:18)
[2019-03-23] MEDS: Famotidine IV* 10 MG/ML 2 ML (20 mg) IV SCH ×2 (06:31→22:43)
[2019-03-23] MEDS: SPIRIVA Respimat* (tiotropium) 2.5 mcg/inh Inhaler INH SCH ×2 (06:34→07:17)
[2019-03-23] MEDS: Mometasone/Formoter 200/5 MDI INH SCH ×2 (07:17→22:46)
[2019-03-23] MEDS: HYDROcodone/ACETAMIN 5-325 MG* 1 TAB PO PRN ×2 (07:37→12:03)
--- NOTE | 2019-03-23 08:35 | PN ---
Hospitalist Progress Note Date of Service: 03/23/19 Pt before midnight with some itchy red hands and hives on legs/arms. Atarax given(he had also requested sleep aid). No clear new medications. Only antibiotics was cefazolin with his surgery day and half ago. Called again around 2300 after was found to be hypoxic and placed on oxygen. spiked near fever 100.1 (is getting some acetaminophen with his [place]) and tachycardia (has had post surgical neck pain). No labs during this admission. CXR obtained, no acute infiltrate. duo nebs prn and dulera added. some chest pressure. CBC(slight leukocytosis), CMP, lactic acid, CRP(elevated 102), Mag, troponin drawn, BNP(134, better than previous). Called ~530am.. Hives on back and more confluent on legs. no angioedema evident. Tachy to 150 (EKG with sinus tach with bigemeny) BP 126/12 . 500 cc NS bolus given. Some tightness and slight wheezing on exam. Benadryl 50mg IV, pepcid 20mg IV, 500 cc NS bolus and solumedrol 40mg IV given.
[2019-03-23] MEDS: Docusate CAP* 100 MG PO SCH ×2 (09:29→22:40)
[2019-03-23] MEDS: amLODIPine TAB* 5 MG PO SCH (09:29)
[2019-03-23] MEDS: Atorvastatin* 10 MG TAB PO SCH (09:29)
[2019-03-23] MEDS: diPHENhydraMINE PO* 25 MG PO PRN ×2 (12:13→18:41)
[2019-03-23] MEDS ORDERED: oxyCODONE/Acetamin 5/325 MG* TAB PO PRN (14:54)
--- NOTE | 2019-03-23 15:02 | PN ---
Subjective Date of Service: 03/23/19 Interval History: Mr. Collins is feeling better this morning on exam. He had a rough night d/t rash and itching. That was relieved with Benadryl. He reports he had a reaction on his scalp years ago while in a rehab and this resolved when he went home. Denies CP, SOB, N/V. Nursing called late morning to report recurrence of itching and rash on palms. Family History: Unchanged from Admission Social History: Unchanged from Admission Past Medical History: Unchanged from Admission Objective Active Medications: Acetaminophen (Tylenol Tab*) 650 mg PO Q4H PRN MILD PAIN or TEMP > 100.4 Hydrocodone Bitart/Acetaminophen ([place] 5-325 Tab*) 1 tab PO Q4H PRN moderate pain Hydrocodone Bitart/Acetaminophen ([place] 5-325 Tab*) 2 tab PO Q4H PRN PAIN - SEVERE Albuterol/Ipratropium (Duoneb (Albuterol 2.5 Mg/Ipratropium 0.5 Mg)) 1 neb INH Q6H PRN SOB/WHEEZING Amlodipine Besylate (Norvasc Tab*) 5 mg PO QAM [facility] Atorvastatin Calcium (Lipitor*) 10 mg PO QAM [facility] Cyclobenzaprine HCl (Flexeril Tab*) 10 mg PO TID PRN SPASMS Diphenhydramine HCl (Benadryl Po*) 25 mg PO Q6H PRN ITCHING Docusate Sodium (Colace Cap*) 100 mg PO BID [place] Famotidine (Pepcid Iv*) 20 mg IV BID [place] Hydromorphone HCl (Dilaudid Inj*) 0.5 mg IV SLOW PU Q4H PRN PAIN - SEVERE Magnesium Hydroxide (Milk Of Magnesia Liq*) 30 ml PO DAILY PRN CONSTIPATION Methylprednisolone Sodium Succinate (Solu-Medrol 40 Mg) 40 mg IV Q12H ROSA Mometasone Furoate/Formoterol Fumar (Dulera 200/5 Mdi*) 2 puff INH BID [facility] Ondansetron HCl (Zofran Inj*) 4 mg IV Q6H PRN NAUSEA/VOMITING Tiotropium [place] (Spiriva Respimat 2.5 Mcg) 2 puff INH QAM [place] Zolpidem Tartrate (Ambien Tab*) 10 mg PO BEDTIME PRN INSOMNIA Vital Signs - 8 hr 03/23/19 03/23/19 03/23/19 07:16 07:37 07:41 Temperature 97.3 F Pulse Rate 100 Respiratory 18 18 18 Rate Blood Pressure 129/75 (mmHg) O2 Sat by Pulse 96 96 Oximetry 03/23/19 03/23/19 03/23/19 10:22 11:46 12:03 Temperature 97.8 F Pulse Rate 83 Respiratory 18 20 18 Rate Blood Pressure 124/69 (mmHg) O2 Sat by Pulse 90 Oximetry Oxygen Devices in Use Now: None Appearance: Elderly male lying in bed in [facility], [place] J collar in place Ears/Nose/Mouth/Throat: Mucous Membranes Moist Neck: NL Appearance and Movements; NL JVP, Trachea Midline Respiratory: Symmetrical Chest Expansion and Respiratory Effort, Clear to Auscultation Cardiovascular: NL Sounds; No Murmurs; No JVD, RRR Abdominal: NL Sounds; No Tenderness; No Distention Extremities: No Edema Neurological: Alert and Oriented x 3 Lines/Tubes/Other Access: Clean, Dry and Intact Peripheral IV Nutrition: Taking PO's Result Diagrams: 03/23/19 00:47 03/23/19 00:47 Assess/Plan/Problems-Billing Assessment: Mr. Collins is a 73 yo male with PMH of spinal stenosis , COPD, HLD, HTN who had elective posterior cervical decompression with spinal fusion c3-6. - Patient Problems (1) S/P cervical spinal fusion Code(s): Z98.1 - ARTHRODESIS STATUS Comment: - POD #2 - Management per Neurosurgery - PT/OT - Continue pain management (2) Allergic reaction Code(s): T78.40XA - ALLERGY, UNSPECIFIED, INITIAL ENCOUNTER Comment: - Began overnight with hypoxia, low-grade fever, hives on back and legs, tachycardia; symptoms resolved but rash and itching recurred late this morning - Unknown source; drug vs bedsheets vs ? - Posible that this is r/t hydrocodone as this is a new medication in the hospital; will switch to oxycodone to see if symptoms improve - Continue Solu-Medrol, Benadryl PRN (3) COPD (chronic obstructive pulmonary disease) Code(s): J44.9 - CHRONIC OBSTRUCTIVE PULMONARY DISEASE, UNSPECIFIED Comment: - Continue Spiriva, Dulera (4) Hypertension Code(s): I10 - ESSENTIAL (PRIMARY) HYPERTENSION Comment: - Normotensive - Hold losartan and HCTZ - Continue amlodipine (5) HLD (hyperlipidemia) Code(s): E78.5 - HYPERLIPIDEMIA, UNSPECIFIED Comment: - Continue atorvastatin (6) DVT prophylaxis Code(s): Z29.9 - ENCOUNTER FOR PROPHYLACTIC MEASURES, UNSPECIFIED Comment: - SCDs (7) Full code status Code(s): Z78.9 - OTHER SPECIFIED HEALTH STATUS Comment: Status and Disposition: Inpatient. Anticipate d/c to [facility]. Attending: Efrem Franco
[2019-03-23] MEDS: oxyCODONE/Acetamin 5/325 MG* TAB PO PRN (18:41)
[2019-03-24 05:40] LABS: BUN/Creatinine Ratio 26.5 (8-20); Calcium 8.5 mg/dL (8.6-10.3); EGFR African American 137.6 (>60); EGFR Non-African American 113.7 (>60); Potassium 4.3 mmol/L (3.5-5.0)
[2019-03-24] MEDS: methylPREDNISolone SOD 40 MG* 1 ML VIAL IV SCH ×2 (05:52→18:07)
[2019-03-24] MEDS: Mometasone/Formoter 200/5 MDI INH SCH ×2 (08:12→19:15)
[2019-03-24] MEDS: SPIRIVA Respimat* (tiotropium) 2.5 mcg/inh Inhaler INH SCH (08:13)
[2019-03-24] MEDS ORDERED: Bisacodyl SUPP* 10 MG SUPP ONE (09:27)
[2019-03-24] MEDS: Famotidine IV* 10 MG/ML 2 ML (20 mg) IV SCH ×3 (09:35→22:22)
[2019-03-24] MEDS: diPHENhydraMINE PO* 25 MG PO PRN (09:35)
[2019-03-24] MEDS: Docusate CAP* 100 MG PO SCH ×2 (09:36→22:22)
[2019-03-24] MEDS: amLODIPine TAB* 5 MG PO SCH (09:36)
[2019-03-24] MEDS: Atorvastatin* 10 MG TAB PO SCH (09:36)
[2019-03-24] MEDS ORDERED: Bisacodyl SUPP* 10 MG SUPP PR ONE (10:00)
--- NOTE | 2019-03-24 14:21 | PN ---
Subjective Date of Service: 03/24/19 Interval History: Patient is feeling well. Patient has itching on his hands and back which is improving. Patient denies F/C, N/V, abdominal pain, diarrhea, CP, SOB, diarrhea , or other pain. Patient has some pain with movement of his neck, but no radiating pain and no pain at rest. Family History: Unchanged from Admission Social History: Unchanged from Admission Past Medical History: Unchanged from Admission Objective Active Medications: Acetaminophen (Tylenol Tab*) 650 mg PO Q4H PRN PRN Reason: MILD PAIN or TEMP > 100.4 Albuterol/Ipratropium (Duoneb (Albuterol 2.5 Mg/Ipratropium 0.5 Mg)) 1 neb INH Q6H PRN PRN Reason: SOB/WHEEZING Amlodipine Besylate (Norvasc Tab*) 5 mg PO QAM [facility] Last Admin: 03/24/19 09:36 Dose: 5 mg Atorvastatin Calcium (Lipitor*) 10 mg PO QAM [facility] Last Admin: 03/24/19 09:36 Dose: 10 mg Cyclobenzaprine HCl (Flexeril Tab*) 10 mg PO TID PRN PRN Reason: SPASMS Last Admin: 03/21/19 21:00 Dose: 10 mg Diphenhydramine HCl (Benadryl Po*) 25 mg PO Q6H PRN PRN Reason: ITCHING Last Admin: 03/24/19 09:35 Dose: 25 mg Docusate Sodium (Colace Cap*) 100 mg PO BID [facility] Last Admin: 03/24/19 09:36 Dose: 100 mg Famotidine (Pepcid Iv*) 20 mg IV BID [facility] Last Admin: 03/24/19 09:40 Dose: Not Given Magnesium Hydroxide (Milk Of Magnesia Liq*) 30 ml PO DAILY PRN PRN Reason: CONSTIPATION Last Admin: 03/22/19 21:17 Dose: 30 ml Methylprednisolone Sodium Succinate (Solu-Medrol 40 Mg) 40 mg IV Q12H [facility] Last Admin: 03/24/19 05:52 Dose: 40 mg Mometasone Furoate/Formoterol Fumar (Dulera 200/5 Mdi*) 2 puff INH BID [facility] Last Admin: 03/24/19 08:12 Dose: 2 puff Ondansetron HCl (Zofran Inj*) 4 mg IV Q6H PRN PRN Reason: NAUSEA/VOMITING Oxycodone/Acetaminophen (Percocet 5/325 Tab*) 1 tab PO Q4H PRN PRN Reason: PAIN - MODERATE Last Admin: 03/24/19 07:23 Dose: 1 tab Oxycodone/Acetaminophen (Percocet 5/325 Tab*) 2 tab PO Q4H PRN PRN Reason: PAIN - SEVERE Last Admin: 03/23/19 18:41 Dose: 2 tab Tiotropium [place] (Spiriva Respimat 2.5 Mcg) 2 puff INH QAM [facility] Last Admin: 03/24/19 08:13 Dose: 2 puff Zolpidem Tartrate (Ambien Tab*) 10 mg PO BEDTIME PRN PRN Reason: INSOMNIA Vital Signs - 8 hr 03/24/19 03/24/19 03/24/19 07:16 07:23 07:53 Temperature 98.2 F Pulse Rate 74 Respiratory 16 16 16 Rate Blood Pressure 115/73 (mmHg) O2 Sat by Pulse 96 Oximetry 03/24/19 03/24/19 03/24/19 09:23 09:35 11:28 Temperature 98.2 F Pulse Rate 80 Respiratory 16 16 22 Rate Blood Pressure 138/52 (mmHg) O2 Sat by Pulse 93 Oximetry 03/24/19 12:42 Temperature Pulse Rate Respiratory 16 Rate Blood Pressure (mmHg) O2 Sat by Pulse Oximetry Oxygen Devices in Use Now: None Appearance: Patient is a 73yo male who appears older than stated age and is sitting in the bed in [facility]. Eyes: No Scleral Icterus, PERRLA Ears/Nose/Mouth/Throat: NL Teeth, Lips, Gums, Clear Oropharnyx, Mucous Membranes Moist Neck: NL Appearance and Movements; NL JVP, Trachea Midline, - - Surgical Incision not visualized, [place]-J collar in place. Respiratory: Symmetrical Chest Expansion and Respiratory Effort, Clear to Auscultation Cardiovascular: NL Sounds; No Murmurs; No JVD, RRR, No Edema Abdominal: NL Sounds; No Tenderness; No Distention, No Hepatosplenomegaly Lymphatic: No Cervical Adenopathy Extremities: No Edema, No Clubbing, Cyanosis Skin: No Nodules or Sclerosis, - - Macular Rash on Hands and Back Neurological: Alert and Oriented x 3, NL Sensation, NL Gait, NL Muscle Strength and Tone, - - CN II-XII intact. Result Diagrams: 03/23/19 00:47 03/24/19 04:53 Microbiology and Other Data: Microbiology 03/23/19 02:35 Urine Culture - Final Urine No Growth (<1,000 CFU/mL) 03/23/19 00:47 Aerobic Blood Culture - Preliminary Blood Venous No Growth Day 1 Anaerobic Blood Culture - Preliminary No Growth Day 1 Assess/Plan/Problems-Billing Assessment: Mr. Collins is a 73 yo male with PMH of spinal stenosis , COPD, HLD, HTN who had elective posterior cervical decompression with spinal fusion c3-6 and is doing well post-op. - Patient Problems (1) S/P cervical spinal fusion Current Visit: Yes Status: Acute Code(s): Z98.1 - ARTHRODESIS STATUS SNOMED Code(s): 4978688747467 Comment: - POD #3 - Management per Neurosurgery - PT/OT - Continue pain management - Pending placement due to concerns with safety at home. (2) Allergic reaction Current Visit: Yes Status: Acute Code(s): T78.40XA - ALLERGY, UNSPECIFIED, INITIAL ENCOUNTER SNOMED Code(s): 322985612 Comment: - Began overnight on 03/23 with hypoxia, low-grade fever, hives on back and legs , tachycardia; symptoms resolved but rash and itching recurred late this morning - Unknown source; drug vs bedsheets vs food vs ? - Posible that this is r/t hydrocodone as this is a new medication in the hospital; will switch to oxycodone to see if symptoms improve - Triple Washed Bed Sheets. - Continue Solu-Medrol, Benadryl PRN - Rash on back and hands improving (3) COPD (chronic obstructive pulmonary disease) Current Visit: Yes Status: Acute Code(s): J44.9 - CHRONIC OBSTRUCTIVE PULMONARY DISEASE, UNSPECIFIED SNOMED Code(s): 77481678 Comment: - Continue Spiriva, Dulera - No in acute exacerbation, no wheezing. (4) Hypertension Current Visit: No Status: Acute Code(s): I10 - ESSENTIAL (PRIMARY) HYPERTENSION SNOMED Code(s): 68449121 Comment: - Normotensive - Hold losartan and HCTZ - Continue amlodipine (5) Hyponatremia Current Visit: No Status: Acute Code(s): E87.1 - HYPO-OSMOLALITY AND HYPONATREMIA SNOMED Code(s): 95405779 Comment: - Mild - Due to unclear cause, possibly post-op meds and fluids - No overt symptoms, continue to monitor. (6) PAD (peripheral artery disease) Current Visit: No Status: Acute Code(s): I73.9 - PERIPHERAL VASCULAR DISEASE , UNSPECIFIED SNOMED Code(s): 918568475 Comment: - Not active issue. - Good Pulses in feet (7) Full code status Current Visit: Yes Status: Acute Code(s): Z78.9 - OTHER SPECIFIED HEALTH STATUS SNOMED Code(s): 799244187 Comment: (8) DVT prophylaxis Current Visit: No Status: Acute Priority: Low Code(s): Z29.9 - ENCOUNTER FOR PROPHYLACTIC MEASURES, UNSPECIFIED SNOMED Code(s): 047744941 Comment: - SCDs Status and Disposition: Inpatient. Anticipate d/c to [facility], pending bed.
[2019-03-24] MEDS: Acetaminophen TAB* 325 MG PO PRN (18:10)
--- NOTE | 2019-03-24 21:31 | PN ---
Progress Note - Progress Note Date of Service: 03/24/19 SOAP: Subjective: [] Patient seen and examined earlier today and yesterday. Yesterday reported episode of pruritus. No events ON. On cervical collar. Ambulated this am. Voids. Tolerates po well. Pain well controlled Objective: []]VSS, Afebrile Wound s,c,d AAOx3, ERIKA, CN II-XII grossly intact Motor 5/5 all extremities, improved preop Lt shoulder abduction weakness, Now can abduct both UEs above shoulder level well. Sensory grossly intact to light touch. 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 Appreciate IM care. Chastity Martines MD
[2019-03-25] MEDS: methylPREDNISolone SOD 40 MG* 1 ML VIAL IV SCH (06:20)
[2019-03-25] MEDS: Famotidine IV* 10 MG/ML 2 ML (20 mg) IV SCH ×2 (10:45→20:51)
[2019-03-25] MEDS: Atorvastatin* 10 MG TAB PO SCH (11:15)
[2019-03-25] MEDS: amLODIPine TAB* 5 MG PO SCH (11:15)
[2019-03-25] MEDS: Acetaminophen TAB* 325 MG PO PRN (11:16)
[2019-03-25] MEDS: Docusate CAP* 100 MG PO SCH ×2 (11:16→20:50)
[2019-03-25] MEDS: Mometasone/Formoter 200/5 MDI INH SCH ×2 (11:17→19:37)
[2019-03-25] MEDS: SPIRIVA Respimat* (tiotropium) 2.5 mcg/inh Inhaler INH SCH (11:18)
[2019-03-25] MEDS: Magnesium Hydroxide LIQ* 30 ML UDC PO PRN (11:20)
--- NOTE | 2019-03-25 13:20 | PN ---
Progress Note - Progress Note Date of Service: 03/25/19 SOAP: Subjective: []Patient is doing very well. No events ON. On cervical collar. Ambulates. Voids. Tolerates po well. Pain well controlled. Objective: []]VSS, Afebrile Wound s,c,d AAOx3, ERIKA, CN II-XII grossly intact Motor 5/5 all extremities, can abduct both UEs above shoulder level well. Sensory grossly intact to light touch. 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 Patient has a bed in rehab on Wednesday. PT. If more improved before Wednesday, may consider DC home. Appreciate IM care. Chastity Martines MD
--- NOTE | 2019-03-25 14:00 | PN ---
Subjective Date of Service: 03/25/19 Interval History: Patient is complaining of B/L aching, non-radiating shoulder pain. Patient states this is worst when using a walker and not exacerbated much by other movements. Patient denies CP, SOB, Dizziness, abdominal pain, diarrhea, F/C, radiating pain, or other pain. Family History: Unchanged from Admission Social History: Unchanged from Admission Past Medical History: Unchanged from Admission Objective Active Medications: Acetaminophen (Tylenol Tab*) 650 mg PO Q4H PRN PRN Reason: MILD PAIN or TEMP > 100.4 Last Admin: 03/25/19 11:16 Dose: 650 mg Albuterol/Ipratropium (Duoneb (Albuterol 2.5 Mg/Ipratropium 0.5 Mg)) 1 neb INH Q6H PRN PRN Reason: SOB/WHEEZING Amlodipine Besylate (Norvasc Tab*) 5 mg PO QAM [facility] Last Admin: 03/25/19 11:15 Dose: 5 mg Atorvastatin Calcium (Lipitor*) 10 mg PO QAM [facility] Last Admin: 03/25/19 11:15 Dose: 10 mg Cyclobenzaprine HCl (Flexeril Tab*) 10 mg PO TID PRN PRN Reason: SPASMS Last Admin: 03/21/19 21:00 Dose: 10 mg Diphenhydramine HCl (Benadryl Po*) 25 mg PO Q6H PRN PRN Reason: ITCHING Last Admin: 03/24/19 09:35 Dose: 25 mg Docusate Sodium (Colace Cap*) 100 mg PO BID [facility] Last Admin: 03/25/19 11:16 Dose: 100 mg Famotidine (Pepcid Iv*) 20 mg IV BID [facility] Last Admin: 03/25/19 10:45 Dose: Not Given Magnesium Hydroxide (Milk Of Magnesia Liq*) 30 ml PO DAILY PRN PRN Reason: CONSTIPATION Last Admin: 03/25/19 11:20 Dose: 30 ml Methylprednisolone Sodium Succinate (Solu-Medrol 40 Mg) 40 mg IV Q12H [facility] Last Admin: 03/25/19 06:20 Dose: 40 mg Mometasone Furoate/Formoterol Fumar (Dulera 200/5 Mdi*) 2 puff INH BID [facility] Last Admin: 03/25/19 11:17 Dose: 2 puff Ondansetron HCl (Zofran Inj*) 4 mg IV Q6H PRN PRN Reason: NAUSEA/VOMITING Oxycodone/Acetaminophen (Percocet 5/325 Tab*) 1 tab PO Q4H PRN PRN Reason: PAIN - MODERATE Last Admin: 03/24/19 07:23 Dose: 1 tab Oxycodone/Acetaminophen (Percocet 5/325 Tab*) 2 tab PO Q4H PRN PRN Reason: PAIN - SEVERE Last Admin: 03/23/19 18:41 Dose: 2 tab Tiotropium [place] (Spiriva Respimat 2.5 Mcg) 2 puff INH QAM [facility] Last Admin: 03/25/19 11:18 Dose: 2 puff Zolpidem Tartrate (Ambien Tab*) 10 mg PO BEDTIME PRN PRN Reason: INSOMNIA Vital Signs - 8 hr 03/25/19 03/25/19 03/25/19 07:28 11:00 12:14 Temperature 97.7 F 97.3 F Pulse Rate 63 73 Respiratory 16 16 18 Rate Blood Pressure 136/60 139/62 (mmHg) O2 Sat by Pulse 94 93 Oximetry Oxygen Devices in Use Now: None Appearance: Patient is a 73yo male who appears older than stated age and is sitting in the bed in [facility]. Eyes: No Scleral Icterus, PERRLA Ears/Nose/Mouth/Throat: NL Teeth, Lips, Gums, Clear Oropharnyx, Mucous Membranes Moist Neck: NL Appearance and Movements; NL JVP, Trachea Midline, - - Incision not visualized. Respiratory: Symmetrical Chest Expansion and Respiratory Effort, Clear to Auscultation Cardiovascular: NL Sounds; No Murmurs; No JVD, RRR, No Edema Abdominal: NL Sounds; No Tenderness; No Distention, No Hepatosplenomegaly Lymphatic: No Cervical Adenopathy Extremities: No Edema, No Clubbing, Cyanosis Skin: No Nodules or Sclerosis Neurological: Alert and Oriented x 3, NL Sensation, NL Gait, NL Muscle Strength and Tone, - - CN II-XII intact. Result Diagrams: 03/23/19 00:47 03/24/19 04:53 Microbiology and Other Data: Microbiology 03/23/19 02:35 Urine Culture - Final Urine No Growth (<1,000 CFU/mL) 03/23/19 00:47 Aerobic Blood Culture - Preliminary Blood Venous No Growth Day 1 Anaerobic Blood Culture - Preliminary No Growth Day 1 Assess/Plan/Problems-Billing Assessment: Mr. Collins is a 73 yo male with PMH of spinal stenosis , COPD, HLD, HTN who had elective posterior cervical decompression with spinal fusion c3-6 and is doing well post-op. - Patient Problems (1) S/P cervical spinal fusion Current Visit: Yes Status: Acute Code(s): Z98.1 - ARTHRODESIS STATUS SNOMED Code(s): 0253489703709 Comment: - POD #4 - Management per Neurosurgery - PT/OT - Continue pain management - Pending placement due to concerns with safety at home. May be able to be D/C' d home based on PT improvement (still needing help with bed mobility at last PT assessment) (2) Allergic reaction Current Visit: Yes Status: Acute Code(s): T78.40XA - ALLERGY, UNSPECIFIED, INITIAL ENCOUNTER SNOMED Code(s): 151648665 Comment: - Began overnight on 03/23 with hypoxia, low-grade fever, hives on back and legs , tachycardia; symptoms resolved but rash and itching recurred late this morning - Unknown source; drug vs bedsheets vs food vs ? - Posible that this is r/t hydrocodone as this is a new medication in the hospital; will switch to oxycodone to see if symptoms improve - Triple Washed Bed Sheets. - Change to oral steroids, Benadryl PRN - Rash on back and hands improving, no longer itching. (3) COPD (chronic obstructive pulmonary disease) Current Visit: Yes Status: Acute Code(s): J44.9 - CHRONIC OBSTRUCTIVE PULMONARY DISEASE, UNSPECIFIED SNOMED Code(s): 60727074 Comment: - Continue Spiriva, Dulera - No in acute exacerbation, no wheezing. (4) Hypertension Current Visit: No Status: Acute Code(s): I10 - ESSENTIAL (PRIMARY) HYPERTENSION SNOMED Code(s): 00892136 Comment: - Normotensive - Hold losartan and HCTZ, resume when indicated. - Continue amlodipine (5) Hyponatremia Current Visit: No Status: Acute Code(s): E87.1 - HYPO-OSMOLALITY AND HYPONATREMIA SNOMED Code(s): 49987220 Comment: - Mild - Due to unclear cause, possibly post-op meds and fluids - No overt symptoms, continue to monitor. (6) PAD (peripheral artery disease) Current Visit: No Status: Acute Code(s): I73.9 - PERIPHERAL VASCULAR DISEASE , UNSPECIFIED SNOMED Code(s): 672799624 Comment: - Not active issue. - Good Pulses in feet (7) Full code status Current Visit: Yes Status: Acute Code(s): Z78.9 - OTHER SPECIFIED HEALTH STATUS SNOMED Code(s): 927715134 Comment: (8) DVT prophylaxis Current Visit: No Status: Acute Priority: Low Code(s): Z29.9 - ENCOUNTER FOR PROPHYLACTIC MEASURES, UNSPECIFIED SNOMED Code(s): 709365168 Comment: - SCDs Status and Disposition: Inpatient. Anticipate d/c to [facility], Likely D/C Wednesday.
[2019-03-26 04:46] LABS: ABS Lymphocytes 0.9 10^3/ul (1.0-4.8); ABS Monocytes 0.9 10^3/ul (0-0.8); ABS Neutrophils 4.6 10^3/ul (1.5-7.7); Eosinophil % 0.6 %; Hematocrit 33 % (42-52); Hemoglobin 11.3 g/dL (14.0-18.0); Lymphocyte % 13.7 %; Mean Corpuscular HGB Conc 34 g/dL (31-36); Mean Corpuscular Hemoglobin 29 pg (27-31); Mean Corpuscular Volume 84 fL (80-94); Mean Platelet Volume 6.8 fL (7.4-10.4); Platelet Count 317 10^3/uL (150-450); Red Blood Count 3.92 10^6 /uL (4.18-5.48); Red Cell Distribution Width 15 % (10-15); White Blood Count 6.5 10^3/uL (3.5-10.8)
[2019-03-26 05:02] LABS: BUN/Creatinine Ratio 37.3 (8-20); Calcium 8.5 mg/dL (8.6-10.3); EGFR Non-African American 133.9 (>60); Potassium 4.1 mmol/L (3.5-5.0)
[2019-03-26] MEDS: Acetaminophen TAB* 325 MG PO PRN (07:59)
[2019-03-26] MEDS: Docusate CAP* 100 MG PO SCH ×2 (08:00→21:33)
[2019-03-26] MEDS: Famotidine IV* 10 MG/ML 2 ML (20 mg) IV SCH (08:00)
[2019-03-26] MEDS: SPIRIVA Respimat* (tiotropium) 2.5 mcg/inh Inhaler INH SCH (08:01)
[2019-03-26] MEDS: Atorvastatin* 10 MG TAB PO SCH (08:01)
[2019-03-26] MEDS: Mometasone/Formoter 200/5 MDI INH SCH ×2 (08:01→20:58)
[2019-03-26] MEDS: amLODIPine TAB* 5 MG PO SCH (08:01)
[2019-03-26] MEDS: predniSONE TAB* 20 MG PO SCH (08:01)
--- NOTE | 2019-03-26 08:23 | PN ---
Subjective Date of Service: 03/26/19 Interval History: Patient feeling well this morning. He was hoping to try to go home but PT eval yesterday is consistent with patient benefitting from subacute rehab. Patient is agreeable. Complains of pain in right shoulder blade this AM which has since improved with tylenol and resting. Denies chest pain, difficulty breathing, bowel/bladder incontinence, numbness/weakness in extremities, fever/chills. Family History: Unchanged from Admission Social History: Unchanged from Admission Past Medical History: Unchanged from Admission Objective Active Medications: Acetaminophen (Tylenol Tab*) 650 mg PO Q4H PRN PRN Reason: MILD PAIN or TEMP > 100.4 Last Admin: 03/26/19 07:59 Dose: 650 mg Albuterol/Ipratropium (Duoneb (Albuterol 2.5 Mg/Ipratropium 0.5 Mg)) 1 neb INH Q6H PRN PRN Reason: SOB/WHEEZING Amlodipine Besylate (Norvasc Tab*) 5 mg PO QAM [facility] Last Admin: 03/26/19 08:01 Dose: 5 mg Atorvastatin Calcium (Lipitor*) 10 mg PO QAM [facility] Last Admin: 03/26/19 08:01 Dose: 10 mg Cyclobenzaprine HCl (Flexeril Tab*) 10 mg PO TID PRN PRN Reason: SPASMS Last Admin: 03/21/19 21:00 Dose: 10 mg Diphenhydramine HCl (Benadryl Po*) 25 mg PO Q6H PRN PRN Reason: ITCHING Last Admin: 03/24/19 09:35 Dose: 25 mg Docusate Sodium (Colace Cap*) 100 mg PO BID [facility] Last Admin: 03/26/19 08:00 Dose: 100 mg Famotidine (Pepcid Iv*) 20 mg IV BID [facility] Last Admin: 03/26/19 08:00 Dose: 20 mg Magnesium Hydroxide (Milk Of Magnesia Liq*) 30 ml PO DAILY PRN PRN Reason: CONSTIPATION Last Admin: 03/25/19 11:20 Dose: 30 ml Mometasone Furoate/Formoterol Fumar (Dulera 200/5 Mdi*) 2 puff INH BID [facility] Last Admin: 03/26/19 08:01 Dose: 2 puff Ondansetron HCl (Zofran Inj*) 4 mg IV Q6H PRN PRN Reason: NAUSEA/VOMITING Oxycodone/Acetaminophen (Percocet 5/325 Tab*) 1 tab PO Q4H PRN PRN Reason: PAIN - MODERATE Last Admin: 03/24/19 07:23 Dose: 1 tab Oxycodone/Acetaminophen (Percocet 5/325 Tab*) 2 tab PO Q4H PRN PRN Reason: PAIN - SEVERE Last Admin: 03/23/19 18:41 Dose: 2 tab Prednisone (Deltasone Tab*) 60 mg PO DAILY [facility] Last Admin: 03/26/19 08:01 Dose: 60 mg Tiotropium Sylvester (Spiriva Respimat 2.5 Mcg) 2 puff INH QAM [facility] Last Admin: 03/26/19 08:01 Dose: 2 puff Vital Signs - 8 hr 03/26/19 03/26/19 03:33 07:16 Temperature 98.2 F 98.3 F Pulse Rate 60 66 Respiratory 16 16 Rate Blood Pressure 131/70 137/71 (mmHg) O2 Sat by Pulse 94 Oximetry Oxygen Devices in Use Now: None Appearance: Thin, elderly male, appears stated age, laying upright, appearing in NAD Eyes: No Scleral Icterus, PERRLA Ears/Nose/Mouth/Throat: Mucous Membranes Moist Neck: - - cervical collar Respiratory: Symmetrical Chest Expansion and Respiratory Effort, Clear to Auscultation Cardiovascular: NL Sounds; No Murmurs; No JVD, RRR Abdominal: - - abd soft Extremities: No Edema, No Clubbing, Cyanosis, - - Full active ROM of right shoulder; no tenderness to palpation throughout right scapula or shoulder joint Skin: No Rash or Ulcers Neurological: Alert and Oriented x 3, - - LE strength 5/5, RUE arm flexion with resistance +4/5, LUE is 5/5; medical esthetician strength bilaterally 5/5 Result Diagrams: 03/26/19 04:40 03/26/19 04:40 Microbiology and Other Data: Microbiology 03/23/19 02:35 Urine Culture - Final Urine No Growth (<1,000 CFU/mL) 03/23/19 00:47 Aerobic Blood Culture - Preliminary Blood Venous No Growth Day 1 Anaerobic Blood Culture - Preliminary No Growth Day 1 Assess/Plan/Problems-Billing Assessment: Mr. [place] is a 73 yo male with PMH of spinal stenosis , COPD, HLD, HTN who had elective posterior cervical decompression with spinal fusion c3-6 and is doing well post-op. - Patient Problems (1) S/P cervical spinal fusion Current Visit: Yes Status: Acute Code(s): Z98.1 - ARTHRODESIS STATUS SNOMED Code(s): 0280103268647 Comment: - POD #5 - Management per Neurosurgery - PT/OT - Continue pain management. Patient has not been requesting prn percocet over the last 2 days indicating good pain control - Pending SHALA placement, has bed at [facility] (2) SVT (supraventricular tachycardia) Current Visit: Yes Status: Acute Code(s): I47.1 - SUPRAVENTRICULAR TACHYCARDIA SNOMED Code(s): 5674186 Comment: -patient had 16 beats of asymptomatic SVT yesterday evening while resting comfortably in bed -no events on tele since then -will continue tele (3) Allergic reaction Current Visit: Yes Status: Acute Code(s): T78.40XA - ALLERGY, UNSPECIFIED, INITIAL ENCOUNTER SNOMED Code(s): 811091088 Comment: - Began overnight on 03/23 with hypoxia, low-grade fever, hives on back and legs , tachycardia; symptoms resolved but rash and itching recurred 03/25 - Unknown source; drug vs bedsheets vs food vs ? - Possible that this is r/t hydrocodone as this is a new medication in the hospital; Has overall improved since switch to oxycodone - Triple Washed Bed Sheets. - Continue oral steroids, Benadryl PRN, changed IV famotidine to oral. - Rash on back and hands continues to improve. No c/o itching (4) Hyponatremia Current Visit: No Status: Acute Code(s): E87.1 - HYPO-OSMOLALITY AND HYPONATREMIA SNOMED Code(s): 28982236 Comment: - Was initially mild, now resolving - Unclear cause, possibly post-op meds and fluids (5) COPD (chronic obstructive pulmonary disease) Current Visit: Yes Status: Acute Code(s): J44.9 - CHRONIC OBSTRUCTIVE PULMONARY DISEASE, UNSPECIFIED SNOMED Code(s): 97270283 Comment: - Continue Spiriva, Dulera - No in acute exacerbation, no wheezing. (6) Hypertension Current Visit: No Status: Acute Code(s): I10 - ESSENTIAL (PRIMARY) HYPERTENSION SNOMED Code(s): 11304788 Comment: - Normotensive overall despite holding home losartan and HCTZ, though BP is slowly increasing - Will restart home losartan. Continue holding home HCTZ to avoid orthostasis in postoperative setting - Continue amlodipine (7) PAD (peripheral artery disease) Current Visit: No Status: Acute Code(s): I73.9 - PERIPHERAL VASCULAR DISEASE , UNSPECIFIED SNOMED Code(s): 190897597 Comment: - Not active issue (8) Full code status Current Visit: Yes Status: Acute Code(s): Z78.9 - OTHER SPECIFIED HEALTH STATUS SNOMED Code(s): 220071807 Comment: (9) DVT prophylaxis Current Visit: No Status: Acute Priority: Low Code(s): Z29.9 - ENCOUNTER FOR PROPHYLACTIC MEASURES, UNSPECIFIED SNOMED Code(s): 254312480 Comment: - SCDs Status and Disposition: Inpatient. Anticipate d/c to [facility], Likely D/C Wednesday.
[2019-03-26] MEDS: oxyCODONE/Acetamin 5/325 MG* TAB PO PRN ×2 (11:13→21:33)
[2019-03-26] MEDS: Losartan TAB* 25 MG PO SCH (11:14)
--- NOTE | 2019-03-26 15:53 | PN ---
Progress Note - Progress Note Date of Service: 03/26/19 SOAP: Subjective: []Patient seen and examined. No events ON. On cervical collar. Ambulates well. Voids. Tolerates po well. Pain well controlled. Wants to go to rehab. Objective: [] VSS, Afebrile Wound s,c,d AAOx3, ERIKA, CN II-XII grossly intact Motor 5/5 all extremities, can abduct both UEs above shoulder level well. Sensory grossly intact to light touch. 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 IS. Keep cervical collar on. DC planning, placement. Possible rehab on Wednesday. DC instructions were given to the patient. No lifting, no bending, no driving. Keep incision dry. May shower. No baths. Follow up in ofice in 7-10 days. Appreciate IM care. Chastity Martines MD
[2019-03-26] MEDS ORDERED: Polyethylene Glycol 3350* 17 GM PACKET PO PRN (19:08)
[2019-03-27] MEDS: SPIRIVA Respimat* (tiotropium) 2.5 mcg/inh Inhaler INH SCH (07:41)
[2019-03-27] MEDS: Mometasone/Formoter 200/5 MDI INH SCH (07:42)
[2019-03-27] MEDS ORDERED: Famotidine TAB* 20 MG PO SCH (09:00)
[2019-03-27] MEDS: amLODIPine TAB* 5 MG PO SCH (09:22)
[2019-03-27] MEDS: predniSONE TAB* 20 MG PO SCH (09:22)
[2019-03-27] MEDS: Losartan TAB* 25 MG PO SCH (09:22)
[2019-03-27] MEDS: Docusate CAP* 100 MG PO SCH (09:22)
[2019-03-27] MEDS: Atorvastatin* 10 MG TAB PO SCH (09:22)
[2019-03-27] MEDS: oxyCODONE/Acetamin 5/325 MG* TAB PO PRN (09:36)
[2019-03-27 11:09] VITALS: BP 99/58
--- NOTE | 2019-03-27 11:52 | DS ---
CC: Arlette Vargas NP; Dr. Martines * DATE OF ADMISSION: 03/21/2019. DATE OF DISCHARGE: 03/27/2019. PRIMARY CARE PHYSICIAN: Arlette Vargas NP. NEUROSURGEON: Dr. Martines. ATTENDING PHYSICIAN WHILE IN THE HOSPITAL: Dr. Kay Hernandez * (dictated by LORENZO Dasilva). PRIMARY DIAGNOSES: 1. Status post posterior cervical decompression of C3 through C6 for cervical spondylotic myelopathy. 2. Hives of unclear etiology, now resolved, presumed to be an allergic reaction to potentially bedsheets or Hydrocodone. SECONDARY DIAGNOSES: 1. Hyperlipidemia. 2. Hypertension. 3. COPD. 4. Recent history of MSSA sepsis in November 2018, status post completion of six week course of IV antibiotics. 5. Spinal stenosis. PROCEDURES WHILE IN THE HOSPITAL: C3 to C6 posterior cervical decompression with Dr. Martines on 03/21/2019. Please see operative report for further details. HISTORY OF PRESENT ILLNESS/HOSPITAL COURSE: Jay [place] is a 73-year-old, white male with a past medical history significant for spinal stenosis, hyperlipidemia , hypertension, COPD, and recent sepsis who presented for elective posterior cervical decompression by Dr. Martines on 03/21/2019. Hospital Medicine was consulted for comanagement of chronic medical conditions as well as discharge planning. The patient had good progression after surgery and good pain control, except for when he was on Hydrocodone which is possibly the cause of his itching on his hands and back. After the patient was started on Benadryl and Famotidine, symptoms resolved. The patient worked with Physical Therapy and had good progress, but did show need for subacute rehab prior to returning home. He additionally had very good control of his blood pressure during his hospital stay despite only taking Amlodipine. He did complain of right shoulder pain during his hospital stay along his right scapula; however, his musculoskeletal exam was normal and this was thought to be musculoskeletal related to positioning, especially considering activity was restricted while wearing a cervical collar. Dr. Martines continued to follow the patient during his hospital stay and agreed with discharge. On the day of discharge, the patient is feeling well, is only complaining of mild pain of his right shoulder. He has no complaint of pain at his cervical site. He denies bowel or bladder incontinence, paresthesias, anesthesias, weakness, pain radiating down his arms, chest pain, difficulty breathing. PHYSICAL EXAMINATION ON THE DAY OF DISCHARGE: General: Thin, elderly, white male sitting in a hospital chair, appearing comfortable, in on acute distress, wearing a cervical collar. Eyes: PERRL. Sclerae anicteric. ENT: Mucous membranes moist. Lungs: Clear to auscultation throughout. Cardio: Regular rate and rhythm without murmurs, rubs, or gallops. Abdomen: Soft, nontender, and nondistended. Extremities: No clubbing, cyanosis, or edema. Neuro: Strength is 5/5 in all extremities. Sensation to light touch is grossly intact throughout and equal. The patient was alert and oriented time three without focal deficits. DISCHARGE PLAN: The patient will be working with Physical Therapy and Occupation Therapy at subacute rehab at [facility] in [place]. His daughter is taking him there by private vehicle. He is to follow-up with Dr. Martines in seven to ten days. Additionally, he should follow-up with his primary care provider within one week of discharge from subacute rehab. While he is at [facility] for rehab, he should have his blood pressure checked to ensure that his blood pressure is still under good control in light of my discontinuation of Hydrochlorothiazide as it appeared he did not need it during his hospital stay. DISCHARGE MEDICATIONS: 1. Naproxen 440 mg p.o. daily prn pain. 2. Simvastatin 20 mg p.o. daily. 3. Amlodipine 5 mg p.o. daily. 4. Spiriva one cap inhaled daily. 5. Oxycodone/acetaminophen 5/325 mg one tab p.o. q.4 hours prn pain. 6. MiraLax 17 gm p.o. daily prn constipation. 7. Milk of Magnesia 30 ml p.o. daily prn constipation. 8. Losartan 100 mg p.o. daily. 9. Colace 100 mg p.o. b.i.d. 10. Flexeril 10 mg p.o. t.i.d. prn muscle spasms. 11. Tylenol 650 mg p.o. q.4 hours prn pain. DIET: Regular, unrestricted diet. ACTIVITY: Patient is to avoid lifting, bending, and driving and otherwise may return to normal activities. CONDITION ON DISCHARGE: Stable. DISPOSITION: [facility] for subacute rehab. TIME SPENT: Approximately 40 minutes were spent on this discharge, approximately half of this time was spent at bedside evaluating the patient and discussing the plan of care. LORENZO DASILVA [id number]/[facility] #: [id number] ANGEL
--- NOTE | 2019-03-27 20:23 | PN ---
Progress Note - Progress Note Date of Service: 03/27/19 Note: Patient was dc earlier today to Rehab. Appreciate IM care. Chastity Martines MD
== END 2019-03-27 13:13 | DRG 472 ==
LOC: AA 03-21 05:39 → SSU 03-21 11:50
PROVIDERS: ADMIT Neurological Surgery; ATTEND Neurological Surgery
PROC: 00NW0ZZ Release Cervical Spinal Cord, Open Approach (ICD-10-PCS; 2019-03-21)
PROC: 0RG2071 Fusion of 2 or more Cervical Vertebral Joints with Autologous Tissue Substitute, Posterior Approach, Posterior Column, Open Approach (ICD-10-PCS; principal; 2019-03-21 07:30)
DX: M47.12 Other spondylosis with myelopathy, cervical region (principal); M50.021 Cervical disc disorder at C4-C5 level with myelopathy; I47.1 Supraventricular tachycardia; E87.1 Hypo-osmolality and hyponatremia; M48.02 Spinal stenosis, cervical region; M41.9 Scoliosis, unspecified; F17.210 Nicotine dependence, cigarettes, uncomplicated; M25.78 Osteophyte, vertebrae; M51.34 Other intervertebral disc degeneration, thoracic region; M51.36 Other intervertebral disc degeneration, lumbar region; L50.0 Allergic urticaria; E78.5 Hyperlipidemia, unspecified; I10 Essential (primary) hypertension; J44.9 Chronic obstructive pulmonary disease, unspecified; T40.2X5A Adverse effect of other opioids, initial encounter; Y92.230 Patient room in hospital as the place of occurrence of the external cause; M25.511 Pain in right shoulder; R09.02 Hypoxemia; I73.9 Peripheral vascular disease, unspecified; Z79.899 Other long term (current) drug therapy; Z79.1 Long term (current) use of non-steroidal anti-inflammatories (NSAID); Z83.3 Family history of diabetes mellitus; Z80.8 Family history of malignant neoplasm of other organs or systems
CPT/HCPCS: 36415; 71045; 72020; 72040; 76000; 80048; 80053; 81003; 81015; 83605; 83735; 83880; 84484; 85025; 86140; 87040; 87086; 93005; 94640; A9270-GY; C1713; C1776; G8978-GP-CK; G8979-GP-CI; G8987-GO-CK; G8988-GO-CI; J0330; J0690; J1100; J1200; J2250; J2405; J2704; J2710; J2920; J3010; J3490; J3535; J7512